=== PATIENT | male | born 2000 | race Caucasian/White ===

== ENCOUNTER 2018-11-03 16:34 | Emergency (ER) | payer SELFPAY ==
[2018-11-03 16:35] VITALS: BP 127/77; PULSE 91; RESP 17; TEMP 36.7; O2SAT 100; BMI 22.1
--- NOTE | 2018-11-03 16:44 | ED.VISSUMM ---
- ER Visit Summary Date of Service: 11/03/18 Chief Complaint: Headache History of Present Illness: The patient is a 18 M who presents with headaches that have been more frequent over the past 4 days. Patient describes the pain is sharp and stabbing. Patient states the pain comes and goes. Patient states the pain is in no specific area of his head. Patient states nothing makes pain better or worse. Patient does admit to some episodes of confusion and forgetfulness. Patient states he has been feeling fatigued as well. Patient also admits to some lightheadedness and dizziness. Patient admits to some nausea but denies any vomiting. Patient states he does have a family history of brain cancer and is concerned about that. Physical Examination: Vital signs are stable. Patient is afebrile. Patient is in no acute distress. Pupils are equal, round, and reactive to light bilaterally. Extraocular muscles are intact. Funduscopic examination is benign bilaterally. Oral mucosa is pink and moist. Neck is supple. Trachea is midline. There is no JVD noted. Heart was regular rate and rhythm. Lungs are clear and equal bilateral. Abdomen is soft. Bowel sounds are normal. There is no tenderness. There is no guarding noted. Skin is warm dry. Cranial nerves II through XII are intact. There are no focal motor or sensory deficits noted. The remaining physical exam is within normal limits. Test Results: CT scan of the brain was obtained and was negative. CBC and comprehensive metabolic profile were within normal limits. Emergency Department Course and Treatment: Patient was given IV fluids, Reglan, and Benadryl. Patient felt better on reevaluation. Patient was instructed to follow-up with his primary care physician and neurologist in 5-7 days. Patient understood and was agreeable with the plan. All questions were answered. Disposition: Discharge home Impression: Headache This note was generated with [employer] dictation software. It may contain incorrect words, spelling, and punctuation that were not noted in review of the chart prior to signing ED Disposition - Plan for ED Patient: Disposition: Home or Assisted Living Chief Complaint: Weakness Diagnosis: Headache Instructions: ED Cephalgia Unspecified Referrals: Care Physician,No Primary [Primary Care Provider] -
--- NOTE | 2018-11-03 16:50 | ED.DCSUM_ITS ---
- ER Visit Summary Date of Service: 11/03/18 Chief Complaint: Headache History of Present Illness: The patient is a 18 M who presents with headaches that have been more frequent over the past 4 days. Patient describes the pain is sharp and stabbing. Patient states the pain comes and goes. Patient states the pain is in no specific area of his head. Patient states nothing makes pain better or worse. Patient does admit to some episodes of confusion and forgetfulness. Patient states he has been feeling fatigued as well. Patient also admits to some lightheadedness and dizziness. Patient admits to some nausea but denies any vomiting. Patient states he does have a family history of brain cancer and is concerned about that. Physical Examination: Vital signs are stable. Patient is afebrile. Patient is in no acute distress. Pupils are equal, round, and reactive to light b ilaterally. Extraocular muscles are intact. Funduscopic examination is benign bilaterally. Oral mucosa is pink and moist. Neck is supple. Trachea is midline. There is no JVD noted. Heart was regular rate and rhythm. Lungs are clear and equal bilateral. Abdomen is soft. Bowel sounds are normal. There is no tenderness. There is no guarding noted. Skin is warm dry. Cranial nerves II through XII are intact. There are no focal motor or sensory deficits noted. The remaining physical exam is within normal limits. Test Results: CT scan of the brain was obtained and was negative. CBC and comprehensive metabolic profile were within normal limits. Emergency Department Course and Treatment: Patient was given IV fluids, Reglan, and Benadryl. Patient felt better on reevaluation. Patient was instructed to follow-up with his primary care physician and neurologist in 5-7 days. Patient understood and was agreeable with the plan. All questions were answered. Disposition: Discharge home Impression: Headache This note was generated with [employer] dictation software. It may contain incorrect words, spelling, and punctuation that were not noted in review of the chart prior to signing ED Disposition - Plan for ED Patient: Disposition: Home or Assisted Living Chief Complaint: Weakness Diagnosis: Headache Instructions: ED Cephalgia Unspecified Referrals: Care Physician,No Primary [Primary Care Provider] -
--- NOTE | 2018-11-03 16:50 | CT_ITS ---
STUDY: CT BRAIN WITHOUT CONTRAST REASON FOR EXAM: Male, 18 years old. Headaches, weakness RADIATION DOSAGE (If Supplied By Facility): CTDIvol = ( 44.99 ) mGy, DLP = ( 779.24 ) mGycm TECHNIQUE: Transaxial CT imaging of the brain was performed without administration of intravenous contrast material. Individualized dose optimization techniques were used for this CT. COMPARISON: None. FINDINGS: Normal soft tissue structures. Normal calvarium. Normal size ventricles and extra-axial spaces for the patient's age. Normal white matter tracts of the cerebral hemispheres. Normal basal ganglia and thalami. Normal brainstem. Normal cerebellum. There is no intracranial hemorrhage. There are no findings of an acute ischemic infarction. Normal visualized paranasal sinuses. CT/Brain/Head without Contrast IMPRESSION: Normal unenhanced CT scan of the brain. Electronically Signed: Agustin García MD at 17:35 EST , Service support ,
[2018-11-03] MEDS: Metoclopramide 10 MG/2 ML Vial IV (17:06)
[2018-11-03] MEDS: DiphenhydrAMINE 50 MG/ML Syringe 25 MG IV (17:07)
[2018-11-03] MEDS: 0.9% Normal Saline 1,000 ML 1000 ML IV (17:07)
[2018-11-03 17:15] LABS: Absolute Lymphocyte Count 1.26 X10^3/ul (0.83-4.51); Absolute Neutrophil Count 3.2 X10^3/uL (2.0-7.7); Basophil# 0.01 X10^3/uL; Basophil% 0.2 % (0-1); Eosinophil# 0.09 X10^3/uL; Eosinophils% 1.8 % (0-5); Hematocrit 44.9 % (40-54); Hemoglobin 15.1 g/dl (13.0-16.5); Lymphocyte # 1.26 X10^3/ul (4.0); Lymphocyte % 25.5 % (19-41); Mean Corp Hgb Conc 33.6 g/gl (32-36); Mean Corpuscular Hgb 29.2 pg (27.0-32.0); Mean Corpuscular Volume 86.7 fL (80-94); Monocyte# 0.39 X10^3/uL; Monocyte% 7.9 % (0-10); Neutrophil % 64.6 % (47-70); Platelet Count 191 K/mm3 (150-450); RBC Distribution Width SD 37.7 fl (35.1-43.9); Red Blood Count 5.18 M/mm3 (4.6-6.2)
[2018-11-03 17:23] LABS: POSITIVE COUNT NO; POSITIVE DIFFERENTIAL NO; POSITIVE MORPHOLOGY NO
[2018-11-03 17:27] LABS: ALB/GLOB Ratio 1.4 RATIO (0.9-2.4); AST(SGOT) 14 U/L (15-37); Alanine Aminotransfer ALT/SGPT 33 U/L (16-61); Albumin, Serum 4.4 g/dL (3.2-5.0); Alkaline Phosphatase 87 U/L (45-117); Anion Gap 9 (5-15); BUN 11 mg/dL (7-18); BUN/Creat Ratio 11.5 RATIO (10-20); Calcium,Total 9.2 mg/dL (8.5-10.1); Chloride 103 mmol/L (98-107); Creatinine, Serum 0.96 mg/dL (0.70-1.30); EST Glomerular Filtration Rate 107 mL/min (>60); Est Glom Filt Rate - Afr Amer 129 mL/min (>60); Estimated Creatinine Clearance 111.11 ml/min; Globulin 3.1 g/dL (2.2-4.2); Glucose 124 mg/dL (74-106); Potassium 3.7 mmol/L (3.5-5.1); Protein, Total 7.5 g/dL (6.4-8.2); Sodium Level 141 mmol/L (136-145)
[2018-11-03 18:54] VITALS: BP 130/72; PULSE 80; RESP 18; O2SAT 98
== END 2018-11-03 18:55 | disposition home or self-care (01) ==
PROVIDERS: Emergency Provider Emergency Medicine
DX: R51 Headache (principal); R53.1 Weakness; M54.2 Cervicalgia; R11.0 Nausea; H53.8 Other visual disturbances; J34.89 Other specified disorders of nose and nasal sinuses; F95.2 Tourette's disorder; Z80.8 Family history of malignant neoplasm of other organs or systems
CPT/HCPCS: 70450; 80053; 85025; 96361; 96374; 96375; 99283; J7030; A4216

== ENCOUNTER 2020-02-03 22:10 | Emergency (ER) | payer MEDICAID, SELFPAY ==
[2020-02-03 22:11] VITALS: BP 143/98; PULSE 92; RESP 16; TEMP 36.6; O2SAT 98; BMI 18.2
--- NOTE | 2020-02-03 22:45 | ED.VISSUMM ---
- ER Visit Summary Date of Service: 02/03/20 Chief Complaint: Dental pain History of Present Illness: The patient is a 19 M with no primary care physician. Reports he goes to the [facility] for his dentistry. States that he has pain in the right mandible that began 2 days ago. Is gradually gotten worse. Is a throbbing, aching pain is 10-10 severity. Is worsened by talking and eating. He is taken ibuprofen without relief. Does report he is got swelling to his jaw. He denies any constitutional symptoms. No fever, chills, nausea, or vomiting. Physical Examination: Vitals: Stable. Afebrile. Mouth: No trismus. No edema of the floor of the mouth. Pain with percussion of right mandibular second and third molars. The third molar is impacted. There is no focal abscess. He does have mild soft tissue swelling to the right mandibular region. General: A&O x 3. NAD. Cardiovascular exam: Regular rate and rhythm, no murmur, rub or gallop. Respiratory exam: Clear to auscultation bilaterally. No wheezes or stridor. Abdominal exam: Soft, nontender, nondistended, normal bowel sounds. No peritoneal signs. Extremity: No clubbing, cyanosis, or edema. Emergency Department Course and Treatment: I discussed with the patient that this may be from his impacted wisdom tooth. However, I cannot rule out infection. He was given Tylenol and penicillin here. Treatment Plan: Patient be discharged with penicillin, naproxen, and 10 [place]. Instructed to follow-up with the [facility] as soon as possible. Return to the emergency department for any worsening symptoms. Disposition: To home in improved and stable condition. Impression: 1. Dental pain. This note was generated with [employer] dictation software. It may contain incorrect words, spelling, and punctuation that were not noted in review of the chart prior to signing ED Disposition - Plan for ED Patient: Disposition: Home or Assisted Living Instructions: ED Tooth Pain Prescriptions: Naproxen [Naprosyn] 500 mg PO BID #14 tab Prescription Printed Hydrocodone Bitart/Apap 5-325 [[place] 5MG-325MG] 1 tab PO Q4H PRN PRN 2 Days #10 tab PRN Reason: Pain Prescription Printed Penicillin V Potassium 500 mg PO 4X/DAY #40 tab Prescription Printed Omeprazole [Prilosec] 20 mg PO DAILY #30 cap Prescription Printed Referrals: Stacey Villaseñor [NON-STAFF] - As soon as possible
[2020-02-03] MEDS: Acetaminophen 500 MG Tablet 1000 MG PO (22:49)
[2020-02-03] MEDS: Penicillin Vk 250 MG Tablet 500 MG PO (22:49)
== END 2020-02-03 23:16 | disposition home or self-care (01) ==
PROVIDERS: Emergency Provider Emergency Medicine
DX: K08.89 Other specified disorders of teeth and supporting structures (principal)
CPT/HCPCS: 99285

== ENCOUNTER 2020-03-19 15:29 | Emergency (ER) | payer MEDICAID, SELFPAY ==
[2020-03-19 15:29] VITALS: BP 132/92; PULSE 85; RESP 16; TEMP 36.6; O2SAT 97; BMI 21.4
--- NOTE | 2020-03-19 15:42 | ED.DCSUM_ITS ---
History of Present Illness Chief Complaint: Burn Detail of Chief Complaint: Left index finger Informant: Patient Onset: Today Current Severity: Moderate Maximum Severity: Moderate Narrative: Patient presents with burn to the left index finger after picking a higuera up off the stove. Area is blistered but is not open at this time. Past Medical History - Allergies and Home Meds Allergies/Adverse Reactions: Allergies No Known Allergies Allergy (Verified 03/19/20 15:30) Primary Care Physician: Shane Victoira MD [STAFF PHYSICIAN] - As Needed Prior records reviewed: Yes Smoking Status: Never smoker Review of Systems General: Denies: Chills, Fever Eyes: Denies: Visual changes - bilaterally ENT: Denies: Bilateral ear pain Cardiovascular: Denies: Chest pain Respiratory: Denies: Dyspnea, Cough Gastrointestinal: Denies: Abdominal pain, Nausea, Vomiting, Diarrhea Skin: Reports: Wounds Hematologic: Denies: Easy bruising, Easy bleeding Allergy: Denies: Uticaria Physical Exam Vital Signs/Narrative: Vital Signs Temp Pulse Resp BP Pulse Ox 03/19/20 15:29 97.8 F 85 16 132/92 H 97 Inital Vital Signs reviewed: Yes General: Well nourished, Well developed ENT: Moist mucous membranes Neck: Supple Cardiovascular: Regular rate, Regular rhythm Respiratory: No distress, CTA bilaterally Abdomen: Soft, Nontender Extremities: - - 1 x 4 cm second-degree burn to the left index finger. Full range of motion is noted. Wound is not circumferential. Skin: - - Second-degree burn as above Neurological: Alert, Oriented x3 Psychological: Normal affect Diagnostic/Tx/Re-eval - Medical Decision Making Wound is cleansed. Silvadene cream and dressing will be applied. He will change dressing daily. He will begin a prescription for [place] to help with pain at home. He is given work restrictions for the next week with limited use of left hand. ED Disposition - Plan for ED Patient: Disposition: Home or Assisted Living Diagnosis: Second degree burn of left hand Instructions: ED First- and Second-[facility] Prescriptions: Hydrocodone Bitart/Apap 5-325 [[place] 5MG-325MG] 1 tablet PO Q6H PRN PRN 3 Days #10 tablet PRN Reason: Pain Transmission Status: Sent to [facility] #30 Referrals: Shane Victoria MD [STAFF PHYSICIAN] - As Needed
[2020-03-19] MEDS: Silver Sulfadiazine 1% Crm 50 gm Bottle 1 APPLIC TOPICAL (16:09)
[2020-03-19 16:11] VITALS: BP 122/74; PULSE 71; RESP 17; O2SAT 99
== END 2020-03-19 16:11 | disposition home or self-care (01) ==
PROVIDERS: Emergency Provider Emergency Medicine
DX: T23.202A Burn of second degree of left hand, unspecified site, initial encounter (principal); T23.022A Burn of unspecified degree of single left finger (nail) except thumb, initial encounter; X08.8XXA Exposure to other specified smoke, fire and flames, initial encounter; Y93.9 Activity, unspecified; Y92.89 Other specified places as the place of occurrence of the external cause; Y99.9 Unspecified external cause status
CPT/HCPCS: 99282

== ENCOUNTER 2020-05-13 17:28 | Emergency (ER) | payer MEDICAID, SELFPAY ==
[2020-05-13 17:29] VITALS: BP 136/86; PULSE 87; RESP 16; TEMP 36.9; O2SAT 99; BMI 19.3
--- NOTE | 2020-05-13 18:09 | ED.VIS.CHEST ---
History of Present Illness Chief Complaint: Chest Pain Informant: Patient Onset: - - multiple years, worse in past 3 days, almost constant Timing: Intermittent Quality: Sharp Location: - - bilat, seems to jump around Current Severity: Gone Maximum Severity: Moderate Worsened By: Nothing. Not Worsened By: Movement of Arm, Breathing, Coughing Relieved By: Nothing - in particular, other than puffs from 's albuterol MDI once Associated Symptoms: Negative for: Nausea, Vomiting, Diaphoresis, Dyspnea, Cough, Fever, Lightheadedness, Palpitations Narrative: Patient states he has been having this intermittent sharp chest discomfort for years but it is worse in the last 3 days. It is the same however. He has no PCP. He states he has Tourette's syndrome and so saw neurology, he was seen in the ER for abdominal pain multiple times he states, and as a result was referred to GI, they put him on some prescriptions 6 or 7 months ago that he admits he stopped taking a long time ago, he started taking them this morning but he has no idea what they are, because he has had increase in upper abdominal pain lately in addition to this chest discomfort, in addition to his anxiety being out of control in the last several days. He denies any wheezing or shortness of breath. No leg pain or swelling. No recent long travel or hospitalization. He does not use any IV drugs. No systemic symptoms, lightheadedness, palpitations. - Past Medical History (1) Anxiety Status: Chronic (2) Tourette syndrome Status: Chronic Past Medical History - Allergies and Home Meds Allergies/Adverse Reactions: Allergies No Known Allergies Allergy (Verified 05/13/20 17:29) Primary Care Physician: Care Physician,No Primary [Primary Care Provider] - Lives: Spouse/ Significant Other Smoking Status: Never smoker Review of Systems General: Denies: Chills, Fever, Sweats Eyes: Denies: Visual changes - bilaterally, Diplopia ENT: Denies: Rhinorrhea, Sore throat Cardiovascular: Reports: Chest pain. Denies: Palpitations Respiratory: Denies: Dyspnea, Cough, Dyspnea on exertion Gastrointestinal: Reports: Abdominal pain - Not currently present. Denies: Nausea, Vomiting, Diarrhea, Melena, Hematochezia Genitourinary: Denies: Dysuria, Hematuria, Frequency Musculoskeletal: Denies: Neck pain, Back pain, Swelling, Extremity Pain Skin: Denies: Rash, Wounds Neurological: Denies: Headache, Weakness, Numbness Physical Exam Vital Signs/Narrative: Vital Signs Temp Pulse Resp BP Pulse Ox 05/13/20 17:29 98.4 F 87 16 136/86 H 99 Inital Vital Signs reviewed: Yes General: Well nourished, Well developed, No Acute Distress - Conversive in full sentences, no distress Head: Normocephalic, Atraumatic Eyes: Perrl, EOMI ENT: Moist mucous membranes, No rhinorrhea Neck: Supple, Nontender Cardiovascular: Regular rate, Regular rhythm, No murmurs Respiratory: No distress, CTA bilaterally, Chest nontender Abdomen: Soft, Nontender, Nondistended, Normal bowel sounds Back: Nontender, Normal Inspection Extremities: Nontender, No edema. Negative for: Calf Tenderness Skin: Normal color, No rash, No Trauma Neurological: Alert, Oriented x3, Cranial nerves II-XII grossly intact, Normal Strength, Normal Sensation, Normal Gait Psychological: Normal affect, Normal Mood Diagnostic/Tx/Re-eval - Rhythm Strip Rhythm Strip: Sinus Rhythm Rate: 85 Ectopy: None - EKG Initial EKG Interpretation: Sinus Rhythm, No Acute Injury Pattern - Normal EKG. Normal axis. - Medical Decision Making At this time patient has no chest or abdominal discomfort. His vital signs are normal, his PERC score is 0, he had work-up for the same symptoms when he was here in 2017 that was normal including EKG, troponin, d-dimer. I do not think he needs any of that repeated emergently. I discussed with him what the emergency department is for, and that I can confirm that he does not have an emergent medical condition at this time based on my evaluation. He understands and is in agreement with that, and I offered him a prescription for omeprazole as well as a dose here, and a PCP to follow-up with. He was pleasant and agreeable to all of this. My suspicion is that this is GI in etiology, and probably related to his undetermined abdominal discomfort. His abdomen is very benign today, and he is discharged stable condition. ED Disposition - Plan for ED Patient: Disposition: Home or Assisted Living Diagnosis: Atypical chest pain Instructions: ED Chest Pain NonCardiac Prescriptions: Omeprazole 1 cap PO DAILY 30 Days #30 capsule. Transmission Status: Pending to [facility] #30 Referrals: Rupal Zepeda MD [STAFF PHYSICIAN] - (call for appt)
[2020-05-13 18:18] VITALS: BP 128/87; PULSE 86; RESP 16; O2SAT 96
--- NOTE | 2020-05-13 18:18 | EKG12_ITS ---
Test Reason : CP Blood Pressure : / mmHG Vent. Rate : 085 BPM Atrial Rate : 085 BPM P-R Int : 130 ms QRS Dur : 096 ms QT Int : 396 ms P-R-T Axes : 035 060 056 degrees QTc Int : 471 ms Normal sinus rhythm Normal ECG Confirmed by NICOLA BISHOP, JEREMY ([id number]), features editor JOIE ÁLVAREZ ([id number]) on 05/16/2020 1:06:40 PM Referred By: Confirmed By:JEREMY PETERSEN MD
[2020-05-13] MEDS: Pantoprazole Sodium 40 MG Tablet PO (18:20)
[2020-05-13] MEDS: Dicyclomine 10 MG Capsule 20 MG PO (18:20)
[2020-05-13 18:23] VITALS: BP 128/87; PULSE 86; RESP 16; O2SAT 96
== END 2020-05-13 18:25 | disposition home or self-care (01) ==
LOC: ED 18:19
PROVIDERS: Emergency Provider Emergency Medicine
DX: R07.89 Other chest pain (principal); F41.9 Anxiety disorder, unspecified; F95.2 Tourette's disorder
CPT/HCPCS: 93005; 99283; A4216

== ENCOUNTER 2020-11-03 13:03 | Emergency (ER) | payer MEDICAID, SELFPAY ==
[2020-11-03 13:03] VITALS: BP 143/86; PULSE 97; RESP 18; TEMP 36.6; O2SAT 96; BMI 25.0
--- NOTE | 2020-11-03 13:25 | EKG12_ITS ---
Test Reason : CP Blood Pressure : / mmHG Vent. Rate : 088 BPM Atrial Rate : 088 BPM P-R Int : 132 ms QRS Dur : 092 ms QT Int : 376 ms P-R-T Axes : 037 053 055 degrees QTc Int : 454 ms Normal sinus rhythm Normal ECG Confirmed by NICOLA BISHOP, JEREMY ([id number]), editor newspaper JOIE ÁLVAREZ ([id number]) on 11/09/2020 6:15:43 AM Referred By: SABIHA Confirmed By:JEREMY PETERSEN MD
--- NOTE | 2020-11-03 13:26 | ED.DCSUM_ITS ---
History of Present Illness Chief Complaint: Chest Pain Informant: Patient Onset: Today Context: Sudden Onset Current Severity: Moderate Maximum Severity: Moderate Narrative: Patient present secondary to chest pain and shortness of breath. He states he was sitting and playing a game when he developed sudden onset left lateral chest wall pain as he stood up. He states he can only take a very shallow breath without pain. He states he has had similar pain in the past but usually it would only last a few seconds. This has been ongoing for the last half hour. - Past Medical History (1) Anxiety Status: Chronic (2) Tourette syndrome Status: Chronic Past Medical History - Allergies and Home Meds Allergies/Adverse Reactions: Allergies No Known Allergies Allergy (Verified 11/03/20 13:06) Primary Care Physician: Care Physician,No Primary [NON-STAFF] - Prior records reviewed: Yes Lives: Spouse/ Significant Other Smoking Status: Never smoker Review of Systems General: Denies: Chills, Fever Eyes: Denies: Visual changes - bilaterally ENT: Denies: Bilateral ear pain Cardiovascular: Reports: Chest pain Respiratory: Reports: Dyspnea. Denies: Cough Gastrointestinal: Denies: Abdominal pain, Nausea, Vomiting, Diarrhea Genitourinary: Denies: Dysuria Musculoskeletal: Denies: Extremity Pain Skin: Denies: Rash Neurological: Denies: Headache Hematologic: Denies: Easy bruising, Easy bleeding Allergy: Denies: Uticaria Physical Exam Vital Signs/Narrative: Vital Signs Temp Pulse Resp BP Pulse Ox 11/03/20 13:03 97.9 F 97 18 143/86 H 96 Inital Vital Signs reviewed: Yes General: Well nourished, Well developed Head: Normocephalic ENT: Moist mucous membranes Neck: Supple Cardiovascular: Regular rate, Regular rhythm Respiratory: No distress, CTA bilaterally, Chest tenderness - Left lateral chest wall tenderness. No crepitus. Abdomen: Soft, Nontender Extremities: Nontender Skin: Normal color Neurological: Alert, Oriented x3, Normal Strength, Normal Sensation Psychological: Normal affect Diagnostic/Tx/Re-eval Chest X-Ray - ED: 2 View, Read by ED Physician, Normal, Heart, Lungs, Mediastinum Impressions Chest X-Ray 11/03/20 14:15 IMPRESSION: Normal x-ray examination of the chest. Electronically Signed: Jacinto Arevalo, at 15:02 EST , Service support , 11/03/20 14:15 Chest PA and Lateral [RAD] Stat Laboratory Results 11/03/20 11/03/20 11/03/20 13:30 13:30 13:30 WBC 6.2 RBC 5.58 Hgb 16.3 Hct 48.7 MCV 87.3 MCH 29.2 MCHC 33.5 RDW Std Deviation 36.5 RDW Coeff of Divine 11.3 L Plt Count 184 MPV 10.0 Immature Gran % (Auto) 0.200 Neut % (Auto) 67.9 Lymph % (Auto) 22.0 [place] % (Auto) 6.0 Eos % (Auto) 3.6 Baso % (Auto) 0.3 Absolute Neuts (auto) 4.2 Absolute Lymphs (auto) 1.36 Nucleated RBC % 0 D-Dimer Quant (PE/DVT) <= 0.27 Sodium 138 Potassium 3.8 Chloride 106 Carbon Dioxide 28.0 Anion Gap 4 L BUN 16 Creatinine 0.99 Estim Creat Clear Calc 105.62 Est GFR (MDRD) Af Amer 121 Est GFR (MDRD) Non-Af 100 BUN/Creatinine Ratio 16.1 Glucose 114 H Calcium 9.5 Troponin I < 0.015 - EKG Initial EKG Interpretation: Sinus Rhythm - Sinus at 88 with no acute ischemia. - Medical Decision Making Patient observed on surveillance system monitor throughout ED stay. No arrhythmias noted. Patient was given Toradol and Solu-Medrol. Two-view chest x-ray per my interpretation reveals no acute findings. Blood work including D-dimer and troponin are negative. On repeat evaluation patient is resting comfortably with only minimal pain. Patient will be given anti-inflammatories for home. He is given return instructions. ED Disposition - Plan for ED Patient: Disposition: Home or Assisted Living Diagnosis: Chest wall pain Instructions: ED Chest Wall Pain, Costochondritis Prescriptions: Naproxen [Naprosyn] 500 mg PO BID PRN PRN #20 tab PRN Reason: Pain Score 4-10 Transmission Status: Pending to [facility] #30 Referrals: Mark Moreno DO [STAFF PHYSICIAN] - 1-2 Weeks
[2020-11-03 13:30] VITALS: BP 143/86; PULSE 85; PULSE 97; RESP 18; TEMP 36.6; O2SAT 96
[2020-11-03 13:42] LABS: Absolute Lymphocyte Count 1.36 X10^3/uL (0.83-4.51); Absolute Neutrophil Count 4.2 X10^3/uL (2.0-7.7); Basophil# 0.02 X10^3/uL; Basophil% 0.3 % (0-1); Eosinophil# 0.22 X10^3/uL; Eosinophils% 3.6 % (0-5); Hematocrit 48.7 % (40-54); Hemoglobin 16.3 g/dL (13.0-16.5); Lymphocyte # 1.36 X10^3/ul (4.0); Mean Corp Hgb Conc 33.5 g/dL (32-36); Mean Corpuscular Hgb 29.2 pg (27.0-32.0); Mean Corpuscular Volume 87.3 fL (80-94); Monocyte# 0.37 X10^3/uL; NRBC Flagged by Analyzer 0 % (0-5); Neutrophil # 4.21 X10^3/uL (2.7-7.7); Neutrophil % 67.9 % (47-70); Platelet Count 184 K/mm3 (150-450); RBC Distribution Width CV 11.3 % (11.6-14.6); RBC Distribution Width SD 36.5 fl (35.1-43.9); Red Blood Count 5.58 M/mm3 (4.6-6.2); White Blood Count 6.2 K/mm3 (4.4-11.0)
[2020-11-03 13:55] LABS: D-Dimer Quantitative (DVT/PE) <= 0.27 FEU/ug/m (0.27-0.49)
[2020-11-03 13:57] LABS: Anion Gap 4 (5-15); BUN 16 mg/dL (7-18); BUN/Creat Ratio 16.1 RATIO (10-20); Calcium,Total 9.5 mg/dL (8.5-10.1); Chloride 106 mmol/L (98-107); Creatinine, Serum 0.99 mg/dL (0.70-1.30); EST Glomerular Filtration Rate 100 mL/min (>60); Est Glom Filt Rate - Afr Amer 121 mL/min (>60); Estimated Creatinine Clearance 105.62 ml/min; Glucose 114 mg/dL (74-106); Potassium 3.8 mmol/L (3.5-5.1); Sodium Level 138 mmol/L (136-145)
[2020-11-03] MEDS: Ketorolac 30 MG/ML Syringe IV (14:11)
[2020-11-03] MEDS: MethylPREDNISolone 125 MG/2 ML Vial 80 MG IV (14:11)
--- NOTE | 2020-11-03 14:15 | RAD_ITS ---
STUDY: X-RAY CHEST REASON FOR EXAM: Male, 20 years old. CHEST PAIN TECHNIQUE: PA and lateral views of the chest. COMPARISON: Comparison is made with prior study dated 08/07/2017. FINDINGS: The lungs are clear and expanded. There is no demonstrated pleural abnormality. Normal size heart. Normal mediastinum and nacho. Normal visualized pulmonary arteries. Normal visualized aortic arch and descending thoracic aorta. Normal visualized thoracic spine. Normal visualized ribs, clavicles, and shoulders. There is no demonstrated abnormality of the visualized soft tissue structures of the upper abdomen. RAD/Chest PA and Lateral IMPRESSION: Normal x-ray examination of the chest. Electronically Signed: Jacinto Arevalo, at 15:02 EST , Service support ,
[2020-11-03 16:05] VITALS: BP 138/79; PULSE 87; RESP 16; O2SAT 99
== END 2020-11-03 16:10 | disposition home or self-care (01) ==
PROVIDERS: Emergency Provider Emergency Medicine; PCP Internal Medicine
DX: R07.89 Other chest pain (principal)
CPT/HCPCS: 71046; 80048; 84484; 85025; 85379; 93005; 96374; 96375; 99284; A4216

== ENCOUNTER 2022-01-23 00:27 | Emergency (ER) | payer MEDICAID, SELFPAY ==
[2022-01-23 00:29] VITALS: BP 118/93; PULSE 82; RESP 14; TEMP 36.6; O2SAT 100; BMI 24.5
[2022-01-23 00:32] VITALS: O2SAT 98
--- NOTE | 2022-01-23 01:05 | RAD_ITS ---
INDICATION: cough EXAMINATION/TECHNIQUE: X-RAY - XR Chest 2 Views COMPARISON: 11/03/2020 FINDINGS: LINES/DEVICES: None. LUNGS: No consolidation, edema or effusion. No pneumothorax. MEDIASTINUM AND CARDIOVASCULAR STRUCTURES: Cardiac silhouette not enlarged. Central airways and mediastinal contour are unremarkable. BONES AND SOFT TISSUES: Unremarkable. RAD/Chest PA and Lateral IMPRESSION: No radiographic evidence of acute cardiopulmonary disease. Electronically Signed: Travis Leggett MD at 1:55 EDT ,
[2022-01-23] MEDS: Ipratropium/Albuterol Sulfate 3 ML AMPUL.NEB INHALATION (01:12)
[2022-01-23 01:14] VITALS: PULSE 77; RESP 16
[2022-01-23] MEDS: dexAMETHasone 10 MG/ML Vial PO.IVFORM (01:48)
--- NOTE | 2022-01-23 02:06 | EDS_ITS ---
HPI History of Present Illness Chief Complaint: Cough Narrative Narrative: Patient is a 21-year-old male who states that a few months ago he had Covid and Covid pneumonia. He states that over the past few days he has noticed congestion drainage and cough. He states that he now feels similar to the time he had pneumonia. He denies any history of smoking or vaping denies any need for supplemental oxygen. Patient also denies any known sick exposures and does not have concern for Covid at this time. However as he is concerned he has developed pneumonia once again he presents for evaluation [facility] Medical History (Updated 01/23/22 @ 02:[address] Willard Coon, DO) COVID Home Medications azelastine 2 spray INTRANASAL BID #30 ml 01/23/22 [Rx Last Taken Unknown] benzonatate 200 mg PO TID PRN #30 cap 01/23/22 [Rx Last Taken Unknown] prednisone 40 mg PO DAILY 7 Days #14 tab 01/23/22 [Rx Last Taken Unknown] Allergy/AdvReac Type Severity Reaction Status Date / Time No Known Allergies Allergy Verified 01/23/22 00:29 Social History Smoking Status: Never smoker [facility] ED Constitutional Constitutional ED: Denies chills or fever(s) ENT ENT ED: Reports rhinorrhea and sore throat Cardiovascular Cardiovascular: Denies chest pain Respiratory/Chest Respiratory/Chest: Reports cough and dyspnea Gastrointestinal Gastrointestinal: Denies abdominal pain, diarrhea, nausea or vomiting Genitourinary Genitourinary ED: Denies dysuria Musculoskeletal Musculoskeletal: Denies myalgias Integumentary Denies rash Neurologic Neurologic: Denies headache(s) Hematologic/Lymphatic Hematologic/Lymphatic: Denies easy bleeding or easy bruising EXAM Physical Exam Const Vital Signs: 01/23/22 00:29 01/23/22 00:32 01/23/22 01:14 Temperature 97.9 F Temperature Source Temporal Pulse Rate 82 77 Respiratory Rate 14 16 Respiratory Effort Non-Labored Blood Pressure 118/93 H Blood Pressure Mean 101 Pulse Ox 100 Oxygen Delivery Method Room Air Room Air Positive well nourished and well developed General Appearance ED: well developed HEENT Reports moist mucous membranes HEENT Narrative: Nasal mucosa is hyperemic and boggy with enlarged inferior nasal turbinates. There is cobblestoning the posterior pharynx consistent with sinus drainage but no airway edema or compromise Eyes PERRL and EOMs intact bilaterally Neck supple and no JVD Neck Narrative: Positive anterior cervical lymphadenopathy without crepitance Chest Wall palpation of chest normal Resp normal respiratory effort and clear to auscultation bilaterally Cardio regular rate and regular rhythm Extremity normal to inspection Extremity Narrative: No asymmetric edema no pitting edema negative Homans' sign bilaterally Neuro oriented x3 and CN's II-XII intact bilaterally Sensorium / Orientation: alert Motor Exam: strength 5/5 throughout Psych mental status grossly normal Skin no rashes or lesions noted MDM MDM MDM Narrative Medical decision making narrative: Patient presented to the ER afebrile in no acute respiratory distress and satting in the high 90s on room air. His constellation of symptoms are viral nature but with his history of pneumonia concern for this once again an x-ray was obtained. X-ray revealed no acute findings. On reevaluation patient remains resting comfortably with no acute respiratory distress. Therefore patient be placed on symptomatic medications and is otherwise safe for discharge Radiography Diagnostic Testing: Clinical Impression(s) from Imaging Studies Chest X-Ray 01/23/22 01:05 IMPRESSION: No radiographic evidence of acute cardiopulmonary disease. Electronically Signed: Travis Leggett MD at 1:55 EDT , Chest x-ray as interpreted by the emergency medicine physician reveals no acute infiltrate pneumothorax or pleural effusion Discharge Plan Triage Chief Complaint: Cough ED Provider: Willard Coon Dx/Rx/DC Orders Clinical Impression: Acute upper respiratory infection Instructions: ED URI, Viral, No Abx (Adult) Prescriptions: New prednisone 20 mg tablet 40 mg PO DAILY 7 Days Qty: 14 RF: 0 azelastine 137 mcg (0.1 %) aerosol,spray 2 spray intranasal BID Qty: 30 RF: 0 benzonatate 200 mg capsule 200 mg PO TID PRN (Reason: cough) Qty: 30 RF: 0 Primary Care Provider: Aaron Sarabia Referrals: Aaron Sarabia MD [Primary Care Provider] - Disposition Disposition: Home, Self Care Discharge Date/Time: 01/23/22 02:12
== END 2022-01-23 02:12 | disposition home or self-care (01) ==
PROVIDERS: Emergency Provider Emergency Medicine; PCP Internal Medicine; Visit Provider Emergency Medicine
DX: J06.9 Acute upper respiratory infection, unspecified (principal); Z86.16 Personal history of COVID-19
CPT/HCPCS: 71046; 94640; 99283

== ENCOUNTER 2022-02-02 12:14 | Emergency (ER) | payer MEDICAID, SELFPAY ==
[2022-02-02 12:15] VITALS: BP 114/76; PULSE 89; RESP 16; TEMP 36.2; O2SAT 98; BMI 25.8
--- NOTE | 2022-02-02 12:40 | EDS_ITS ---
HPI History of Present Illness Chief Complaint: Back Informant: patient Onset/Context/Timing Onset: Today Context: Sudden Onset Timing: Intermittent Quality: Sharp Location: Thoracic and Lumbar Worsened by: improves with - (Deep breathing) Relieved by: Nothing Associated Symptoms Associated Symptoms: Negative for Numbness, Tingling, Radiation to Right Leg, Radiation to Left Leg, Fever, Abdominal Pain, Dysuria, Unable to Ambulate, Un able to Transfer, Urinary Retention, Urinary Incontinence, Constipation and Fecal Incontinence Narrative Narrative: Patient presents with back pain that began today while he was at work. Patient states pain began rather suddenly. Patient describes pain as sharp and stabbing. Patient states the pain is over the lower thoracic and upper lumbar area. Patient states the pain is worse with deep breathing. Patient states that pain comes and goes. Patient denies any trauma or injury. Patient states he also has a history of prior back pain and GERD. Patient states he gets intermittent numbness and tingling with his back pain in the past. Currently, patient denies any paresthesias or weakness. Patient denies any abdominal pain currently. Patient denies any shortness of breath currently. [facility] Medical History (Updated 02/02/22 @ 16:[address] Shane Carias DO) COVID Hx of gastroesophageal reflux (GERD) Home Medications azelastine 2 spray INTRANASAL BID #30 ml 01/23/22 [Rx Last Taken Unknown] benzonatate 200 mg PO TID PRN #30 cap 01/23/22 [Rx Last Taken Unknown] prednisone 40 mg PO DAILY 7 Days #14 tab 01/23/22 [Rx Last Taken Unknown] Allergy/AdvReac Type Severity Reaction Status Date / Time No Known Allergies Allergy Verified 02/02/22 12:15 Surgical History Hx of tonsillectomy Social History Smoking Status: Never smoker ROS ROS ED Constitutional Constitutional ED: Denies chills or fever(s) Eyes Eyes: Denies blurry vision or change in vision ENT ENT ED: Denies rhinorrhea or sore throat Cardiovascular Cardiovascular: Reports chest pain; Denies palpitations Respiratory/Chest Respiratory/Chest: Denies cough or dyspnea Gastrointestinal Gastrointestinal: Denies nausea or vomiting Genitourinary Genitourinary ED: Denies dysuria or hematuria Musculoskeletal Musculoskeletal: Reports back pain; Denies neck pain Integumentary Denies abscess or rash Neurologic Neurologic: Reports headache(s); Denies weakness Allergic/Immunologic Allergic/Immunologic ED: Denies mouth swelling or urticaria EXAM Physical Exam Const Vital Signs: 02/02/22 12:15 Temperature 97.1 F L Temperature Source Temporal Pulse Rate 89 Respiratory Rate 16 Blood Pressure 114/76 Blood Pressure Mean 88 Pulse Ox 98 Oxygen Delivery Method Room Air Positive well nourished and well developed General Appearance ED: well developed and NAD HEENT Reports moist mucous membranes Neck supple and no JVD Resp normal respiratory effort and clear to auscultation bilaterally Cardio regular rate, regular rhythm and no murmurs GI normal to inspection, nondistended, normoactive bowel sounds, soft to palpation and non-tender Palpation: soft Back/Spine Back/Spine Narrative: There is tenderness over the left lower thoracic and upper lumbar paraspinal muscles. There is no midline tenderness. There is no bony crepitance or step-off. There is good range of motion of the thoracic and lumbar spine. There is also some mild left CVA tenderness. General Back: CVA tenderness left Extremity normal to inspection General Extremety ED: Negative for edema or tenderness General Extremity: Negative for edema Neuro oriented x3, CN's II-XII intact bilaterally and no sensory deficits noted Sensorium / Orientation: alert Motor Exam: strength 5/5 throughout Psych mental status grossly normal Skin no rashes or lesions noted MDM MDM MDM Narrative Medical decision making narrative: Patient was ordered IV fluids and Toradol. Patient declined the Toradol. CBC was within normal limits. Basic metabolic profile was normal. Urinalysis does not show any evidence of urinary tract infection or hematuria. CT scan of the abdomen pelvis was obtained. There is no evidence of obstructive uropathy. There is mesenteric adenitis in the right lower quadrant. Patient was advised of his findings. Patient was instructed to take Tylenol or ibuprofen as needed for pain. Patient was instructed to drink plenty of fluids. Patient was instructed to follow-up with his primary care physician in 5 to 7 days. Patient understood and was agreeable with the plan. All questions were answered. Lab Data Labs: Laboratory Results - last 24 hr 02/02/22 02/02/22 02/02/22 12:50 12:50 12:50 WBC 6.0 RBC 5.18 Hgb 15.4 Hct 45.4 MCV 87.6 MCH 29.7 MCHC 33.9 RDW Std Deviation 38.5 RDW Coeff of Divine 12.0 Plt Count 238 MPV 9.6 Immature Gran % (Auto) 0.800 Neut % (Auto) 63.6 Lymph % (Auto) 26.3 [place] % (Auto) 6.3 Eos % (Auto) 2.5 Baso % (Auto) 0.5 Absolute Neuts (auto) 3.8 Absolute Lymphs (auto) 1.59 Nucleated RBC % 0 Sodium 137 Potassium 4.1 Chloride 102 Carbon Dioxide 30.0 Anion Gap 5 BUN 11 Creatinine 0.90 Estim Creat Clear Calc 119.35 Est GFR (MDRD) Af Amer 134 Est GFR (MDRD) Non-Af 111 BUN/Creatinine Ratio 12.2 Glucose 104 Calcium 9.4 Urine Color Yellow Urine Clarity Clear Urine pH 8.0 Ur Specific [place] 1.015 Urine Protein Negative Urine Glucose (UA) Normal Urine Ketones Negative Urine Occult Blood Negative Urine Nitrite Negative Urine Bilirubin Negative Urine Urobilinogen Normal Ur Leukocyte Esterase Negative Urine RBC 0 SEEN Urine WBC 0 SEEN Ur Squamous Epith Cells 0 SEEN Urine Bacteria 0 SEEN Urine Mucus 0 SEEN Radiography Diagnostic Testing: Clinical Impression(s) from Imaging Studies Abdomen/Pelvis CT 02/02/22 12:44 IMPRESSION: Findings suggestive of mesenteric adenitis in the right lower quadrant. No obstructive uropathy is seen. Electronically Signed: Jacinto Arevalo MD at 13:16 EDT , Discharge Plan Triage Chief Complaint: Back ED Provider: Shane Carias Dx/Rx/DC Orders Clinical Impression: Acute left flank pain, Thoracic myofascial strain Instructions: ED Back Spasm, No Trauma, ED Flank Pain, Uncertain Cause Prescriptions: No Action prednisone 20 mg tablet 40 mg PO DAILY 7 Days Qty: 14 RF: 0 azelastine 137 mcg (0.1 %) aerosol,spray 2 spray intranasal BID Qty: 30 RF: 0 benzonatate 200 mg capsule 200 mg PO TID PRN (Reason: cough) Qty: 30 RF: 0 Primary Care Provider: Aaron Sarabia: Aaron Sarabia MD [Primary Care Provider] - 5-7 Days Disposition Disposition: Home, Self Care
--- NOTE | 2022-02-02 12:44 | CT_ITS ---
STUDY: CT ABDOMEN AND PELVIS WITHOUT CONTRAST REASON FOR EXAM: Male, 21 years old. Left flank pain RADIATION DOSAGE (If Supplied By Facility): CTDIvol = ( 6.13 ) mGy, DLP = ( 324.63 ) mGycm TECHNIQUE: Transaxial images were obtained from the dome of the diaphragm to the symphysis pubis without oral contrast, and without intravenous contrast. Sagittal and coronal images were reconstructed. Individualized dose optimization techniques were used for this CT. COMPARISON: Comparison is made with prior study dated 03/09/2016. FINDINGS: The visualized lung bases are unremarkable. The visualized portions of the heart are within normal limits. Normal liver. Normal gallbladder and extrahepatic biliary system. Normal spleen. Normal pancreas. Normal bilateral adrenal glands. Normal right kidney. Normal left kidney. Normal visualized stomach. Normal small intestine. Normal colon. The appendix is visualized and appears normal. Small lymph nodes are seen in the mesenteric fat in the right lower quadrant suggestive of mesenteric adenitis. Normal abdominal aorta. Normal inferior vena cava. Normal retroperitoneum. Normal urinary bladder. Normal abdominal wall. Normal osseous structures. CT/Abdomen/Pelvis without Cont IMPRESSION: Findings suggestive of mesenteric adenitis in the right lower quadrant. No obstructive uropathy is seen. Electronically Signed: Jacinto Arevalo MD at 13:16 EDT ,
[2022-02-02 13:00] LABS: Bacteria 0 SEEN /hpf (None Seen); Mucous, Urine 0 SEEN /hpf (<or=2+); Red Blood Cells-Urine 0 SEEN /hpf (0-5); Squamous Epithelial Cells - UA 0 SEEN /hpf (0-5); White Blood Cells 0 SEEN /hpf (0-5)
[2022-02-02 13:01] LABS: Color, Urine Yellow (Yellow); Glucose, Dipstick Normal (Normal); Ketone-Dipstick Negative (Negative); Leukocyte Esterase-Dipstick Negative /ul (Negative); Nitrite-Dipstick Negative (Negative); Occult Blood-Urine Negative /ul (Negative); Protein-Dipstick Negative (Negative); Specific Gravity, Urine 1.015 (1.002-1.030); Urine Bilirubin Dipstick Negative (Negative); Urine Clarity Clear (Clear); Urine Urobilinogen Normal (Normal)
[2022-02-02 13:03] LABS: Absolute Lymphocyte Count 1.59 X10^3/uL (0.83-4.51); Absolute Neutrophil Count 3.8 X10^3/uL (2.0-7.7); Basophil# 0.03 X10^3/uL; Basophil% 0.5 % (0-1); Eosinophil# 0.15 X10^3/uL; Eosinophils% 2.5 % (0-5); Hematocrit 45.4 % (40-54); Hemoglobin 15.4 g/dL (13.0-16.5); Lymphocyte # 1.59 X10^3/ul (0.83-4.51); Lymphocyte % 26.3 % (19-41); Mean Corp Hgb Conc 33.9 g/dL (32-36); Mean Corpuscular Hgb 29.7 pg (27.0-32.0); Mean Corpuscular Volume 87.6 fL (80-94); Mean Platelet Vol. 9.6 fl (6.2-12.0); Monocyte# 0.38 X10^3/uL; Monocyte% 6.3 % (0-10); NRBC Flagged by Analyzer 0 % (0-5); Neutrophil # 3.84 X10^3/uL (2.7-7.7); Neutrophil % 63.6 % (47-70); Platelet Count 238 K/mm3 (150-450); RBC Distribution Width SD 38.5 fl (35.1-43.9); Red Blood Count 5.18 M/mm3 (4.6-6.2)
[2022-02-02 13:28] LABS: Anion Gap 5 (5-15); BUN 11 mg/dL (7-18); BUN/Creat Ratio 12.2 RATIO (10-20); Calcium,Total 9.4 mg/dL (8.5-10.1); Chloride 102 mmol/L (98-107); EST Glomerular Filtration Rate 111 mL/min (>60); Est Glom Filt Rate - Afr Amer 134 mL/min (>60); Estimated Creatinine Clearance 119.35 ml/min; Glucose 104 mg/dL (74-106); Potassium 4.1 mmol/L (3.5-5.1); Sodium Level 137 mmol/L (136-145)
[2022-02-02 16:43] VITALS: PULSE 72; RESP 16; O2SAT 98
== END 2022-02-02 16:44 | disposition home or self-care (01) ==
PROVIDERS: Emergency Provider Emergency Medicine; PCP Internal Medicine; Visit Provider Emergency Medicine
DX: S29.019A Strain of muscle and tendon of unspecified wall of thorax, initial encounter (principal); I88.0 Nonspecific mesenteric lymphadenitis; R10.9 Unspecified abdominal pain; K21.9 Gastro-esophageal reflux disease without esophagitis; X58.XXXA Exposure to other specified factors, initial encounter; Y99.0 Civilian activity done for income or pay
CPT/HCPCS: 74176; 80048; 81001; 85025; 96361; 96374; 99283; A4216

== ENCOUNTER 2022-12-23 23:24 | Emergency (ER) | payer MEDICAID, SELFPAY ==
[2022-12-23 23:25] VITALS: BP 153/89; PULSE 82; RESP 16; TEMP 36; O2SAT 99; BMI 25.3
--- NOTE | 2022-12-23 23:51 | ED.VIS.LOWEX ---
HPI History of Present Illness Chief Complaint: Lower Extremity Injury Informant: patient Narrative Narrative: Patient noted a small lump on the outer part of his left leg when he touched it today. He does not know how long its been there. It does not hurt. He has no systemic symptoms. He denies any known trauma. He is concerned because his family has a history of cancer. No history of DVT or PE. PFSH PFS Medical History COVID Hx of gastroesophageal reflux (GERD) Home Medications omeprazole 20 mg capsule,delayed release 20 mg PO DAILY 12/23/22 [History Last Taken Unknown] Allergy/AdvReac Type Severity Reaction Status Date / Time No Known Allergies Allergy Verified 02/02/22 12:15 Surgical History Hx of tonsillectomy Social History Smoking Status: Never smoker ROS ROS ED Constitutional Constitutional ED: Denies chills or fever(s) ENT ENT ED: Denies sore throat Cardiovascular Cardiovascular: Denies palpitations Respiratory/Chest Respiratory/Chest: Denies cough or dyspnea Gastrointestinal Gastrointestinal: Denies nausea or vomiting Musculoskeletal Musculoskeletal: Denies back pain Integumentary Reports other Details: See history of present illness. Neurologic Neurologic: Denies paresthesias or weakness Hematologic/Lymphatic Hematologic/Lymphatic: Denies easy bleeding, easy bruising or lymphadenopathy Allergic/Immunologic Allergic/Immunologic ED: Denies urticaria EXAM Physical Exam Narrative Exam Narrative: Patient awake alert comfortable sitting in bed easily. To walk back from triage. He walks easily without a limp or difficulties. HEENT shows no pallor mucous membranes look moist. Neck shows free range of motion Cardiorespiratory breathing is easy unlabored with no audible wheezing Extremity: About midway down the thigh overlying the iliotibial band is a small area of increased tissue density. This is about 1 cm round. It is not at all red. It can be felt but is not actually raised above the skin. It is not tender. It is very mobile. This feels to be most consistent with either a small sebaceous cyst that is not infected or possibly even a lipoma. Const Vital Signs: 12/23/22 23:25 Temperature 96.8 F L Temperature Source Temporal Pulse Rate 82 Respiratory Rate 16 Blood Pressure 153/89 H Blood Pressure Mean 110 Pulse Ox 99 Oxygen Delivery Method Room Air MDM MDM MDM Narrative Medical decision making narrative: This is a very local area of soft tissue swelling. There is no indication for ultrasound or concern for DVT at this time. There are no deep veins in this area. There is no sign of infection. There is no indication for antibiotics. This is likely sebaceous cyst versus lipoma. Chance of cancer is exceedingly low. If it continues enlarges or starts bothering him I explained that he could have a biopsy or excision done but that is not something we do here. Patient then started talking about his white count. He had his white count checked recently and it was normal so he does not think he has cancer. I explained that white count does not necessarily go up or down with cancer it would depend what type of cancer leukemia he had. At this point he wanted discussion of how you can tell different types of cancer from the white count. At this point I explained that in the emergency department I cannot go into this discussion would be an extensive lengthy discussion and I have a patient in another room who is literally crashing and doing very poorly. I need to get back to care for this other patient. I apologize for cutting this discussion short but due to the safety of other patients that had to be done. He was understanding about this. Discharge Plan Triage Chief Complaint: Lower Extremity Injury ED Provider: Shaquille Hawkins Dx/Rx/DC Orders Clinical Impression: Soft tissue disorder, Lump of right thigh Instructions: ED Lipoma, ED Epidermoid Cyst, No Infection Prescriptions: No Action omeprazole 20 mg capsule,delayed release(DR/EC) 20 mg PO DAILY Label Comments: Take 2 capsules by mouth once daily. Primary Care Provider: Aaron Sarabia Referrals: Aaron Sarabia MD [Primary Care Provider] - Keep Albertina appointment Disposition Disposition: Home, Self Care Discharge Date/Time: 12/24/22 00:12
== END 2022-12-24 00:12 | disposition home or self-care (01) ==
LOC: ED 12-24 00:01
PROVIDERS: Emergency Provider Emergency Medicine; PCP Internal Medicine; Visit Provider Emergency Medicine
DX: M79.89 Other specified soft tissue disorders (principal); R22.41 Localized swelling, mass and lump, right lower limb; K21.9 Gastro-esophageal reflux disease without esophagitis; Z86.16 Personal history of COVID-19
CPT/HCPCS: 99282

== ENCOUNTER 2023-10-22 23:22 | Emergency (ER) | payer MEDICAID, SELFPAY ==
[2023-10-22 23:23] VITALS: BP 149/79; PULSE 103; RESP 15; TEMP 36.2; O2SAT 100; BMI 23.6
--- NOTE | 2023-10-22 23:43 | EX.ED.DYSGE1 ---
HPI History of Present Illness Chief Complaint: Ear Problem Informant: patient Onset/Context/Timing Onset: Days Narrative Narrative: Patient presents secondary to intermittent episodes of his ears turning red. He states over the past couple days he will have intermittent episodes of his ears turning red and feeling hot. He does not have any ear pain. He has no URI symptoms. He states symptoms will last anywhere from 30 minutes to an hour and a half and then resolved. Patient and his significant other are living in a van. He states obviously it is cold frequently. He is in and out of the cold but does have heated blanket as well as a small heater that he uses when working at his desk. He does state this ear redness seems to be when he is warm. He denies any new foods or medications. PFSH PFS Medical History COVID Hx of gastroesophageal reflux (GERD) Home Medications omeprazole 20 mg capsule,delayed release 20 mg PO DAILY 12/23/22 [History Last Taken Unknown] Allergy/AdvReac Type Severity Reaction Status Date / Time No Known Allergies Allergy Verified 10/22/23 23:27 Surgical History Hx of tonsillectomy Social History Smoking Status: Never smoker ROS ROS ED Constitutional Constitutional ED: Denies chills or fever(s) Eyes Eyes: Denies discharge from eye(s) ENT ENT ED: Denies discharge from eye(s), rhinorrhea or sore throat Cardiovascular Cardiovascular: Denies chest pain or palpitations Respiratory/Chest Respiratory/Chest: Denies cough or dyspnea Gastrointestinal Gastrointestinal: Denies abdominal pain, nausea or vomiting Musculoskeletal Musculoskeletal: Denies back pain or extremity pain Integumentary Denies Abrasions or rash Neurologic Neurologic: Denies headache(s) or weakness Psychiatric Psychiatric: Denies anxiety or depression Allergic/Immunologic Allergic/Immunologic ED: Denies lip swelling or urticaria EXAM Physical Exam Const Vital Signs: 10/22/23 23:23 Temperature 97.1 F L Temperature Source Temporal Pulse Rate 103 H Respiratory Rate 15 Blood Pressure 149/79 H Blood Pressure Mean 102 Pulse Ox 100 Oxygen Delivery Method Room Air Positive well nourished and well developed General Appearance ED: well developed HEENT Reports moist mucous membranes HEENT Narrative: TMs are clear bilaterally. Mild erythema to the right ear with no tenderness or edema. Eyes EOMs intact bilaterally Chest Wall inspection of chest normal and palpation of chest normal Resp normal respiratory effort and clear to auscultation bilaterally Cardio regular rate and regular rhythm GI non-tender Palpation: soft Extremity normal to inspection Neuro oriented x3 and no sensory deficits noted Motor Exam: strength 5/5 throughout Psych mental status grossly normal Skin no rashes or lesions noted MDM MDM MDM Narrative Medical decision making narrative: Patient denies any new medications or foods, but I did encourage him to keep a journal of when these episodes occur and when he last ate and what he ate. I do suspect that this may be secondary to temperature regulation. He states this tends to occur when he gets warm under his heated blanket after being in the cold majority of the day. I think this is his bodies way of vasodilation to help regulate temperature. He will continue to monitor his symptoms. Patient states that he had looked on the Internet and there was concern that this could be representation that he has cancer and was concerned so he came in. I advised him at this time I do not see any evidence of any acute illness. I do not know any of presentation of cancer that would present this way. He is comfortable with reassurance. Discharge Plan Triage Chief Complaint: Ear Problem ED Provider: Patys Shaw Dx/Rx/DC Orders Clinical Impression: Otalgia Instructions: ED Pain, Acute, Uncertain Cause Prescriptions: No Action omeprazole 20 mg capsule,delayed release(DR/EC) 20 mg PO DAILY Patient Comments: Take 2 capsules by mouth once daily. Primary Care Provider: Aaron Sarabia Referrals: Aaron Sarabia MD [Primary Care Provider] - As Needed Disposition Disposition: Home, Self Care
--- OUTSIDE RECORDS SUMMARY | 2023-10-22 23:46 | XMS RPT_ITS | CCD ---
Author Name Unknown Address [address] [place] [address] Organization [facility] Care Team Providers Care Enrollment Advisor Name Role Phone Bryant BISHOP, Aaron Blanton Primary Care Provider [phone] Unavailable Primary Care Provider Rafal Hurtado MD, Aaron Blanton Primary Care Provider [phone] AARON HURTADO Referring Unavailable BRYANT, AARON Blanton Referring Unavailable JORGE MAZARIEGOS Attending Unavailable BRYANT, AARON Blanton Primary Care Unavailable BRYANT, AARON Blanton Referring Unavailable EMILIE, JORGE Attending Unavailable BRYANT, AARON Blanton Primary Care Unavailable BRYANT, AARON Blanton Referring Unavailable EMILIE, JORGE Attending Unavailable EMILIE, JORGE Attending Unavailable BRYANT, AARON Blanton Referring Unavailable EMILIE, JORGE Attending Unavailable BRYANT, AARON Blanton Referring Unavailable HURTADO, AARON Blanton Referring Unavailable BRYANT, AARON Blanton Attending Unavailable BRYANT, AARON Blanton Primary Care Unavailable BRYANT, AARON Blanton Primary Care Unavailable BRYANT, AARON Blanton Attending Unavailable BRYANT, AARON Blanton Primary Care Unavailable OLDERKELL Referring Unavailable BRYANT, AARON Blanton Primary Care Unavailable OLDERKELL Attending Unavailable BRYANT, AARON Blanton Primary Care Unavailable Medications Current Medications Medication Drug Class(es) Dates Sig (Normalized) Sig (Original) cyclobenzaprine hydrochloride 10 mg oral tablet (1 source) Muscle Relaxant Start: 05-16-2022 End: 05-30-2022 take 1 tablet by mouth every eight hours as needed for muscle spasms cyclobenzaprine (FLEXERIL) 10 mg tablet Indications: Upper back pain on right side Take 1 tablet by mouth every 8 hours as needed for muscle spasm for up to 14 days. 30 tablet 0 05/16/2022 05/30/2022 Active Completed/Discontinued Medications Medication Drug Class(es) Dates Sig (Normalized) Sig (Original) loratadine 10 mg oral tablet (2 sources) Start: 09-13-2022 End: 02-08-2023 take 1 tablet by mouth once daily loratadine (CLARITIN) 10 mg tablet Take 1 tablet by mouth once daily. 30 tablet 11 09/13/2022 02/08/2023 Discontinued Problems Active Problems Problem Classification Problem Date Documented Da te Episodic/Chronic Abdominal pain (3 sources) Epigastric pain; Translations: [Epigastric pain] Episodic Attention-deficit, conduct, and disruptive behavior disorders (6 sources) Attention deficit hyperactivity disorder; Translations: [Attention-deficit hyperactivity disorder, unspecified type] Onset: 06-05-2016 Chronic Bacterial infection; unspecified site (2 sources) Chlamydial infection; Translations: [Chlamydial infection, unspecified] Episodic Esophageal disorders (9 sources) Gastroesophageal reflux disease; Translations: [Gastro-esophageal reflux disease without esophagitis] Onset: 3 Chronic Genitourinary symptoms and ill-defined conditions (1 source) Dysuria; Translations: [Dysuria] Onset: 3 Episodic Nausea and vomiting (2 sources) Nausea; Translations: [Nausea] Episodic Other gastrointestinal disorders (3 sources) Heartburn; Translations: [Heartburn] Episodic Other gastrointestinal disorders (2 sources) Abdominal bloating; Translations: [Abdominal distension (gaseous)] Episodic Other infections; including parasitic (1 source) History of chlamydial infection; Translations: [Personal history of other infectious and parasitic diseases] 06-05-2023 Episodic Other male genital disorders (1 source) Pain of right testicle; Translations: [Right testicular pain] 06-05-2023 Episodic Other upper respiratory infections (2 sources) Acute upper respiratory infection; Translations: [Acute upper respiratory infection, unspecified] Episodic Spondylosis; intervertebral disc disorders; other back problems (1 source) Backache; Translations: [Dorsalgia, unspecified] Episodic Past or Other Problems Problem Classification Problem Date Documented Date Episodic/Chronic Headache; including migraine (19 sources) Cervicogenic headache; Translations: [Cervicogenic headache] Onset: 09-07-2021 09-07-2021 Episodic Immunizations and screening for infectious disease (4 sources) Patient encounter status; Translations: [Encounter for screening for human immunodeficiency virus [HIV]] Onset: 02-08-2023 Episodic Substance-related disorders (6 sources) Marijuana user; Translations: [Cannabis use, unspecified, uncomplicated] Onset: 10-07-2020 10-07-2020 Episodic Results Test Name Value Interpretation Reference Range Facil ity Vital Signs Date Time Vital Sign Value Performing Clinician Gardenia mena 06-05-2023 15:57-0400 Body weight 66.68 kg Aaron Hurtado MD Work Phone: [facility] 06-05-2023 15:57-0400 Diastolic blood pressure 72 mm[Hg] Aaron Hurtado MD Work Phone: [facility] 06-05-2023 15:57-0400 Heart rate 84 /min Aaron Hurtado MD Work Phone: [facility] 06-05-2023 15:57-0400 Respiratory rate 18 /min Aaron Hurtado MD Work Phone: [facility] 06-05-2023 15:57-0400 Systolic blood pressure 112 mm[Hg] Aaron Hurtado MD Work Phone: [facility] 02-08-2023 10:48-0400 Body weight 68.95 kg Aaron Hurtado MD Work Phone: [facility] 02-08-2023 10:48-0400 Diastolic blood pressure 80 mm[Hg] Aaron Hurtado MD Work Phone: [facility] 02-08-2023 10:48-0400 Heart rate 92 /min Aaron Hurtado MD Work Phone: [facility] 02-08-2023 10:48-0400 Respiratory rate 16 /min Aaron Hurtado MD Work Phone: [facility] 02-08-2023 10:48-0400 Systolic blood pressure 116 mm[Hg] Aaron Hurtado MD Work Phone: [facility] 09-13-2022 10:01-0500 Body temperature 97 [degF] Chanelle Griffin APRN.CNP Work Phone: [facility] 09-13-2022 10:01-0500 Body weight 71.22 kg Chanelle Griffin APRN.RECOVERY COORDINATOR Work Phone: [facility] 09-13-2022 10:01-0500 Diastolic blood pressure 76 mm[Hg] Chanelle Griffin APRN.RECOVERY COORDINATOR Work Phone: [facility] 09-13-2022 10:01-0500 Heart rate 80 /min Chanelle Griffin APRN.RECOVERY COORDINATOR Work Phone: [facility] 09-13-2022 10:01-0500 Respiratory rate 21 /min Chanelle Griffin APRN.RECOVERY COORDINATOR Work Phone: [facility] 09-13-2022 10:01-0500 SaO2% (BldA) [Mass fraction] 99 % Chanelle Griffin APRN.RECOVERY COORDINATOR Work Phone: [facility] 09-13-2022 10:01-0500 Systolic blood pressure 122 mm[Hg] Chanelle Griffin APRN.RECOVERY COORDINATOR Work Phone: [facility] 05-16-2022 10:03-0400 Body temperature 97.2 [degF] Rafael Schmitt MD Work Phone: [facility] 05-16-2022 10:03-0400 Body weight 68.49 kg Rafael Schmitt MD Work Phone: [facility] 05-16-2022 10:03-0400 Diastolic blood pressure 68 mm[Hg] Rafael Schmitt MD Work Phone: [facility] 05-16-2022 10:03-0400 Heart rate 80 /min Rafael Schmitt MD Work Phone: [facility] 05-16-2022 10:03-0400 Respiratory rate 18 /min Rafael Schmitt MD Work Phone: [facility] 05-16-2022 10:03-0400 SaO2% (BldA) [Mass fraction] 98 % Rafael Schmitt MD Work Phone: [facility] 05-16-2022 10:03-0400 Systolic blood pressure 122 mm[Hg] Rafael Schmitt MD Work Phone: [facility] 02-13-2022 13:40-0400 Diastolic blood pressure 72 mm[Hg] Key Alvarado MD Work Phone: [facility] 02-13-2022 13:40-0400 Heart rate 72 /min Key Alvarado MD Work Phone: [facility] 02-13-2022 13:40-0400 Respiratory rate 16 /min Key Alvarado MD Work Phone: [facility] 02-13-2022 13:40-0400 Systolic blood pressure 111 mm[Hg] Key Alvarado MD Work Phone: [facility] 02-13-2022 13:18-0400 Body temperature 97.81 [degF] Key Alvarado MD Work Phone: [facility] 02-13-2022 13:18-0400 SaO2% (BldA) [Mass fraction] 95 % Key Alvarado MD Work Phone: [facility] 02-13-2022 12:44-0400 Body height 170.2 cm Key Alvarado MD Work Phone: [facility] 02-13-2022 12:44-0400 Body weight 72.58 kg Key Alvarado MD Work Phone: [facility] 01-18-2022 10:20-0400 Body temperature 98.01 [degF] Rafael Schmitt MD Work Phone: [facility] 01-18-2022 10:20-0400 Body weight 72.94 kg Rafael Schmitt MD Work Phone: [facility] 01-18-2022 10:20-0400 Diastolic blood pressure 76 mm[Hg] Rafael Schmitt MD Work Phone: [facility] 01-18-2022 10:20-0400 Heart rate 91 /min Rafael Schmitt MD Work Phone: [facility] 01-18-2022 10:20-0400 Respiratory rate 20 /min Rafael Schmitt MD Work Phone: [facility] 01-18-2022 10:20-0400 SaO2% (BldA) [Mass fraction] 97 % Rafael Schmitt MD Work Phone: [facility] 01-18-2022 10:20-0400 Systolic blood pressure 124 mm[Hg] Rafael Schmitt MD Work Phone: [facility] Encounters Encounter Date Encounter Type Care Provider Facility Start: 06-05-2023 End: 06-05-2023 ambulatory AARON HURTADO Facility:[facility] Start: 06-05-2023 End: 06-05-2023 Patient encounter procedure Aaron Hurtado MD Work Phone: [facility] [place] Procedures Date Procedure Procedure Detail Performing Clinician Start: 06-05-2023 Urnls dip stick/tablet rgnt auto w/o microscopy Aaron Hurtado MD Work Phone: Start: 09-13-2022 STREP A MOLECULAR (POC) [facility] Provider Start: 02-13-2022 Esophagogastroduodenoscopy transoral diagnostic Chelsea Euceda CLAMSHELL OPERATOR.RECOVERY COORDINATOR Work Phone: Start: 02-22-2020 Adult depression screening assessment Chelsea Euceda CLAMSHELL OPERATOR.RECOVERY COORDINATOR Work Phone: Plan of Treatment Date Care Activity Detail Author Start: 02-09-2024 COVID-19 VACCINE (#1) COVID-19 VACCI NE (#1) [facility] Immunizations Immunization Date Immunization Notes Care Provider Fa shravan 09-11-2017 influenza, injectabl e, quadrivalent, preservative free Chelsea Euceda CLAMSHELL OPERATOR.RECOVERY COORDINATOR Work Phone: [facility] 08-31-2016 influenza, injectabl e, quadrivalent, contains preservative Chelsea Euceda CLAMSHELL OPERATOR.RECOVERY COORDINATOR Work Phone: [facility] 11-03-2015 influenza, live, intranasal, quadrivalent Chelsea Euceda CLAMSHELL OPERATOR.RECOVERY COORDINATOR Work Phone: [facility] 12-07-2014 meningococcal polysaccharide (groups A, C, Y and W-135) diphtheria toxoid conjugate vaccine (MCV4P) Chelsea Euceda CLAMSHELL OPERATOR.RECOVERY COORDINATOR Work Phone: [facility] 08-31-2014 human papilloma viru s vaccine, quadrivalent Chelsea Euceda CLAMSHELL OPERATOR.RECOVERY COORDINATOR Work Phone: [facility] 08-31-2014 influenza, live, intranasal, quadrivalent Chelsea Euceda CLAMSHELL OPERATOR.RECOVERY COORDINATOR Work Phone: [facility] 05-06-2014 human papilloma viru s vaccine, quadrivalent Chelsea Euceda CLAMSHELL OPERATOR.[facility] Work Phone: [facility] 07-20-2013 human papilloma viru s vaccine, quadrivalent Chelsea Euceda CLAMSHELL OPERATOR.[facility] Work Phone: [facility] 07-20-2013 influenza virus vacc ine, live, attenuated, for intranasal use Chelsea Euceda CLAMSHELL OPERATOR.RECOVERY COORDINATOR Work Phone: [facility] 07-23-2011 influenza virus vacc ine, live, attenuated, for intranasal use Chelsea Euceda CLAMSHELL OPERATOR.[facility] Work Phone: [facility] Work Phone: 07-23-2011 Meningococcal, MCV4, unspecified conjugate formulation(groups A, C, Y and W-135) Chelsea Euceda CLAMSHELL OPERATOR.[facility] Work Phone: [facility] Work Phone: 07-23-2011 tetanus toxoid, redu nam diphtheria toxoid, and acellular pertussis vaccine, adsorbed Chelsea Euceda CLAMSHELL OPERATOR.RECOVERY COORDINATOR Work Phone: [facility] Work Phone: 07-23-2011 varicella virus vaccine Chelsea Euceda CLAMSHELL OPERATOR.RECOVERY COORDINATOR Work Phone: [facility] Work Phone: 09-20-2004 influenza virus vacc ine, unspecified formulation Chelsea Euceda CLAMSHELL OPERATOR.RECOVERY COORDINATOR Work Phone: [facility] Work Phone: 02-02-2004 diphtheria, tetanus toxoids and acellular pertussis vaccine Chelsea Eucead CLAMSHELL OPERATOR.RECOVERY COORDINATOR Work Phone: [facility] Work Phone: 02-02-2004 measles, mumps and rubella virus vaccine Chelsea Euceda CLAMSHELL OPERATOR.RECOVERY COORDINATOR Work Phone: [facility] Work Phone: 02-02-2004 poliovirus vaccine, inactivated Chelsea Euceda CLAMSHELL OPERATOR.RECOVERY COORDINATOR Work Phone: [facility] Work Phone: 05-29-2000 diphtheria, tetanus toxoids and acellular pertussis vaccine Chelsea Euceda CLAMSHELL OPERATOR.[facility] Work Phone: [facility] Work Phone: 05-29-2000 haemophilus influenz ae type b vaccine, HbOC conjugate Chelsea Euceda CLAMSHELL OPERATOR.[facility] Work Phone: [facility] Work Phone: 10-25-1999 measles, mumps and rubella virus vaccine Chelsea Euceda CLAMSHELL OPERATOR.[facility] Work Phone: [facility] Work Phone: 10-25-1999 poliovirus vaccine, inactivated Chelsea Euceda CLAMSHELL OPERATOR.RECOVERY COORDINATOR Work Phone: [facility] Work Phone: 10-25-1999 varicella virus vaccine Chelsea Euceda CLAMSHELL OPERATOR.RECOVERY COORDINATOR Work Phone: [facility] Work Phone: 07-03-1999 diphtheria, tetanus toxoids and acellular pertussis vaccine Chelsea Euceda CLAMSHELL OPERATOR.RECOVERY COORDINATOR Work Phone: [facility] Work Phone: 07-03-1999 haemophilus influenz ae type b vaccine, HbOC conjugate Chelsea Euceda CLAMSHELL OPERATOR.RECOVERY COORDINATOR Work Phone: [facility] Work Phone: 07-03-1999 hepatitis B vaccine, pediatric or pediatric/adolescent dosage Chelsea Euceda CLAMSHELL OPERATOR.RECOVERY COORDINATOR Work Phone: [facility] Work Phone: 05-01-1999 diphtheria, tetanus toxoids and acellular pertussis vaccine Chelsea Euceda CLAMSHELL OPERATOR.RECOVERY COORDINATOR Work Phone: [facility] Work Phone: 05-01-1999 haemophilus influenz ae type b vaccine, HbOC conjugate Chelsea Euceda CLAMSHELL OPERATOR.RECOVERY COORDINATOR Work Phone: [facility] Work Phone: 05-01-1999 poliovirus vaccine, inactivated Chelsea Euceda CLAMSHELL OPERATOR.[facility] Work Phone: [facility] Work Phone: 1998 diphtheria, tetanus toxoids and acellular pertussis vaccine Chelsea Euceda CLAMSHELL OPERATOR.[facility] Work Phone: [facility] Work Phone: 1998 haemophilus influenz ae type b vaccine, HbOC conjugate Chelsea Euceda CLAMSHELL OPERATOR.RECOVERY COORDINATOR Work Phone: [facility] Work Phone: 1998 hepatitis B vaccine, pediatric or pediatric/adolescent dosage Chelsea Euceda CLAMSHELL OPERATOR.[facility] Work Phone: [facility] Work Phone: 1998 poliovirus vaccine, inactivated Chelsea Euceda CLAMSHELL OPERATOR.[facility] Work Phone: [facility] Work Phone: 1998 hepatitis B vaccine, pediatric or pediatric/adolescent dosage Chelsea Euceda CLAMSHELL OPERATOR.RECOVERY COORDINATOR Work Phone: [facility] Work Phone: Payers Date Payer Category Payer Medicaid [id number] 2021 Medicaid [employer] [employer] [place] [employer] [id number] 2021-Present [phone] [address] Medicaid [id number] 2021 Medicaid [id number] 2021 Medicaid [id number] Social History Date Type Detail Facility Start: 09-11-2017 End: 09-13-2022 Tobacco smoking status NHIS Never smoked tobacco [facility] Start: 09-11-2017 End: 09-13-2022 Tobacco use and exposure Smokeless tobacco non-user [facility] Start: 01-17-2022 End: 06-05-2023 Alcohol intake Current non-drinker of alcohol (finding) [facility] Start: 06-20-2020 History SDOH Alcohol Frequency 1 [facility] Start: 06-20-2020 History SDOH Social Connections Phone 2 [facility] Start: 06-20-2020 History SDOH Social Connections Living 8 [facility] Start: 02-22-2020 End: 06-20-2020 History SDOH Physical Activity DPW 4 [facility] Start: 02-22-2020 End: 06-20-2020 History SDOH Physical Activity MPS 3 [facility] Start: 06-20-2020 Education 14 [facility] Start: 1998 Sex Assigned At Not on file C [facility] Start: 01-05-2022 End: 05-16-2022 Exposure to SARS-CoV-2 (event) Not sure [facility] Work Phone: Start: 06-20-2020 End: 02-27-2023 History of Social function [facility] Start: 06-20-2020 End: 02-27-2023 Social connection and isolation panel [facility] Do you belong to any clubs or organizations such as nondenominational groups, unions, fraternal or athletic groups, or school groups? No [facility] Are you now , , , , never or living with a partner? Living with partner [facility] How often to you hav e a drink containing alcohol? Never [facility] How many standard dr inks containing alcohol do you have on a typical day? 1 or 2 [facility] How hard is it for y ou to pay for the very basics like food, housing, medical care, and heating Not very hard [facility] Adult Depression Scr eening Assessment 0 [facility] Work Phone: Do you feel stress - tense, restless, nervous, or anxious, or unable to sleep at night because your mind is troubled all the time - these days [OSQ] To some extent [facility] Work Phone: (I/We) worried wheth er (my/our) food would run out before (I/we) got money to buy more. Never true [facility] Clinical Notes 10-05-2008 to 06-05-2023 Aaron Hurtado MD - 06/05/2023 4:27 PM EDKrysta Mazariegos, PT - 03/21/2023 5:05 PM EDTTelephone Encounter - Aggie Benny Preciado LPN - 03/19/2023 9:04 AM Brii Mazariegos, PT - 02/28/2023 5:04 PM EDT Note Date & Type Note Facility 06-05-2023 Note HNO ID: [id number] Author: Aaron Hurtado MD Service: ? Author Type: Physician Type: Progress Notes Filed: 06/05/2023 4:45 PM Note Text: This note was created using MiniBraketer. Subjective Gaston Blount is a 22 year old male here with spouse. He had right testicular pain, radiating up the right groin to his appendix for more than one week. Symptoms only started to improve today. He had no other symptoms. Pain started after he kicked himself folding his right leg, and also after a 2 mile run with no prior training. He had not needed to take any thing over the counter for pain. He was recently treated for chlamydia. Spouse was treated as well. Review of Systems Constitutional: Negative for chills, diaphoresis and fever. Gastrointestinal: Negative for diarrhea, nausea and vomiting. Genitourinary: Negative for difficulty urinating, dysuria, hematuria and scrotal swelling. ACTIVE PROBLEM LIST Cervicogenic Headache Gastroesophageal Reflux Disease Social History Tobacco Use Smoking status: Never Smokeless tobacco: Never Vaping Use Vaping Use: Never used Substance Use Topics Alcohol use: No Drug use: Not Currently Frequency: 14.0 times per week Types: Marijuana Comment: none since 2021 Objective BP 112/72 (BP Site: Left Arm, BP Position: Sitting, BP Cuff Size: Large Adult) Pulse 84 Resp 18 Wt 66.7 kg (147 lb) BMI 23.02 kg/m? Physical Exam Constitutional: Appearance: Normal appearance. He is not ill-appearing. Abdominal: Palpations: Abdomen is soft. There is no mass. Tenderness: There is no abdominal tenderness. Hernia: No hernia is present. There is no hernia in the left inguinal area or right inguinal area. Genitourinary: Penis: Normal and circumcised. No tenderness or discharge. Testes: Normal. Lymphadenopathy: Lower Body: No right inguinal adenopathy. No left inguinal adenopathy. Neurological: Mental Status: He is alert. Assessment and Plan 1. Testicular pain, right - ICD9: 608.9, ICD10: N50.811 (primary diagnosis) Residual contusion. - UA DIP, URINE (POC)- Normal. 2. Groin pain, right - ICD9: 789.03, ICD10: R10.31 Differential Diagnosis includes Kidney stones/colic - UA DIP, URINE (POC) 3. History of chlamydia infection - ICD9: V12.09, ICD10: Z86.19 STD screening. Follow up urine for 4. Encounter for screening for HIV - ICD9: V73.89, ICD10: Z11.4 - HIV 1 2 COMBO(AG/AB),WITH REFLEX TO DIFFERENTIATION 5. Need for hepatitis C screening test - ICD9: V73.89, ICD10: Z11.59 - HEPATITIS C ANTIBODY IA WITH CONFIRMATION Aaron Hurtado MD [facility] 06-05-2023 History of Presen t illness Narrative This note was created using NoteWriter. Subjective Gaston Blount is a 22 year old male here with spouse. He had right testicular pain, radiating up the right groin to his appendix for more than one week. Symptoms only started to improve today. He had no other symptoms. Pain started after he kicked himself folding his right leg, and also after a 2 mile run with no prior training. He had not needed to take any thing over the counter for pain. He was recently treated for chlamydia. Spouse was treated as well. Review of Systems Constitutional: Negative for chills, diaphoresis and fever. Gastrointestinal: Negative for diarrhea, nausea and vomiting. Genitourinary: Negative for difficulty urinating, dysuria, hematuria and scrotal swelling. ACTIVE PROBLEM LIST Cervicogenic Headache Gastroesophageal Reflux Disease Social History Tobacco Use Smoking status: Never Smokeless tobacco: Never Vaping Use Vaping Use: Never used Substance Use Topics Alcohol use: No Drug use: Not Currently Frequency: 14.0 times per week Types: Marijuana Comment: none since 2021 Objective BP 112/72 (BP Site: Left Arm, BP Position: Sitting, BP Cuff Size: Large Adult) Pulse 84 Resp 18 Wt 66.7 kg (147 lb) BMI 23.02 kg/m Physical Exam Constitutional: Appearance: Normal appearance. He is not ill-appearing. Abdominal: Palpations: Abdomen is soft. There is no mass. Tenderness: There is no abdominal tenderness. Hernia: No hernia is present. There is no hernia in the left inguinal area or right inguinal area. Genitourinary: Penis: Normal and circumcised. No tenderness or discharge. Testes: Normal. Lymphadenopathy: Lower Body: No right inguinal adenopathy. No left inguinal adenopathy. Neurological: Mental Status: He is alert. Assessment and Plan 1. Testicular pain, right - ICD9: 608.9, ICD10: N50.811 (primary diagnosis) Residual contusion. - UA DIP, URINE (POC)- Normal. 2. Groin pain, right - ICD9: 789.03, ICD10: R10.31 Differential Diagnosis includes Kidney stones/colic - UA DIP, URINE (POC) 3. History of chlamydia infection - ICD9: V12.09, ICD10: Z86.19 STD screening. Follow up urine for 4. Encounter for screening for HIV - ICD9: V73.89, ICD10: Z11.4 - HIV 1 2 COMBO(AG/AB),WITH REFLEX TO DIFFERENTIATION 5. Need for hepatitis C screening test - ICD9: V73.89, ICD10: Z11.59 - HEPATITIS C ANTIBODY IA WITH CONFIRMATION Aaron Hurtado MD documented in this encounter [facility] 03-30-2023 Note HNO ID: [id number] Author: Jorge Mazariegos PT Service: ? Author Type: Physical Therapist Type: Progress Notes Filed: 03/29/2023 10:37 PM Note Text: Episode Visit Count: 5 Therapist That Will Accept/Oversee The Plan Of Care: Jorge Mazariegos Start of Care Date: 02/19/23 Onset Date: 02/19/21 Plan of Care Certification Date: 02/19/23 Next Certification Due Date: 04/21/23 [facility]ER[facility] PHYSICAL THERAPY TREATMENT NOTE ASSESSMENT: Gaston Blount tolerated the session with decreased symptoms and expected muscle soreness. He demonstrated difficulty with painful trigger points and tissue tenderness. The patient will continue to benefit from ongoing skilled physical therapy to progress toward set goals. PLAN FOR NEXT VISIT: February needle trigger points SUBJECTIVE: Patient Reason for Visit: Pt has not had a LECHUGA since last being seen, but has had some random sharp pains in the head- both right and left sided Pain: Pain Pain Level: 5 Pain Location: Head - Left, Head - Right Description: Sharp Frequency: Intermittent OBJECTIVE MEASURES WITH LEVEL OF FUNCTION: Bilateral trigger points of upper traps, suboccipitals, and SCM recreate pain and LECHUGA symptoms TREATMENT: Manual Therapy: 1: STM and CFM to B upper traps, suboccipitals, and SCM 2: TrPr to B upper traps, SCM, and suboccipitals Skilled Intervention: Manual skills to improve joint mobility, ROM, and decrease pain. Utilized anatomy knowledge of the therapist, and assessment of patient's response to intervention. Billing Manual TherapyTreatment Minutes: 44 Total Treatment Time Minutes (timed/untimed): 44 Jorge Mazariegos PT [facility] 03-21-2023 Note HNO ID: [id number] Author: Jorge Mazariegos PT Service: ? Author Type: Physical Therapist Type: Progress Notes Filed: 03/21/2023 5:07 PM Note Text: Episode Visit Count: 4 Therapist That Will Accept/Oversee The Plan Of Care: Jorge Mazariegos Start of Care Date: 02/19/23 Onset Date: 02/19/21 Plan of Care Certification Date: 02/19/23 Next Certification Due Date: 04/21/23 REHABILITATION AND SPORTS THERAPY PHYSICAL THERAPY PROGRESS REPORT PLAN OF CARE UPDATE: Assessment: Gaston Blount demonstrates moderate improvement in working. He has progressed toward goals. Patient continues to present with impairments in symptom management and tissue tenderness that interfere with working . Current prognosis is Good due to: current objective clinical presentation, good overall health status, positive past response to therapy, within-session changes, good support system/ coping skills . He will benefit from continued skilled therapy services to meet the updated goals for this plan of care as noted below. Goals updated on 03/20/2023. Goals for Episode of Care: created on 02/19/23 through 04/21/23 Independent in a Home Exercise Program. Met Patient will decrease pain rating by 2 points to meet minimal clinical important difference for numeric pain rating scale. Met Restore pain free cervical ROM to WNL to allow for improved functional Mobility. Met Drive with no aggravation of pain/symptoms. Partially met Maintain proper sitting posture throughout the session to allow for decreased symptoms and LECHUGA. Partially met Planned Interventions, Frequency, and Duration: 1x/week, 2 weeks Total Number of Visits Planned: 2 Patient to be seen for Manual therapy (92089), Therapeutic exercise (48515), Self-longterm management (08157), Patient/Family/Caregiver Education PLAN FOR NEXT VISIT: Continue manual, may show pt's how to perform SUBJECTIVE: Patient Reason for Visit: Pt has been having less frequent LECHUGA and much less pain. Has taken pain meds maybe once since last being seen. No other migraine LECHUGA symptoms either. Functional Limitations: working Pain: Pain Pain Level: 2 Pain Location: Head - Right Description: Dull, Sore Frequency: Intermittent Post Treatment Pain Post Treatment Pain Level: 1 Post Treatment Pain Location: Head - Right Post Treatment Pain Description: Sore PROMIS Scales T-scores: mean of general population = 50. 5 points is clinically meaningfully difference Percentiles provide an indication of how the patient's score ranks in relation to the general population. Higher percentile rankings indicate better function/quality of life. 50th percentile is the average of the general population and indicates half of respondents had a worse score. OBJECTIVE MEASURES WITH LEVEL OF FUNCTION: Cervical Spine ROM Cervical Flexion AROM: Normal Cervical Extension AROM: Normal Cervical Side-Bend Right AROM: Normal Cervical Side-Bend Left AROM: Normal Cervical Rotation Right AROM: Normal Cervical Rotation Left AROM: Normal TREATMENT: Manual Therapy: 1: STM and CFM to R upper trap, semispinals capitus, suboccipitals with push to tolerance 2: TrPr Upper trap, semispinals capitus, suboccipitals Dry Needling: (1) 30 mm needle to L suboccipitals with pistoning, fanning, and periosteal pecking Skilled Intervention: Manual skills to improve joint mobility, ROM, and decrease pain. Utilized anatomy knowledge of the therapist, and assessment of patient's response to intervention. Billing Manual TherapyTreatment Minutes: 40 Total Treatment Time Minutes (timed/untimed): 40 Jorge Mazariegos, PT [facility] 03-21-2023 History of Presen t illness Narrative Episode Visit Count: 4 Therapist That Will Accept/Oversee The Plan Of Care: Jorgealek Mazariegos Start of Care Date: 02/19/23 Onset Date: 02/19/21 Plan of Care Certification Date: 02/19/23 Next Certification Due Date: 04/21/23 REHABILITATION AND SPORTS THERAPY PHYSICAL THERAPY PROGRESS REPORT PLAN OF CARE UPDATE: Assessment: Gaston Blount demonstrates moderate improvement in working. He has progressed toward goals. Patient continues to present with impairments in symptom management and tissue tenderness that interfere with working . Current prognosis is Good due to: current objective clinical presentation, good overall health status, positive past response to therapy, within-session changes, good support system/ coping skills . He will benefit from continued skilled therapy services to meet the updated goals for this plan of care as noted below. Goals updated on 03/20/2023. Goals for Episode of Care: created on 02/19/23 through 04/21/23 Independent in a Home Exercise Program. Met Patient will decrease pain rating by 2 points to meet minimal clinical important difference for numeric pain rating scale. Met Restore pain free cervical ROM to WNL to allow for improved functional Mobility. Met Drive with no aggravation of pain/symptoms. Partially met Maintain proper sitting posture throughout the session to allow for decreased symptoms and LECHUGA. Partially met Planned Interventions, Frequency, and Duration: 1x/week, 2 weeks Total Number of Visits Planned: 2 Patient to be seen for Manual therapy (88393), Therapeutic exercise (63330), Self-longterm management (54774), Patient/Family/Caregiver Education PLAN FOR NEXT VISIT: Continue manual, may show pt's how to perform SUBJECTIVE: Patient Reason for Visit: Pt has been having less frequent LECHUGA and much less pain. Has taken pain meds maybe once since last being seen. No other migraine LECHUGA symptoms either. Functional Limitations: working Pain: Pain Pain Level: 2 Pain Location: Head - Right Description: Dull, Sore Frequency: Intermittent Post Treatment Pain Post Treatment Pain Level: 1 Post Treatment Pain Location: Head - Right Post Treatment Pain Description: Sore PROMIS Scales T-scores: mean of general population = 50. 5 points is clinically meaningfully difference Percentiles provide an indication of how the patient's score ranks in relation to the general population. Higher percentile rankings indicate better function/quality of life. 50th percentile is the average of the general population and indicates half of respondents had a worse score. OBJECTIVE MEASURES WITH LEVEL OF FUNCTION: Cervical Spine ROM Cervical Flexion AROM: Normal Cervical Extension AROM: Normal Cervical Side-Bend Right AROM: Normal Cervical Side-Bend Left AROM: Normal Cervical Rotation Right AROM: Normal Cervical Rotation Left AROM: Normal TREATMENT: Manual Therapy: 1: STM and CFM to R upper trap, semispinals capitus, suboccipitals with push to tolerance 2: TrPr Upper trap, semispinals capitus, suboccipitals Dry Needling: (1) 30 mm needle to L suboccipitals with pistoning, fanning, and periosteal pecking Skilled Intervention: Manual skills to improve joint mobility, ROM, and decrease pain. Utilized anatomy knowledge of the therapist, and assessment of patient's response to intervention. Billing Manual TherapyTreatment Minutes: 40 Total Treatment Time Minutes (timed/untimed): 40 Jorge Mazariegos PT documented in this encounter [facility] 03-19-2023 Miscellaneous Notes Attempted to call Patient, he was not available. Called pharmacy, Patient pickup RX 03/15/2023. Aggie Preciado LPN The medication has been sent [facility] Regards, Lillian Ball MD Patient is requesting a call once medication is called to the pharmacy. Patient calls to review lab results noted in [facility]. Patient tested positive for Chlamydia and requesting treatment as soon as possible. Patient requests prescription be sent to [facility] in [place]. Maria L Bonilla RN documented in this encounter [facility] 03-13-2023 Note HNO ID: [id number] Author: Kell Johnson APRN.RECOVERY COORDINATOR Service: ? Author Type: Nurse Practitioner Type: Progress Notes Filed: 03/13/2023 11:32 AM Note Text: CC: Patient presents with: [facility] follow up HPI Gaston Blount is a 22 year old male who presents today for above. Patient was seen in [facility] on 03/11 for dysuria, urgency, frequency. Urine dip showed trace leuks, he was treated presumptively with Macrobid. He declined STD testing. Urine culture was negative for infection. Today patient reports symptoms have mostly resolved, he is still taking Macrobid and plans on finishing the course. States burning was more superficial, occurring only at the start of stream. Initially there was redness around the meatus which he attributed to frequent masturbation, this has also resolved. No lesions on his penis or drainage. No hematuria, decreased stream, fever, chills, back or flank pain, abdominal pain. REVIEW OF SYSTEMS See HPI PAST MEDICAL HISTORY Diagnosis Date Attention deficit hyperactivity disorder (ADHD) 06/18/2007 Cervicogenic headache 09/07/2021 Gastroesophageal reflux disease 02/11/2023 PMH - PAST MEDICAL HISTORY OF cyst on testicle PMH - PAST MEDICAL HISTORY OF 05/22/2004 normal color vision Rib contusion 08/19/2012 Skin striae 07/22/2015 Tourette's disorder Unspecified asthma(493.90) PAST SURGICAL HISTORY Procedure Laterality Date CIRCUMCISION,CLAMP, 1998 EGD AC 02/13/2022 TONSILLECTOMY AND ADENOIDECTOMY ALLERGIES Patient has no known allergies. MEDICATIONS nitrofurantoin monohydrate and macrocrystal (MACROBID) 100 mg capsule Take 1 capsule by mouth twice daily for 5 days. omeprazole (PRILOSEC) 20 mg capsule Take 1 capsule by mouth once daily. ibuprofen (MOTRIN ORAL) Take by mouth. FAMILY HISTORY Problem Relation Age of Onset Asthma Mother Drug abuse Mother other (adopted) Father Hypertension Maternal Grandmother Diabetes Maternal Grandfather Hypertension Maternal Grandfather other (cva) Maternal Grandfather other (myocardial infarction) Maternal Grandfather Social History Tobacco Use Smoking status: Never Smokeless tobacco: Never Vaping Use Vaping Use: Never used Substance Use Topics Alcohol use: No Drug use: Not Currently Frequency: 14.0 times per week Types: Marijuana Comment: none since 2021 PHYSICAL EXAM BP 124/78 Pulse 80 Resp 18 Wt 69.4 kg (153 lb) BMI 23.96 kg/m? General Appearance: well appearing, in no acute distress, alert Pysch: mood and affect broad and appropriate DATA REVIEWED: most recent urine testing ASSESSMENT/PLAN: 1. Dysuria - ICD9: 788.1, ICD10: R30.0 Urine dip essentially normal, urine culture negative for infection. Symptoms resolving. - continue with Macrobid until completed - if symptoms reoccur recheck urinalysis, he is also agreeable to testing for gonorrhea and chlamydia. If all negative recommend follow-up with urology - URINALYSIS, WITH MICROSCOPIC - GC/CHLAMYDIA AMPLIF, URINE - URINALYSIS, WITH MICROSCOPIC Prescription instructions reviewed with patient as applicable. Potential red flag symptoms discussed with the patient. Reviewed appropriate action plan to take if red flag symptoms occur. Patient agreeable to treatment plan. Kell Johnson APRN.[facility] 03-11-2023 Note HNO ID: [id number] Author: ESPINOZA Khanna Service: ? Author Type: Physician Unloader Operator Type: Progress Notes Filed: 03/11/2023 8:44 AM Note Text: This note was created using [employer]. Subjective Gaston Blount is a 22 year old male. HPI 22-year-old male presents for dysuria, frequency, urgency and concern for UTI. Patient states he started getting burning at the start of his urine stream 2 days ago. He states he has had some frequency as well. States that he normally drinks a lot of water, but recently has not been drinking as much water as normal. He states that he occasionally has some right-sided back pain, but nothing severe. No fevers. No hematuria. No history of kidney stones. No vomiting or abdominal pain. Patient denies any concern for STD. He states he has only been with his 1 partner and she has only been with him, so no concern for STD. He denies ever having urine infection in the past. No other complaints. PAST MEDICAL HISTORY Diagnosis Date Attention deficit hyperactivity disorder (ADHD) 06/18/2007 Cervicogenic headache 09/07/2021 Gastroesophageal reflux disease 02/11/2023 PMH - PAST MEDICAL HISTORY OF cyst on testicle PMH - PAST MEDICAL HISTORY OF 05/22/2004 normal color vision Rib contusion 08/19/2012 Skin striae 07/22/2015 Tourette's disorder Unspecified asthma(493.90) PAST SURGICAL HISTORY Procedure Laterality Date CIRCUMCISION,CLAMP, 1998 EGD AC 02/13/2022 TONSILLECTOMY AND ADENOIDECTOMY ALLERGIES Patient has no known allergies. MEDICATIONS omeprazole (PRILOSEC) 20 mg capsule Take 1 capsule by mouth once daily. ibuprofen (MOTRIN ORAL) Take by mouth. nitrofurantoin monohydrate and macrocrystal (MACROBID) 100 mg capsule Take 1 capsule by mouth twice daily for 5 days. FAMILY HISTORY Problem Relation Age of Onset Asthma Mother Drug abuse Mother other (adopted) Father Hypertension Maternal Grandmother Diabetes Maternal Grandfather Hypertension Maternal Grandfather other (cva) Maternal Grandfather other (myocardial infarction) Maternal Grandfather Social History Tobacco Use Smoking status: Never Smokeless tobacco: Never Vaping Use Vaping Use: Never used Substance Use Topics Alcohol use: No Drug use: Not Currently Frequency: 14.0 times per week Types: Marijuana Comment: none since 2021 Review of Systems Constitutional: Negative for chills and fever. HENT: Negative for congestion and sore throat. Respiratory: Negative for cough and shortness of breath. Gastrointestinal: Negative for diarrhea and vomiting. Genitourinary: Positive for dysuria, frequency and urgency. Negative for penile discharge, scrotal swelling and testicular pain. Objective BP 118/72 Pulse 88 Temp 36.1 ?C (97 ?F) Resp 16 Wt 71.2 kg (157 lb) SpO2 98% BMI 24.59 kg/m? Physical Exam Vitals and nursing note reviewed. Constitutional: General: He is not in acute distress. Appearance: Normal appearance. He is not toxic-appearing. HENT: Nose: Nose normal. Mouth/Throat: Mouth: Mucous membranes are moist. Eyes: Conjunctiva/sclera: Conjunctivae normal. Cardiovascular: Rate and Rhythm: Normal rate and regular rhythm. Pulmonary: Effort: Pulmonary effort is normal. Breath sounds: Normal breath sounds. Abdominal: General: Abdomen is flat. Palpations: Abdomen is soft. Tenderness: There is no abdominal tenderness. There is no right CVA tenderness or left CVA tenderness. Skin: General: Skin is warm and dry. Neurological: Mental Status: He is alert. Assessment and Plan ASSESSMENT/PLAN: 1. Burning with urination - ICD9: 788.1, ICD10: R30.0 - UA positive for cathie esterase - Send urine for culture - Begin treatment with Macrobid 100 mg BID for 5 days - Patient education for prevention given -Patient denies concern for STD and declines STD testing. -Symptoms possibly due to decreased water intake? Recommend resuming hydration and drinking plenty of water. -Follow-up with PCP to ensure resolution of symptoms/leukocytes in urine. -Red flag symptoms and when to go to ER discussed. - UA DIP, URINE (POC) - URINE CULTURE Diagnosis and treatment plan were discussed and questions were answered to the patient's satisfaction. Pt acknowledged understanding of concepts and follow up plan. Specific signs and symptoms that would indicate the need for higher level of care were discussed in detail warranting prompt ER evaluation. ESPINOZA hKanna [facility] 03-06-2023 Note HNO ID: [id number] Author: Jorge Mazariegos PT Service: ? Author Type: Physical Therapist Type: Progress Notes Filed: 03/06/2023 3:06 PM Note Text: Episode Visit Count: 3 Therapist That Will Accept/Oversee The Plan Of Care: Jorge Mazariegos Start of Care Date: 02/19/23 Onset Date: 02/19/21 Plan of Care Certification Date: 02/19/23 Next Certification Due Date: 04/21/23 REHABILITATION AND SPORTS THERAPY PHYSICAL THERAPY TREATMENT NOTE ASSESSMENT: Gaston Blount tolerated the session with decreased symptoms. He demonstrated improvements in LECHUGA intensity over the course of the last week. The patient will continue to benefit from ongoing skilled physical therapy to progress toward set goals. PLAN FOR NEXT VISIT: Continue manual work. If comes, educate her on manual techniques for home SUBJECTIVE: Patient Reason for Visit: Pt doing better this week. He didn't get the full days of relief he did with the needling, but stayed consistent and better all week Pain: Pain Pain Level: 8 Pain Location: Head - Right Description: Shooting, Pressure Frequency: Intermittent Post Treatment Pain Post Treatment Pain Level: 2 Post Treatment Pain Location: Head - Right Post Treatment Pain Description: Aching, Dull OBJECTIVE MEASURES WITH LEVEL OF FUNCTION: LECHUGA reproduced with palpation to R upper trap mid muscle belly and insertion onto occiput TREATMENT: Manual Therapy: 1: STM and CFM to R upper trap, semispinals capitus, suboccipitals with push to tolerance 2: TrPr Upper trap, semispinals capitus, suboccipitals Skilled Intervention: Manual skills to improve joint mobility, ROM, and decrease pain. Utilized anatomy knowledge of the therapist, and assessment of patient's response to intervention. Billing Manual TherapyTreatment Minutes: 44 Total Treatment Time Minutes (timed/untimed): 44 Jorge Mazariegos PT [facility] 02-28-2023 Note HNO ID: [id number] Author: Jorge Mazariegos PT Service: ? Author Type: Physical Therapist Type: Progress Notes Filed: 02/28/2023 5:15 PM Note Text: Episode Visit Count: 2 Therapist That Will Accept/Oversee The Plan Of Care: Jorge Mazariegos Start of Care Date: 02/19/23 Onset Date: 02/19/21 Plan of Care Certification Date: 02/19/23 Next Certification Due Date: 04/21/23 REHABILITATION AND SPORTS THERAPY PHYSICAL THERAPY TREATMENT NOTE ASSESSMENT: Gaston Blount tolerated the session with decreased symptoms. He demonstrated improvements in LECHUGA post session. The patient will continue to benefit from ongoing skilled physical therapy to progress toward set goals. PLAN FOR NEXT VISIT: If patient brings , will show her manual techniques. May needle again SUBJECTIVE: Patient Reason for Visit: Pt had 4 days of no LECHUGA after the needling. He admits it was really intense, but he saw benefits. Would like to trial massage only tonight. Has a very intese LECHUGA right now, pain meds won't even touch it Pain: Pain Pain Level: 10 Pain Location: Head - Right Description: Shooting, Pressure OBJECTIVE MEASURES WITH LEVEL OF FUNCTION: Tenderness to below noted mm TREATMENT: Manual Therapy: 1: STM and CFM to R upper trap, semispinals capitus, suboccipitals, and SCM with push to tolerance 2: TrPr Upper trap, SCM, semispinals capitus, suboccipitals Skilled Intervention: Manual skills to improve joint mobility, ROM, and decrease pain. Utilized anatomy knowledge of the therapist, and assessment of patient's response to intervention. Billing Manual TherapyTreatment Minutes: 54 Total Treatment Time Minutes (timed/untimed): 54 Jorge Mazariegos PT [facility] 02-28-2023 History of Presen t illness Narrative Episode Visit Count: 2 Therapist That Will Accept/Oversee The Plan Of Care: Jorge Mazariegos Start of Care Date: 02/19/23 Onset Date: 02/19/21 Plan of Care Certification Date: 02/19/23 Next Certification Due Date: 04/21/23 REHABILITATION AND SPORTS THERAPY PHYSICAL THERAPY TREATMENT NOTE ASSESSMENT: Gaston Jordyn Blount tolerated the session with decreased symptoms. He demonstrated improvements in LECHUGA post session. The patient will continue to benefit from ongoing skilled physical therapy to progress toward set goals. PLAN FOR NEXT VISIT: If patient brings , will show her manual techniques. May needle again SUBJECTIVE: Patient Reason for Visit: Pt had 4 days of no LECHUGA after the needling. He admits it was really intense, but he saw benefits. Would like to trial massage only tonight. Has a very intese LECHUGA right now, pain meds won't even touch it Pain: Pain Pain Level: 10 Pain Location: Head - Right Description: Shooting, Pressure OBJECTIVE MEASURES WITH LEVEL OF FUNCTION: Tenderness to below noted mm TREATMENT: Manual Therapy: 1: STM and CFM to R upper trap, semispinals capitus, suboccipitals, and SCM with push to tolerance 2: TrPr Upper trap, SCM, semispinals capitus, suboccipitals Skilled Intervention: Manual skills to improve joint mobility, ROM, and decrease pain. Utilized anatomy knowledge of the therapist, and assessment of patient's response to intervention. Billing Manual TherapyTreatment Minutes: 54 Total Treatment Time Minutes (timed/untimed): 54 Jorge Mazariegos PT documented in this encounter [facility] 02-19-2023 Note HNO ID: [id number] Author: Jorge Mazariegos PT Service: ? Author Type: Physical Therapist Type: Progress Notes Filed: 02/19/2023 2:34 PM Note Text: Episode Visit Count: 1 Therapist That Will Accept/Oversee The Plan Of Care: Jorge Mazariegos Start of Care Date: 02/19/23 Onset Date: 02/19/21 Plan of Care Certification Date: 02/19/23 Next Certification Due Date: 04/21/23 Patient Identified by Name and Date of : Yes REHABILITATION AND SPORTS THERAPY PHYSICAL THERAPY EVALUATION PLAN OF CARE: Assessment: Gaston Blount presents with chief complaint of chronic LECHUGA that interferes with working, physical activities, recreational activities, lifting, heavy exertion . He presents with impairments in ADL's, posture, range of motion, strength, symptom management, and tissue tenderness. Patient did not complete the PROMIS? (Patient Reported Outcome Measures Information System). Prognosis for therapy is Fair due to: clinical presentation, chronic nature of impairments, limited compliance with previous therapy, limited tolerance to activity . He will benefit from skilled therapy services to meet the goals established for this plan of care as noted below. Goals for Episode of Care: created on 02/19/23 through 04/21/23 Independent in a Home Exercise Program. Patient will decrease pain rating by 2 points to meet minimal clinical important difference for numeric pain rating scale. Restore pain free cervical ROM to WNL to allow for improved functional mobility. Drive with no aggravation of pain/symptoms. Maintain proper sitting posture throughout the session to allow for decreased symptoms and LECHUGA. Planned Interventions, Frequency, and Duration: Current Frequency: 1x/week Duration: 8 weeks Total Number of Visits Planned: 8 Planned Treatment Interventions: Therapeutic exercise (93124), Manual therapy (76925), Neuromuscular re-education (20145), Therapeutic activities (53613), Self-longterm management (19243), Patient/Family/Caregiver Education, Body Mechanics Training PLAN FOR NEXT VISIT: Assess carry over of needling. May try upper cervical mobs Patient demonstrates good understanding of plan of care and treatment. The above goals and plan of care were discussed and agreed upon by patient/family. SUBJECTIVE: Gaston Blount is a 22 year old male seen today for R sided neck pain and headaches for 2 years now, with worsening onset and symptoms. Pt gets debilitating pain, noise sensativity that causes him to miss work and creates safety issues at work. Looking down for long periods, pressing on sensative spots on his neck, and certain turning motions tend to flare things up. Ibuprofen is the only thing that seems to work and he eats those like candy due to the pain, but knows this isn't a terminal carman solution Functional Limitations: working, physical activities, recreational activities, lifting, heavy exertion Prior Level of Function: Independent without limitations Intake Information: Prescription present Vestibular Dizziness: Yes Description: light headed Rating of current symptoms: 0/10 Frequency: Intermittent Duration: seconds Symptoms worsened by: busy environments, bending, turning head quickly Symptoms improved by: medication Neck Symptoms: Yes Description: aching, burning Rating of current symptoms: 2/10 Location: right neck Hearing Changes: both ears, but worse in right ear Hearing Changes Description: Sensitive Pain: Pain Pain Level: 10 Pain Location: Head - Right Description: Shooting, Pressure, Aching Frequency: Intermittent Post Treatment Pain Post Treatment Pain Level: 3 Post Treatment Pain Location: Head - Right Post Treatment Pain Description: Aching, Dull PROMIS Scales T-scores: mean of general population = 50. 5 points is clinically meaningfully difference Percentiles provide an indication of how the patient's score ranks in relation to the general population. Higher percentile rankings indicate better function/quality of life. 50th percentile is the average of the general population and indicates half of respondents had a worse score. OBJECTIVE MEASURES WITH LEVEL OF FUNCTION: Posture / Alignment Posture: Rounded shoulders, Forward head Spine Observations R Cervical Spine Palpation Tenderness: Upper trapezius, Sternocleidomastoid, Suboccipitals Cervical Spine ROM Cervical ROM : Limitation AROM Cervical Flexion AROM: Increased pain Cervical Extension AROM: Normal Cervical Side-Bend Right AROM: Moderate limitation Cervical Side-Bend Left AROM: Moderate limitation, Increased pain Cervical Rotation Right AROM: Normal Cervical Rotation Left AROM: Normal Education: Education Learning/educational needs: Lifestyle changes, Home exercise program, Plan of Care, Changes in Plan of Care, Posture, Body Mechanics TREATMENT: PT Treatment Interventions: Therapeutic Exercise, Manual Therapy, Self-Jail Managem (more content not included)... [facility] 02-19-2023 Miscellaneous Notes Addended by: JORGE MAZARIEGOS on: 02/19/2023 02:57 PM Modules accepted: Orders documented in this encounter [facility] 02-19-2023 History of Presen t illness Narrative Episode Visit Count: 1 Therapist That Will Accept/Oversee The Plan Of Care: Jorge Mazariegos Start of Care Date: 02/19/23 Onset Date: 02/19/21 Plan of Care Certification Date: 02/19/23 Next Certification Due Date: 04/21/23 Patient Identified by Name and Date of : Yes REHABILITATION AND SPORTS THERAPY PHYSICAL THERAPY EVALUATION PLAN OF CARE: Assessment: Gaston Blount presents with chief complaint of chronic LECHUGA that interferes with working, physical activities, recreational activities, lifting, heavy exertion . He presents with impairments in ADL's, posture, range of motion, strength, symptom management, and tissue tenderness. Patient did not complete the PROMIS (Patient Reported Outcome Measures Information System). Prognosis for therapy is Fair due to: clinical presentation, chronic nature of impairments, limited compliance with previous therapy, limited tolerance to activity . He will benefit from skilled therapy services to meet the goals established for this plan of care as noted below. Goals for Episode of Care: created on 02/19/23 through 04/21/23 Independent in a Home Exercise Program. Patient will decrease pain rating by 2 points to meet minimal clinical important difference for numeric pain rating scale. Restore pain free cervical ROM to WNL to allow for improved functional mobility. Drive with no aggravation of pain/symptoms. Maintain proper sitting posture throughout the session to allow for decreased symptoms and LECHUGA. Planned Interventions, Frequency, and Duration: Current Frequency: 1x/week Duration: 8 weeks Total Number of Visits Planned: 8 Planned Treatment Interventions: Therapeutic exercise (23191), Manual therapy (85906), Neuromuscular re-education (87465), Therapeutic activities (76811), Self-longterm management (03342), Patient/Family/Caregiver Education, Body Mechanics Training PLAN FOR NEXT VISIT: Assess carry over of needling. May try upper cervical mobs Patient demonstrates good understanding of plan of care and treatment. The above goals and plan of care were discussed and agreed upon by patient/family. SUBJECTIVE: Gaston Blount is a 22 year old male seen today for R sided neck pain and headaches for 2 years now, with worsening onset and symptoms. Pt gets debilitating pain, noise sensativity that causes him to miss work and creates safety issues at work. Looking down for long periods, pressing on sensative spots on his neck, and certain turning motions tend to flare things up. Ibuprofen is the only thing that seems to work and he eats those like candy due to the pain, but knows this isn't a prison solution Functional Limitations: working, physical activities, recreational activities, lifting, heavy exertion Prior Level of Function: Independent without limitations Intake Information: Prescription present Vestibular Dizziness: Yes Description: light headed Rating of current symptoms: 0/10 Frequency: Intermittent Duration: seconds Symptoms worsened by: busy environments, bending, turning head quickly Symptoms improved by: medication Neck Symptoms: Yes Description: aching, burning Rating of current symptoms: 2/10 Location: right neck Hearing Changes: both ears, but worse in right ear Hearing Changes Description: Sensitive Pain: Pain Pain Level: 10 Pain Location: Head - Right Description: Shooting, Pressure, Aching Frequency: Intermittent Post Treatment Pain Post Treatment Pain Level: 3 Post Treatment Pain Location: Head - Right Post Treatment Pain Description: Aching, Dull PROMIS Scales T-scores: mean of general population = 50. 5 points is clinically meaningfully difference Percentiles provide an indication of how the patient's score ranks in relation to the general population. Higher percentile rankings indicate better function/quality of life. 50th percentile is the average of the general population and indicates half of respondents had a worse score. OBJECTIVE MEASURES WITH LEVEL OF FUNCTION: Posture / Alignment Posture: Rounded shoulders, Forward head Spine Observations R Cervical Spine Palpation Tenderness: Upper trapezius, Sternocleidomastoid, Suboccipitals Cervical Spine ROM Cervical ROM : Limitation AROM Cervical Flexion AROM: Increased pain Cervical Extension AROM: Normal Cervical Side-Bend Right AROM: Moderate limitation Cervical Side-Bend Left AROM: Moderate limitation, Increased pain Cervical Rotation Right AROM: Normal Cervical Rotation Left AROM: Normal Education: Education Learning/educational needs: Lifestyle changes, Home exercise program, Plan of Care, Changes in Plan of Care, Posture, Body Mechanics TREATMENT: PT Treatment Interventions: Therapeutic Exercise, Manual Therapy, Self-Jail Management Evaluation Therapeutic Exercise: 1: *Upper trap stretch 3x20 sec 2: *SCM stretch 3x20 sec 3: *Repeated cervical retractions 3x10 4: *C2 extension mobs 3x10 5: *C1 rotation mobs 3x10/side 6: *LECHUGA snag with towel 3x10, 5 sec holds 7: *Suboccipital stretch 3x10, 5 sec holds Skilled Intervention: Patient was educated in proper exercise technique and purpose for exercises. Skilled judgment was provided in selection of appropriate interventions. Provided written instruction for home exercise program to facilitate proper performance and compliance. Correct performance of therapeutic exercises was facilitated with verbal, visual, and tactile cuing. Manual Therapy: 1: Upper trap stripping on R 2: STM and TrPr to R upper trap with push to tolerance Dry Needling: (1) 50 mm needle to R upper trap with pistoning and fanning. Pt consent gained. 1 needle in, 1 needle out (pt educated on heat and gentle stretching tonight, normal after effects) Skilled Intervention: Manual skills to improve joint mobility, ROM, and decrease pain. Utilized anatomy knowledge of the therapist, and assessment of patient's response to intervention. Self-Jail Management: 1: Spent significant time discussing cervicogenic LECHUGA origins, including Travell and Mitchell referral patterns, postural considerations, mechanics of how dry needling works to relieve symptoms Skilled Intervention: Skilled judgment in the selection of proper modification for activity of daily living/home management based on clinical presentation, deficits, and needs. Reviewed patient specific diagnosis in relation to activities of daily living/home management. Activity progression based on professional judgement. Billing * Evaluation Low Complexity: 1 Unit Therapeutic Exercise Treatment Minutes: 15 Manual TherapyTreatment Minutes: 30 Self-Care/Home Management Treatment Minutes: 10 Total Treatment Time Minutes (timed/untimed): 75 Jorge Mazariegos PT documented in this encounter [facility] 02-11-2023 Note HNO ID: [id number] Author: RT Heather(R) Service: Radiology Author Type: Technologist Type: Progress Notes Filed: 02/11/2023 10:41 AM Note Text: Radiology Service Progress Note PATIENT NAME: Gaston Blount DATE OF SERVICE: February 11, 2023 TIME: 10:34 AM PATIENT IDENTITY VERIFICATION COMPLETED USING TWO (2) IDENTIFIERS: Name and Date of confirmed by patient verbally. FALL SCREENING: Has the patient had 2 falls in the last year or 1 fall with injury or currently using an Ambulatory Assistive Device (Walker, Cane, Wheelchair, Crutches, etc.)? No PATIENT GENDER DATA: Male PATIENT RELEVANT IMPLANT DATA REVIEWED: Yes RADIOLOGY DEPARTMENT: General X-ray: Exam(s) Completed: Spine X-Ray(s): Cervical AP / LAT / OBL PERIPHERAL IV DATA: Not applicable SIGNED BY: RT Heather(R) February 11, 2023 10:34 AM [facility] 02-11-2023 Note HNO ID: [id number] Author: Aaron Hurtado MD Service: ? Author Type: Physician Type: Progress Notes Filed: 02/11/2023 10:42 AM Note Text: This note was created using [employer]. Subjective Patient presents with: Establish Care: Establish Care Gaston Blount is a 22 year old male. He's had a longstanding history of right sided neck and upper back pain, radiating up and over the right side of the head to the right eye. Pain was a mild to moderate dull ache associated with infrequent dizziness. Symptoms have been symptomatic again the past 2 years and more constant the past 2 months. There were no new injuries and no specific triggers. He had good results in the past with physical therapy and is interested in a fresh referral. He avoided analgesics and medications in general due to GERD. Review of Systems Constitutional: Negative for activity change, appetite change, fatigue and fever. HENT: Negative for congestion and sinus pain. Eyes: Negative for pain and visual disturbance. Respiratory: Negative for cough, chest tightness, shortness of breath and wheezing. Cardiovascular: Negative for chest pain, palpitations and leg swelling. Gastrointestinal: Negative for abdominal pain, nausea and vomiting. Genitourinary: Negative for difficulty urinating. Neurological: Negative for tremors, seizures, facial asymmetry, weakness, light-headedness and numbness. Psychiatric/Behavioral: Negative for dysphoric mood. The patient is not nervous/anxious. PAST MEDICAL HISTORY Diagnosis Date Attention deficit hyperactivity disorder (ADHD) 06/18/2007 Cervicogenic headache 09/07/2021 Gastroesophageal reflux disease 02/11/2023 PMH - PAST MEDICAL HISTORY OF cyst on testicle PMH - PAST MEDICAL HISTORY OF 05/22/2004 normal color vision Rib contusion 08/19/2012 Skin striae 07/22/2015 Tourette's disorder Unspecified asthma(493.90) PAST SURGICAL HISTORY Procedure Laterality Date CIRCUMCISION,CLAMP, 1998 EGD AC 02/13/2022 TONSILLECTOMY AND ADENOIDECTOMY FAMILY HISTORY Problem Relation Age of Onset Asthma Mother Drug abuse Mother other (adopted) Father Hypertension Maternal Grandmother Diabetes Maternal Grandfather Hypertension Maternal Grandfather other (cva) Maternal Grandfather other (myocardial infarction) Maternal Grandfather Immunization History Administered Date(s) Administered Haemophilus influenzae b (HbOC) vaccine, 4-dose series (HIBTITER) 1998 05/01/1999 07/03/1999 05/29/2000 diphtheria tetanus pertussis (DTaP) vaccine, pediatric (INFANRIX) 1998 05/01/1999 07/03/1999 05/29/2000 02/02/2004 hepatitis B (HepB) vaccine, 3-dose series, age 0 yr - 19 yr (ENGERIX B-PEDS, RECOMBIVAX HB-PEDS) 1998 1998 07/03/1999 human papillomavirus (HPV4) vaccine, quadrivalent (GARDASIL) 07/20/2013 05/06/2014 08/31/2014 influenza (IIV4) vaccine, age 6 mo - 64 yr, quadrivalent (AFLURIA, FLULAVAL, FLUZONE) 08/31/2016 influenza (IIV4) vaccine, age 6 mo - 64 yr, quadrivalent, PF (AFLURIA, FLUARIX, FLULAVAL, FLUZONE) 09/11/2017 influenza (LAIV3) vaccine, trivalent, live, intranasal (FLUMIST) 07/23/2011 07/20/2013 influenza (LAIV4) vaccine, quadrivalent, live, intranasal (FLUMIST) 08/31/2014 11/03/2015 influenza vaccine, unspecified formulation 09/20/2004 measles mumps rubella (MMR) vaccine (M-M-R II, PRIORIX) 10/25/1999 02/02/2004 meningococcal (MenACWY-D) vaccine, quadrivalent (MENACTRA) 12/07/2014 meningococcal (MenACYW) vaccine, quadrivalent, unspecified formulation 07/23/2011 poliovirus (IPV) vaccine, inactivated (IPOL) 1998 05/01/1999 10/25/1999 02/02/2004 tetanus diphtheria pertussis (Tdap) vaccine, age 7+ yr (ADACEL, BOOSTRIX) 07/23/2011 varicella (AMADEO) vaccine (VARIVAX) 10/25/1999 07/23/2011 ALLERGIES No Known Allergies Current Outpatient Medications Medication Sig omeprazole (PRILOSEC) 20 mg capsule Take 1 capsule by mouth once daily. ibuprofen (MOTRIN ORAL) Take by mouth. No current facility-administered medications for this visit. Objective BP 116/80 Pulse 92 Resp 16 Wt 68.9 kg (152 lb) BMI 23.81 kg/m? Physical Exam Constitutional: Appearance: Normal appearance. HENT: Head: Normocephalic and atraumatic. Nose: Nose normal. Mouth/Throat: Pharynx: Oropharynx is clear. Eyes: Extraocular Movements: Extraocular movements intact. Conjunctiva/sclera: Conjunctivae normal. Pupils: Pupils are equal, round, and reactive to light. Cardiovascular: Rate and Rhythm: Normal rate and regular rhythm. Heart sounds: No murmur heard. No gallop. Pulmonary: Breath sounds: Normal breath sounds. Abdominal: General: Bowel sounds are normal. Tenderness: There is no abdominal tenderness. Musculoskeletal: General: No tenderness, deformity or signs of injury. Normal range of motion. Cervical back: Normal range of motion and neck supple. Lymphadenopathy: Cervical: (more content not included)... [facility] 02-11-2023 History of Presen t illness Narrative This note was created using [employer]. Subjective Patient presents with: Establish Care: Establish Care Gaston Blount is a 22 year old male. He's had a longstanding history of right sided neck and upper back pain, radiating up and over the right side of the head to the right eye. Pain was a mild to moderate dull ache associated with infrequent dizziness. Symptoms have been symptomatic again the past 2 years and more constant the past 2 months. There were no new injuries and no specific triggers. He had good results in the past with physical therapy and is interested in a fresh referral. He avoided analgesics and medications in general due to GERD. Review of Systems Constitutional: Negative for activity change, appetite change, fatigue and fever. HENT: Negative for congestion and sinus pain. Eyes: Negative for pain and visual disturbance. Respiratory: Negative for cough, chest tightness, shortness of breath and wheezing. Cardiovascular: Negative for chest pain, palpitations and leg swelling. Gastrointestinal: Negative for abdominal pain, nausea and vomiting. Genitourinary: Negative for difficulty urinating. Neurological: Negative for tremors, seizures, facial asymmetry, weakness, light-headedness and numbness. Psychiatric/Behavioral: Negative for dysphoric mood. The patient is not nervous/anxious. PAST MEDICAL HISTORY Diagnosis Date Attention deficit hyperactivity disorder (ADHD) 06/18/2007 Cervicogenic headache 09/07/2021 Gastroesophageal reflux disease 02/11/2023 PMH - PAST MEDICAL HISTORY OF cyst on testicle PMH - PAST MEDICAL HISTORY OF 05/22/2004 normal color vision Rib contusion 08/19/2012 Skin striae 07/22/2015 Tourette's disorder Unspecified asthma(493.90) PAST SURGICAL HISTORY Procedure Laterality Date CIRCUMCISION,CLAMP, 1998 EGD AC 02/13/2022 TONSILLECTOMY & ADENOIDECTOMY <AGE 12 FAMILY HISTORY Problem Relation Age of Onset Asthma Mother Drug abuse Mother other (adopted) Father Hypertension Maternal Grandmother Diabetes Maternal Grandfather Hypertension Maternal Grandfather other (cva) Maternal Grandfather other (myocardial infarction) Maternal Grandfather Immunization History Administered Date(s) Administered Haemophilus influenzae b (HbOC) vaccine, 4-dose series (HIBTITER) 1998 05/01/1999 07/03/1999 05/29/2000 diphtheria tetanus pertussis (DTaP) vaccine, pediatric (INFANRIX) 1998 05/01/1999 07/03/1999 05/29/2000 02/02/2004 hepatitis B (HepB) vaccine, 3-dose series, age 0 yr - 19 yr (ENGERIX B-PEDS, RECOMBIVAX HB-PEDS) 1998 1998 07/03/1999 human papillomavirus (HPV4) vaccine, quadrivalent (GARDASIL) 07/20/2013 05/06/2014 08/31/2014 influenza (IIV4) vaccine, age 6 mo - 64 yr, quadrivalent (AFLURIA, FLULAVAL, FLUZONE) 08/31/2016 influenza (IIV4) vaccine, age 6 mo - 64 yr, quadrivalent, PF (AFLURIA, FLUARIX, FLULAVAL, FLUZONE) 09/11/2017 influenza (LAIV3) vaccine, trivalent, live, intranasal (FLUMIST) 07/23/2011 07/20/2013 influenza (LAIV4) vaccine, quadrivalent, live, intranasal (FLUMIST) 08/31/2014 11/03/2015 influenza vaccine, unspecified formulation 09/20/2004 measles mumps rubella (MMR) vaccine (M-M-R II, PRIORIX) 10/25/1999 02/02/2004 meningococcal (MenACWY-D) vaccine, quadrivalent (MENACTRA) 12/07/2014 meningococcal (MenACYW) vaccine, quadrivalent, unspecified formulation 07/23/2011 poliovirus (IPV) vaccine, inactivated (IPOL) 1998 05/01/1999 10/25/1999 02/02/2004 tetanus diphtheria pertussis (Tdap) vaccine, age 7+ yr (ADACEL, BOOSTRIX) 07/23/2011 varicella (AMADEO) vaccine (VARIVAX) 10/25/1999 07/23/2011 ALLERGIES No Known Allergies Current Outpatient Medications Medication Sig omeprazole (PRILOSEC) 20 mg capsule Take 1 capsule by mouth once daily. ibuprofen (MOTRIN ORAL) Take by mouth. No current facility-administered medications for this visit. Objective BP 116/80 Pulse 92 Resp 16 Wt 68.9 kg (152 lb) BMI 23.81 kg/m Physical Exam Constitutional: Appearance: Normal appearance. HENT: Head: Normocephalic and atraumatic. Nose: Nose normal. Mouth/Throat: Pharynx: Oropharynx is clear. Eyes: Extraocular Movements: Extraocular movements intact. Conjunctiva/sclera: Conjunctivae normal. Pupils: Pupils are equal, round, and reactive to light. Cardiovascular: Rate and Rhythm: Normal rate and regular rhythm. Heart sounds: No murmur heard. No gallop. Pulmonary: Breath sounds: Normal breath sounds. Abdominal: General: Bowel sounds are normal. Tenderness: There is no abdominal tenderness. Musculoskeletal: General: No tenderness, deformity or signs of injury. Normal range of motion. Cervical back: Normal range of motion and neck supple. Lymphadenopathy: Cervical: No cervical adenopathy. Skin: General: Skin is warm and dry. Neurological: General: No focal deficit present. Mental Status: He is alert and oriented to person, place, and time. Cranial Nerves: No cranial nerve deficit. Sensory: No sensory deficit. Motor: No weakness. Coordination: Coordination normal. Gait: Gait normal. Deep Tendon Reflexes: Reflexes normal. Psychiatric: Mood and Affect: Mood normal. Behavior: Behavior normal. Thought Content: Thought content normal. Assessment and Plan 1. Cervicogenic headache - ICD9: 784.0, ICD10: G44.86 (primary diagnosis) - XR CERV OTHER 4V AP/LAT/OBL. Baseline. - CONSULT TO PHYSICAL THERAPY 2. Gastroesophageal reflux disease, unspecified whether esophagitis present - ICD9: 530.81, ICD10: K21.9 Controlled. - OMEPRAZOLE 20 MG CAPSULE,DELAYED RELEASE 3. Encounter for screening for HIV - ICD9: V73.89, ICD10: Z11.4 - HIV 1 2 COMBO(AG/AB),WITH REFLEX TO DIFFERENTIATION - HEP C AB IA W/CONF SCRN Aaron Hurtado MD documented in this encounter [facility] 09-13-2022 Note HNO ID: [id number] Author: Chanelle Griffin APRN.RECOVERY COORDINATOR Service: ? Author Type: Nurse Practitioner Type: Progress Notes Filed: 09/13/2022 10:31 AM Note Text: CC: Patient presents with: Sore Throat: Cough, congestion x 1 day HPI: Gaston Blount is a 21 year old male who presents to the office with complaint of head congestion, cough, nonproductive, and sore throat for the past day. Symptoms are staying the same. Associated symptoms includes sore throat. Denies body aches, fever, nausea, vomiting , and diarrhea. Treatments tried include nothing so far. with no relief of symptoms. Sick contacts: unknown. History of asthma, frequent episodes of bronchitis, chronic bronchitis, bronchiectasis or COPD: No Smoker: No Seasonal/environmental allergies: No The ROS is otherwise negative. The patient's pmh, medications, allergies, and past visits are reviewed. PHYSICAL EXAM: BP 122/76 Pulse 80 Temp 36.1 ?C (97 ?F) Resp 21 Wt 71.2 kg (157 lb) SpO2 99% BMI 24.59 kg/m? General appearance: alert, cooperative, pleasant, in no acute distress Head: Normocephalic Eyes: EOM's intact, conjunctiva pink and moist, no icterus, sclera white, non-injected Ears: Right ear: External ear/canal- Normal, TM - clear with good landmarks. Left ear: External ear/canal- Normal, TM - clear with good landmarks Oropharynx:moderate erythema, without exudates present Heart: Negative. RRR without obvious murmur, gallop, or rubs. No ectopy. Lungs: clear to auscultation, without rales or wheeze, good air exchange PAST MEDICAL HISTORY Diagnosis Date Attention deficit disorder with hyperactivity(314.01) PMH - PAST MEDICAL HISTORY OF cyst on testicle PMH - PAST MEDICAL HISTORY OF 05/22/04 normal color vision Rib contusion 08-19-2012 Skin striae 07/22/2015 Tourette's disorder Unspecified asthma(493.90) PAST SURGICAL HISTORY Procedure Laterality Date CIRCUMCISION,CLAMP, 1998 TONSILLECTOMY AND ADENOIDECTOMY ALLERGIES Patient has no known allergies. MEDICATIONS omeprazole (PRILOSEC) 20 mg capsule Take 2 capsules by mouth once daily. ibuprofen (MOTRIN ORAL) Take by mouth. FAMILY HISTORY Problem Relation Age of Onset Asthma Mother other (adopted) Father Hypertension Maternal Grandmother Diabetes Maternal Grandfather Hypertension Maternal Grandfather other (cva) Maternal Grandfather other (myocardial infarction) Maternal Grandfather Social History Tobacco Use Smoking status: Never Smokeless tobacco: Never Vaping Use Vaping Use: Never used Substance Use Topics Alcohol use: No Drug use: Not Currently Frequency: 14.0 times per week Types: Marijuana Comment: 1-2 times a day ASSESSMENT/PLAN: 1. Sore throat - ICD9: 462, ICD10: J02.9 Strep negative Prednisone daily for 5 days and Claritin daily for 7-14 days. Prescription instructions reviewed with patient as applicable. Potential red flag symptoms discussed with the patient. Reviewed appropriate action plan to take if red flag symptoms occur. Patient agreeable to treatment plan. Chanelle Griffin APRN.[facility] 09-13-2022 Instructions Chanelle Griffin APRN.[facility] - 09/13/2022 10:30 AM EST Images from the original note were not included. Sore Throat (Pharyngitis) What is a sore throat? When your child complains that his throat is sore, it is usually a symptom of an illness, such as a cold. When you look at the throat with a light, it will be bright red. Children too young to talk may have a sore throat if they refuse to eat or begin to cry during feedings. What is the cause? Most sore throats are caused by viruses and are part of a cold. About 10% of sore throats are caused by strep bacteria. Tonsillitis (temporary swelling and redness of the tonsils) usually occurs with any throat infection, viral or bacterial. Swollen tonsils do not have any special meaning. Children who sleep with their mouths open often wake up in the morning with a dry mouth and sore throat. It feels better within an hour of having something to drink. Use a humidifier to help prevent this problem. Children with a postnasal drip from draining sinuses often have a sore throat from the secretions or from clearing their throat often. How long does it last? Sore throats caused by viral illnesses usually last 4 or 5 days. A sore throat caused by Strep will start feeling better soon after being treated with penicillin or other antibiotics. After a child has been taking medicine for strep for 24 hours, strep is no longer contagious. Your child can then return to day care or school if his fever is gone and he's feeling better. Your child must take all of the antibiotic even if he is feeling better. If your child doesn't take all of the medicine, the sore throat could come back. Why do a throat culture? A throat culture or rapid strep test is the only way to know whether a sore throat is caused by strep bacteria or a virus. Without treatment, a strep throat has a small risk for acute rheumatic fever. Rheumatic fever is a complication of strep infections that can lead to permanent damage to the valves of the heart. The throat culture is not urgent, however, since treating a strep infection within 7 days of when it begins can prevent rheumatic fever. A throat culture is not necessary if your child's sore throat is part of a cold AND the main symptom is croup, hoarseness, or a cough, unless the sore throat lasts more than 5 days. Rapid strep tests are helpful only when their results are positive. If they are negative, a throat culture should be done to chart picker the 10% of strep infections that the rapid tests miss. Avoid rapid strep tests performed in shopping malls or at home because they tend to be inaccurate. How can I take care of my child? Throat pain relief Children over age 1 can sip warm chicken broth or apple juice. Children over age 4 can suck on hard candy (butterscotch seems to be a soothing flavor) or lollipops. Children over 8 years old can also gargle with warm salt water (10/24 teaspoon of salt per glass). Diet A sore throat can make some foods hard to swallow. Provide your child with a diet of soft foods for a few days if he prefers it. Cold drinks and milkshakes are especially good. Do not give your child salty or spicy foods or citrus fruits. Fever and pain relief Give your child acetaminophen (Tylenol) or ibuprofen (Advil) for the sore throat or for a fever over 102 F (39 C). Common mistakes in treating sore throat Avoid expensive throat sprays or throat lozenges. Not only are they no more effective than hard candy, but many also contain an ingredient (benzocaine) that may cause an allergic reaction. Do not use leftover antibiotics from siblings or friends. Leftover antibiotics should be thrown out because they deteriorate faster than other drugs. Also, antibiotics help only strep throats. They have no effect on viruses, and they can cause harm. They also make it difficult to find out what is wrong if your child becomes sicker. Don't allow anyone to smoke around children. When should I call my child's healthcare provider? Call IMMEDIATELY if: Your child is drooling or having great difficulty swallowing. Your child is having trouble breathing. Your child is acting very sick. Call during office hours: To make an appointment for a throat culture for any other child who has had a sore throat for more than 48 hours (especially if the child also has a fever without any symptoms of a cold). Published by [employer]. This content is reviewed periodically and is subject to change as new health information becomes available. The information is intended to inform and educate and is not a replacement for medical evaluation, advice, diagnosis or treatment by a healthcare professional. Written by Monica Whittington M.D., author of Your Child's Health, [employer]. Copyright 2007 [employer] and/or one of its subsidiaries. All Rights Reserved. Copyright [employer] 2008 Pediatric Advisor documented in this encounter [facility] 09-13-2022 History of Presen t illness Narrative CC: Patient presents with: Sore Throat: Cough, congestion x 1 day HPI: Gaston Blount is a 21 year old male who presents to the office with complaint of head congestion, cough, nonproductive, and sore throat for the past day. Symptoms are staying the same. Associated symptoms includes sore throat. Denies body aches, fever, nausea, vomiting , and diarrhea. Treatments tried include nothing so far. with no relief of symptoms. Sick contacts: unknown. History of asthma, frequent episodes of bronchitis, chronic bronchitis, bronchiectasis or COPD: No Smoker: No Seasonal/environmental allergies: No The ROS is otherwise negative. The patient's pmh, medications, allergies, and past visits are reviewed. PHYSICAL EXAM: BP 122/76 Pulse 80 Temp 36.1 C (97 F) Resp 21 Wt 71.2 kg (157 lb) SpO2 99% BMI 24.59 kg/m General appearance: alert, cooperative, pleasant, in no acute distress Head: Normocephalic Eyes: EOM's intact, conjunctiva pink and moist, no icterus, sclera white, non-injected Ears: Right ear: External ear/canal- Normal, TM - clear with good landmarks. Left ear: External ear/canal- Normal, TM - clear with good landmarks Oropharynx:moderate erythema, without exudates present Heart: Negative. RRR without obvious murmur, gallop, or rubs. No ectopy. Lungs: clear to auscultation, without rales or wheeze, good air exchange PAST MEDICAL HISTORY Diagnosis Date Attention deficit disorder with hyperactivity(314.01) PMH - PAST MEDICAL HISTORY OF cyst on testicle PMH - PAST MEDICAL HISTORY OF 05/22/04 normal color vision Rib contusion 08-19-2012 Skin striae 07/22/2015 Tourette's disorder Unspecified asthma(493.90) PAST SURGICAL HISTORY Procedure Laterality Date CIRCUMCISION,CLAMP, 1998 TONSILLECTOMY & ADENOIDECTOMY <AGE 10 ALLERGIES Patient has no known allergies. MEDICATIONS omeprazole (PRILOSEC) 20 mg capsule Take 2 capsules by mouth once daily. ibuprofen (MOTRIN ORAL) Take by mouth. FAMILY HISTORY Problem Relation Age of Onset Asthma Mother other (adopted) Father Hypertension Maternal Grandmother Diabetes Maternal Grandfather Hypertension Maternal Grandfather other (cva) Maternal Grandfather other (myocardial infarction) Maternal Grandfather Social History Tobacco Use Smoking status: Never Smokeless tobacco: Never Vaping Use Vaping Use: Never used Substance Use Topics Alcohol use: No Drug use: Not Currently Frequency: 14.0 times per week Types: Marijuana Comment: 1-2 times a day ASSESSMENT/PLAN: 1. Sore throat - ICD9: 462, ICD10: J02.9 Strep negative Prednisone daily for 5 days and Claritin daily for 7-14 days. Prescription instructions reviewed with patient as applicable. Potential red flag symptoms discussed with the patient. Reviewed appropriate action plan to take if red flag symptoms occur. Patient agreeable to treatment plan. Chanelle Griffin APRN.RECOVERY COORDINATOR documented in this encounter [facility] 05-16-2022 History of Presen t illness Narrative Patient presents with: Back Pain: mid-upper back, legs weak and hurts to breath x last night HPI: Back pain: Duration: swung his right arm forward last night playing a virtual reality video game. It felt like his back came out of socket. His legs went weak and he fell. Character: Excruciating, sharp Location: Between the shoulder blades. More on the right side today. Radiation: Wraps around to the sternum with breathing or moving. Also down to the lower back. Aggravating: Standing, moving, and breathing Relieving: holding still Pain relievers: Motrin Associated: Falling when pain is severe, difficult breathing, Pertinent negatives: Denies numbness or weakness, loss of bladder or bowel control. PAST MEDICAL HISTORY Diagnosis Date Attention deficit disorder with hyperactivity(314.01) PMH - PAST MEDICAL HISTORY OF cyst on testicle PMH - PAST MEDICAL HISTORY OF 05/22/04 normal color vision Rib contusion 08-19-2012 Skin striae 07/22/2015 Tourette's disorder Unspecified asthma(493.90) MEDICATIONS: ibuprofen (MOTRIN ORAL) Take by mouth. omeprazole (PRILOSEC) 20 mg capsule Take 2 capsules by mouth once daily. ALLERGIES: ALLERGIES No Known Allergies VITALS: BP 122/68 Pulse 80 Temp 36.2 C (97.2 F) Resp 18 Wt 68.5 kg (151 lb) SpO2 98% BMI 23.65 kg/m PHYSICAL EXAM: GEN: Alert, sitting still, uncomfortable with small movements HEART: regular rate, regular rhythm, no murmurs LUNGS: clear to auscultation, no wheezes or crackles, no increased WOB, pain with deep breaths. NECK: Pain with left rotation, extension, and flexion. No midline or paraspinal tenderness EXT: no clubbing, no cyanosis, no edema. Normal strength in hand operating manager, pincer grasp, and finger abduction. No pain with palpation of the clavicles or shoulders. BACK: Normal curvature of spine. Upper throacic midline tenderness. Right paraspinal, rib, and chondrosternal border tenderness. Straight leg test negative. Deep tendon reflexes 2+/4 at patellas and brachioradialis. Normal upper and lower extremity strength; pain with pushing or pulling with the right arm. Normal gait. ASSESSMENT/PLAN: 1. Upper back pain on right side - ICD9: 724.5, ICD10: M54.9 (primary diagnosis) Mechanical back strain - XR RIBS/CHEST 3V AP RIB/OBLS/CXR RIGHT - negative - IBUPROFEN 600 MG TABLET - CYCLOBENZAPRINE 10 MG TABLET 2. Heartburn - ICD9: 787.1, ICD10: R12 Refill - OMEPRAZOLE 20 MG CAPSULE,DELAYED RELEASE to take with ibuprofen. Rafael Schmitt MD documented in this encounter [facility] 02-13-[address] Alvarado at bedside speaking with patient Pt states readines for discharge. Patient waiting at bedside to speak with the doctor. documented in this encounter [facility] 02-13-2022 History and physical note HISTORY AND PHYSICAL Gaston Blount, 21 year old male here for EGD to evaluate, GERD, Epigastric pain and nausea Current history and physical on file: Yes Is a new History and Physical required for today's visit? No Indication for procedure: Abdominal pain, GERD and Nausea PROCEDURE(S) SCHEDULED FOR: EGD (Esophagogastroduodenoscopy) with or without biopsies, removal of polyps or lesions, dilation ( any means), treatment of bleeding ( any means), Barrx treatment of Bernabe's Esophagus, image tube placement or cryo therapy treatment based on clinical findings. BASELINE BEHAVIOR: Calm BASELINE ORIENTATION: A & O x3 All medications and allergies reviewed: Yes Skin Assessment: Warm dry muscus membranes pink Airway/Respiratory Assessment: Airway: visualization of the uvula- Yes Mouth: opening greater than 2 fingerbreadths- Yes Neck: full range of motion- Yes Breath sounds clear/equal- Yes Cardiac Assessment: Regular rate and rhythm without murmur Abdominal Assessment: Abdomen soft, non-tender, no masses or organomegaly. Sedation Plan: Deep Additional Comments: None Key Alvarado MD documented in this encounter [facility] 01-18-2022 History of Presen t illness Narrative Patient presents with: Headache: Pain rated 3, x2 days location frontal Nasal Congestion: sore throat pain rated 3 HPI: Feeling sick for 3 days. Frontal headache started after laughing too hard. He had other URI symptoms the next day. Positive symptoms: Sore throat, Nasal Congestion, Headache, Rhinorrhea, Fever (102 today), chronic nausea Negative symptoms: Cough, Vomiting, Diarrhea, OTC: Mucinex, Ibuprofen Had COVID 19 illness in July. PAST MEDICAL HISTORY Diagnosis Date Attention deficit disorder with hyperactivity(314.01) PMH - PAST MEDICAL HISTORY OF cyst on testicle PMH - PAST MEDICAL HISTORY OF 05/22/04 normal color vision Rib contusion 08-19-2012 Skin striae 07/22/2015 Tourette's disorder Unspecified asthma(493.90) MEDICATIONS: Current Outpatient Medications Medication Sig ibuprofen (MOTRIN ORAL) Take by mouth. omeprazole (PRILOSEC) 20 mg capsule Take 2 capsules by mouth once daily. No current facility-administered medications for this visit. ALLERGIES: ALLERGIES No Known Allergies VITALS: BP 124/76 Pulse 91 Temp 36.7 C (98 F) Resp 20 Wt 72.9 kg (160 lb 12.8 oz) SpO2 97% PHYSICAL EXAM: GEN: mildly ill appearing HEENT: PERRL, EOMI, conjunctiva clear Ears: canals clear. TMs without erythema, bulge, or effusion Sinuses: non-tender frontal sinus, non-tender maxillary sinuses Throat: moist mucous membranes, mild erythema, no exudate Neck: supple, no thyromegaly, no lymphadenopathy HEART: regular rate and rhythm, no murmurs LUNGS: clear to auscultation, no wheezes or crackles, no increased WOB ASSESSMENT/PLAN: 1. URI, acute - ICD9: 465.9, ICD10: J06.9 (primary diagnosis) - suspect viral URI - Discussed supportive care treatment with rest, cold medicine, and analgesia. He declines COVID/influenza testing. 2. Headache, unspecified headache type - ICD9: 784.0, ICD10: R51.9 He was advised to f/u with his PCP or headache clinic because of GI symptoms and using ibuprofen multiple times per week for headache. He took ibuprofen anyway the last couple days because he needs to be able to work. Stop ibuprofen. He may try - MELOXICAM 15 MG TABLET. He may use acetaminophen as needed for headache or fever. Schedule follow up with primary care to develop and headache treatment plan. Rafael Schmitt MD documented in this encounter [facility] 01-17-2022 Instructions Chelsea Euceda APRN.YOLY - 01/17/2022 1:34 PM EDT Avoid NSAIDs (such as Advil, Ibuprofen, Excedrin, Mobic), tobacco, alcohol, carbonated beverages, caffeine, chocolate, tomato based sauces, spicy/fatty foods, and peppermint Avoid eating large meals. Avoid eating less than 3 hours before bed. Weight loss. Elevate the head of the bed 6 inches, or at least invest in a wedge pillow. Follow up yearly for medication renewal, and as needed. documented in this encounter [facility] 01-17-2022 History of Presen t illness Narrative NEW VIRTUAL VISIT I had a virtual visit with Mr. Blount today for evaluation of GERD. HISTORY: Mr. Blount is a 21 year old male with a pst medical history of asthma, Tourette's, ADD, who presents with GERD symptoms. Patient reports nauseated in the mornings Feeling as if he is going to vomit but does not. Having sharp shooting pains intermittently. He reports feeling of acid burning a hole in my stomach . He reports he has 3 different times of pain burning, sharp pain left or right, burning in his stomach. He has noticed certain foods worsening symptoms like hot chocolate When eating he will feel bloating and abdominal pain. Denies regurgitation of food or dysphagia. PAtient reports lately feeling full fast. He is also reporting thick mucus that he needs to spit out because sometimes he can't even swallow it. Diet: eating fast food, he reports he does not even know what healthy meals are. He works a lot and does not have time to eat healthy. Mostly he eats fast food and eats right before he lays down. Drinks 1 cup of coffee a day. The patient denies change in bowel habits, denies black stool but think he has dark stools at times, rectal bleeding or abdominal pain. Having a bowel movement daily. NSAIDS- taking all the time he reports he suffers from migraines constantly so he takes ibuprofen almost daily. I advised him to discuss this with his PCP or [facility] clinic to help manage his daily [place] PAST MEDICAL HISTORY Diagnosis Date Attention deficit disorder with hyperactivity(314.01) PMH - PAST MEDICAL HISTORY OF cyst on testicle PMH - PAST MEDICAL HISTORY OF 05/22/04 normal color vision Rib contusion 08-19-2012 Skin striae 07/22/2015 Tourette's disorder Unspecified asthma(493.90) PAST SURGICAL HISTORY Procedure Laterality Date CIRCUMCISION,CLAMP, 1998 TONSILLECTOMY & ADENOIDECTOMY <AGE 10 FAMILY HISTORY Problem Relation Age of Onset Asthma Mother other (adopted) Father Hypertension Maternal Grandmother Diabetes Maternal Grandfather Hypertension Maternal Grandfather other (cva) Maternal Grandfather other (myocardial infarction) Maternal Grandfather Social History Tobacco Use Smoking status: Never Smoker Smokeless tobacco: Never Used Vaping Use Vaping Use: Never used Substance Use Topics Alcohol use: No Drug use: Yes Frequency: 14.0 times per week Types: Marijuana Comment: 1-2 times a day Current Outpatient Medications Medication Sig Dispense Refill omeprazole (PRILOSEC) 20 mg capsule Take 2 capsules by mouth once daily. 60 capsule 0 No current facility-administered medications for this visit. ALLERGIES No Known Allergies PHYSICAL FINDINGS OF NOTE: General Normal, healthy, cooperative, in no acute distress Able to interact verbally by video conference Psych ORIENTATION: normal to time place, person and situation Mood/Affect: AFFECT AND MOOD: Normal Head/Neuro Normal size and shape Facial appearance normal Pulmonary respiratory effort normal Abdominal Not performed Skin abnormal lesions not visualized Motor patient seen sitting with Normal appearing strength and coordination IMPRESSION (R12) Heartburn (primary encounter diagnosis) (R14.0) Bloating (R10.13) Epigastric pain (R11.0) Nausea RECOMMENDATION: Assessment/Plan (R12) Heartburn (primary encounter diagnosis) (R14.0) Bloating (R10.13) Epigastric pain (R11.0) Nausea 1. Heartburn - Patient presents today for worsening symptoms of GERD. Patient reports seeing GI in 2019 and was placed on omeprazole 20mg and this helped his symptoms but he has been off the medication for a while. Patient reports he has been having nausea every morning but never vomiting, epigastric pain, excessive gas and bloating and belching. He reports he admits he does not eta right and goes to bed after eating because he works a lot. He also reports still taking ibuprofen almost daily due to migraines. Had a long conversation about GERD lifestyle changes, resume omeprazole 40mg daily on empty stomach and waiting 30 min before eating. Recommended EGD to be done at [facility] and blood work to r/o H pylori - H PYLORI IGG AB; Future - omeprazole (PRILOSEC) 20 mg capsule; Take 2 capsules by mouth once daily. Dispense: 60 capsule; Refill: 0 - EGD DIAGNOSTIC; Future 2. Bloating - H PYLORI IGG AB; Future - omeprazole (PRILOSEC) 20 mg capsule; Take 2 capsules by mouth once daily. Dispense: 60 capsule; Refill: 0 - EGD DIAGNOSTIC; Future 3. Epigastric pain - H PYLORI IGG AB; Future - omeprazole (PRILOSEC) 20 mg capsule; Take 2 capsules by mouth once daily. Dispense: 60 capsule; Refill: 0 - EGD DIAGNOSTIC; Future 4. Nausea - H PYLORI IGG AB; Future - omeprazole (PRILOSEC) 20 mg capsule; Take 2 capsules by mouth once daily. Dispense: 60 capsule; Refill: 0 - EGD DIAGNOSTIC; Future Follow up in office 3 months/PRN. Recommended to please call office/go to ER if fever, chills, chest pain, SOB, diarrhea, nausea, emesis, worsening abdominal pain, dehydration occurs I spent 30 minutes in the visit, with more than 50% of the total [id number] time of the visit in counseling / coordination of care. I have confirmed and edited as necessary, the PFSH and ROS obtained by others. Chelsea Euceda APRN.YOLY January 17, 2022 3:36 PM documented in this encounter [facility] documented as of this encounter (statuses as of 02/11/2023) [facility] History of Past illness Narrative* Problem Noted Date Resolved Date Marijuana use 10/07/2020 02/08/2023 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 Attention deficit hyperactivity disorder (ADHD) 06/18/2007 02/08/2023 Tourette's disorder 06/18/2007 09/11/2017 documented as of this encounter (statuses as of 02/20/2023) [facility] of Past illness Narrative* Problem Noted Date Resolved Date Marijuana use 10/07/2020 02/08/2023 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 Attention deficit hyperactivity disorder (ADHD) 06/18/2007 02/08/2023 Tourette's disorder 06/18/2007 09/11/2017 documented as of this encounter (statuses as of 03/01/2023) [facility] of Past illness Narrative* Problem Noted Date Resolved Date Marijuana use 10/07/2020 02/08/2023 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 Attention deficit hyperactivity disorder (ADHD) 06/18/2007 02/08/2023 Tourette's disorder 06/18/2007 09/11/2017 documented as of this encounter (statuses as of 03/19/2023) [facility] of Past illness Narrative* Problem Noted Date Resolved Date Marijuana use 10/07/2020 02/08/2023 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 Attention deficit hyperactivity disorder (ADHD) 06/18/2007 02/08/2023 Tourette's disorder 06/18/2007 09/11/2017 documented as of this encounter (statuses as of 03/19/2023) [facility] of Past illness Narrative* Problem Noted Date Resolved Date Marijuana use 10/07/2020 02/08/2023 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 Attention deficit hyperactivity disorder (ADHD) 06/18/2007 02/08/2023 Tourette's disorder 06/18/2007 09/11/2017 documented as of this encounter (statuses as of 03/22/2023) [facility] of [facility] Narrative* Problem Noted Date Diagnosed Date Resolved Date Marijuana use 10/07/2020 02/08/2023 Unspecified 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2016 Attention deficit hyperactiv ity disorder (ADHD) 06/18/2007 02/08/2023 Tourette's disorder 06/18/2007 09/11/20 17 documented as of this encounter (statuses as of 06/06/2023) [facility] History of Past illness Narrative* Problem Noted Date Resolved Date 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 Tourette's disorder 06/18/2007 09/11/2017 documented as of this encounter (statuses as of 01/17/2022) [facility] of [facility] illness Narrative* Problem Noted Date Resolved Date 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 Tourette's disorder 06/18/2007 09/11/2017 documented as of this encounter (statuses as of 01/18/2022) [facility] of [facility] Narrative* Problem Noted Date Resolved Date 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 Tourette's disorder 06/18/2007 09/11/2017 documented as of this encounter (statuses as of 01/19/2022) [facility] Narrative* Problem Noted Date Resolved Date 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 Tourette's disorder 06/18/2007 09/11/2017 documented as of this encounter (statuses as of 02/14/2022) [facility] Narrative* Problem Noted Date Resolved Date 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 Tourette's disorder 06/18/2007 09/11/2017 documented as of this encounter (statuses as of 05/16/2022) [facility] Narrative* Problem Noted Date Resolved Date 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 Tourette's disorder 06/18/2007 09/11/2017 documented as of this encounter (statuses as of 09/13/2022) [facility] note* Diagnosis Heartburn- Primary Bloating Flatulence, eructation, and gas pain Epigastric pain Abdominal pain, epigastric Nausea Nausea alone [facility] Diagnosis URI, acute- Primary Acute upper respiratory infections of unspecified site Headache, unspecified headache type [facility]* Diagnosis Heartburn Bloating Flatulence, eructation, and gas pain Epigastric pain Abdominal pain, epigastric Nausea Nausea alone [facility] department note* Diagnosis Upper back pain on right side- Primary Pain in thoracic spine Heartburn [facility]* Diagnosis Sore throat- Primary Acute pharyngitis [facility]* Diagnosis Cervicogenic headache- Primary Headache Gastroesophageal reflux disease, unspecified whether esophagitis present Encounter for screening for HIV documented [facility] this [facility]* Diagnosis Cervicogenic headache- Primary Headache documented in this encounter [facility]* Diagnosis Cervicogenic headache- Primary Headache documented in this encounter [facility]* Diagnosis Chlamydia- Primary Unspecified chlamydial infection, in conditions classified elsewhere and of unspecified site documented [facility] this encounter [facility]* Diagnosis Cervicogenic headache- Primary Headache [facility] Diagnosis Testicular pain, right- Primary Unspecified disorder of male genital organs Groin pain, right History of chlamydia infection Personal history of other infectious and parasitic disease Encounter for screening for HIV Need for hepatitis C screening test Special screening examination for other specified viral diseases Chlamydia Unspecified chlamydial infection, in conditions classified elsewhere and of unspecified site documented in this encounter [facility] for referral (narrative)* Outpatient Procedure (Routine) - Pending Review Specialty Diagnoses / Procedures Referred By Reeceac t Referred To Contact [facility] Diagnoses Heartburn Bloating Epigastric pain Nausea Procedures EGD DIAGNOSTIC ESOPHAGOGASTRODUODENOSC OPY TRANSORAL DIAGNOSTIC Chelsea Euceda APRN.CNP [address] [place] [address] Formerly [facility] [address] [place] [address] Referral ID Status Reason Start Date Expiration Date Visits Requested Visits Authorized [id number] Pending Review Auto-Generat ed Referral 01/17/2022 01/17/2023 1 1 [facility] for referral (narrative)* Outpatient Procedure (Routine) - Closed Specialty Diagnoses / Procedures [facility] To Contact [facility] Diagnoses Heartburn Bloating Epigastric pain Nausea Procedures EGD DIAGNOSTIC ESOPHAGOGASTRODUODENOSC OPY TRANSORAL DIAGNOSTIC Chelsea Euceda APRN.RECOVERY COORDINATOR [address] [place] [address] Formerly [facility] [address] [place] [address] Referral ID Status Reason Start Date Expiration Date V isits Requested Visits Authorized [id number] Closed Auto-Generate d Referral 01/17/2022 01/17/2023 1 1 [facility] for referral (narrative)* Diagnostic Procedure Only (Urgent) - Closed Specialty Diagnoses / Procedures Referred By Contac t Referred To Contact XR IMAGING Diagnoses Upper back pain on right side Procedures XR RIBS/CHEST 3V AP RIB/OBLS/CXR RIGHT RADEX RIBS UNI W/POSTEROANT CH MINIMUM 3 VIEWS Rafael Schmitt MD [address] [place] [address] Xr Imaging Referral ID Status Reason Start Date Expiration Date V isits Requested Visits Authorized [id number] Closed Auto-Generate d Referral 05/16/2022 06/15/2023 1 1 [facility] for visit Narrative* Outpatient Procedure (Routine) - Closed Specialty Diagnoses / Procedures Referred By Contac t Referred To Contact [facility] Diagnoses Heartburn Bloating Epigastric pain Nausea Procedures EGD DIAGNOSTIC ESOPHAGOGASTRODUODENOSC OPY TRANSORAL DIAGNOSTIC Chelsea Euceda, KARLENE.RECOVERY COORDINATOR [address] [place] [address] Formerly [facility] [address] [place] [address] Referral ID Status Reason Start Date Expiration Date V isits Requested Visits Authorized [id number] Closed Auto-Generate d Referral 01/17/2022 01/17/2023 1 1 [facility] Advance Directives No Advanced Directives Records FoundDocuments on File Type Date Recorded 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 Aaron Hurtado MD [address] [place] [address] [facility] [address] [place] [address] Referral ID Status Reason Start Date Expiration Date Visits Requested Visits Authorized [id number] Authorized Auto-Generat ed Referral 11/21/2022 10/20/2023 30 30 Specialty Diagnoses / Procedures Referred By Contac t Referred To Contact XR IMAGING Diagnoses Cervicogenic headache Procedures XR CERV OTHER 4V AP/LAT/OBL RADEX SPINE CERVICAL 4 OR 5 VIEWS Aaron Hurtado MD [address] [place] [address] Xr Imaging Referral ID Status Reason Start Date Expiration Date V isits Requested Visits Authorized [id number] Closed Auto-Generate d Referral 02/08/2023 03/09/2024 1 1 Specialty Diagnoses / Procedures Referred By Contac t Referred To Contact [facility] Diagnoses Cervicogenic headache Procedures PT REHAB FOLLOW UP ORDER THERAPEUTIC EXERCISES RE, EA 15 MIN. Jorge Mazariegos, RUDI [facility] [address] [place] [address] Referral ID Status Reason Start Date Expiration Date Visits Requested Visits Authorized [id number] Pending Review PCP Requested Referral Auto-Generate d Referral 02/19/2023 05/20/2023 1 1 Referral ID Status Reason Start Date Expiration Date Visits Requested Visits Authorized [id number] Pending Review PCP Requested Referral Auto-Generate d Referral 03/20/2023 06/18/2023 1 1 Summary Purpose Family History No Family History Records Found Additional Source Comments Source Comments (unrecognize d section and content) In the event this informatio n is protected by the Federal Confidentiality of Alcohol and Drug Abuse Patient Records regulations: The Federal rules restrict any use of the information to criminally investigate or prosecute any alcohol or drug abuse patient.[facility] the event this information is protected by the Federal Confidentiality of Alcohol and Drug Abuse Patient Records regulations: The Federal rules restrict any use of the information to criminally investigate or prosecute any alcohol or drug abuse patient.[facility] the event this information is protected by the Federal Confidentiality of Alcohol and Drug Abuse Patient Records regulations: The Federal rules restrict any use of the information to criminally investigate or prosecute any alcohol or drug abuse patient.[facility] the event this information is protected by the Federal Confidentiality of Alcohol and Drug Abuse Patient Records regulations: The Federal rules restrict any use of the information to criminally investigate or prosecute any alcohol or drug abuse patient.[facility] the event this information is protected by the Federal Confidentiality of Alcohol and Drug Abuse Patient Records regulations: The Federal rules restrict any use of the information to criminally investigate or prosecute any alcohol or drug abuse patient.[facility] the event this information is protected by the Federal Confidentiality of Alcohol and Drug Abuse Patient Records regulations: The Federal rules restrict any use of the information to criminally investigate or prosecute any alcohol or drug abuse patient.[facility] the event this information is protected by the Federal Confidentiality of Alcohol and Drug Abuse Patient Records regulations: The Federal rules restrict any use of the information to criminally investigate or prosecute any alcohol or drug abuse patient.[facility] the event this information is protected by the Federal Confidentiality of Alcohol and Drug Abuse Patient Records regulations: The Federal rules restrict any use of the information to criminally investigate or prosecute any alcohol or drug abuse patient.[facility] the event this information is protected by the Federal Confidentiality of Alcohol and Drug Abuse Patient Records regulations: The Federal rules restrict any use of the information to criminally investigate or prosecute any alcohol or drug abuse patient.[facility] the event this information is protected by the Federal Confidentiality of Alcohol and Drug Abuse Patient Records regulations: The Federal rules restrict any use of the information to criminally investigate or prosecute any alcohol or drug abuse patient.[facility] the event this information is protected by the Federal Confidentiality of Alcohol and Drug Abuse Patient Records regulations: The Federal rules restrict any use of the information to criminally investigate or prosecute any alcohol or drug abuse patient.[facility] the event this information is protected by the Federal Confidentiality of Alcohol and Drug Abuse Patient Records regulations: The Federal rules restrict any use of the information to criminally investigate or prosecute any alcohol or drug abuse patient.[facility] the event this information is protected by the Federal Confidentiality of Alcohol and Drug Abuse Patient Records regulations: The Federal rules restrict any use of the information to criminally investigate or prosecute any alcohol or drug abuse patient.[facility] Reason for Visit (unrecogniz ed section and content) Specialty Diagnoses / Procedures Referred By Sandie guy Referred To Contact [facility] Diagnoses Cervicogenic headache Procedures CONSULT TO PHYSICAL THERAPY PHYSICAL THERAPY EVALUATION HIGH COMPLEX 45 MINS THERAPEUTIC EXERCISES RE, EA 15 MIN. Aaron Hurtado MD [address] [place] [address] [facility] [address] [place] [address] Referral ID Status Reason Start Date Expiration Date Visits Requested Visits Authorized [id number] Authorized Auto-Generat ed Referral 11/21/2022 10/20/2023 30 30 Reason Comments GERD Abdominal Pain Reason Comments Headache Pain rated 3, x2 day s location frontal Nasal Congestion sore throat pain rat ed 3 Reason Comments Back Pain mid-upper back, legs weak and hurts to breath x last night Reason Comments Sore Throat Cough, congestion x 1 day Reason Comments Establish Care Establish Care Reason Comments PT Eval Reason Comments Physical Therapy Specialty Diagnoses / Procedures Referred By Contac t Referred To Contact [facility] Diagnoses Cervicogenic headache Procedures CONSULT TO PHYSICAL THERAPY PHYSICAL THERAPY EVALUATION HIGH COMPLEX 45 MINS THERAPEUTIC EXERCISES RE, EA 15 MIN. Aaron Hurtado MD [address] [place] [id number] [facility] [address] [address] Reason Comments Results Reason Comments Pain Care Teams (unrecognized sec tion and content) Enrollment Advisor Relationship Specialty Start Date End Date Aaron Hurtado MD [address] [place] [address] PCP - General Internal Medicine 12/07/20 Enrollment Advisor Relationship Specialty Start Date End Date Aaron Hurtado MD [address] [place], [place] [id number] PCP - General Internal Medicine 12/07/20 Enrollment Advisor Relationship Specialty Start Date End Date Aaron Hurtado MD [address] [place] [address] PCP - General Internal Medicine 12/07/20 Enrollment Advisor Relationship Specialty Start Date End Date Aaron Hurtado MD [facility] [place] [address] PCP - General Internal Medicine 12/07/20 Enrollment Advisor Relationship Specialty Start Date End Date Aaron Hurtado MD [address] [place], [place] [id number] PCP - General Internal Medicine 03/11/23 Enrollment Advisor Relationship Specialty Start Date End Date Aaron Hurtado MD [address] [place], [place] [id number] PCP - General Internal Medicine 03/11/23 Enrollment Advisor Relationship Specialty Start Date End Date Aaron Hurtado MD [address] [place], [place] [id number] PCP - General Internal Medicine 03/11/23 Enrollment Advisor Relationship Specialty Start Date End Date Aaron Hurtado MD [address] [place] [address] PCP - General Internal Medicine 03/11/23 (unrecognized sect ion and content) No Status Records Found INFORMATION SOURCE (unrecogn ized section and content) FOR RECORDS PERTAINING TO PATIENTS WHO ARE OR HAVE BEEN ENROLLED IN A CHEMICAL DEPENDENCY/SUBSTANCEABUSE PROGRAM, SOME INFORMATION MAY BE OMITTED. This clinical summary was aggregated from multiple sources. Caution should be exercised in using it in the provision of clinical care. This summary normalizes information from multiple sources, and as a consequence, information in this document may materially change the coding, format and clinical context of patient data. In addition, data may be omitted in some cases. CLINICAL DECISIONS SHOULD BE BASED ON THE PRIMARY CLINICAL RECORDS. [employer] provides no warranty or guarantee of the accuracy or completeness of information in this document.
== END 2023-10-22 23:52 | disposition home or self-care (01) ==
PROVIDERS: Emergency Provider Emergency Medicine; PCP Internal Medicine; Visit Provider Emergency Medicine
DX: H92.09 Otalgia, unspecified ear (principal); K21.9 Gastro-esophageal reflux disease without esophagitis; Z79.899 Other long term (current) drug therapy
CPT/HCPCS: 99282

== ENCOUNTER 2024-01-17 04:36 | Emergency (ER) | payer MEDICAID, SELFPAY ==
[2024-01-17 04:37] VITALS: BP 141/95; PULSE 86; RESP 16; TEMP 35.7; O2SAT 100; BMI 23.3
--- NOTE | 2024-01-17 06:08 | EX.ED.DYSGE1 ---
HPI History of Present Illness Chief Complaint: Dental Informant: patient Narrative Narrative: Patient presents secondary to continued swelling from his dental extraction site. He had his wisdom teeth pulled 1130 yesterday morning. He states has been bleeding since and cannot get it to stop. He is not on any kind of anticoagulation. PFSH PFS Medical History COVID Hx of gastroesophageal reflux (GERD) Home Medications omeprazole 20 mg capsule,delayed release 20 mg PO DAILY 12/23/22 [History Last Taken Unknown] Allergy/AdvReac Type Severity Reaction Status Date / Time No Known Allergies Allergy Verified 10/22/23 23:27 Surgical History Hx of tonsillectomy Social History Smoking Status: Never smoker ROS ROS ED Constitutional Constitutional ED: Denies chills or fever(s) Eyes Eyes: Denies change in vision ENT ENT ED: Denies sore throat Cardiovascular Cardiovascular: Denies chest pain Respiratory/Chest Respiratory/Chest: Denies cough or dyspnea Gastrointestinal Gastrointestinal: Denies abdominal pain Musculoskeletal Musculoskeletal: Denies back pain or neck pain Integumentary Denies abscess Psychiatric Psychiatric: Denies anxiety or depression Allergic/Immunologic Allergic/Immunologic ED: Denies mouth swelling or tongue swelling EXAM Physical Exam Const Vital Signs: 01/17/24 04:37 Temperature 96.3 F L Temperature Source Temporal Pulse Rate 86 Respiratory Rate 16 Blood Pressure 141/95 H Blood Pressure Mean 110 Pulse Ox 100 Oxygen Delivery Method Room Air Positive well nourished and well developed General Appearance ED: well developed HEENT Reports moist mucous membranes HEENT Narrative: Mild bleeding noted from the dental extraction sites on the mandibular surface of both the right and left third molar. Upper molar sites appear to be clotted well. Posterior pharynx exam is normal. Eyes EOMs intact bilaterally Chest Wall inspection of chest normal and palpation of chest normal Resp normal respiratory effort and clear to auscultation bilaterally Cardio regular rate and regular rhythm GI non-tender Palpation: soft Extremity normal to inspection Neuro oriented x3 and no sensory deficits noted Motor Exam: strength 5/5 throughout Psych mental status grossly normal MDM MDM MDM Narrative Medical decision making narrative: Patient is initially given folded gauze pads and told to bite down on legs for 20 minutes. This was removed and thrombin soaked 2 x 2 gauze pads were placed to the area. These were held for another 20 minutes. On repeat examination the bleeding seems to have stopped at this point. Patient was advised that if he starts to bleed again he needs to bite down on a gauze pad for at least 20 minutes without removing it. If he continues to have bleeding today he is to follow-up with his dentist before the weekend. Return instructions provided. Discharge Plan Triage Chief Complaint: Dental ED Provider: Patsy Shaw Dx/Rx/DC Orders Clinical Impression: Post-op bleeding Instructions: ED Post Op Wound Check, Bleeding Prescriptions: No Action omeprazole 20 mg capsule,delayed release(DR/EC) 20 mg PO DAILY Patient Comments: Take 2 capsules by mouth once daily. Primary Care Provider: Aaron Sarabia Referrals: Aaron Sarabia MD [Primary Care Provider] - Activity Restrictions/Additional Instructions: Follow-up with your dentist later today if bleeding continues. Bite on gauze for 15 to 20 minutes to help control bleeding. Disposition Disposition: Home, Self Care
[2024-01-17] MEDS: Thrombin 5,000 IU Kit (PSA) 5,000 IU Vial 5000 IU TOPICAL (06:21)
[2024-01-17 06:26] VITALS: BP 136/70; PULSE 82; RESP 18; TEMP 36.7; O2SAT 96
== END 2024-01-17 06:27 | disposition home or self-care (01) ==
PROVIDERS: Emergency Provider Emergency Medicine; PCP Internal Medicine; Visit Provider Emergency Medicine
DX: Z98.818 Other dental procedure status (principal); K21.9 Gastro-esophageal reflux disease without esophagitis; Z79.899 Other long term (current) drug therapy
CPT/HCPCS: 99282

== ENCOUNTER 2024-02-29 01:25 | Emergency (ER) | payer MEDICAID, SELFPAY ==
[2024-02-29 01:26] VITALS: BP 145/93; PULSE 92; RESP 16; TEMP 36.1; O2SAT 100; BMI 25.0
--- NOTE | 2024-02-29 01:44 | EX.ED.DYSGE1 ---
HPI History of Present Illness Chief Complaint: Sore Throat Informant: patient Onset/Context/Timing Onset: Days (3 days) Narrative Narrative: Patient presents secondary to right-sided neck pain that occurs only when he extends his neck or looks to the left. He felt a small lump in the area and was concerned. He denies recent URI symptoms. If he looks straight ahead he has no pain with swallowing or eating. Patient does admit to a lot of health anxiety. PFSH PFSH Medical History COVID Hx of gastroesophageal reflux (GERD) Home Medications naproxen 500 mg tablet (Naprosyn) 500 mg PO BID PRN pain #20 tabs 02/29/24 [Rx Last Taken Unknown] Allergy/AdvReac Type Severity Reaction Status Date / Time No Known Allergies Allergy Verified 02/29/24 01:26 Surgical History Hx of tonsillectomy Social History Smoking Status: Never smoker ROS ROS ED Constitutional Constitutional ED: Denies chills or fever(s) Eyes Eyes: Denies change in vision or discharge from eye(s) ENT ENT ED: Reports sore throat; Denies discharge from eye(s) or rhinorrhea Cardiovascular Cardiovascular: Denies chest pain or palpitations Respiratory/Chest Respiratory/Chest: Denies cough or dyspnea Gastrointestinal Gastrointestinal: Denies abdominal pain, nausea or vomiting Genitourinary Genitourinary ED: Denies dysuria Musculoskeletal Musculoskeletal: Denies back pain or extremity pain Integumentary Denies Abrasions or rash Neurologic Neurologic: Denies headache(s) or weakness Psychiatric Psychiatric: Reports anxiety Allergic/Immunologic Allergic/Immunologic ED: Denies lip swelling or urticaria EXAM Physical Exam Const Vital Signs: 02/29/24 01:26 Temperature 97 F L Temperature Source Oral Pulse Rate 92 Respiratory Rate 16 Blood Pressure 145/93 H Blood Pressure Mean 110 Pulse Ox 100 Positive well nourished and well developed General Appearance ED: well developed HEENT Reports moist mucous membranes Eyes EOMs intact bilaterally Neck Neck Narrative: Mild tenderness along the right sternocleidomastoid muscle. Small palpable lymph node appreciated. No overlying erythema or edema. Chest Wall inspection of chest normal and palpation of chest normal Resp normal respiratory effort and clear to auscultation bilaterally Cardio regular rate and regular rhythm GI non-tender Palpation: soft Extremity normal to inspection Neuro oriented x3 and no sensory deficits noted Motor Exam: strength 5/5 throughout Psych Mood & Affect: anxious Skin no rashes or lesions noted MDM MDM MDM Narrative Medical decision making narrative: Patient has evidence of enlarged lymph node in the right cervical chain. I see no evidence of infection. Patient be treated with anti-inflammatories. We did discuss his health anxiety. He is interested in getting help and I will refer him to the behavioral health program. Return instructions provided. Discharge Plan Triage Chief Complaint: Sore Throat ED Provider: Patsy Shaw Dx/Rx/DC Orders Clinical Impression: Lymphadenopathy Instructions: Lymphadenopathy Prescriptions: New naproxen [Naprosyn] 500 mg tablet 500 mg PO BID PRN (Reason: pain) Qty: 20 0RF Primary Care Provider: Aaron Sarabia Referrals: Aaron Sarabia MD [Primary Care Provider] - 1-2 Weeks Behavioral,Health [facility] [Group of Physicians] - As soon as possible Disposition Disposition: Home, Self Care
[2024-02-29] MEDS: Naproxen 500 MG Tablet PO (01:54)
== END 2024-02-29 01:58 | disposition home or self-care (01) ==
LOC: ED 01:56
PROVIDERS: Emergency Provider Emergency Medicine; PCP Internal Medicine; Visit Provider Emergency Medicine
DX: R59.9 Enlarged lymph nodes, unspecified (principal)
CPT/HCPCS: 99282

== ENCOUNTER 2024-03-12 11:21 | Emergency (ER) | payer MEDICAID, SELFPAY ==
[2024-03-12 11:22] VITALS: BP 138/93; PULSE 98; RESP 16; TEMP 36.1; O2SAT 99; BMI 24.8
--- NOTE | 2024-03-12 11:48 | EDS_ITS ---
HPI History of Present Illness Chief Complaint: Foreign Body Informant: patient Narrative Narrative: Presents here today no other 2 weeks of persistent throat pain. He was seen here 12 days ago had enlarged lymph node. He stated he was given naproxen and discharged. He follow-up with his PCP strep test negative. He has been given dexamethasone. It helped briefly however symptoms returned. Tonsillectomy when he was a child. Able to eat, states has discomfort with swallowing. There was no food impaction. He states he choked 3 days ago with some food however no issues with breathing. Denies fevers. Symptoms do help with cough drops. [facility] Medical History Hx of gastroesophageal reflux (GERD) COVID Home Medications ?Medication ?Instructions ?Recorded ?Last Taken ?Type naproxen 500 mg tablet (Naprosyn) 500 mg PO BID PRN pain #20 tabs 02/29/24 Unknown Rx Allergy/AdvReac Type Severity Reaction Status Date / Time No Known Allergies Allergy Verified 03/12/24 11:22 Surgical History Hx of tonsillectomy Social History Smoking Status: Never smoker ROS ROS ED Constitutional Constitutional ED: Denies chills, fever(s) or sweats Eyes Eyes: Denies change in vision ENT ENT ED: Reports sore throat; Denies dysphagia Cardiovascular Cardiovascular: Denies chest pain, leg edema, palpitations or racing heartbeat Respiratory/Chest Respiratory/Chest: Denies cough, dyspnea or dyspnea on exertion Gastrointestinal Gastrointestinal: Denies abdominal pain, diarrhea, nausea or vomiting Genitourinary Genitourinary ED: Denies dysuria, hematuria or urinary frequency Musculoskeletal Musculoskeletal: Denies back pain, extremity pain or neck pain Integumentary Denies rash or wounds Neurologic Neurologic: Denies headache(s), paresthesias or weakness EXAM Physical Exam Const Vital Signs: 03/12/24 11:22 03/12/24 11:31 Temperature 97 F L Temperature Source Temporal Pulse Rate 98 Respiratory Rate 16 Respiratory Effort Normal Non-Labored Respiratory Pattern Normal Blood Pressure 138/93 H Blood Pressure Mean 108 Pulse Ox 99 Oxygen Delivery Method Room Air Positive well nourished and well developed General Appearance ED: well developed and NAD HEENT Reports TM's clear and moist mucous membranes HEENT Narrative: Minimal erythema posterior pharynx. Tonsils absent. No trismus. normocephalic and atraumatic Tympanic Membrane ED: Yes TM's clear Eyes EOMs intact bilaterally and conjunctivae normal General Eye ED: Yes normal appearance of both eyes Neck no lymphadenopathy and supple General: Negative for tenderness Chest Wall Chest: Negative for tenderness Resp normal respiratory effort and normal air movement Effort and Inspection: symmetric chest movement; Negative for respiratory distress Cardio regular rate, regular rhythm and no murmurs Peripheral Pulses: pulses 2+ throughout GI normal to inspection, nondistended, normoactive bowel sounds and non-tender Palpation: Negative for guarding or rebound tenderness present Back/Spine no CVA tenderness and no thoracic nor lumbar tenderness Extremity normal to inspection General Extremety ED: Negative for edema or tenderness General Extremity: Negative for edema Neuro oriented x3 and no sensory deficits noted Sensorium / Orientation: awake and alert Skin no rashes or lesions noted and no wounds MDM MDM MDM Narrative Medical decision making narrative: Interventions / MDM: Differential diagnosis: Pharyngitis Diagnosis considered but do not suspect: No history concerning for food impaction. No clinical retropharyngeal abscess. My EKG interpretation: N/A Imaging independently reviewed and interpreted by myself: N/A External documents reviewed: N/A Test considered but not ordered:N/A ED course: Patient nontoxic this minimally erythematous posterior pharynx. Tonsils are absent. Is nontoxic. He reported from history strep from his PCP negative. Do not feel repeat is necessary at this time. He had concerns of 2 weeks of symptoms, I offered discussed if he is concerned for advanced imaging however the likelihood will be normal. Discussed radiation risk with him. He understands and would like to withhold at this time. Discussed viral syndrome that could persist. He had's some improvement with reported dexamethasone. He has symptom improvement with cough drops at home. I discussed continuing this. Offered GI cocktail however he states he did not like the taste and declines. He will be referred to ENT for outpatient evaluation. He understands and agrees with the plan. All questions were answered. Re-evaluation: stable Disposition discussed with patient/family/significant other: Patient and significant other Case discussed with consulting clinician: N/A This note was generated with Dragon dictation software. It may contain incorrect words, spelling, and punctuation that were not noted in checking the note before signing. Discharge Plan Triage Chief Complaint: Foreign Body ED Provider: Isai Yepez Dx/Rx/DC Orders Clinical Impression: Pharyngitis, Odynophagia Instructions: ED Pharyngitis, Viral Prescriptions: No Action naproxen [Naprosyn] 500 mg tablet 500 mg PO BID PRN (Reason: pain) Qty: 20 0RF Primary Care Provider: Aaron Sarabia Referrals: Yannick Rich MD [Med Staff - Courtesy Staff] - 5-7 Days Aaron Sarabia MD [Primary Care Provider] - Activity Restrictions/Additional Instructions: Continue your cough drops. Drink plenty of fluids. May use honey and warm drinks I can help with your symptoms. Follow-up with ENT for outpatient evaluation. Print Language: Bengali Disposition Disposition: Home, Self Care
[2024-03-12 11:52] VITALS: BP 138/90; PULSE 90; RESP 18; TEMP 36.6; O2SAT 99
== END 2024-03-12 11:58 | disposition home or self-care (01) ==
LOC: ED 11:56
PROVIDERS: Emergency Provider Emergency Medicine; PCP Internal Medicine; Visit Provider Emergency Medicine
DX: R13.10 Dysphagia, unspecified (principal); J02.9 Acute pharyngitis, unspecified
CPT/HCPCS: 99282

== ENCOUNTER 2025-10-03 02:13 | Emergency (ER) | payer MEDICAID, SELFPAY ==
[2025-10-03 02:13] VITALS: BP 167/103; PULSE 97; RESP 14; TEMP 36.6; O2SAT 98; BMI 28.4
--- NOTE | 2025-10-03 02:35 | EX.ED.DYSGE1 ---
HPI History of Present Illness Chief Complaint: Other, Pain/Inj Informant: patient and spouse/S.O. Narrative Narrative: Patient is a 24-year-old male who reports a past medical history of right sided sternocleidomastoid dysfunction. He states he is going to physical therapy because of it. He reports over the last week he has had pain and spasm in the left neck and the SCM region. He reports he went to an urgent care and they placed him on Robaxin. He states despite taking this he has had persistent pain and spasm. He denies any recent trauma or excessive activity. He denies any fevers or chills or overlying soft tissue skin changes. He states that despite taking the medication given to him by urgent care his symptoms are not improving and because of this he presents for evaluation [facility] Medical History Hx of gastroesophageal reflux (GERD) COVID Home Medications ?Medication ?Instructions ?Recorded ?Last Taken ?Type naproxen 500 mg tablet (Naprosyn) 500 mg PO BID PRN pain #20 tabs 02/29/24 Unknown Rx diazepam 5 mg tablet (Valium) 5 mg PO TID PRN muscle spasm 5 10/03/25 Unknown Rx days #15 tabs oxycodone-acetaminophen 5 mg-325 1 tab PO Q6H PRN pain 3 days #12 10/03/25 Unknown Rx mg tablet (Percocet) tabs Allergy/AdvReac Type Severity Reaction Status Date / Time No Known Allergies Allergy Verified 10/03/25 02:14 Surgical History Hx of tonsillectomy Social History Smoking Status: Never smoker ROS ROS ED Constitutional Constitutional ED: Denies chills or fever(s) Eyes Eyes: Denies blurry vision or change in vision ENT ENT ED: Denies sore throat Cardiovascular Cardiovascular: Denies chest pain Respiratory/Chest Respiratory/Chest: Denies cough or dyspnea Gastrointestinal Gastrointestinal: Denies abdominal pain, diarrhea, nausea or vomiting Musculoskeletal Musculoskeletal: Reports neck pain Integumentary Denies Abrasions or rash Neurologic Neurologic: Denies headache(s), paresthesias or weakness Allergic/Immunologic Allergic/Immunologic ED: Denies mouth swelling or tongue swelling EXAM Physical Exam Const Vital Signs: 10/03/25 02:13 10/03/25 02:16 10/03/25 02:48 Temperature 98 F 98 F Temperature Source Oral Pulse Rate 97 77 Respiratory Rate 14 16 Respiratory Effort Normal Non-Labored Respiratory Pattern Normal Blood Pressure 167/103 H 160/100 H Blood Pressure Mean 124 120 Pulse Ox 98 100 Oxygen Delivery Method Room Air Positive well nourished and well developed General Appearance ED: well developed; Negative for pallor HEENT Reports moist mucous membranes HEENT Narrative: Normocephalic atraumatic No tongue or lip swelling no oral lesions no airway edema or compromise No findings to suggest infection in the posterior pharynx Eyes PERRL and EOMs intact bilaterally Neck Neck Narrative: No bony deformity or step-off of the cervical spine No midline tenderness to palpation There is tenderness to palpation and spasm in the left SCM muscle belly region. His symptoms worsen with sidebending and rotation. No overlying soft tissue changes to suggest infection No lymphadenopathy or sialoadenitis changes noted No crepitance palpated Resp normal respiratory effort and clear to auscultation bilaterally Cardio regular rate and regular rhythm Extremity normal to inspection Neuro oriented x3, CN's II-XII intact bilaterally and no sensory deficits noted Sensorium / Orientation: alert Motor Exam: strength 5/5 throughout Psych mental status grossly normal Skin no rashes or lesions noted and no wounds General Skin Exam: Negative for jaundice or pallor MDM MDM MDM Narrative Medical decision making narrative: Patient arrived to ER hypertensive but states is because he is in pain and has not been sleeping. He reported pain and spasms of the left neck that is worse with position change. He denied any trauma. There is no midline tenderness on exam to suggest cervical compression fracture or spondylolisthesis. By physical exam there is no overlying soft tissue skin changes to suggest cellulitis or abscess and there are no findings to suggest lymphadenopathy or sialoadenitis. I do feel that his symptoms are muscular in nature with spasm of the SCM muscle belly. As he has not had any improvement with the Robaxin I will transition him to Valium for off-label muscle spasm control. A short course of Percocet was provided for improved pain relief. The patient did state he has not been stretching or heating the neck muscles which he was advised he needs to do in order to achieve remission of his symptoms. I do feel that hypertension is related to his pain and lack of sleep and not due to any type of cervical/carotid dissection and therefore I feel no need for imaging or laboratory studies. The patient will be given medication and is otherwise safe for discharge History & Record Review Discussion w/independent historian: Patient and Significant other Discharge Plan Triage Chief Complaint: Other, Pain/Inj ED Provider: Willard Coon Dx/Rx/DC Orders Clinical Impression: Cervical paraspinal muscle spasm, GERD (gastroesophageal reflux disease) Instructions: ED Neck Spasm, No Trauma Prescriptions: New oxycodone-acetaminophen [Percocet] 5-325 mg tablet 1 tab PO Q6H PRN (Reason: pain) 3 Days Qty: 12 0RF diazepam [Valium] 5 mg tablet 5 mg PO TID PRN (Reason: muscle spasm) 5 Days Qty: 15 0RF No Action naproxen [Naprosyn] 500 mg tablet 500 mg PO BID PRN (Reason: pain) Qty: 20 0RF Stand Alone Forms: ED Work / School Excuse Primary Care Provider: Aaron Sarabia Referrals: Aaron Sarabia MD [Primary Care Provider, Internal Medicine] Activity Restrictions/Additional Instructions: Please continue to stretch and heat the neck to reduce pain and spasm. Stop the Robaxin and begin taking Valium for improved muscle spasm/relaxation. If you stretch and heat your neck 3-4 times a day and take the medication as directed symptoms should start to improve in the next 48 to 72 hours. Print Language: Thai Disposition Disposition: Home, Self Care Discharge Date/Time: 10/03/25 02:49
[2025-10-03 02:48] VITALS: BP 160/100; PULSE 77; RESP 16; TEMP 36.6; O2SAT 100
--- OUTSIDE RECORDS SUMMARY | 2025-10-03 02:50 | XMS RPT_ITS | CCD ---
Author Organization [facility] Care Team Providers Care Java Performance Engineer Name Role Phone Cornell BISHOP, Aaron Blanton Primary Care Provider [phone] Unavailable Primary Care Provider Aaron Michel MD Primary Care Provider [phone] Aaron Sarabia MD Primary Care Provider [phone] Aaron Sarabia Primary Care Unavailable Patsy Shaw Attending Unavailable Patsy Shaw Attending Unavailable Cornell, Aaron Primary Care Unavailable Patsy Shaw Attending Unavailable Cornell, Aaron Primary Care Unavailable Isai Yepez Attending Unavailable Sarabia, Aaron Primary Care Unavailable Unavailable Primary Care Provider Unavailpatrick Sarabia MD, Aaron Blanton Primary Care Provider [phone] SELF Referring Unavailable CORNELL, BYRON Primary Care Unavailable MARIJA MEREDITH Attending Unavailable SARABIA, BYRON Primary Care Unavailable HEMANT PICKENS Attending Unavailable SARABIA, BYRON Primary Care Unavailable RAFAEL ÁLVAREZ Attending Unavailable SARABIA, BYRON Primary Care Unavailable DANIELLE BLUE Attending Unavailab lashaun Whaley APRN.HOB MACHINE OPERATOR, Kell M Unavailable [phone] CARINA GALVEZ Attending Unavailable CORNELL, BYRON Primary Care Unavailable RAFAEL DALE Attending Unavailable SARABIA, BYRON Primary Care Unavailable FLORENCE GONG Referring Unavailable SARABIA, BYRON Primary Care Unavailable FLORENCE GONG Attending Unavailable SARABIA, BYRON Primary Care Unavailable YOGI MAZARIEGOS Attending Unavailable CORNELL, BYRON Referring Unavailable SARABIA, BYRON Primary Care Unavailable YOGI MAZARIEGOS Attending Unavailable AARON SARABIA Referring Unavailable AARON SARABIA Primary Care Unavailable YOGI MAZARIEGOS Attending Unavailable AARON SARABIA Referring Unavailable AARON SARABIA Primary Care Unavailable AARON SARABIA Primary Care Unavailable AARON SARABIA Referring Unavailable MUKUND BAUMAN Attending Unavailable AARON SARABIA Primary Care Unavailable AARON SARABIA Attending Unavailable Medications Current Medications Medication Drug Class(es) Dates Sig (Normalized) Sig (Original) amoxicillin 875 mg oral tablet (1 source) Penicillin-class Antibacterial Start: 11-18-2023 End: 11-28-2023 take 1 tablet by mouth twice daily amoxicillin (AMOXIL) 875 mg tablet Indications: Dental infection Take 1 tablet by mouth two times a day for 10 days. 20 tablet 0 11/18/2023 11/28/2023 Active Comment on above: Take 1 tablet by shira two times a day for 10 days. azelastine hydrochloride 0.137 mg/actuat metered dose nasal spray (2 sources) Histamine-1 Receptor Antagonist Start: 01-23-2022 take 1 spray(s) nasal route twice daily Azelastine Active 2 SPRAY INTRANASAL TWICE A DAY January 23, 2022 2:06am administer into each nostril benzonatate 200 mg oral capsule (2 sources) Non-narcotic Antitussive Start: 01-23-2022 take 200 mg by mouth three times daily Benzonatate Active 200 MG PO THREE TIMES A DAY January 23, 2022 2:07am cyclobenzaprine hydrochloride 10 mg oral tablet (3 sources) Muscle Relaxant Start: 05-20-2025 End: 06-03-2025 take 1 tablet by mouth every eight hours as needed for muscle spasms cyclobenzaprine (FLEXERIL) 10 mg tablet Indications: Cervicogenic headache Take 1 tablet by mouth every 8 hours as needed for muscle spasm for up to 14 days. 30 tablet 05/20/2025 06/03/2025 Active Start: 05-16-2022 End: 05-30-2022 take 1 tablet by mouth every eight hours as needed for muscle spasms cyclobenzaprine (FLEXERIL) 10 mg tablet Indications: Upper back pain on right side Take 1 tablet by mouth every 8 hours as needed for muscle spasm for up to 14 days. 30 tablet 0 05/16/2022 05/30/2022 Active Comment on above: Take 1 tablet by shira th every 8 hours as needed for muscle spasm for up to 14 days. doxycycline hyclate 100 mg oral tablet (3 sources) Tetracycline-class Drug Start: 3 End: 3 take 1 tablet by mouth twice daily doxycycline (VIBRA-TABS) 100 mg tablet Take 1 tablet by mouth twice daily for 10 days. 20 tablet 0 03/16/2023 03/26/2023 Active Comment on above: Take 1 tablet by shira th twice daily for 10 days. ibuprofen 600 mg oral tablet (20 sources) Nonsteroidal Anti-inflammatory Drug Start: 2 End: 2 take 1 tablet by mouth every six hours as needed for pain ibuprofen (MOTRIN) 600 mg tablet Indications: Upper back pain on right side Take 1 tablet by mouth every 6 hours as needed for pain for up to 14 days. 45 tablet 0 05/16/2022 05/30/2022 Active End: 07-02-2024 ibuprofen (MOTRIN ORAL) Take by mouth. 07/02/2024 Discontinued ibuprofen (MOTRI N ORAL) Take by mouth. 0 Active Comment on above: Take by mouth. Take 1 tablet by shira th every 6 hours as needed for pain for up to 14 days. loratadine 10 mg oral tablet (3 sources) Start: 08-03-2024 End: 08-17-2024 take 1 tablet by mouth once daily loratadine (CLARITIN) 10 mg tablet Indications: Vertigo Take 1 tablet by mouth once daily for 14 days. 14 tablet 08/03/2024 08/17/2024 Active Start: 09-13-2022 End: 02-08-2023 take 1 tablet by mouth once daily loratadine (CLARITIN) 10 mg tablet Take 1 tablet by mouth once daily. 30 tablet 11 09/13/2022 02/08/2023 Discontinued Comment on above: Take 1 tablet by shira th once daily. meclizine hydrochloride 25 mg oral tablet (2 sources) Antiemetic Start: 5 End: 5 take 1 tablet by mouth three times daily meclizine (ANTIVERT) 25 mg tab Indications: Vertigo Take 1 tablet by mouth three times a day for 14 days. 42 tablet 03/03/2025 03/17/2025 Active Start: 08-03-2024 End: 08-17-2024 take 1 tablet by mouth three times daily meclizine (ANTIVERT) 25 mg tab Indications: Vertigo Take 1 tablet by mouth three times a day for 14 days. 42 tablet 08/03/2024 08/17/2024 Active meloxicam 15 mg oral tablet (2 sources) Nonsteroidal Anti-inflammatory Drug Start: 01-18-2022 End: 02-01-2022 take 1 tablet by mouth once daily at mealtime meloxicam (MOBIC) 15 mg tablet Indications: Headache, unspecified headache type Take 1 tablet by mouth once daily for 14 days. With food. 14 tablet 0 01/18/2022 02/01/2022 Active Comment on above: Take 1 tablet by shira th once daily for 14 days. With food. methylPREDNISolone (2 sources) Corticosteroid Start: 04-07-2025 End: 04-13-2025 methylPREDNISolone (MEDROL, ANGELI,) 4 mg Dose-Pack Take as instructed per package. 21 tablet 04/07/2025 04/13/2025 Active naproxen 500 mg oral tablet (1 source) Nonsteroidal Anti-inflammatory Drug Start: 02-29-2024 take 1 tablet by mouth twice daily Naproxen (Naprosyn) 500 mg tablet Active 500 MG PO TWICE A DAY February 29, 2024 12:00am omeprazole 20 mg delayed release oral capsule (20 sources) Proton Pump Inhibitor Start: 09-20-2024 End: 01-06-2025 take 1 capsule by mouth once daily omeprazole (PRILOSEC) 20 mg capsule Indications: Gastroesophageal reflux disease, unspecified whether esophagitis present Take 1 capsule by mouth once daily. 30 capsule 2 01/06/2025 Active Start: 12-23-2022 End: 07-02-2024 take 1 capsule by mouth once daily omeprazole (PRILOSEC) 20 mg capsule Indications: Gastroesophageal reflux disease, unspecified whether esophagitis present Take 1 capsule by mouth once daily. 30 capsule 5 02/08/2023 07/02/2024 Discontinued Start: 01-17-2022 End: 02-08-2023 take 2 capsules by mouth once daily omeprazole (PRILOSEC) 20 mg capsule Indications: Heartburn , Bloating , Epigastric pain , Nausea Take 2 capsules by mouth once daily. 60 capsule 01/17/2022 05/16/2022 Discontinued Start: 05-13-2020 End: 06-12-2020 take 1 capsule by mouth once daily Omeprazole Discontinued 1 CAP PO DAILY May 13, 2020 12:00am June 12, 2020 12:02am Comment on above: Take 2 capsules by m [facility] once daily. Take 1 capsule by mo [facility] once daily. ondansetron 4 mg disintegrating oral tablet (1 source) Serotonin-3 Receptor Antagonist Start: 08-03-20 End: 08-10-20 take 1 tablet by mouth every eight hours as needed for nausea ondansetron orally disintegrating (ZOFRAN ODT) 4 mg disintegrating tablet Indications: Vertigo Take 1 tablet by mouth every 8 hours as needed for nausea/vomiting for up to 7 days. 21 tablet 08/03/2024 08/10/2024 Active predniSONE 20 mg oral tablet (3 sources) Start: 09-13-20 End: 09-18-20 take 2 tablets by mouth once daily predniSONE (DELTASONE) 20 mg tablet Take 2 tablets by mouth once daily for 5 days. 10 tablet 0 09/13/2022 09/18/2022 Active Start: 01-23-2022 take 40 mg by mouth once daily Prednisone Active 40 MG PO DAILY 14 January 23, 2022 2:06am Comment on above: Take 2 tablets by [facility] once daily for 5 days. Completed/Discontinued Medications Medication Drug Class(es) Dates Sig (Normalized) Sig (Original) acetaminophen 325 mg / HYDROcodone bitartrate 5 mg oral tablet (12 sources) Opioid Agonist Start: 03-19-2020 End: 03-22-2020 take 1 tablet by mouth every six hours as needed Hydrocodone-Acetami nophen Discontinued 1 TABLET PO EVERY 6 HOURS NEEDED 07 23March 19, 2020 March 22, 2020 12:02am Start: 02-03-2020 End: 02-05-2020 take 1 tablet by mouth every four hours as needed Hydrocodone-Acetaminophen Discontinued 1 TABLET PO EVERY 4 HOURS NEEDED 10 February 03, 2020 February 05, 2020 12:02am 24 hr buPROPion hydrochloride 150 mg extended release oral tablet (1 source) Aminoketone Start: 10-07-2020 End: 09-01-2021 take 1 tablet by mouth once daily buPROPion XL (WELLBUTRIN XL) 150 mg 24 hr tablet Take 1 tablet by mouth once daily. 30 tablet 1 10/07/2020 09/01/2021 Discontinued lidocaine hydrochloride 20 mg/ml mucous membrane topical solution (2 sources) Antiarrhythmic, Amide Local Anesthetic Start: 09-20-2024 End: 01-06-2025 LIDOCAINE VISCOUS 2 % solution Indications: Pharyngitis, unspecified etiology Take 15 mL by mouth four times a day as needed for pain (sore throat). Swish, gargle and spit out. 100 mL 1 09/20/2024 01/06/2025 Discontinued nitrofurantoin, macrocrystals 25 mg / nitrofurantoin, monohydrate 75 mg oral capsule (1 source) Nitrofuran Antibacterial Start: 03-11-2023 End: 03-16-2023 take 1 capsule by mouth twice daily nitrofurantoin monohydrate and macrocrystal (MACROBID) 100 mg capsule Take 1 capsule by mouth twice daily for 5 days. 10 capsule 0 03/11/2023 03/16/2023 Comment on above: Take 1 capsule by [facility] twice daily for 5 days. Problems Active Problems Problem Classification Problem Date Documented Da te Episodic/Chronic Abdominal pain (8 sources) Epigastric pain; Translations: [Epigastric pain] Episodic Anxiety disorders (6 sources) Anxiety; Translations: [Anxiety disorder, unspecified] 05-13-2020 Chronic Bacterial infection; unspecified site (2 sources) Chlamydial infection; Translations: [Chlamydial infection, unspecified] Episodic Lima (6 sources) Partial thickness burn of hand; Translations: [Burn of second degree of left hand, unspecified site, initial encounter] 03-20-2020 Episodic Complications of surgical procedures or medical care (2 sources) Postoperative hemorrhage; Translations: [Postoperative hemorrhage] 01-17-2024 Episodic Conditions associated with dizziness or vertigo (7 sources) Vertigo; Translations: [Dizziness and giddiness] Onset: 4 08-03-2024 Episodic Disorders of teeth and jaw (1 source) Other dental procedure status; Translations: [Other dental procedure status] Onset: 4 Episodic Esophageal disorders (20 sources) Gastroesophageal reflux disease; Translations: [Gastro-esophageal reflux disease without esophagitis] Onset: Chronic Genitourinary symptoms and ill-defined conditions (1 source) Increased frequency of urination; Translations: [Frequency of micturition] 03-06-2024 Episodic Immunizations and screening for infectious disease (6 sources) Patient encounter status; Translations: [Encounter for screening for human immunodeficiency virus [HIV]] Episodic Lymphadenitis (2 sources) Lymphadenopathy; Translations: [Generalized enlarged lymph nodes] Onset: 4 02-29-2024 Episodic Nausea and vomiting (4 sources) Nausea; Translations: [Nausea] Onset: Episodic Nonspecific chest pain (12 sources) Chest wall pain; Translations: [Other chest pain] 11-04-2020 Episodic Other and unspecified benign neoplasm (1 source) Lipoma of right upper limb; Translations: [Benign lipomatous neoplasm of skin and subcutaneous tissue of right arm] 07-02-2024 Episodic Other and unspecified benign neoplasm (1 source) Benign lipomatous neoplasm of skin and subcutaneous tissue of right arm; Translations: [Lipoma of right upper extremity] Onset: Episodic Other connective tissue disease (4 sources) Disorder of soft tissue; Translations: [Soft tissue disorder, unspecified] 12-24-2022 Episodic Other connective tissue disease (1 source) Skeletal muscle tender; Translations: [Myalgia, unspecified site] 07-09-2024 Episodic Other ear and sense organ disorders (3 sources) Pain of ear structure; Translations: [Otalgia, unspecified ear] 10-22-2023 Episodic Other ear and sense organ disorders (1 source) Otalgia, unspecified ear; Translations: [Otalgia, unspecified ear] Onset: Episodic Other gastrointestinal disorders (3 sources) Heartburn; Translations: [Heartburn] Episodic Other gastrointestinal disorders (2 sources) Abdominal bloating; Translations: [Abdominal distension (gaseous)] Episodic Other infections; including parasitic (1 source) History of chlamydial infection; Translations: [Personal history of other infectious and parasitic diseases] 06-05-2023 Episodic Other lower respiratory disease (2 sources) Cough; Translations: [Cough] 08-09-2021 Episodic Other male genital disorders (1 source) Pain of right testicle; Translations: [Right testicular pain] 06-05-2023 Episodic Other nervous system disorders (1 source) Paresthesia; Translations: [Paresthesia of skin] 04-07-2025 Episodic Other non-traumatic joint disorders (2 sources) Pain in right shoulder; Translations: [Pain in joint, shoulder region] Onset: 4 07-02-2024 Episodic Other skin disorders (4 sources) Lump on thigh; Translations: [Localized swelling, mass and lump, right lower limb] 12-24-2022 Episodic Other skin disorders (2 sources) Eruption; Translations: [Rash and other nonspecific skin eruption] 02-06-2024 Episodic Other upper respiratory disease (1 source) Congestion of nasal sinus; Translations: [Nasal congestion] 06-23-2025 Episodic Other upper respiratory disease (1 source) Nasal congestion; Translations: [Sinus congestion] Onset: 5 Episodic Other upper respiratory infections (11 sources) Acute upper respiratory infection; Translations: [Acute upper respiratory infection, unspecified] Onset: 4 Episodic Residual codes; unclassified (1 source) Flushing; Translations: [Flushing] 03-20-2024 Episodic Spondylosis; intervertebral disc disorders; other back problems (2 sources) Backache; Translations: [Dorsalgia, unspecified] Episodic Sprains and strains (5 sources) Strain of muscle at thorax level; Translations: [Strain of muscle and tendon of unspecified wall of thorax, initial encounter] 02-10-2022 Episodic Viral infection (1 source) Disease caused by 2019-nCoV; Translations: [COVID-19] 08-09-2021 Episodic Past or Other Problems Problem Classification Problem Date Documented Date Episodic/Chronic Attention-deficit, conduct, and disruptive behavior disorders (20 sources) Attention deficit hyperactivity disorder; Translations: [Attention-deficit hyperactivity disorder, unspecified type] Onset: 06-18-2007 Resolved: 02-08-2023 06-05-2016 Chronic Disorders usually diagnosed in infancy, childhood, or adolescence (20 sources) Henry de la Tourette's syndrome; Translations: [Tourette's disorder] Onset: 06-18-2007 Resolved: 09-11-2017 05-13-2020 Chronic Headache; including migraine (20 sources) Cervicogenic headache; Translations: [Cervicogenic headache] Onset: 09-07-2021 09-07-2021 Episodic Other inflammatory condition of skin (2 sources) Pruritus, unspecified; Translations: [Unspecified pruritic disorder] Onset: 04-07-2025 04-07-2025 Episodic Schizophrenia and other psychotic disorders (20 sources) Psychotic disorder; Translations: [Unspecified psychosis not due to a substance or known physiological condition] Onset: 10-05-2008 Resolved: 09-11-2017 09-11-2017 Chronic Substance-related disorders (20 sources) Marijuana user; Translations: [Cannabis use, unspecified, uncomplicated] Onset: 10-07-2020 Resolved: 02-08-2023 10-07-2020 Episodic Results Test Name Value Interpretation Reference Range Facility [facility] 07-26-2025 CNTHERAPY OT/PT/Speech Visit (PTWS) -------- DAWN MCCARTY ([id number]) 2000 M Date Time Provider Department 07/26/25 2:45 PM YOGI MAZARIEGOS PTWS Date Time Provider Department [place] 07/26/2025 2:45 PM [id number], SEAN PTWS Michelle Paris Reason for Visit: PT Progress Note [1596] Primary Visit Diagnosis:Cervicogenic headache [G44.86] Allergies As of Date: 07/26/2025 (No Known Allergies) Date Reviewed: 06/23/2025 Reviewed by: Danielle Tom MA - Fully Assessed Prescriptions as of 07/26/2025 - omeprazole (PRILOSEC) 20 mg capsule Take 1 capsule by mouth once daily. [facility]PT[facility]Speech Visit (PTWS) -------- DAWN MCCARTY ([id number]) 2000 M Date Time Provider Department 07/12/25 2:45 PM YOGI MAZARIEGOS Date Time Provider Department [place] 07/12/2025 2:45 PM [id number] MAZARIEGOS Reason for Visit: PT Progress Note [7556] Primary Visit Diagnosis:Cervicogenic headache [G44.86] Allergies As of Date: 07/12/2025 (No Known Allergies) Date Reviewed: 06/23/2025 Reviewed by: Danielle Tom MA - Fully Assessed Prescriptions as of 07/13/2025 - omeprazole (PRILOSEC) 20 mg capsule Take 1 capsule by mouth once daily. Normal [facility]OVon 06-23-2025 CNOV Office Visit (WONATHAN) -------- DAWN MCCARTY ([id number]) 2000 M Date Time Provider Department 06/23/25 2:15 PM CARINA GALVEZ During your visit today, we recorded the following information about you: Temperature Pulse Respiration Blood pressure 97.6 degrees 94/minute 16/minute 118/72 Weight 78.8 kg Carina Galvez APRN.HOB MACHINE OPERATOR 06/23/2025 2:52 PM Signed [facility] Jimenezler is a 24 year old male. Patient presents with: Pain, Sinus: congestion x 6 days HPI The patient is a 24-year-old male presenting with right-sided facial pain, headaches, and ear discomfort. Right-Sided Facial Pain and Ear Discomfort: - Onset of right-sided facial pain and ear discomfort 6 days ago, following a month of persistent headaches. - Describes facial pain as sensitivity around my eye and head sensitivity. - Right-sided throat pain and ear discomfort noted; symptoms are improving. - Hot showers provide temporary relief; symptoms return within 2 minutes of exiting the shower. - Denies taking Claritin or Zyrtec; no known allergy testing performed. - Symptoms worsen when sitting or lying down; improve when standing. Headaches: - Persistent headaches for a month, beginning after prolonged randy sessions. - Describes headaches as forehead pressure and eye pressure, different from previous headaches localized to the congregation and eye. - Headaches resolved before onset of current facial pain and ear discomfort. - Hot showers provide temporary relief; ibuprofen alleviates 90% of symptoms. - Initially took 1000 mg of ibuprofen daily; now reduced to 1 tablet per day. - Recent eye exam showed no abnormalities. - Denies associated symptoms such as brain tumor symptoms. Review of Systems Head: (+) headaches, (+) scalp tenderness Eyes: (+) eye pressure, (+) right periorbital tenderness, (+) eye pain Ears/Nose/Mouth/Throat: (+) right ear pain, (+) ear drainage, (+) nasal pressure, (+) right sore throat, (+) epistaxis Objective BP 118/72 Pulse 94 Temp 36.4 ?C (97.6 ?F) Resp 16 Wt 78.8 kg (173 lb 11.6 oz) SpO2 99% BMI 27.21 kg/m? Physical Exam General: No acute distress. CV: Heart sounds normal. Resp: Lungs clear to auscultation bilaterally. HEENT: Fluid behind right tympanic membrane; left tympanic membrane without fluid; posterior pharynx with cobblestoning; tenderness to palpation of right periorbital region. Neck: No lymphadenopathy. { 1. Sinus congestion (R09.81) - Exam findings consistent with allergic rhinitis and sinus congestion: fluid behind right tympanic membrane, cobblestoning of posterior pharynx, and facial pressure. - Advised trial of OTC antihistamines (Claritin or Zyrtec) for 2 weeks to assess symptom relief; may switch to alternative after 2 weeks if no improvement. - Discussed use of steroid nasal spray as adjunct for inflammation and drainage, but deferred due to patient's history of epistaxis. - Educated on allergy management, environmental triggers, and importance of consistent medication use. and Recording using [employer] software for draft documentation of the visit was discussed with the patient/authorized customer field representative; all questions welcomed and answered. Patient/authorized customer field representative agreed to proceed History and Record Review External record(s) reviewed: no prior records. Disposition The patient was discharged. Procedures Allergies As of Date: 06/23/2025 (No Known Allergies) Date Reviewed: 06/23/2025 Reviewed by: Danielle Tom MA - Fully Assessed Reason for Visit: Pain, Sinus [857] Cmt: congestion x 6 days Primary Visit Diagnosis:Sinus congestion [R09.81] Prescriptions as of 06/23/2025 - omeprazole (PRILOSEC) 20 mg capsule Take 1 capsule by mouth once daily. Problem List As Of Date 06/23/2025 Noted Resolved Attention deficit hyperactivity disorder (ADHD)*06/18/2007 02/08/2023 Tourette's disorder [F95.2] 06/18/2007 09/11/2017 Unspecified psychosis [F29] 10/05/2008 09/11/2017 Marijuana use [F12.90] 10/07/2020 02/08/2023 Cervicogenic headache [G44.86] 09/07/2021 Gastroesophageal reflux disease [K21.9] 02/11/2023 Encounter Status:Closed by CARINA GALVEZ on 06/23/25 Normal [facility] [id number] 06-01-2025 [id number] HNO ID: [id number] Author: YOGI MAZARIEGOS PT Service: ? Author Type: Physical Therapist Type: [id number] Filed: 06/01/2025 10:33 Note Text: [facility] Physical Therapy Plan of Care Certification Patient Name: Dawn Mccarty : 2000 [facility] #: [id number] Date: 05/31/2025 To: Aaron Sarabia MD From Therapist: Yogi Mazariegos PT RE: Patient Certification/ Recertification Your review, approval and electronic signature are required in order to comply with Payor: [facility] MEDICAID / Plan: [facility] MEDICAID [facility] / Product Type: Medicaid / regulations. The identified Physical Therapy PLAN OF CARE for the patient is as follows: G44.86 Cervicogenic headache (primary encounter diagnosis) PLAN OF CARE: Assessment: Dawn Mccarty presents with chief complaint of chronic LECHUGA's that interferes with sitting, working . The patient presents with impairments in ADL's, overall function, range of motion, symptom management, and tissue tenderness. Patient did not complete the PROMIS? (Patient Reported Outcome Measures Information System). Prognosis for therapy is Good due to: current objective clinical presentation, good overall health status, acuteness of condition, positive past response to therapy, within-session changes, good support system/ coping skills . The patient will benefit from skilled therapy services to meet the goals established for this plan of care as noted below. Goals for Episode of Care: established 05/31/25 Independent in a Home Exercise Program. Patient will decrease pain rating by 2 points to meet minimal clinical important difference for numeric pain rating scale. Restore pain free cervical ROM to WNL to allow for decreased pain and LECHUGA frequency. Sleep throughout the night without pain/symptoms. Sit 8 hours without pain/symptoms to allow for improved tolerance for work tasks and decreased pain Time Frame for Goals and Treatment : 07/31/25 Planned Interventions, Frequency, and Duration: Current Frequency: 1x/week Duration: 8 weeks Total Number of Visits Planned: 8 Planned Treatment Interventions: Therapeutic exercise (99049), Neuromuscular re-education (83359), Manual therapy (38424), Therapeutic activities (52150), Self-fpc management ([id number]), Patient/Family/Caregiver Education, Body Mechanics Training PLAN FOR NEXT VISIT: Assess carry over of needling, progress exercises as tolerated, needling/manual per symptom response Patient demonstrates good understanding of plan of care and treatment. The above goals and plan of care were discussed and agreed upon by patient/family. For further details regarding this patient refer to the Physical Therapy electronically documented visit dated 05/31/2025. Provider Attestation I have reviewed the treatment plan for Dawn Mccarty, [facility]# [id number] for the period of 05/31/25 -- 07/31/25, established on 05/31/2025. Signature certifies the need for therapy services. Normal [facility] CNTHERAPYon 05-31-2025 CNTHERAPY OT/PT/Speech Visit (PTWS) -------- DAWN MCCARTY ([id number]) 2000 M Date Time Provider Department 05/31/25 2:00 PM YOGI MAZARIEGOS PTSCOUT Date Time Provider Department Center 05/31/2025 2:00 PM [id number], SEAN PTSCOUT [place] Reason for Visit: PT Eval [747] Primary Visit Diagnosis:Cervicogenic headache [G44.86] Allergies As of Date: 05/31/2025 (No Known Allergies) Date Reviewed: 05/20/2025 Reviewed by: Virginia Crenshaw MA - Fully Assessed Prescriptions as of 06/01/2025 - cyclobenzaprine (FLEXERIL) 10 mg tablet Take 1 tablet by mouth every 8 hours as needed for muscle spasm for up to 14 days. - omeprazole (PRILOSEC) 20 mg capsule Take 1 capsule by mouth once daily. [employer]enet Architect: Addendum Therapy (PT/OT/Speech/Resp) ID: [id number] 05/31/2025 2:54 PM Author: YOGI MAZARIEGOS Signed by YOGI MAZARIEGOS PT on 05/31/2025 at 2:54 PM * * * This document replaces document [id number] * * * Document text: Program_ID:[id number] Access Code: [email or web address] URL: [email or web address] Date: 05-31-2025 Prepared By: Florence Apple Program Notes Exercises - CC TMJ Masseter Massage - 1 x daily - 7 x weekly - 3 sets - reps - Seated Chin Tuck with Neck Elongation - 1 x daily - 7 x weekly - 3 sets - 10 reps - Seated Assisted Cervical Rotation with Towel - 1 x daily - 7 x weekly - 3 sets - 10 reps Normal [facility] THERAPY NTon 05-31-2025 THERAPY NT HNO ID: [id number] Author: YOGI MAZARIEGOS PT Service: ? Author Type: Physical Therapist Type: Therapy (PT/OT/Speech/Resp) Filed: 05/31/2025 14:54 Note Text: Program_ID:[id number] Access Code: [email or web address] URL: [email or web address] Date: 05-31-2025 Prepared By: Florence Apple Program Notes Exercises - CC TMJ Masseter Massage - 1 x daily - 7 x weekly - 3 sets - reps - Seated Chin Tuck with Neck Elongation - 1 x daily - 7 x weekly - 3 sets - 10 reps - Seated Assisted Cervical Rotation with Towel - 1 x daily - 7 x weekly - 3 sets - 10 reps Normal [facility] CNOVon 05-20-2025 CNOV Office Visit (WOUCA) -------- DAWN MCCARTY ([id number]) 2000 M Date Time Provider Department 05/20/25 1:30 PM RAFAEL DALE During your visit today, we recorded the following information about you: Temperature Pulse Respiration Blood pressure 97.7 degrees 88/minute 18/minute 143/96 Weight 79.6 kg Rafael Dale MD 05/20/2025 2:21 PM Signed [facility] Subjective Dawn Mccarty is a 24 year old male. Patient presents with: Headache: Started as frontal LECHUGA for 5 days, now only R side LECHUGA with jaw and sinus pain x4 days Head pain: Duration: Initial frontal headache started 9 days ago after extended videogame playing on vacation and improved with muscle relaxer. Right head jaw neck pain has been present the last 5 days. Location: Right temporomandibular joint, congregation, and jaw. Character: Aching. Similar to prior issues. Radiation: Into the ear and trapezius. Aggravating: Chewing. 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 Objective BP 143/96 Pulse 88 Temp 36.5 ?C (97.7 ?F) Resp 18 Wt 79.6 kg (175 lb 7.8 oz) SpO2 100% BMI 27.49 kg/m? Physical Exam Constitutional: General: He is not in acute distress. Appearance: He is not ill-appearing. HENT: Right Ear: Tympanic membrane and ear canal normal. Tenderness (Right TMJ tenderness with palpation) present. Left Ear: Tympanic membrane and ear canal normal. Nose: No congestion. Eyes: Extraocular Movements: Extraocular movements intact. Conjunctiva/sclera: Conjunctivae normal. Pupils: Pupils are equal, round, and reactive to light. Cardiovascular: Rate and Rhythm: Normal rate and regular rhythm. Heart sounds: No murmur heard. Pulmonary: Effort: No respiratory distress. Breath sounds: No wheezing, rhonchi or rales. Musculoskeletal: Cervical back: Neck supple. No tenderness. Lymphadenopathy: Cervical: No cervical adenopathy. Neurological: General: No focal deficit present. Mental Status: He is alert and oriented to person, place, and time. Cranial Nerves: No cranial nerve deficit. Motor: No weakness. Coordination: Coordination normal. Gait: Gait normal. Deep Tendon Reflexes: Reflexes normal. Psychiatric: Mood and Affect: Mood normal. {ASSESSMENT/PLAN: 1. Cervicogenic headache - ICD9: 784.0, ICD10: G44.86 Exacerbation of chronic recurrent issue. Continue ibuprofen Refill - CYCLOBENZAPRINE 10 MG TABLET Schedule - CONSULT TO PHYSICAL THERAPY Rafael Dale MD Differential Diagnoses - Cervicogenic headache is more likely for the following reason(s): suggested by HANDP - TMJ arthralgia Procedures Allergies As of Date: 05/20/2025 (No Known Allergies) Date Reviewed: 05/20/2025 Reviewed by: Virginia Crenshaw MA - Fully Assessed Reason for Visit: Headache [52] Cmt: Started as frontal LECHUGA for 5 days, now only R side LECHUGA with jaw and sinus pain x4 days Primary Visit Diagnosis:Cervicogenic headache [G44.86] Order(s):cyclobenzaprine (FLEXERIL) 10 mg tabletTake 1 tablet by mouth every 8 hours as needed for muscle spasm for up to 14 days.Disp: 30 tabletRfl: 0 CONSULT TO PHYSICAL THERAPY [9032] Order #: [id number]: 1 FUTURE Prescriptions as of 05/20/2025 - cyclobenzaprine (FLEXERIL) 10 mg tablet Take 1 tablet by mouth every 8 hours as needed for muscle spasm for up to 14 days. - omeprazole (PRILOSEC) 20 mg capsule Take 1 capsule by mouth once daily. Problem List As Of Date 05/20/2025 Noted Resolved Attention deficit hyperactivity disorder (ADHD)*06/18/2007 02/08/2023 Tourette's disorder [F95.2] 06/18/2007 09/11/2017 Unspecified psychosis [F29] 10/05/2008 09/11/2017 Marijuana use [F12.90] 10/07/2020 02/08/2023 Cervicogenic headache [G44.86] 09/07/2021 Gastroesophageal reflux disease [K21.9] 02/11/2023 Prescriptions ordered this encounter Disp Refills Start End CYCLOBENZAPRINE 10 MG TABLET 30 t* 0 05/20/2025 06/03/2025 Route: PO Sig: Take 1 tablet by mouth every 8 hours as needed for muscle spasm for up to 14 days. Medications Discontinued During This Encounter Prescriptions - cyclobenzaprine (FLEXERIL) 10 mg tablet (Discontinued) Take 1 tablet by mouth every 8 hours as needed for muscle spasm for up to 14 days. Level of Service: OFFICE/OUTPATIENT ESTABLISHED MOD MDM 30 MIN [89852] Encounter Status:Closed by RAFAEL DALE on 05/20/25 [facility] Differential pane l (Bld)on 04-07-2025 Basophils (Bld) [#/Vol] 0.03 10*3/uL NINF [facility] Basophils/100 WBC (Bld) 0.5 % [facility] Differential cell count method Nom (Bld) Auto [facility] Eosinophils (Bld) [#/Vol] 0.16 10*3/uL [facility] Eosinophils/100 WBC (Bld) 2.9 % [facility] Erythrocyte distribution width (RBC) [Ratio] 11.9 % 11.5 - 15.0 % [facility] Hematocrit (Bld) [Volume fraction] 48.1 % 39.0 - 51.0 % [facility] Hemoglobin (Bld) [Mass/Vol] 16.5 g/dL 13.0 - 17.0 g/dL [facility] Immature granulocytes (Bld) [#/Vol] [facility] Immature granulocytes/100 WBC (Bld) 0.4 % [facility] Lymphocytes (Bld) [#/Vol] 1.69 10*3/uL [facility] Lymphocytes/100 WBC (Bld) 30.1 % [facility] MCH (RBC) [Entitic mass] 29.5 pg 26.0 - 34.0 pg [facility] MCHC (RBC) [Mass/Vol] 34.3 g/dL 30.5 - 36.0 g/dL [facility] MCV (RBC) [Entitic vol] 86 fL 80.0 - 100.0 fL [facility] Monocytes (Bld) [#/Vol] 0.33 10*3/uL [facility] Monocytes/100 WBC (Bld) 5.9 % [facility] Neutrophils (Bld) [#/Vol] 3.38 10*3/uL [facility] Neutrophils/100 WBC (Bld) 60.2 % [facility] Nucleated RBC (Bld) [#/Vol] [facility] Nucleated RBC/100 WBC (Bld) [Ratio] 0 % /100 WBC [facility] Platelet mean volume (Bld) [Entitic vol] 10.4 fL 9.0 - 12.7 fL [facility] Platelets (Bld) [#/Vol] 223 10*3/uL [facility] RBC (Bld) [#/Vol] 5.59 10*6/uL 4.20 - 6.0 0 m/uL [facility] WBC (Bld) [#/Vol] 5.61 10*3/uL [facility] Basophils (Bld) [#/Vol] 0.03 10*3/uL Normal <0.11 [facility] Comment on above: Order Comment: Speci men Type: BLOOD SPECIMENOrdering Facility: [facility] Address: [address] [place] [address] Performed By: #### 5 7021-8 ####[facility] LABCLIA [id number] [place] [address] [place] Basophils/100 WBC (Bld) 0.5 % Normal [facility] Comment on above: Order Comment: Speci men Type: BLOOD SPECIMENOrdering Facility: [facility] Address: [address] [place] [address] Performed By: #### 5 7021-8 ####[facility] LABCLIA [id number] [place] [address] [place] Differential cell count method Nom (Bld) Auto Normal [facility] Comment on above: Order Comment: Speci men Type: BLOOD SPECIMENOrdering Facility: [facility] Address: [address] [place] [address] Performed By: #### 5 7021-8 ####[facility] LABCLIA [id number] [place] [address] [place] Eosinophils (Bld) [#/Vol] 0.16 10*3/uL Normal <0.46 [facility] Comment on above: Order Comment: Speci men Type: BLOOD SPECIMENOrdering Facility: [facility] Address: [address] [place] [address] Performed By: #### 5 7021-8 ####[facility] LABCLIA [id number] [place] [address] [place] Eosinophils/100 WBC (Bld) 2.9 % Normal [facility] Comment on above: Order Comment: Speci men Type: BLOOD SPECIMENOrdering Facility: [facility] Address: [address] [place] [address] Performed By: #### 5 7021-8 ####[facility] LABCLIA [id number] [place] Erythrocyte distribution width (RBC) [Ratio] 11.9 % Normal 11.5-15.0 [facility] Comment on above: Order Comment: Speci men Type: BLOOD SPECIMENOrdering Facility: [facility] Address: [address] [place] [address] Performed By: #### 5 7021-8 ####[facility] LABIA [id number] [place] [address] [place] Hematocrit (Bld) [Volume fraction] 48.1 % Normal 39.0-51.0 [facility] Comment on above: Order Comment: Speci men Type: BLOOD SPECIMENOrdering Facility: [facility] Address: [address] [place] [address] Performed By: #### 5 7021-8 ####[facility] LABCLIA [id number] [place] [address] [place] Hemoglobin (Bld) [Mass/Vol] 16.5 g/dL Normal 13.0-17.0 [facility] Comment on above: Order Comment: Speci men Type: BLOOD SPECIMENOrdering Facility: [facility] Address: [address] [place] [address] Performed By: #### 5 7021-8 ####[facility] LABIA [id number] [place] [address] [place] Immature granulocytes (Bld) [#/Vol] 10*3/uL Normal <0.10 [facility] Comment on above: Order Comment: Speci men Type: BLOOD SPECIMENOrdering Facility: [facility] Address: [address] [place] [address] Performed By: #### 5 7021-8 ####[facility] LABCLIA [id number] [place] [address] [place] Immature granulocytes/100 WBC (Bld) 0.4 % Normal [facility] Comment on above: Order Comment: Speci men Type: BLOOD SPECIMENOrdering Facility: [facility] Address: [address] [place] [address] Performed By: #### 5 7021-8 ####[facility] LABCLIA [id number] [place] [address] [place] Lymphocytes (Bld) [#/Vol] 1.69 10*3/uL Normal 1.00-4.00 [facility] Comment on above: Order Comment: Speci men Type: BLOOD SPECIMENOrdering Facility: [facility] Address: [address] [place] [address] Performed By: #### 5 7021-8 ####[facility] LABCLIA [id number] [place] [address] [place] Lymphocytes/100 WBC (Bld) 30.1 % Normal [facility] Comment on above: Order Comment: Speci men Type: BLOOD SPECIMENOrdering Facility: [facility] Address: [address] [place] [address] Performed By: #### 5 7021-8 ####[facility] LABCLIA [id number] [place] [address] [place] MCH (RBC) [Entitic mass] 29.5 pg Normal 26.0-34.0 [facility] Comment on above: Order Comment: Speci men Type: BLOOD SPECIMENOrdering Facility: [facility] Address: [address] [place] [address] Performed By: #### 5 7021-8 ####[facility] LABCLIA [id number] [place] [address] [place] MCHC (RBC) [Mass/Vol] 34.3 g/dL Normal 30.5-36.0 [facility] Comment on above: Order Comment: Speci men Type: BLOOD SPECIMENOrdering Facility: [facility] Address: [address] [place] [address] Performed By: #### 5 7021-8 ####[facility] LABCLIA [id number] [place] [address] [place] MCV (RBC) [Entitic vol] 86.0 fL Normal 80.0-100.0 [facility] Comment on above: Order Comment: Speci men Type: BLOOD SPECIMENOrdering Facility: [facility] Address: [address] [place] [address] Performed By: #### 5 7021-8 ####[facility] LABIA [id number] [place] [address] [place] Monocytes (Bld) [#/Vol] 0.33 10*3/uL Normal <0.87 [facility] Comment on above: Order Comment: Speci men Type: BLOOD SPECIMENOrdering Facility: [facility] Address: [address] [place] [address] Performed By: #### 5 7021-8 ####[facility] LABIA [id number] [place] [address] [place] Monocytes/100 WBC (Bld) 5.9 % Normal [facility] Comment on above: Order Comment: Speci men Type: BLOOD SPECIMENOrdering Facility: [facility] Address: [address] [place] [address] Performed By: #### 5 7021-8 ####[facility] LABIA [id number] [place] [address] [place] Neutrophils (Bld) [#/Vol] 3.38 10*3/uL Normal 1.45-7.50 [facility] Comment on above: Order Comment: Speci men Type: BLOOD SPECIMENOrdering Facility: [facility] Address: [address] [place] [address] Performed By: #### 5 7021-8 ####[facility] LABCLIA [id number] [place] [address] [place] Neutrophils/100 WBC (Bld) 60.2 % Normal [facility] Comment on above: Order Comment: Speci men Type: BLOOD SPECIMENOrdering Facility: [facility] Address: [address] [place] [address] Performed By: #### 5 7021-8 ####[facility] LABIA [id number] [address] [address] [place] Nucleated RBC (Bld) [#/Vol] 10*3/uL Normal <0.01 [facility] Comment on above: Order Comment: Speci men Type: BLOOD SPECIMENOrdering Facility: [facility] Address: [address] [place] [address] Performed By: #### 5 7021-8 ####[facility] LABIA [id number] [place] [address] [place] Nucleated RBC/100 WBC (Bld) [Ratio] 0.0 /100 WBC Normal [facility] Comment on above: Order Comment: Speci men Type: BLOOD SPECIMENOrdering Facility: [facility] Address: [address] [place] [address] Performed By: #### 5 7021-8 ####[facility] LABIA [id number] [place] [address] [place] Platelet mean volume (Bld) [Entitic vol] 10.4 fL Normal 9.0-12.7 [facility] Comment on above: Order Comment: Speci men Type: BLOOD SPECIMENOrdering Facility: [facility] Address: [address] [place] [address] Performed By: #### 5 7021-8 ####[facility] LABIA [id number] [place] [id number] [place] Platelets (Bld) [#/Vol] 223 10*3/uL Normal 150-400 [facility] Comment on above: Order Comment: Speci men Type: BLOOD SPECIMENOrdering Facility: [facility] Address: [address] [place] [address] Performed By: #### 5 7021-8 ####[facility] LABIA [id number] [place] [address] [place] RBC (Bld) [#/Vol] 5.59 10*6/uL Normal 4.20-6.00 [facility] Comment on above: Order Comment: Speci men Type: BLOOD SPECIMENOrdering Facility: [facility] Address: [address] [place] [address] Performed By: #### 5 7021-8 ####[facility] LABIA [id number] [place] [id number] [place] WBC (Bld) [#/Vol] 5.61 10*3/uL Normal 3.70-11.00 [facility] Comment on above: Order Comment: Speci men Type: BLOOD SPECIMENOrdering Facility: [facility] Address: [address] [place] [address] Performed By: #### 5 7021-8 ####[facility] LABIA [id number] [place] [address] [place] CNOVon 04-07-2025 CNOV Office Visit (UCTR ) -------- DAWN MCCARTY ([id number]) 2000 M Date Time Provider Department 04/07/25 4:30 PM FLORENCE GONG [facility] During your visit today, we recorded the following information about you: Temperature Pulse Respiration Blood pressure 98.5 degrees 92/minute 19/minute 122/90 Weight 77.5 kg Florence Gong APRN.CNP 04/07/2025 5:11 PM Signed [facility] Subjective Dawn Mccarty is a 24 year old male. Patient presents with: Derm Problem: Feels like pin pricks all over body x 8 days HPI Paresthesias: - Onset 8 days ago. - Described as intermittent prick sensations, similar to mild itching, occurring in various locations including the tip of the finger and back of the ear. - No associated pain; symptoms are described as annoying. - Symptoms are not constant and can be forgotten during distraction (e.g., playing video games). - No specific pattern; can occur multiple times in an hour or be absent for extended periods. - Possible correlation with use of [employer] Warm Vanilla Sugar moisturizing body wash 10 days ago. - Aggravated by heat and sweating; noted increase in symptoms when sweating on arms. - Denies associated fatigue, rashes, fever, chills, or weight loss. - Recent weight gain, which was intentional. - No history of asthma or diabetes. - Full blood panel and multiple scans performed 8 months ago due to health anxiety. Health Anxiety: - History of severe health anxiety, previously leading to frequent medical visits. - Has not sought medical attention for health anxiety-related concerns in a significant period. - Expresses anxiety about potential serious underlying conditions, including cancer. - Consulted ChatGPT about symptoms, which suggested benign causes. - Expresses anxiety about undergoing blood work due to fear of abnormal results. PAST MEDICAL HISTORY Diagnosis Date Attention deficit hyperactivity disorder (ADHD) 06/18/2007 Cervicogenic headache 09/07/2021 Chlamydia infection 03/15/2023 Gastroesophageal reflux disease 02/11/2023 PMH - PAST MEDICAL HISTORY OF cyst on testicle PMH - PAST MEDICAL HISTORY OF 05/22/2004 normal color vision Rib contusion 08/19/2012 Skin striae 07/22/2015 Tourette's disorder Unspecified asthma(493.90) PAST SURGICAL HISTORY Procedure Laterality Date CIRCUMCISION,CLAMP,YUE STEWART 2000 EGD AC OLYMPUS 02/13/2022 TONSILLECTOMY AND ADENOIDECTOMY ALLERGIES Patient has no known allergies. MEDICATIONS omeprazole (PRILOSEC) 20 mg capsule Take 1 capsule by mouth once daily. methylPREDNISolone (MEDROL, ANGELI,) 4 mg Dose-Pack Take as instructed per package. FAMILY HISTORY Problem Relation Age of Onset Asthma Mother Drug abuse Mother other (adopted) Father Hypertension Maternal Grandmother Diabetes Maternal Grandfather Hypertension Maternal Grandfather other (cva) Maternal Grandfather other (myocardial infarction) Maternal Grandfather Social History Tobacco Use Smoking status: Never Passive exposure: Never Smokeless tobacco: Never Vaping Use Vaping status: Never Used Substance Use Topics Alcohol use: Not Currently Drug use: Not Currently Frequency: 14.0 times per week Types: Marijuana Comment: none since 2021 Review of Systems Constitutional: (+) weight gain, (-) fatigue, (-) fever, (-) chills, (-) weight loss, (-) malaise Skin: (+) pruritus, (-) rash Neurological: (+) paresthesias Musculoskeletal: (-) pain Psychiatric: (+) anxiety Objective BP 122/90 Pulse 92 Temp 36.9 ?C (98.5 ?F) Resp 19 Wt 77.5 kg (170 lb 13.7 oz) SpO2 98% BMI 26.76 kg/m? Physical Exam Vitals and nursing note reviewed. Constitutional: General: He is not in acute distress. Appearance: Normal appearance. He is not ill-appearing, toxic-appearing or diaphoretic. HENT: Head: Normocephalic and atraumatic. Right Ear: External ear normal. Left Ear: External ear normal. Nose: Nose normal. No congestion or rhinorrhea. Mouth/Throat: Mouth: Mucous membranes are moist. Pharynx: Oropharynx is clear. No oropharyngeal exudate or posterior oropharyngeal erythema. Eyes: General: Right eye: No discharge. Left eye: No discharge. Extraocular Movements: Extraocular movements intact. Conjunctiva/sclera: Conjunctivae normal. Pupils: Pupils are equal, round, and reactive to light. Cardiovascular: Rate and Rhythm: Normal rate and regular rhythm. Pulses: Normal pulses. Heart sounds: Normal heart sounds. No murmur heard. No friction rub. No gallop. Pulmonary: Effort: Pulmonary effort is normal. No respiratory distress. Breath sounds: Normal breath sounds. No stridor. No wheezing, rhonchi or rales. Chest: Chest wall: No tenderness. Abdominal: General: Abdomen is flat. There is no distension. Palpations: Abdomen is soft. There is no mass. Tenderness (more content not included)... Normal [facility] metabolic 2000 panelon 04-07-2025 Albumin [Mass/Vol] 5 g/dL High 3.9 - 4.9 g/dL [facility] ALP [Catalytic activity/Vol] 98 U/L 38 - 113 U/L [facility] ALT [Catalytic activity/Vol] 29 U/L 10 - 54 U/L [facility] Anion gap [Moles/Vol] 11 mmol/L 8 - 15 mmol/L [facility] AST [Catalytic activity/Vol] 18 U/L 14 - 40 U/L [facility] Bilirubin [Mass/Vol] 0.4 mg/dL 0.2 - 1 .3 mg/dL [facility] Calcium [Mass/Vol] 10.1 mg/dL 8.5 - 10. 2 mg/dL [facility] Chloride [Moles/Vol] 103 mmol/L 98 - 10 7 mmol/L [facility] CO2 [Moles/Vol] 25 mmol/L 22 - 30 mmol/L [facility] Creatinine [Mass/Vol] 0.87 mg/dL 0.73 - 1.22 mg/dL [facility] GFR/1.73 sq M.predicted among non-blacks MDRD (S/P/Bld) [Vol rate/Area] 122 mL/min/{1.73_m2} - PINF [facility] Comment on above: Estimated Glomerular Filtration Rate (eGFR) is calculated using the 2020 CKD-EPI creatinine equation. This equation utilizes serum creatinine, sex, and age as parameters. The creatinine assay has traceable calibration to isotope dilution-mass spectrometry. Refer to KDIGO guidelines for clinical interpretation. In patients with unstable renal function, e.g. those with acute kidney injury, the eGFR may not accurately reflect actual GFR. Glucose [Mass/Vol] 94 mg/dL 74 - 99 mg/dL [facility] Comment on above: The [place] [employer] (ADA) provides guidance for cutoff values for fasting glucose and random glucose. The ADA defines fasting as no caloric intake for at least 8 hours. Fasting plasma glucose results between 100 to 125 mg/dL indicate increased risk for diabetes (prediabetes). Fasting plasma glucose results greater than or equal to 126 mg/dL meet the criteria for diagnosis of diabetes. In the absence of unequivocal hyperglycemia, results should be confirmed by repeat testing. In a patient with classic symptoms of hyperglycemia or hyperglycemic crisis, random plasma glucose results greater than or equal to 200 mg/dL meet the criteria for diagnosis of diabetes. Reference: Standards of Medical Care in Diabetes 2016, [place] [employer]. Diabetes Care. 2016.39(Suppl 1). Interpretation and review of laboratory results Abnormal [facility] Potassium [Moles/Vol] 4.8 mmol/L 3.7 - 5.1 mmol/L [facility] Protein [Mass/Vol] 7.5 g/dL 6.3 - 8.0 g/dL [facility] Sodium [Moles/Vol] 139 mmol/L 136 - 144 mmol/L [facility] Urea nitrogen [Mass/Vol] 14 mg/dL 9 - 24 mg/dL [facility] Albumin [Mass/Vol] 5.0 g/dL High 3.9-4.9 [facility] Comment on above: Order Comment: Speci men Type: BLOOD SPECIMENOrdering Facility: [facility] Address: [address] [place] [address] Performed By: #### 2 4323-8 ####[facility] LABCLIA [id number] [place] [address] [place] ALP [Catalytic activity/Vol] 98 U/L Normal 38-113 [facility] Comment on above: Order Comment: Speci men Type: BLOOD SPECIMENOrdering Facility: [facility] Address: [address] [place] [address] Performed By: #### 2 4323-8 ####[facility] LABCLIA [id number] [place] [address] [place] ALT [Catalytic activity/Vol] 29 U/L Normal 10-54 [facility] Comment on above: Order Comment: Speci men Type: BLOOD SPECIMENOrdering Facility: [facility] Address: [address] [place] [address] Performed By: #### 2 4323-8 ####[facility] LABCLIA [id number] [place] [id number] [place] Anion gap [Moles/Vol] 11 mmol/L Normal 8-15 [facility] Comment on above: Order Comment: Speci men Type: BLOOD SPECIMENOrdering Facility: [facility] Address: [address] [place] [address] Performed By: #### 2 4323-8 ####[facility] LABCLIA [id number] [place] [id number] [place] AST [Catalytic activity/Vol] 18 U/L Normal 14-40 [facility] Comment on above: Order Comment: Speci men Type: BLOOD SPECIMENOrdering Facility: [facility] Address: [address] [place] [address] Performed By: #### 2 4323-8 ####[facility] LABCLIA [id number] [place] [address] [place] Bilirubin [Mass/Vol] 0.4 mg/dL Normal 0.2-1.3 [facility] Comment on above: Order Comment: Speci men Type: BLOOD SPECIMENOrdering Facility: [facility] Address: [address] [place] [address] Performed By: #### 2 4323-8 ####[facility] LABCLIA [id number] [place] [address] [place] Calcium [Mass/Vol] 10.1 mg/dL Normal 8.5-10.2 [facility] Comment on above: Order Comment: Speci men Type: BLOOD SPECIMENOrdering Facility: [facility] Address: [address] [place] [address] Performed By: #### 2 4323-8 ####[facility] LABCLIA [id number] [place] [address] [place] Chloride [Moles/Vol] 103 mmol/L Normal 98-107 [facility] Comment on above: Order Comment: Speci men Type: BLOOD SPECIMENOrdering Facility: [facility] Address: [address] [place] [address] Performed By: #### 2 4323-8 ####[facility] LABCLIA [id number] [place] [id number] [place] CO2 [Moles/Vol] 25 mmol/L Normal 22-30 [facility] Comment on above: Order Comment: Speci men Type: BLOOD SPECIMENOrdering Facility: [facility] Address: [address] [place] [address] Performed By: #### 2 4323-8 ####[facility] [id number] [place] [id number] [place] [facility] Creatinine [Mass/Vol] 0.87 mg/dL Normal 0.73-1.22 [facility] Comment on above: Order Comment: Speci men Type: BLOOD SPECIMENOrdering Facility: [facility] Address: [address] [place] [address] Performed By: #### 2 4323-8 ####[facility] LABIA [id number] [place] [address] [place] Creatinine and Glomerular filtration rate.predicted panel (S/P/Bld) 122 mL/min/1.73m??? Normal >=60 [facility] Comment on above: Order Comment: Speci men Type: BLOOD SPECIMENOrdering Facility: [facility] Address: [address] [place] [address] Result Comment: Makenna mated Glomerular Filtration Rate (eGFR) is calculated using the 2020 CKD-EPI creatinine equation. This equation utilizes serum creatinine, sex, and age as parameters. The creatinine assay has traceable calibration to isotope dilution-mass spectrometry. Refer to KDIGO guidelines for clinical interpretation. In patients with unstable renal function, e.g. those with acute kidney injury, the eGFR may not accurately reflect actual GFR. Performed By: #### 2 4323-8 ####[facility] LABIA [id number] [place] [id number] [place] Glucose [Mass/Vol] 94 mg/dL Normal 74-99 [facility] Comment on above: Order Comment: Speci men Type: BLOOD SPECIMENOrdering Facility: [facility] Address: [address] [place] [address] Result Comment: The [place] Diabetes Association (ADA) provides guidance for cutoff values for fasting glucose and random glucose. The ADA defines fasting as no caloric intake for at least 8 hours. Fasting plasma glucose results between 100 to 125 mg/dL indicate increased risk for diabetes (prediabetes). Fasting plasma glucose results greater than or equal to 126 mg/dL meet the criteria for diagnosis of diabetes. In the absence of unequivocal hyperglycemia, results should be confirmed by repeat testing. In a patient with classic symptoms of hyperglycemia or hyperglycemic crisis, random plasma glucose results greater than or equal to 200 mg/dL meet the criteria for diagnosis of diabetes. Reference: Standards of Medical Care in Diabetes 2016, [place] [employer]. Diabetes Care. 2016.39(Suppl 1). Performed By: #### 2 4323-8 ####[facility] LABCLIA [id number] [place] [id number] [place] Potassium [Moles/Vol] 4.8 mmol/L Normal 3.7-5.1 [facility] Comment on above: Order Comment: Timi hardin Type: BLOOD SPECIMENOrdering Facility: [facility] Address: [address] [place] [address] Performed By: #### 2 4323-8 ####[facility] LABIA [id number] [place] [id number] [place] Protein [Mass/Vol] 7.5 g/dL Normal 6.3-8.0 [facility] Comment on above: Order Comment: Rosarioi wilfred Type: BLOOD SPECIMENOrdering Facility: [facility] Address: [address] [place] [address] Performed By: #### 2 4323-8 ####[facility] LABCLIA [id number] [facility] [place] [id number] [place] Sodium [Moles/Vol] 139 mmol/L Normal 136-144 [facility] Comment on above: Order Comment: Rosarioi men Type: BLOOD SPECIMENOrdering Facility: [facility] Address: [address] [place] [address] Performed By: #### 2 4323-8 ####[facility] LABCLIA [id number] [facility] [place] [id number] [place] Urea nitrogen [Mass/Vol] 14 mg/dL Normal 9-24 [facility] Comment on above: Order Comment: Speci men Type: BLOOD SPECIMENOrdering Facility: [facility] Address: [address] [place] [address] Performed By: #### 2 4323-8 ####[facility] LABCLIA [id number] OF [facility] TSH SerPl-aCncon 04-07-2025 TSH Qn 1.880 m[IU]/L Normal 0.270-4.200 [facility] Comment on above: Order Comment: Speci men Type: BLOOD SPECIMENOrdering Facility: [facility] Address: [address] [place] [address] Performed By: #### 3 016-3 ####[facility] LABCLIA [id number] [address] [id number] 01-28-2025 [id number] HNO ID: [id number] Author: MUKUND BAUMAN PT Service: ? Author Type: Physical Therapist Type: [id number] Filed: 01/28/2025 16:35 Note Text: [facility] Physical Therapy Plan of Care Certification Patient Name: Dawn Mccarty : 2000 CC #: [id number] Date: 01/28/2025 To: Aaron Sarabia MD From Therapist: Mukund Bauman PT RE: Patient Certification/ Recertification Your review, approval and electronic signature are required in order to comply with Payor: [facility] MEDICAID / Plan: [place] BCBS MEDICAID OF [place] / Product Type: Medicaid / regulations. The identified Physical Therapy PLAN OF CARE for the patient is as follows: G44.86 Cervicogenic headache PLAN OF CARE: Assessment: Dawn Mccarty presents with chief complaint of neck pain and headaches that interferes with driving (playing video games, exercising) . The patient presents with impairments in independence in exercise, overall function, posture, strength, symptom management, and tissue tenderness. PROMIS? (Patient-Reported Outcomes Measurement Information System) scores were reviewed and identified as a rehabilitation concern. Prognosis for therapy is Fair due to: clinical presentation, chronic nature of impairments, poor past response to therapy intervention. The patient will benefit from skilled therapy services to meet the goals established for this plan of care as noted below. Goals for Episode of Care: established 01/28/25 Patient reported outcome of self-efficacy will increase T-score by a minimum 5 points. Independent in a Home Exercise Program. Patient will decrease pain rating by 2 points to meet minimal clinical important difference for numeric pain rating scale. Drive with no aggravation of pain/symptoms. Maintain proper sitting posture throughout the session to allow for improved postural habits. Patient will increase strength of postural muscles to WFL to allow for improve ability to maintain proper posture, improve mechanics, and decrease pain. Patient will be able to tolerate driving, playing video games, working and exercising without increased symptoms. Patient Goals: manage current symptoms Time Frame for Goals and Treatment : 03/11/25 Planned Interventions, Frequency, and Duration: Current Frequency: 1x/week Duration: 6 weeks Total Number of Visits Planned: 6 Planned Treatment Interventions: Therapeutic exercise (75386), Neuromuscular re-education (34265), Manual therapy (64976), Therapeutic activities (34631), Self-fpc management (17731), Patient/Family/Caregiver Education, Body Mechanics Training PLAN FOR NEXT VISIT: Review, correct and progress HEP to tolerance. Continue with postural correction, body mechanics instruction and work station ergonomics instruction. Continue with postural stretching and strengthening, progressing to tolerance. Attempt B UT and B levator scapulae stretching. Patient demonstrates good understanding of plan of care and treatment. The above goals and plan of care were discussed and agreed upon by patient/family. For further details regarding this patient refer to the Physical Therapy electronically documented visit dated 01/28/2025. Provider Attestation I have reviewed the treatment plan for Dawn Mccarty, [facility]# [id number] for the period of 01/28/25 -- 03/11/25, established on 01/28/2025. Signature certifies the need for therapy services. Normal [facility] CNTHERAPYon 01-28-2025 CNTHERAPY OT/PT/Speech Visit (PTWS) -------- DAWN MCCARTY ([id number]) 2000 M Date Time Provider Department 01/28/25 3:00 PM MUKUND BAUMAN PTWS Date Time Provider Department Center 01/28/2025 3:00 PM [id number], BRENT PTWS Michelle Paris Reason for Visit: PT Eval [747] Physical Therapy [503] Visit Diagnosis:Cervicogenic headache [G44.86] Allergies As of Date: 01/28/2025 (No Known Allergies) Date Reviewed: 01/06/2025 Reviewed by: Aggie Preciado LPN - Fully Assessed Prescriptions as of 01/28/2025 - omeprazole (PRILOSEC) 20 mg capsule Take 1 capsule by mouth once daily. Filenet Architect: Addendum Therapy (PT/OT/Speech/Resp) ID: [id number] 01/28/2025 3:43 PM Author: MUKUND BAUMAN Signed by MUKUND BAUMAN PT on 01/28/2025 at 3:43 PM * * * This document replaces document [id number] * * * Document text: Program_ID:[id number] Access Code: [email or web address] URL: [email or web address] Date: 01-28-2025 Prepared By: Florence Apple Program Notes Exercises - Seated Cervical Retraction - 2-3 x daily - 7 x weekly - 2 sets - 10 reps - Seated Scapular Retraction - 2-3 x daily - 7 x weekly - 2 sets - 10 reps Patient Education - cc Posture Training Slouch Overcorrect - cc Posture Computer Work Station - Male Normal [facility] THERAPY NTon 01-28-2025 THERAPY NT HNO ID: [id number] Author: MUKUND BAUMAN PT Service: ? Author Type: Physical Therapist Type: Therapy (PT/OT/Speech/Resp) Filed: 01/28/2025 15:43 Note Text: Program_ID:[id number] Access Code: [email or web address] URL: [email or web address] Date: 01-28-2025 Prepared By: Florence Apple Program Notes Exercises - Seated Cervical Retraction - 2-3 x daily - 7 x weekly - 2 sets - 10 reps - Seated Scapular Retraction - 2-3 x daily - 7 x weekly - 2 sets - 10 reps Patient Education - cc Posture Training Slouch Overcorrect - cc Posture Computer Work Station - Male Normal [facility] CNOVon 01-06-2025 CNOV Office Visit (INTMWS ) -------- DAWN MCCARTY ([id number]) 2000 M Date Time Provider Department 01/06/25 11:40 AM AARON SARABIA INTMWS During your visit today, we recorded the following information about you: Temperature Pulse Respiration Blood pressure 97.4 degrees 80/minute 18/minute 122/78 Weight 77 kg Aaron Sarabia MD 01/06/2025 1:45 PM Signed This note was created using frenting. Subjective Dawn Mccarty is a 24 year old male. He noted paroxysmal left neck pains that felt like jolts, lasting a few minutes, radiating up to the head or down the spine 4 to 5 months ago. He related this to his sleeping position where he ended up with his head turned and neck bent to the left. Pain has no specific triggers, lasts minutes, and can occur few times a week to 15 times a day. No other symptoms were noted. He started modifying his sleep position several days ago as he felt he was pinching a nerve. Review of Systems Constitutional: Negative for diaphoresis, fatigue, fever and unexpected weight change. HENT: Negative for congestion, sore throat and trouble swallowing. Eyes: Negative for visual disturbance. Respiratory: Negative for cough and shortness of breath. Cardiovascular: Negative for chest pain, palpitations and leg swelling. Gastrointestinal: Negative for nausea and vomiting. Genitourinary: Negative for difficulty urinating. Neurological: Negative for dizziness, syncope, facial asymmetry, speech difficulty, weakness, light-headedness and numbness. ACTIVE PROBLEM LIST Cervicogenic Headache Gastroesophageal Reflux Disease Social History Tobacco Use Smoking status: Never Passive exposure: Never Smokeless tobacco: Never Vaping Use Vaping status: Never Used Substance Use Topics Alcohol use: Not Currently Drug use: Not Currently Frequency: 14.0 times per week Types: Marijuana Comment: none since 2021 Current Outpatient Medications Medication Sig omeprazole (PRILOSEC) 20 mg capsule Take 1 capsule by mouth once daily. LIDOCAINE VISCOUS 2 % solution Take 15 mL by mouth four times a day as needed for pain (sore throat). Swish, gargle and spit out. (Patient not taking: Reported on 01/06/2025) No current facility-administered medications for this visit. Objective BP 122/78 (BP Position: Sitting, BP Cuff Size: Large Adult) Pulse 80 Temp 36.3 ?C (97.4 ?F) (Temporal) Resp 18 Wt 77 kg (169 lb 12.1 oz) BMI 26.59 kg/m? Physical Exam Constitutional: Appearance: He is not ill-appearing. HENT: Head: Atraumatic. Eyes: Extraocular Movements: Extraocular movements intact. Conjunctiva/sclera: Conjunctivae normal. Abdominal: Palpations: Abdomen is soft. Tenderness: There is no abdominal tenderness. Musculoskeletal: Cervical back: Neck supple. No tenderness. Lymphadenopathy: Cervical: No cervical adenopathy. Neurological: General: No focal deficit present. Mental Status: He is alert. Sensory: No sensory deficit. Motor: No weakness. Gait: Gait normal. Psychiatric: Mood and Affect: Mood normal. Assessment and Plan 1. Cervicogenic headache - ICD9: 784.0, ICD10: G44.86 (primary diagnosis) Shared medical decision making was done. We discussed PT versus pain management. - CONSULT TO PHYSICAL THERAPY 2. Gastroesophageal reflux disease, unspecified whether esophagitis present - ICD9: 530.81, ICD10: K21.9 Refilled for PRN use. - OMEPRAZOLE 20 MG CAPSULE,DELAYED RELEASE 3. Screening for depression - ICD9: V79.0, ICD10: Z13.31 - DEPRESSION SCREENING 4. Encounter for screening examination for other mental health and behavioral disorders - ICD9: V79.8, ICD10: Z13.39 - ANXIETY SCREENING Aaron Sarabia MD Allergies As of Date: 01/06/2025 (No Known Allergies) Date Reviewed: 01/06/2025 Reviewed by: Aggie Preciado LPN - Fully Assessed Reason for Visit: Neck Pain [135] Primary Visit Diagnosis:Cervicogenic headache [G44.86] Other Visit Diagnoses:Gastroesophage al reflux disease, unspecified whether esophagitis present [K21.9] Screening for depression [Z13.31] Encounter for screening examination for other mental health and behavioral disorders [Z13.39] Order(s):omeprazole (PRILOSEC) 20 mg capsuleTake 1 capsule by mouth once daily.Disp: 30 capsuleRfl: 2 CONSULT TO PHYSICAL THERAPY [9032] Order #: [id number]: 1 FUTURE DEPRESSION SCREENING [] Order #: [id number]: 1 ANXIETY SCREENING [0369930] Order #: [id number]: 1 Prescriptions as of 01/06/2025 - omeprazole (PRILOSEC) 20 mg capsule Take 1 capsule by mouth once daily. Problem List As Of Date 01/06/2025 Noted Resolved Attention deficit hyperactivity disorder (ADHD)*06/18/2007 02/08/2023 Tourette's disorder [F95.2] 06/18/2007 09/11/2017 Unspecified psychosis [F29] 10/05/2008 09/11/2017 Marijuana use [F12.90] 10/07/2020 02/08/2023 Cervicogenic headach (more content not included)... Normal [facility] CNOVon 09-20-2024 CNOV Office Visit (UCMMAS ) -------- DAWN MCCARTY ([id number]) 2000 M Date Time Provider Department 09/20/24 3:25 PM [facility] During your visit today, we recorded the following information about you: Temperature Pulse Respiration Blood pressure 97.6 degrees 87/minute 18/minute 128/87 Danielle Blue, REFRACTORY PRODUCTS SUPERVISOR.HOB MACHINE OPERATOR 09/20/2024 4:15 PM Signed HPI: Dawn Mccarty is a 23 year old male who presents with Sore Throat (X 10 days). Patient comes in accompanied by significant other for sore throat times a week and 1/2 to 10 days. Patient reports he had a bout of reflux that came up into his throat and his throat has been irritated intermittently ever since. PAST MEDICAL HISTORY Diagnosis Date Attention deficit hyperactivity disorder (ADHD) 06/18/2007 Cervicogenic headache 09/07/2021 Chlamydia infection 03/15/2023 Gastroesophageal reflux disease 02/11/2023 PMH - PAST MEDICAL HISTORY OF cyst on testicle PMH - PAST MEDICAL HISTORY OF 05/22/2004 normal color vision Rib contusion 08/19/2012 Skin striae 07/22/2015 Tourette's disorder Unspecified asthma(493.90) ACTIVE PROBLEM LIST Cervicogenic Headache Gastroesophageal Reflux Disease Current Outpatient Medications Medication Sig Dispense Refill omeprazole (PRILOSEC) 20 mg capsule Take 1 capsule by mouth once daily. 30 capsule 0 LIDOCAINE VISCOUS 2 % solution Take 15 mL by mouth four times a day as needed for pain (sore throat). Swish, gargle and spit out. 100 mL 1 No current facility-administered medications for this visit. Social History Tobacco Use Smoking status: Never Passive exposure: Never Smokeless tobacco: Never Vaping Use Vaping status: Never Used Substance Use Topics Alcohol use: Not Currently Drug use: Not Currently Frequency: 14.0 times per week Types: Marijuana Comment: none since 2021 Alcohol Use: Not Currently Tobacco Use: Never FAMILY HISTORY Problem Relation Age of Onset Asthma Mother Drug abuse Mother other (adopted) Father Hypertension Maternal Grandmother Diabetes Maternal Grandfather Hypertension Maternal Grandfather other (cva) Maternal Grandfather other (myocardial infarction) Maternal Grandfather Review of Systems Constitutional: Negative for chills and fever. HENT: Positive for sore throat. Negative for congestion, ear pain and sinus pain. Respiratory: Negative for cough, shortness of breath and wheezing. Cardiovascular: Negative for chest pain. BP 128/87 Pulse 87 Temp 97.6 Resp 18 SpO2 99% Physical Exam Constitutional: General: He is not in acute distress. Appearance: Normal appearance. He is normal weight. He is not ill-appearing. HENT: Head: Normocephalic. Mouth/Throat: Mouth: Mucous membranes are moist. Pharynx: Uvula midline. Posterior oropharyngeal erythema present. Comments: Slight ulceration/irritation noted to back of patient's throat along with erythema Eyes: Extraocular Movements: Extraocular movements intact. Conjunctiva/sclera: Conjunctivae normal. Cardiovascular: Rate and Rhythm: Normal rate. Pulmonary: Effort: Pulmonary effort is normal. Skin: General: Skin is warm and dry. Neurological: General: No focal deficit present. Mental Status: He is alert and oriented to person, place, and time. Psychiatric: Mood and Affect: Mood normal. Behavior: Behavior normal. Thought Content: Thought content normal. Clinical Impression ICD-10-CM 1. Pharyngitis, unspecified etiology J02.9 LIDOCAINE VISCOUS 2 % solution 2. Gastroesophageal reflux disease, unspecified whether esophagitis present K21.9 omeprazole (PRILOSEC) 20 mg capsule Pharyngitis, unspecified etiology (primary encounter diagnosis) Gastroesophageal reflux disease, unspecified whether esophagitis present PLAN: Plan of care for this patient is to treat for pharyngitis. Symptoms likely viral at this time. Patient is also experiencing increased reflux symptoms. Omeprazole will be called in for symptom management at this time. Lidocaine viscous will be prescribed patient for symptom management at this time. Patient advised to utilize nasal saline/rinses, humidified air, warm salt water gargles, throat lozenges, sprays, increased fluids and rest as well as Tylenol/ibuprofen for pain and discomfort/symptom management. If symptoms do not improve or if they persist after a total of 7 days or symptoms worsen within the next several days or new symptoms develop, see PCP for further evaluation. Danielle Blue APRN.HOB MACHINE OPERATOR This note was generated with voice recognition software and may contain errors, including spelling, grammar, syntax and misrecognition of what was dictated, that are not fully corrected. Danielle Blue, KARLENE.HOB MACHINE OPERATOR 09/20/2024 4:13 PM Signed Sore Throat (Pharyngitis) What is a sore throat? When your child complains that his throat is sore, (more content not included)... Normal [facility] CBC W Auto Differential pane l (Bld)on 08-03-2024 Basophils (Bld) [#/Vol] 10*3/uL Normal <0.11 [facility] Comment on above: Order Comment: Speci men Type: BLOOD SPECIMEN [facility]ing Facility: [facility] Address: [address] [place] [address] Performed By: #### 5 7021-8 #### [facility] CLIA [id number] [address] [place] [address] [place] Basophils/100 WBC (Bld) 0.3 % Normal [facility] Comment on above: Order Comment: Speci men Type: BLOOD SPECIMEN Ordering Facility: [facility] Address: [address] [place] [address] Performed By: #### 5 7021-8 #### [facility] CLIA [id number] [address] [place] [address] [place] Differential cell count method Nom (Bld) Auto Normal [facility] Comment on above: Order Comment: Speci men Type: BLOOD SPECIMEN Ordering Facility: [facility] Address: [address] [place] [address] Performed By: #### 5 7021-8 #### [facility] CLIA [id number] [address] [place] [address] [place] Eosinophils (Bld) [#/Vol] 0.10 10*3/uL Normal <0.46 [facility] Comment on above: Order Comment: Speci men Type: BLOOD SPECIMEN Ordering Facility: [facility] Address: [address] [place] [address] Performed By: #### 5 7021-8 #### [facility] CLIA [id number] [address] [place] [address] [place] Eosinophils/100 WBC (Bld) 1.3 % Normal [facility] Comment on above: Order Comment: Speci men Type: BLOOD SPECIMEN Ordering Facility: [facility] Address: [address] [place] [address] Performed By: #### 5 7021-8 #### [facility] CLIA [id number] [address] [place] [address] [place] Erythrocyte distribution width (RBC) [Ratio] 11.9 % Normal 11.5-15.0 [facility] Comment on above: Order Comment: Speci men Type: BLOOD SPECIMEN Ordering Facility: [facility] Address: [address] [place] [address] Performed By: #### 5 7021-8 #### [facility] CLIA [id number] [address] [place] [address] [place] Hematocrit (Bld) [Volume fraction] 49.1 % Normal 39.0-51.0 [facility] Comment on above: Order Comment: Speci men Type: BLOOD SPECIMEN Ordering Facility: [facility] Address: [address] [place] [address] Performed By: #### 5 7021-8 #### [facility] CLIA [id number] [address] [place] [address] [place] Hemoglobin (Bld) [Mass/Vol] 16.8 g/dL Normal 13.0-17.0 [facility] Comment on above: Order Comment: Speci men Type: BLOOD SPECIMEN Ordering Facility: [facility] Address: [address] [place] [address] Performed By: #### 5 7021-8 #### [facility] CLIA [id number] [address] [place] [address] [place] Immature granulocytes (Bld) [#/Vol] 10*3/uL Normal <0.10 [facility] Comment on above: Order Comment: Speci men Type: BLOOD SPECIMEN Ordering Facility: [facility] Address: [address] [place] [address] Performed By: #### 5 7021-8 #### [facility] CLIA [id number] [address] [place] [address] [place] Immature granulocytes/100 WBC (Bld) 0.1 % Normal [facility] Comment on above: Order Comment: Speci men Type: BLOOD SPECIMEN Ordering Facility: [facility] Address: [address] [place] [address] Performed By: #### 5 7021-8 #### [facility] CLIA [id number] [address] [place] [address] [place] Lymphocytes (Bld) [#/Vol] 1.27 10*3/uL Normal 1.00-4.00 [facility] Comment on above: Order Comment: Speci men Type: BLOOD SPECIMEN Ordering Facility: [facility] Address: [address] [place] [address] Performed By: #### 5 7021-8 #### [facility] CLIA [id number] [address] [place] [address] [place] Lymphocytes/100 WBC (Bld) 16.6 % Normal [facility] Comment on above: Order Comment: Speci men Type: BLOOD SPECIMEN Ordering Facility: [facility] Address: [address] [place] [address] Performed By: #### 5 7021-8 #### [facility] CLIA [id number] [address] [place] [address] [place] MCH (RBC) [Entitic mass] 29.8 pg Normal 26.0-34.0 [facility] Comment on above: Order Comment: Speci men Type: BLOOD SPECIMEN Ordering Facility: [facility] Address: [address] [place] [address] Performed By: #### 5 7021-8 #### [facility] CLIA [id number] [address] [place] [address] [place] MCHC (RBC) [Mass/Vol] 34.2 g/dL Normal 30.5-36.0 [facility] Comment on above: Order Comment: Speci men Type: BLOOD SPECIMEN Ordering Facility: [facility] Address: [address] [place] [address] Performed By: #### 5 7021-8 #### [facility] CLIA [id number] [address] [place] [address] [place] MCV (RBC) [Entitic vol] 87.2 fL Normal 80.0-100.0 [facility] Comment on above: Order Comment: Speci men Type: BLOOD SPECIMEN Ordering Facility: [facility] Address: [address] [place] [address] Performed By: #### 5 7021-8 #### [facility] CLIA [id number] [address] [place] [address] [place] Monocytes (Bld) [#/Vol] 0.35 10*3/uL Normal <0.87 [facility] Comment on above: Order Comment: Speci men Type: BLOOD SPECIMEN Ordering Facility: [facility] Address: [address] [place] [address] Performed By: #### 5 7021-8 #### [facility] CLIA [id number] [address] [place] [address] [place] Monocytes/100 WBC (Bld) 4.6 % Normal [facility] Comment on above: Order Comment: Speci men Type: BLOOD SPECIMEN Ordering Facility: [facility] Address: [address] [place] [address] Performed By: #### 5 7021-8 #### [facility] CLIA [id number] [address] [place] [address] [place] Neutrophils (Bld) [#/Vol] 5.92 10*3/uL Normal 1.45-7.50 [facility] Comment on above: Order Comment: Speci men Type: BLOOD SPECIMEN Ordering Facility: [facility] Address: [address] [place] [address] Performed By: #### 5 7021-8 #### [facility] CLIA [id number] [address] [place], [place] [address] [place] Neutrophils/100 WBC (Bld) 77.1 % Normal [facility] Comment on above: Order Comment: Speci men Type: BLOOD SPECIMEN Ordering Facility: [facility] Address: [address] [place] [address] Performed By: #### 5 7021-8 #### [facility] CLIA [id number] [address] [place] [address] [place] Nucleated RBC (Bld) [#/Vol] 10*3/uL Normal <0.01 [facility] Comment on above: Order Comment: Speci men Type: BLOOD SPECIMEN Ordering Facility: [facility] Address: [address] [place] [address] Performed By: #### 5 7021-8 #### [facility] CLIA [id number] [address] [place] [address] [place] Nucleated RBC/100 WBC (Bld) [Ratio] 0.0 /100 WBC Normal [facility] Comment on above: Order Comment: Speci men Type: BLOOD SPECIMEN Ordering Facility: [facility] Address: [address] [place] [address] Performed By: #### 5 7021-8 #### [facility] CLIA [id number] [address] [place] [address] [place] Platelet mean volume (Bld) [Entitic vol] 9.7 fL Normal 9.0-12.7 [facility] Comment on above: Order Comment: Speci men Type: BLOOD SPECIMEN Ordering Facility: [facility] Address: [address] [place] [address] Performed By: #### 5 7021-8 #### [facility] CLIA [id number] [address] [place] [address] [place] Platelets (Bld) [#/Vol] 220 10*3/uL Normal 150-400 [facility] Comment on above: Order Comment: Speci men Type: BLOOD SPECIMEN Ordering Facility: [facility] Address: [address] [place] [address] Performed By: #### 5 7021-8 #### [facility] CLIA [id number] [address] [place] [address] OF [facility] RBC (Bld) [#/Vol] 5.63 10*6/uL Normal 4.20-6.00 [facility] Comment on above: Order Comment: Speci men Type: BLOOD SPECIMEN Ordering Facility: [facility] Address: [address] [place] [address] Performed By: #### 5 7021-8 #### [facility] CLIA [id number] [address] [place] [address] WBC (Bld) [#/Vol] 7.67 10*3/uL Normal 3.70-11.00 [facility] Comment on above: Order Comment: Speci men Type: BLOOD SPECIMEN Ordering Facility: [facility] Address: [address] [place] [address] Performed By: #### 5 7021-8 #### [facility] CLIA [id number] [address] [place] [address] CNOVon 08-03-2024 CNOV Office Visit ([facility] ) -------- DAWN MCCARTY ([id number]) 2000 M Date Time Provider Department 08/03/24 1:30 PM HEMANT PICKENS [facility] During your visit today, we recorded the following information about you: Temperature Pulse Respiration Blood pressure 97.6 degrees 84/minute 18/minute 132/92 Hemant Pickens 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 Go directly to Emergency Department with high fevers, chest pain, difficulty breathing or not able to tolerate fluids. Benign Paroxysmal Positional Vertigo (BPPV) What is BPPV? Benign Paroxysmal Positional Vertigo (BPPV) is an inner ear disorder in which changes to the position of the head, such as tipping the head backward, lead to sudden vertigo -- a feeling that the room is spinning. Vertigo can vary in intensity from mild to severe and usually lasts only a few minutes. It may be accompanied by other symptoms, including dizziness lightheadedness a sense of imbalance nausea vomiting Anatomy of the right inner ear. Particle repositioning therapy moves the otoconia out of the semicircular canals and into the utricle where they dissolve naturally. BPPV is not a sign of a serious problem, and it usually disappears on its own within 6 weeks of the first episode. However, the symptoms of BPPV can be very frightening and may be dangerous, especially in older individuals. The unsteadiness associated with BPPV can lead to falls. About half of all people over age 65 experience an episode of BPPV, and falls are a leading cause of fractures in this age-range. What causes BPPV? BPPV develops when calcium carbonate crystals, which are known as otoconia, shift into and become trapped within the semicircular canals (one of the vestibular organs of the inner ear that controls balance). The otoconia make up a normal part of the structure of the utricle, a vestibular organ next to the semicircular canals. (see illustration to the right.) In the utricle, the otoconia may be loosened as a result of injury, infection, or age, and they land in a sac -- the utricle -- where they are naturally dissolved. However, otoconia in the semicircular canals will not dissolve. As a person?s head position changes, the otoconia begin to roll around and push on the tiny hairs that line the semicircular canals. Those hairs act as sensors to give the brain information about balance. Vertigo develops when the hairs are stimulated by the rolling otoconia. What head positions trigger BPPV? Movements that can trigger an episode of BPPV include rolling over or sitting up in bed, bending the head forward to look down, or tipping the head backward. In most people, only a single ear is affected by BPPV, although both ears may be involved on occasion. How is BPPV diagnosed and treated? With advances in medical technology, BPPV can easily be diagnosed and treated. The diagnosis can usually be made in the office based on medical history and a physical exam. Treatment also involves a short, simple in-office procedure known as the particle repositioning maneuver. (See addendum below.) How can I identify the affected side? Steps to determine affected side: Sit on bed so that if you lie down, your head hangs slightly over the end of the bed. Turn head to the right and lie back quickly. Wait 1 minute. If you feel dizzy, then the right ear is your affected ear. If no dizziness occurs, sit up. Wait 1 minute. Turn head to the left and lie back quickly. Wait 1 minute. If you feel dizzy, then the left ear is your affected ear. How successful is the treatment? A single particle repositioning procedure is effective in treating about 80% to 90% of cases of BPPV. Additional exercise or repositioning maneuvers may be needed if symptoms persist. Can BPPV recur? If so, what can I do? A new episode of BPPV can develop after successful treatment -- on average there is a 15 percent rate of recurrence each year. However, it may be possible to treat recurrent BPPV at home by performing a series of movements at the time an episode occurs. Patients will receive information on ways to handle recurrences on their own or they can work with a physical therapist to develop a plan. In general, if you wake up with positional vertigo, slowly move into the jegp-vqh-duyz position and wait for a minute. Next, slowly move into a face-down position and slide to the foot of the bed. Keep your head down until you reach the end of the bed and are kneeling or standing on the floor. Slowly bring your head backward into an upright position. Hold on to the bed at all times. Another method is to sit toward the foot of the bed, leaving enough room to lay back with your head resting comfortably at the end of the bed, slightly extended. Be careful not to overextend (more content not included)... Normal [facility] CT BRAIN WO IVCONon 08-03-[address] BRAIN WO IVCON * * *Final Report* * * DATE OF EXAM: Aug 03 2024 9:18PM [facility] 0504 - CT BRAIN WO IVCON / PROCEDURE REASON: Dizziness, non-specific * * * * Physician Interpretation * * * * EXAMINATION: CT BRAIN WO IVCON CLINICAL HISTORY: Dizziness TECHNIQUE: Serial axial images without IV contrast were obtained from the vertex to the foramen magnum. MQ: CTBWO_3 CT Radiation dose: Integrated Dose-Length Product (DLP) for this visit = 715.81 mGy*cm CT Dose Reduction Employed: Iterative recon COMPARISON: None. RESULT: Post-operative change: None. Acute change: No evidence of an acute infarct or other acute parenchymal process. Hemorrhage: No evidence of acute intracranial hemorrhage. ECASS hemorrhagic transformation score: Not Applicable Mass Lesion / Mass Effect: There is no evidence of an intracranial mass or extraaxial fluid collection. No significant mass effect. Chronic change: None apparent. Parenchyma: There is no significant volume loss. The brain parenchyma is otherwise within normal limits for age. Ventricles: The ventricles are within normal limits of size and configuration for age. Paranasal sinuses and skull base: Mucosal thickening of frothy secretions anterior left ethmoid air cells. Minimal scattered left maxillary sinus mucosal thickening. The skull base and imaged soft tissues are unremarkable. Localizer images: No additional findings. IMPRESSION: No acute intracranial abnormality. Television Writer: [facility] Transcribe Date/Time: Aug 03 2024 9:35P Dictated by : JHONY THOMAS MD This examination was interpreted and the report reviewed and electronically signed by: JHONY THOMAS MD on Aug 03 2024 9:39PM EST [id number] Normal [facility] Comprehensive metabolic 2000 panelon 08-03-2024 Albumin [Mass/Vol] 5.0 g/dL Normal 3.2-5.0 [facility] Comment on above: Order Comment: Timi hardin Type: BLOOD SPECIMEN Ordering Facility: [facility] Address: [address] [place] [address] Performed By: #### 2 4323-8, HSTROP #### [facility] CLIA [id number] [address] [place] [address] [place] ALP [Catalytic activity/Vol] 105 U/L Normal 45-117 [facility] Comment on above: Order Comment: Timi hardin Type: BLOOD SPECIMEN Ordering Facility: [facility] Address: [address] [place] [address] Performed By: #### 2 4323-8, HSTROP #### [facility] CLIA [id number] [address] [place] [address] [place] ALT [Catalytic activity/Vol] 26 U/L Normal 13-61 [facility] Comment on above: Order Comment: Speci men Type: BLOOD SPECIMEN Ordering Facility: [facility] Address: [address] [place] [address] Result Comment: Resu lts may be falsely depressed after the administration of Sulfasalazine and/or Sulfapyridine. Performed By: #### 2 4323-8, HSTROP #### [facility] CLIA [id number] [address] [place] [address] [place] Anion gap [Moles/Vol] 6 mmol/L Normal 5-16 [facility] Comment on above: Order Comment: Speci men Type: BLOOD SPECIMEN Ordering Facility: [facility] Address: [address] [place] [address] Performed By: #### 2 4323-8, HSTROP #### [facility] CLIA [id number] [address] [place] [address] [place] AST [Catalytic activity/Vol] 21 U/L Normal 8-34 [facility] Comment on above: Order Comment: Speci men Type: BLOOD SPECIMEN Ordering Facility: [facility] Address: [address] [place] [address] Result Comment: Resu lts may be falsely depressed after the administration of Sulfasalazine and/or Sulfapyridine. Performed By: #### 2 4323-8, HSTROP #### [facility] CLIA [id number] [address] [place] [address] [place] Bilirubin [Mass/Vol] 0.6 mg/dL Normal 0.2-1.0 [facility] Comment on above: Order Comment: Speci men Type: BLOOD SPECIMEN Ordering Facility: [facility] Address: [address] [place] [address] Performed By: #### 2 4323-8, HSTROP #### [facility] CLIA [id number] [address] [place] [address] [place] Calcium [Mass/Vol] 10.4 mg/dL Normal 8.5-10.5 [facility] Comment on above: Order Comment: Speci men Type: BLOOD SPECIMEN Ordering Facility: [facility] Address: [address] [place] [address] Performed By: #### 2 4323-8, HSTROP #### [facility] CLIA [id number] [address] [place] [address] [place] Chloride [Moles/Vol] 105 mmol/L Normal 98-107 [facility] Comment on above: Order Comment: Speci men Type: BLOOD SPECIMEN Ordering Facility: [facility] Address: [address] [place] [address] Performed By: #### 2 4323-8, HSTROP #### [facility] CLIA [id number] [address] [place] [address] [place] CO2 [Moles/Vol] 28 mmol/L Normal 21-32 [facility] Comment on above: Order Comment: Speci men Type: BLOOD SPECIMEN Ordering Facility: [facility] Address: [address] [place] [address] Performed By: #### 2 4323-8, HSTROP #### [facility] CLIA [id number] [address] [place] [address] [place] Creatinine [Mass/Vol] 0.76 mg/dL Normal 0.50-1.40 [facility] Comment on above: Order Comment: Speci men Type: BLOOD SPECIMEN Ordering Facility: [facility] Address: [address] [place] [address] Result Comment: Lolis ents receiving either N-Acetylcysteine (NAC) or Metamizole prior to venipuncture, may have falsely depressed results. Performed By: #### 2 4323-8, HSTROP #### [facility] CLIA [id number] [address] [place] [address] [place] Creatinine and Glomerular filtration rate.predicted panel (S/P/Bld) 128 mL/min/1.73m??? Normal >=60 [facility] Comment on above: Order Comment: Timi hardin Type: BLOOD SPECIMEN Ordering Facility: [facility] Address: [address] [place] [address] Result Comment: Makenna mated Glomerular Filtration Rate (eGFR) is calculated using the 2020 CKD-EPI creatinine equation. This equation utilizes serum creatinine, sex, and age as parameters. The creatinine assay has traceable calibration to isotope dilution-mass spectrometry. Refer to KDIGO guidelines for clinical interpretation. In patients with unstable renal function, e.g. those with acute kidney injury, the eGFR may not accurately reflect actual GFR. Performed By: #### 2 4323-8, HSTROP #### [facility] CLIA [id number] [address] [place] [address] [place] Glucose [Mass/Vol] 88 mg/dL Normal 70-100 [facility] Comment on above: Order Comment: Timi hardin Type: BLOOD SPECIMEN Ordering Facility: [facility] Address: [address] [place] [address] Result Comment: The [place] [employer] (ADA) provides guidance for cutoff values for fasting glucose and random glucose. The ADA defines fasting as no caloric intake for at least 8 hours. Fasting plasma glucose results between 100 to 125 mg/dL indicate increased risk for diabetes (prediabetes). Fasting plasma glucose results greater than or equal to 126 mg/dL meet the criteria for diagnosis of diabetes. In the absence of unequivocal hyperglycemia, results should be confirmed by repeat testing. In a patient with classic symptoms of hyperglycemia or hyperglycemic crisis, random plasma glucose results greater than or equal to 200 mg/dL meet the criteria for diagnosis of diabetes. Reference: Standards of Medical Care in Diabetes 2016, [place] [employer]. Diabetes Care. 2016.39(Suppl 1). Results may be falsely elevated after the administration of Sulfapyridine. Results may be falsely depressed after the administration of Sulfasalazine. Performed By: #### 2 4323-8, HSTROP #### [facility] CLIA [id number] [address] [place], [place] [id number] [place] Potassium [Moles/Vol] 4.0 mmol/L Normal 3.5-5.1 [facility] Comment on above: Order Comment: Speci men Type: BLOOD SPECIMEN Ordering Facility: [facility] Address: [address] [place] [id number] Performed By: #### 2 4323-8, HSTROP #### [facility] CLIA [id number] [address] [place], [place] [address] [place] Protein [Mass/Vol] 8.1 g/dL Normal 6.0-8.5 [facility] Comment on above: Order Comment: Speci men Type: BLOOD SPECIMEN Ordering Facility: [facility] Address: [address] [place] [address] Performed By: #### 2 4323-8, HSTROP #### [facility] CLIA [id number] [address] [place] [address] [place] Sodium [Moles/Vol] 139 mmol/L Normal 136-145 [facility] Comment on above: Order Comment: Speci men Type: BLOOD SPECIMEN Ordering Facility: [facility] Address: [address] [place] [address] Performed By: #### 2 4323-8, HSTROP #### [facility] CLIA [id number] [address] [place] [address] [place] Urea nitrogen [Mass/Vol] 11 mg/dL Normal 7-26 [facility] Comment on above: Order Comment: Speci men Type: BLOOD SPECIMEN Ordering Facility: [facility] Address: [address] [place] [id number] Performed By: #### 2 4323-8, HSTROP #### [facility] CLIA [id number] [address] [place] [address] [place] ECG COMPLETEon 08-03-2024 ECG COMPLETE Ventricular Rate : 8 9 BPM Atrial Rate : 89 BPM P-R Interval : 124 ms QRS Duration : 96 ms Q-T Interval : 376 ms QTC Calculation(Bazett) : 457 ms Calculated P Frederick : 37 degrees Calculated R Frederick : 69 degrees Calculated T Frederick : 47 degrees Normal sinus rhythm Normal ECG No previous ECGs available Confirmed by ROSE MARY ARENAS MD ([id number]) on 08/03/2024 9:19:36 PM NAME : DAWN MCCARTY PID : [id number] : 2000 Gender : Male Race : ORD : [id number] Procedure Date : Aug 03 2024 17:16:12 Edit Date : Aug 03 2024 21:19:42 Diagnosis: Normal sinus rhythm Normal ECG No previous ECGs available Confirmed by ROSE MARY ARENAS MD ([id number]) on 08/03/2024 9:19:36 PM Test Reason : STAT Location : 0 : ED EDFTC Overread By : ROSE MARY ARENAS MD Edited By : ROSE MARY ARENAS MD Referred By : , Acquired by : [id number], [facility] ED PROV NOTEon 08-03-2024 ED PROV NOTE HNO ID: [id number] Author: RAFAEL ÁLVAREZ MD Service: Emergency Medicine Author Type: Physician Type: ED Provider Notes Filed: 08/03/2024 23:27 Note Text: ED Provider Note Patient Name: Dawn Mccarty : 2000 SERVICE DATE: 08/03/24 History Patient presents with: Dizziness: Pt complains of new dizziness starting about 5 days ago after 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 States he feels pressure behind/ around both eyes. States he has high health anxiety and was not comfortable with waiting for a CT scan from his PCP Dawn Mccarty is a 23 year old male who presents with a chief complaint of dizziness. The patient presents through ED triage. The patient was seen and evaluated initially by the provider in triage. The PIT intake note was assessed significant for intermittent dizziness for several days. The patient's past medical history is significant for Tourette's syndrome, ADHD, Cerva genic headache, and GERD. The patient's past surgical history is significant for tonsillectomy and adenoidectomy. The patient's medications reviewed from the triage medication list include loratadine, meclizine, and ondansetron. The patient's social history is significant for no tobacco or alcohol use. The patient does report marijuana use. The patient states that he has felt dizzy for the last 5 days. He describes this as feeling disoriented or woozy. He states that this feels similar to when he smokes marijuana. He states that his symptoms started while he was [place]. He reports that the symptoms have been more severe today. He denies any falls or injuries. He does report a chronic headache which is unchanged. He denies fevers or chills. He denies chest pain or palpitations. He denies shortness of breath or cough. He denies abdominal pain, nausea, vomiting. He was seen and evaluated earlier today at an urgent care. He states that he was advised to seek evaluation here to have a CAT scan to make sure that he does not have a tumor. History provided by: Patient and medical records corporate accountant used: No PAST MEDICAL HISTORY Diagnosis Date Attention deficit hyperactivity disorder (ADHD) 06/18/2007 Cervicogenic headache 09/07/2021 Chlamydia infection 03/15/2023 Gastroesophageal reflux disease 02/11/2023 PMH - PAST MEDICAL HISTORY OF cyst on testicle PM - PAST MEDICAL HISTORY OF 05/22/2004 normal color vision Rib contusion 08/19/2012 Skin striae 07/22/2015 Tourette's disorder Unspecified asthma(493.90) PAST SURGICAL HISTORY Procedure Laterality Date CIRCUMCISION,CLAMP,YUE STEWART 2000 EGD AC OLYMPUS 02/13/2022 TONSILLECTOMY AND ADENOIDECTOMY FAMILY HISTORY Problem Relation Age of Onset Asthma Mother Drug abuse Mother other (adopted) Father Hypertension Maternal Grandmother Diabetes Maternal Grandfather Hypertension Maternal Grandfather other (cva) Maternal Grandfather other (myocardial infarction) Maternal Grandfather Social History Tobacco Use Smoking status: Never Passive exposure: Never Smokeless tobacco: Never Vaping Use Vaping status: Never Used Substance and Sexual Activity Alcohol use: Not Currently Drug use: Not Currently Frequency: 14.0 times per week Types: Marijuana Comment: none since 2021 Sexual activity: Yes Partners: Female ALLERGIES No Known Allergies Review of Systems Review of Systems: Review of systems as per History of Present Illness. Physical Exam Vitals [08/03/24 1606] BP Pulse Temp Temp src Resp SpO2 Weight Height 138/97 85 36.8 ?C (98.3 ?F) Oral 18 100 % 66.7 kg (147 lb) 1.702 m (5' 7) Physical Exam Physical Exam: Vital signs and nursing notes have been reviewed. General: The patient is well-developed, well-nourished, and in no acute distress. Head: The patient is normocephalic and atraumatic. Neck: The neck is supple with no JVD. Eyes: Ocular examination reveals the pupils to be equal, round, and reactive to light. Extraocular muscles are noted to be intact. Sclera are anicteric. There is no nystagmus. Oropharynx: Examination of the oropharynx reveals mucous membranes to be moist with no erythema, exudates, or lesions. The uvula is midline. The airway is patent. Cardiovascular: Cardiovascular examination reveals a normal S1 and S2 with a regular rate and rhythm. There are no murmurs, gallops, or rubs. Pulmonary: Pulmonary examination reveals the breath sounds to be clear to auscultation bilaterally. There are no wheezes, rales, or rhonchi. Chest: Examination of the chest wall reveals no chest wall tenderness to palpation, no crepitus, or subcutaneous emphysema. Abdominal: Abdominal examination reveals the abdomen to be soft with positive bowel sounds. There is no guarding, rigidity, or rebound tenderness. This is a benign abdominal examination. Musculoskeletal: There is no cyanosis, clubbing, or edema of the extremities. There ar (more content not included)... Normal [facility] ED Triage Noteon 08-03-2024 ED Triage Note HNO ID: [id number] Author: DAVID GÓMEZ PA-C Service: ? Author Type: Physician Cost Accounting Manager Type: ED Triage Notes Filed: 08/03/2024 17:04 Note Text: ED TRIAGE PROVIDER NOTE Patient Name: Dawn Mccarty Service Date: 08/03/24 BRIEF HPI: This is a 23 year old male who presents to the ED with: dizziness. Patient states a few days ago he was driving through [place], started to get dizzy. This has been intermittent since. Feels as if his head is spinning. States it is a pressure behind both eyes. Denies double vision. Denies numbness tingling or weakness to extremities. States that he has chronic intermittent chest pains. No changes in this. Patient states he does have health anxiety BRIEF EXAM: NAD Awake and Alert Tenderness midline cervical spine Non labored breathing Positive seatbelt sign. Breath sounds present and equal bilaterally. No neurologic deficits INITIAL WORKUP AND DECISION MAKING: Orders Placed This Encounter CT BRAIN WO IVCON XR CHEST 2V FRONTAL/LAT CBC + AUTO DIFF SINGLE HIGH SENSITIVITY TROPONIN I COMPREHENSIVE METABOLIC PANEL (BMP+LFT) DISCONTD: iv contrast (radiology procedure) DISCONTD: iv contrast (radiology procedure) ECG COMPLETE SIGNATURE: David Gómez PA-C Normal [facility] HIGH SENSITIVITY TROPONIN Io n 08-03-2024 Tropinin I.cardiac panel High sensitivity method <2.5 Normal 0.0-54.0 [facility] Comment on above: Order Comment: Speci men Type: BLOOD SPECIMEN Ordering Facility: [facility] Address: [address] [place] [address] Performed By: #### 2 [id number], HSTROP #### [facility] CLIA [id number] [place] [address] [place] XR CHEST 2V FRONTAL/LATon XR CHEST 2V FRONTAL/LAT * * *Final Report* * * DATE OF EXAM: Aug 03 2024 5:19PM RHX [id number] - XR CHEST 2V FRONTAL/LAT / PROCEDURE REASON: Chest Pain * * * * Physician Interpretation * * * * EXAM: XR CHEST 2V FRONTAL/LAT CLINICAL HISTORY: Chest Pain Chest Pain COMPARISON: 05/16/2022 RESULT: Lines, tubes, and devices: None. Lungs and pleura: Bilateral lung villarreal are clear. No pneumothorax or suggestion for obvious/significant pleural effusions. Cardiomediastinal silhouette: Normal cardiomediastinal silhouette. IMPRESSION: No acute cardiopulmonary process. Television Writer: CEE Transcribe Date/Time: Aug 03 2024 5:47P Dictated by : BENTLEY CORTÉS MD This examination was interpreted and the report reviewed and electronically signed by: BENTLEY CORTÉS MD on Aug 03 2024 5:47PM EST [id number] [facility] CNOVon 07-02-2024 CNOV Office Visit ([facility] ) -------- DAWN MCCARTY ([id number]) 2000 M Date Time Provider Department 07/02/24 11:35 AM MARIJA MEREDITH During your visit today, we recorded the following information about you: Temperature Pulse Respiration Blood pressure 97.8 degrees 82/minute 18/minute 131/87 Weight 70.3 kg Marija Meredith DO 07/02/2024 12:58 PM Signed Dawn Mccarty is a 23 year old male who presents with Derm Problem (Lump on right shoulder and redness - no injury /Noticed today ) Agree with nursing intake note. Pt reports noticing the lump this morning. Non-tender. He thinks pain is radiating from the lump into his shoulder muscles. No fevers/chills. The history is provided by the patient and the spouse. PAST MEDICAL HISTORY 06/18/2007: Attention deficit hyperactivity disorder (ADHD) 09/07/2021: Cervicogenic headache 03/15/2023: Chlamydia infection 02/11/2023: Gastroesophageal reflux disease No date: [facility] - PAST MEDICAL HISTORY OF Comment: cyst on testicle 05/22/2004: [facility] - PAST MEDICAL HISTORY OF Comment: normal color vision 08/19/2012: Rib contusion 07/22/2015: Skin striae No date: Tourette's disorder No date: Unspecified asthma(493.90) ACTIVE PROBLEM LIST Cervicogenic Headache Gastroesophageal Reflux Disease No current outpatient medications on file. No current facility-administered medications for this visit. Social History Tobacco Use Smoking status: Never Passive exposure: Never Smokeless tobacco: Never Vaping Use Vaping status: Never Used Substance Use Topics Alcohol use: Not Currently Drug use: Not Currently Frequency: 14.0 times per week Types: Marijuana Comment: none since 2021 Alcohol Use: Not Currently Tobacco Use: Never FAMILY HISTORY Problem Relation Age of Onset Asthma Mother Drug abuse Mother other (adopted) Father Hypertension Maternal Grandmother Diabetes Maternal Grandfather Hypertension Maternal Grandfather other (cva) Maternal Grandfather other (myocardial infarction) Maternal Grandfather Review of Systems Constitutional: Negative for chills and fever. Skin: Negative for itching and rash. Neurological: Negative for dizziness and headaches. BP 131/87 Pulse 82 Temp 97.8 Resp 18 Wt 155 lb (70.3kg) SpO2 98% Physical Exam Vitals and nursing note reviewed. Constitutional: General: He is not in acute distress. Appearance: Normal appearance. He is not ill-appearing, toxic-appearing or diaphoretic. HENT: Head: Normocephalic and atraumatic. Eyes: Extraocular Movements: Extraocular movements intact. Skin: General: Skin is warm and dry. Capillary Refill: Capillary refill takes less than 2 seconds. Comments: 2cm, mobile, non-tender lump located on R top of shoulder. Neurological: General: No focal deficit present. Mental Status: He is alert and oriented to person, place, and time. Cranial Nerves: No cranial nerve deficit. Psychiatric: Mood and Affect: Mood normal. Behavior: Behavior normal. ASSESSMENT/PLAN: 1. Lipoma of right upper extremity - ICD9: 214.8, ICD10: D17.21 (primary diagnosis) Recommended pt f/u with PCP to discuss removal either in PCP clinic or referral to dermatology. Pt agrees with POC. 2. Acute pain of right shoulder - ICD9: 719.41, ICD10: M25.511 Marija Meredith Referring Provider: SELF [200] Allergies As of Date: 07/02/2024 (No Known Allergies) Date Reviewed: 07/02/2024 Reviewed by: Marija Meredith, - Fully Assessed Reason for Visit: Derm Problem [33] Cmt: Lump on right shoulder and redness - no injury Noticed today Primary Visit Diagnosis:Lipoma of right upper extremity [D17.21] Other Visit Diagnosis:Acute pain of right shoulder [M25.511] Problem List As Of Date 07/02/2024 Noted Resolved Attention deficit hyperactivity disorder (ADHD)*06/18/2007 02/08/2023 Tourette's disorder [F95.2] 06/18/2007 09/11/2017 Unspecified psychosis [F29] 10/05/2008 09/11/2017 Marijuana use [F12.90] 10/07/2020 02/08/2023 Cervicogenic headache [G44.86] 09/07/2021 Gastroesophageal reflux disease [K21.9] 02/11/2023 Medications Discontinued During This Encounter Prescriptions - ibuprofen (MOTRIN ORAL) (Discontinued) Take by mouth. - omeprazole (PRILOSEC) 20 mg capsule (Discontinued) Take 20 mg by mouth as needed. Level of Service: OFFICE/OUTPATIENT ESTABLISHED LOW [facility] 20 MIN [[id number]] Encounter Status:Closed by MARIJA MEREDITH on 07/02/24 [facility] Emergency Department Summary on 03-12-2024 Emergency Department Summary [facility] Medical Records Department [address] [place] [address] Emergency Department Summary 03/12/24 MR#: [id number] Acct: [id number] Name: DAWN MCCARTY Rep #: [id number] : 2000 23 From: Isai Hodge PCP: Dr. Aaron Sarabia MD Status:PRE ER Location: ED HPI History of Present Illness Chief Complaint: Foreign Body Informant: patient Narrative Narrative: Presents here today no other 2 weeks of persistent throat pain. He was seen here 12 days ago had enlarged lymph node. He stated he was given naproxen and discharged. He follow-up with his PCP strep test negative. He has been given dexamethasone. It helped briefly however symptoms returned. Tonsillectomy when he was a child. Able to eat, states has discomfort with swallowing. There was no food impaction. He states he choked 3 days ago with some food however no issues with breathing. Denies fevers. Symptoms do help with cough drops. [facility] Medical History Hx of gastroesophageal reflux (GERD) COVID Home Medications ???Medication ???Instructions ???Recorded ???Last Taken ???Type naproxen 500 mg tablet (Naprosyn) 500 mg PO BID PRN pain #20 tabs 02/29/24 Unknown Rx Allergy/AdvReac Type Severity Reaction Status Date / Time No Known Allergies Allergy Verified 03/12/24 11:22 Surgical History Hx of tonsillectomy Social History Smoking Status: Never smoker ROS ROS ED Constitutional Constitutional ED: Denies chills, fever(s) or sweats Eyes Eyes: Denies change in vision ENT ENT ED: Reports sore throat; Denies dysphagia Cardiovascular Cardiovascular: Denies chest pain, leg edema, palpitations or racing heartbeat Respiratory/Chest Respiratory/Chest: Denies cough, dyspnea or dyspnea on exertion Gastrointestinal Gastrointestinal: Denies abdominal pain, diarrhea, nausea or vomiting Genitourinary Genitourinary ED: Denies dysuria, hematuria or urinary frequency Musculoskeletal Musculoskeletal: Denies back pain, extremity pain or neck pain Integumentary Denies rash or wounds Neurologic Neurologic: Denies headache(s), paresthesias or weakness EXAM Physical Exam Const Vital Signs: 03/12/24 11:22 03/12/24 11:31 Temperature 97 F L Temperature Source Temporal Pulse Rate 98 Respiratory Rate 16 Respiratory Effort Normal Non-Labored Respiratory Pattern Normal Blood Pressure 138/93 H Blood Pressure Mean 108 Pulse Ox 99 Oxygen Delivery Method Room Air Positive well nourished and well developed General Appearance ED: well developed and NAD HEENT Reports TM's clear and moist mucous membranes HEENT Narrative: Minimal erythema posterior pharynx. Tonsils absent. No trismus. normocephalic and atraumatic Tympanic Membrane ED: Yes TM's clear Eyes EOMs intact bilaterally and conjunctivae normal General Eye ED: Yes normal appearance of both eyes Neck no lymphadenopathy and supple General: Negative for tenderness Chest Wall Chest: Negative for tenderness Resp normal respiratory effort and normal air movement Effort and Inspection: symmetric chest movement; Negative for respiratory distress Cardio regular rate, regular rhythm and no murmurs Peripheral Pulses: pulses 2+ throughout GI normal to inspection, nondistended, normoactive bowel sounds and non-tender Palpation: Negative for guarding or rebound tenderness present Back/Spine no CVA tenderness and no thoracic nor lumbar tenderness Extremity normal to inspection General Extremety ED: Negative for edema or tenderness General Extremity: Negative for edema Neuro oriented x3 and no sensory deficits noted Sensorium / Orientation: awake and alert Skin no rashes or lesions noted and no wounds MDM MDM MDM Narrative Medical decision making narrative: Interventions / MDM: Differential diagnosis: Pharyngitis Diagnosis considered but do not suspect: No history concerning for food impaction. No clinical retropharyngeal abscess. My EKG interpretation: N/A Imaging independently reviewed and interpreted by myself: N/A External documents reviewed: N/A Test considered but not ordered:N/A ED course: Patient nontoxic this minimally erythematous posterior pharynx. Tonsils are absent. Is nontoxic. He reported from history strep from his PCP negative. Do not feel repeat is necessary at this time. He had concerns of 2 weeks of symptoms, I offered discussed if he is concerned for advanced imaging however the likelihood will be normal. Discussed radiation risk with him. He understands and would like to withhold at this time. Discussed viral syndrome that could persist. He had's some improvement with reporte (more content not included)... Normal [facility] STREP A MOLECULAR (POC)on Procedural Control Valid [facility] Strep A (POCT) Negative Negative [facility] UA DIP, URINE (POC)on 2023 BILIRUBIN UA (POCT) Negative Negative [facility] CLARITY UA (POCT) Clear [facility] COLOR UA (POCT) Yellow [facility] GLUCOSE UA (POCT) Negative Negative mg/dL [facility] Hemoglobin Ql (U) Negative Negative [facility] KETONE UA (POCT) Negative Negative mg/dL [facility] LEUKOCYTES UA (POCT) Negative Negative [facility] (PO[facility]) Negative Negative [facility] PH UA (POCT) 7.0 4.5 - 8.0 [facility] Protein Ql (U) Negative Negative mg/dL [facility] SPECIFIC GRAVITY UA (POCT) 1.020 1.005 - 1.030 [facility] UROBILINOGEN UA (POCT) 0.2 Normal E.U./dL [facility] Location:[address], [place], [place], [id number] [place] [address] POINT OF CARE [facility] Emergency Department Summary on 02-29-2024 Emergency Department Summary [facility] Medical Records Department [address] [place] [address] Emergency Department Summary 02/29/24 MR#: [id number] Acct: [id number] Name: DAWN MCCARTY Rep #: [id number] : 2000 23 From: Patsy Shaw MD PCP: Dr. Aaron Sarabia MD Status:DEP ER Location: ED HPI History of Present Illness Chief Complaint: Sore Throat Informant: patient Onset/Context/Timing Onset: Days (3 days) Narrative Narrative: Patient presents secondary to right-sided neck pain that occurs only when he extends his neck or looks to the left. He felt a small lump in the area and was concerned. He denies recent URI symptoms. If he looks straight ahead he has no pain with swallowing or eating. Patient does admit to a lot of health anxiety. [facility] Medical History COVID Hx of gastroesophageal reflux (GERD) Home Medications naproxen 500 mg tablet (Naprosyn) 500 mg PO BID PRN pain #20 tabs 02/29/24 [Rx Last Taken Unknown] Allergy/AdvReac Type Severity Reaction Status Date / Time No Known Allergies Allergy Verified 02/29/24 01:26 Surgical History Hx of tonsillectomy Social History Smoking Status: Never smoker ROS ROS ED Constitutional Constitutional ED: Denies chills or fever(s) Eyes Eyes: Denies change in vision or discharge from eye(s) ENT ENT ED: Reports sore throat; Denies discharge from eye(s) or rhinorrhea Cardiovascular Cardiovascular: Denies chest pain or palpitations Respiratory/Chest Respiratory/Chest: Denies cough or dyspnea Gastrointestinal Gastrointestinal: Denies abdominal pain, nausea or vomiting Genitourinary Genitourinary ED: Denies dysuria Musculoskeletal Musculoskeletal: Denies back pain or extremity pain Integumentary Denies Abrasions or rash Neurologic Neurologic: Denies headache(s) or weakness Psychiatric Psychiatric: Reports anxiety Allergic/Immunologic Allergic/Immunologic ED: Denies lip swelling or urticaria EXAM Physical Exam Const Vital Signs: 02/29/24 01:26 Temperature 97 F L Temperature Source Oral Pulse Rate 92 Respiratory Rate 16 Blood Pressure 145/93 H Blood Pressure Mean 110 Pulse Ox 100 Positive well nourished and well developed General Appearance ED: well developed HEENT Reports moist mucous membranes Eyes EOMs intact bilaterally Neck Neck Narrative: Mild tenderness along the right sternocleidomastoid muscle. Small palpable lymph node appreciated. No overlying erythema or edema. Chest Wall inspection of chest normal and palpation of chest normal Resp normal respiratory effort and clear to auscultation bilaterally Cardio regular rate and regular rhythm GI non-tender Palpation: soft Extremity normal to inspection Neuro oriented x3 and no sensory deficits noted Motor Exam: strength 5/5 throughout Psych Mood Affect: anxious Skin no rashes or lesions noted MDM MDM MDM Narrative Medical decision making narrative: Patient has evidence of enlarged lymph node in the right cervical chain. I see no evidence of infection. Patient be treated with anti-inflammatories. We did discuss his health anxiety. He is interested in getting help and I will refer him to the behavioral health program. Return instructions provided. Discharge Plan Triage Chief Complaint: Sore Throat ED Provider: Patsy Shaw Dx/Rx/DC Orders Clinical Impression: Lymphadenopathy Instructions: Lymphadenopathy Prescriptions: New naproxen [Naprosyn] 500 mg tablet 500 mg PO BID PRN (Reason: pain) Qty: 20 0RF Primary Care Provider: Aaron Sarabia Referrals: Aaron Sarabia MD [Primary Care Provider] - 1-2 Weeks [facility] [Group of Physicians] - As soon as possible Disposition Disposition: Home, Self Care What to do if you have Problems For any increased pain, shortness of breath, bleeding, nausea or vomiting, chest pain, or any unexpected problems, contact your Primary Care Provider. Call [facility] ([phone]) or report to the closest Emergency Room. Call 911 if necessary. 02/29/24 0402 Cosigner Signature (if applicable): CC: Dr. Aaron Sarabia MD Signed Normal [facility] Emergency Department Summary on 01-17-2024 Emergency Department Summary [facility] Medical Records Department [address] [place] [address] Emergency Department Summary 01/17/24 MR#: [id number] Acct: [id number] Name: DAWN MCCARTY Rep #: [id number] : 2000 23 From: Patsy Shaw MD PCP: Dr. Aaron Sarabia MD Status:DEP ER Location: ED HPI History of Present Illness Chief Complaint: Dental Informant: patient Narrative Narrative: Patient presents secondary to continued swelling from his dental extraction site. He had his wisdom teeth pulled 1130 yesterday morning. He states has been bleeding since and cannot get it to stop. He is not on any kind of anticoagulation. [facility] Medical History COVID Hx of gastroesophageal reflux (GERD) Home Medications omeprazole 20 mg capsule,delayed release 20 mg PO DAILY 12/23/22 [History Last Taken Unknown] Allergy/AdvReac Type Severity Reaction Status Date / Time No Known Allergies Allergy Verified 10/22/23 23:27 Surgical History Hx of tonsillectomy Social History Smoking Status: Never smoker ROS ROS ED Constitutional Constitutional ED: Denies chills or fever(s) Eyes Eyes: Denies change in vision ENT ENT ED: Denies sore throat Cardiovascular Cardiovascular: Denies chest pain Respiratory/Chest Respiratory/Chest: Denies cough or dyspnea Gastrointestinal Gastrointestinal: Denies abdominal pain Musculoskeletal Musculoskeletal: Denies back pain or neck pain Integumentary Denies abscess Psychiatric Psychiatric: Denies anxiety or depression Allergic/Immunologic Allergic/Immunologic ED: Denies mouth swelling or tongue swelling EXAM Physical Exam Const Vital Signs: 01/17/24 04:37 Temperature 96.3 F L Temperature Source Temporal Pulse Rate 86 Respiratory Rate 16 Blood Pressure 141/95 H Blood Pressure Mean 110 Pulse Ox 100 Oxygen Delivery Method Room Air Positive well nourished and well developed General Appearance ED: well developed HEENT Reports moist mucous membranes HEENT Narrative: Mild bleeding noted from the dental extraction sites on the mandibular surface of both the right and left third molar. Upper molar sites appear to be clotted well. Posterior pharynx exam is normal. Eyes EOMs intact bilaterally Chest Wall inspection of chest normal and palpation of chest normal Resp normal respiratory effort and clear to auscultation bilaterally Cardio regular rate and regular rhythm GI non-tender Palpation: soft Extremity normal to inspection Neuro oriented x3 and no sensory deficits noted Motor Exam: strength 5/5 throughout Psych mental status grossly normal MDM MDM MDM Narrative Medical decision making narrative: Patient is initially given folded gauze pads and told to bite down on legs for 20 minutes. This was removed and thrombin soaked 2 x 2 gauze pads were placed to the area. These were held for another 20 minutes. On repeat examination the bleeding seems to have stopped at this point. Patient was advised that if he starts to bleed again he needs to bite down on a gauze pad for at least 20 minutes without removing it. If he continues to have bleeding today he is to follow-up with his dentist before the weekend. Return instructions provided. Discharge Plan Triage Chief Complaint: Dental ED Provider: Patsy Shaw Dx/Rx/DC Orders Clinical Impression: Post-op bleeding Instructions: ED Post Op Wound Check, Bleeding Prescriptions: No Action omeprazole 20 mg capsule,delayed release(DR/EC) 20 mg PO DAILY Patient Comments: Take 2 capsules by mouth once daily. Primary Care Provider: Aaron Sarabia Referrals: Aaron Sarabia MD [Primary Care Provider] - Activity Restrictions/Additional Instructions: Follow-up with your dentist later today if bleeding continues. Bite on gauze for 15 to 20 minutes to help control bleeding. Disposition Disposition: Home, Self Care What to do if you have Problems For any increased pain, shortness of breath, bleeding, nausea or vomiting, chest pain, or any unexpected problems, contact your Primary Care Provider. Call [facility] ([phone]) or report to the closest Emergency Room. Call 911 if necessary. 01/17/24 0723 Cosigner Signature (if applicable): CC: Dr. Aaron Sarabia MD Signed Normal [facility] Emergency Department Summary on 10-23-2023 Emergency Department Summary [facility] Medical Records Department [address] [place] [id number] Emergency Department Summary 10/22/23 MR#: [id number] Acct: [id number] Name: DAWN MCCARTY Rep #: [id number] : 2000 22 From: Patsy Shaw MD PCP: Dr. Aaron Sarabia MD Status:DEP ER Location: ED HPI History of Present Illness Chief Complaint: Ear Problem Informant: patient Onset/Context/Timing Onset: Days Narrative Narrative: Patient presents secondary to intermittent episodes of his ears turning red. He states over the past couple days he will have intermittent episodes of his ears turning red and feeling hot. He does not have any ear pain. He has no URI symptoms. He states symptoms will last anywhere from 30 minutes to an hour and a half and then resolved. Patient and his significant other are living in a van. He states obviously it is cold frequently. He is in and out of the cold but does have heated blanket as well as a small heater that he uses when working at his desk. He does state this ear redness seems to be when he is warm. He denies any new foods or medications. [facility] Medical History COVID Hx of gastroesophageal reflux (GERD) Home Medications omeprazole 20 mg capsule,delayed release 20 mg PO DAILY 12/23/22 [History Last Taken Unknown] Allergy/AdvReac Type Severity Reaction Status Date / Time No Known Allergies Allergy Verified 10/22/23 23:27 Surgical History Hx of tonsillectomy Social History Smoking Status: Never smoker ROS ROS ED Constitutional Constitutional ED: Denies chills or fever(s) Eyes Eyes: Denies discharge from eye(s) ENT ENT ED: Denies discharge from eye(s), rhinorrhea or sore throat Cardiovascular Cardiovascular: Denies chest pain or palpitations Respiratory/Chest Respiratory/Chest: Denies cough or dyspnea Gastrointestinal Gastrointestinal: Denies abdominal pain, nausea or vomiting Musculoskeletal Musculoskeletal: Denies back pain or extremity pain Integumentary Denies Abrasions or rash Neurologic Neurologic: Denies headache(s) or weakness Psychiatric Psychiatric: Denies anxiety or depression Allergic/Immunologic Allergic/Immunologic ED: Denies lip swelling or urticaria EXAM Physical Exam Const Vital Signs: 10/22/23 23:23 Temperature 97.1 F L Temperature Source Temporal Pulse Rate 103 H Respiratory Rate 15 Blood Pressure 149/79 H Blood Pressure Mean 102 Pulse Ox 100 Oxygen Delivery Method Room Air Positive well nourished and well developed General Appearance ED: well developed HEENT Reports moist mucous membranes HEENT Narrative: TMs are clear bilaterally. Mild erythema to the right ear with no tenderness or edema. Eyes EOMs intact bilaterally Chest Wall inspection of chest normal and palpation of chest normal Resp normal respiratory effort and clear to auscultation bilaterally Cardio regular rate and regular rhythm GI non-tender Palpation: soft Extremity normal to inspection Neuro oriented x3 and no sensory deficits noted Motor Exam: strength 5/5 throughout Psych mental status grossly normal Skin no rashes or lesions noted MDM MDM MDM Narrative Medical decision making narrative: Patient denies any new medications or foods, but I did encourage him to keep a journal of when these episodes occur and when he last ate and what he ate. I do suspect that this may be secondary to temperature regulation. He states this tends to occur when he gets warm under his heated blanket after being in the cold majority of the day. I think this is his bodies way of vasodilation to help regulate temperature. He will continue to monitor his symptoms. Patient states that he had looked on the Internet and there was concern that this could be representation that he has cancer and was concerned so he came in. I advised him at this time I do not see any evidence of any acute illness. I do not know any of presentation of cancer that would present this way. He is comfortable with reassurance. Discharge Plan Triage Chief Complaint: Ear Problem ED Provider: Patsy Shaw Dx/Rx/DC Orders Clinical Impression: Otalgia Instructions: ED Pain, Acute, Uncertain Cause Prescriptions: No Action omeprazole 20 mg capsule,delayed release(DR/EC) 20 mg PO DAILY Patient Comments: Take 2 capsules by mouth once daily. Primary Care Provider: Aaron Sarabia Referrals: Aaron Sarabia MD [Primary Care Provider] - As Needed Disposition Disposition: Home, Self Care What to do if you have Problems For any increased pain, shortness of breath, bleeding, nausea (more content not included)... Normal [facility] UA DIP, URINE (POC)on 2022 BILIRUBIN UA (POCT) Negative Negative [facility] CLARITY UA (POCT) Clear [facility] COLOR UA (POCT) Yellow [facility] GLUCOSE UA (POCT) Negative Negative mg/dL [facility] Hemoglobin Ql (U) Negative Negative [facility] KETONE UA (POCT) Negative Negative mg/dL [facility] LEUKOCYTES UA (POCT) Negative Negative [facility] NITRITE UA (POCT) Negative Negative [facility] PH UA (POCT) 5.5 4.5 - 8.0 [facility] Protein Ql (U) Negative Negative mg/dL [facility] SPECIFIC GRAVITY UA (POCT) 1.025 1.005 - 1.030 [facility] UROBILINOGEN UA (POCT) 1.0 E.U./dL Normal E.U./dL [facility] XR CERV OTHER 4V AP/LAT/OBLo n 02-11-2023 [facility] XR Cervical spine AP and Lat eral and obliqueon 02-11-2023 IMPRESSION: Negative cervical spine X-ray. Television Writer: CEE Transcribe Date/Time: Feb 11 2023 5:09P Dictated by : LOREN HERNANDEZ MD This examination was interpreted and the report reviewed and electronically signed by: LOREN HERNANDEZ MD on Feb 11 2023 5:09PM [facility] DIVISION OF RADIOLOGY * * *Final Report* * * DATE OF EXAM: Feb 11 2023 10:41AM WOX 5311 - XR CERVICAL 4V AP/LAT/OBL / PROCEDURE REASON: Cervicogenic headache * * * * Physician Interpretation * * * * EXAM TITLE: XR CERVICAL 4V AP/LAT/OBL EXAM DATE/TIME: 02/11/2023 10:41 AM COMPARISON: None. CLINICAL INDICATION/HISTORY: Headache. TECHNIQUE: AP, lateral and oblique views of the cervical spine are presented. FINDINGS: No fractures or subluxations are noted. The disc spaces are well preserved. There is no significant osteophyte formation. The neural foramina are patent. The prevertebral soft tissues are normal. DIVISION OF RADIOLOGY Provider, [facility] - 02/11/2023 * * *Final Report* * * DATE OF EXAM: Feb 11 2023 10:41AM WOX 5311 - XR CERVICAL 4V AP/LAT/OBL / PROCEDURE REASON: Cervicogenic headache * * * * Physician Interpretation * * * * EXAM TITLE: XR CERVICAL 4V AP/LAT/OBL EXAM DATE/TIME: 02/11/2023 10:41 AM COMPARISON: None. CLINICAL INDICATION/HISTORY: Headache. TECHNIQUE: AP, lateral and oblique views of the cervical spine are presented. FINDINGS: No fractures or subluxations are noted. The disc spaces are well preserved. There is no significant osteophyte formation. The neural foramina are patent. The prevertebral soft tissues are normal. IMPRESSION IMPRESSION: Negative cervical spine X-ray. Television Writer: CEE Transcribe Date/Time: Feb 11 2023 5:09P Dictated by : LOREN HERNANDEZ MD This examination was interpreted and the report reviewed and electronically signed by: LOREN HERNANDEZ MD on Apr 24 2023 5:09PM [facility] Radiology Study observation (narrative) [facility] XR Cervical spine AP and Lat eral and obliqueOrdered By: Ccf Provider on 02-11-2023 [facility] STREP A MOLECULAR (POC)on Procedural Control Valid [facility] Strep A (POCT) Negative Negative [facility] XR RIBS/CHEST 3V AP RIB/OBLS /CXR RIGHTon 05-16-2022 [facility] XR Ribs - right Views and Ch est PAon 05-16-2022 IMPRESSION: No evide nce of acute right rib fracture. Television Writer: PSCB Transcribe Date/Time: May 16 2022 10:45A Dictated by : LOREN HERNANDEZ MD This examination was interpreted and the report reviewed and electronically signed by: LOREN HERNANDEZ MD on May 16 2022 10:47AM EST [facility]NOT[facility]DIVISION OF RADIOLOGY * * *Final Report* * * DATE OF EXAM: May 16 2022 10:38AM WOX [id number] - XR RIB/CHST 3V AP RIB/OBL/CHST R / PROCEDURE REASON: Upper back pain on right side * * * * Physician Interpretation * * * * XR RIB/CHST 3V AP RIB/OBL/CHST R EXAM DATE/TIME: 05/16/2022 10:38 AM COMPARISON: None. CLINICAL INDICATION/HISTORY: Right lower rib pain. TECHNIQUE: AP views centered high and low and oblique view of right ribs are presented for interpretation. PA view of the chest is also present. FINDINGS: There is no evidence of acute right rib fracture. There is no pneumothorax or pleural effusion. The underlying visualized lungs appear normal. [email or web address]DIVISION OF RADIOLOGY Provider, Ammon dietrich [place] - 05/16/2022 * * *Final Report* * * DATE OF EXAM: May 16 2022 10:38AM WOX 5244 - XR RIB/CHST 3V AP RIB/OBL/CHST R / PROCEDURE REASON: Upper back pain on right side * * * * Physician Interpretation * * * * XR RIB/CHST 3V AP RIB/OBL/CHST R EXAM DATE/TIME: 05/16/2022 10:38 AM COMPARISON: None. CLINICAL INDICATION/HISTORY: Right lower rib pain. TECHNIQUE: AP views centered high and low and oblique view of right ribs are presented for interpretation. PA view of the chest is also present. FINDINGS: There is no evidence of acute right rib fracture. There is no pneumothorax or pleural effusion. The underlying visualized lungs appear normal. IMPRESSION IMPRESSION: No evidence of acute right rib fracture. Television Writer: PSCB Transcribe Date/Time: May 16 2022 10:45A Dictated by : LOREN HERNANDEZ MD This examination was interpreted and the report reviewed and electronically signed by: LOREN HERNANDEZ MD on May 16 2022 10:47AM EST [facility] Radiology Study observation (narrative) [facility] XR Ribs - right Views and Ch est PAOrdered By: Ccf Provider on 05-16-2022 [facility] EGD DIAGNOSTICon 02-13-2022 [facility] Absolute lymphocyte counton 02-02-2022 Lymphocytes Auto (Unsp spec) [#/Vol] 1.59 10*3/uL 0.83-4.51 [facility] Work Phone: Basophil percentageon 2021 Basophil percentage 0 SEEN /hpf [facility] Work Phone: Basophils/100 WBC (Bld) 0.5 % 0-1 [facility] Work Phone: Chloride [Moles/Vol] 102 mmol/L 98-107 [facility] Work Phone: [phone] Eosinophils/100 WBC (Bld) 2.5 % 0-5 [facility] Work Phone: Glucose [Mass/Vol] 104 mg/dL 74-106 [facility] Work Phone: Comment on above: Fasting Glucose resu lt from 100 to 125 mg/dL suggests IMPAIRED HOMEOSTASIS per A.D.A. criteria. Neutrophils (Bld) [#/Vol] 3.8 10*3/uL 2.0-7.7 [facility] Work Phone: Neutrophils/100 WBC (Bld) 63.6 % 47-70 [facility] Work Phone: Potassium [Moles/Vol] 4.1 mmol/L 3.5-5.1 [facility] Work Phone: Sodium [Moles/Vol] 137 mmol/L 136-145 [facility] Work Phone: WBC (Bld) [#/Vol] 6.0 10*3/uL 4.4-11.0 [facility] Work Phone: Bilirubin Test strip Ql (U)o n 02-02-2022 Bilirubin Ql (U) Negative Negative [facility] Work Phone: Blood erythrocytes count (nu mber/volume)on 02-02-2022 RBC (Bld) [#/Vol] 5.18 10*6/uL 4.6-6.2 [facility] Work Phone: Blood hemoglobin measurement (mass/volume)on 02-02-2022 Hemoglobin (Bld) [Mass/Vol] 15.4 g/dL 13.0-16.5 [facility] Work Phone: Blood lymphocytes/100 leukoc yteson 02-02-2022 Lymphocytes/100 WBC (Bld) 26.3 % 19-41 [facility] Work Phone: Blood monocytes/100 leukocyt eson 02-02-2022 Monocytes/100 WBC (Bld) 6.3 % 0-10 [facility] Work Phone: Blood platelet mean volumeon 02-02-2022 Platelet mean volume (Bld) [Entitic vol] 9.6 fL 6.2-12.0 [facility] Work Phone: Determination of erythrocyte mean corpuscular volume (MCV)on 02-02-2022 MCV (RBC) [Entitic vol] 87.6 fL 80-94 [facility] Work Phone: Hematocrit Auto (Bld) [Volum e fraction]on 02-02-2022 Hematocrit (Bld) [Volume fraction] 45.4 % 40-54 [facility] Work Phone: Ketones Test strip Ql (U)on 02-02-2022 Ketones Ql (U) Negative Negative [facility] Work Phone: Laboratory - Chemistry and C hemistry - challengeon 02-02-2022 CO2 [Moles/Vol] 30.0 mmol/L 21.0-32.0 [facility] Work Phone: Urea nitrogen/Creatinine [Mass ratio] 12.2 mg/mg 10-20 [facility] Work Phone: Laboratory - Hematology and Cell countson 02-02-2022 Erythrocyte distribution width (RBC) [Entitic vol] 38.5 fL 35.1-43.9 [facility] Work Phone: Erythrocyte distribution width (RBC) [Ratio] 12.0 % 11.6-14.6 [facility] Work Phone: Immature granulocytes/100 WBC (Bld) 0.800 % 0.0-0.9 [facility] Work Phone: Comment on above: IG% - Immature Granu locytes (promyelocytes, myelocytes and metamyelocytes) > 1% indicates that a LEFT SHIFT is Present. MCH (RBC) [Entitic mass] 29.7 pg 27.0-32.0 [facility] Work Phone: Nucleated RBC/100 WBC (Bld) [Ratio] 0 % 0-5 [facility] Work Phone: MCHC Auto (RBC) [Mass/Vol]on 02-02-2022 MCHC (RBC) [Mass/Vol] 33.9 g/dL 32-36 [facility] Work Phone: Mucus LM Ql (Urine sed)on Mucus Ql (Urine sed) 0 SEEN /hpf [facility] Work Phone: Nitrite Test strip Ql (U)on 02-02-2022 Nitrite Ql (U) Negative Negative [facility] Work Phone: No Panel Informationon 04-15 -2022 Estimated Creatinine Clearance Calc 119.35 ml/min [facility] Work Phone: Estimated GFR (MDRD) Amer 134 mL/min >60 [facility] Work Phone: Comment on above: GFR Calc Estimated GFR (MDRD) Non-Af Amer 111 mL/min >60 [facility] Work Phone: Comment on above: Non- GFR Calc Platelets bldon 02-02-2022 Platelets (Bld) [#/Vol] 238 10*3/uL 150-450 [facility] Work Phone: Protein Test strip Ql (U)on 02-02-2022 Protein Ql (U) Negative Negative [facility] Work Phone: Serum or plasma calcium ariel urement (mass/volume)on 02-02-2022 Calcium [Mass/Vol] 9.4 mg/dL 8.5-10.1 [facility] Work Phone: Serum or plasma creatinine m easurement (mass/volume)on 02-02-2022 Creatinine [Mass/Vol] 0.90 mg/dL 0.70-1.30 [facility] Work Phone: Comment on above: The validity of the calculated GFR & GFRAA in patients over 70 years has not been determined. Clinical correlation is essential. Serum or plasma urea nitroge n measurement (mass/volume)on 02-02-2022 Urea nitrogen [Mass/Vol] 11 mg/dL 7-18 [facility] Work Phone: Squamous epithelial cells de tection in urine sediment by light microscopyon 02-02-2022 Epithelial cells.squamous LM Ql (Urine sed) 0 SEEN /hpf [facility] Work Phone: Thin prep Papanicolaou smear with manual screeningon 02-02-2022 Thin prep Papanicolaou smear with manual screening 03-04 [facility] Work Phone: Urine blood detectionon 01-19 RBC Ql (U) Negative Negative [facility] Work Phone: RBC Ql (U) 0 SEEN /hpf [facility] Work Phone: Urine clarityon 02-02-2022 Clarity (U) Clear Clear [facility] Work Phone: Urine color determinationon 02-02-2022 Color (U) Yellow Yellow [facility] Work Phone: Urine glucose detectionon Glucose Ql (U) Normal mg/dl Normal [facility] Work Phone: Urine leukocyte esterase det ection by dipstickon 02-02-2022 Leukocyte esterase Test strip Ql (U) Negative Negative [facility] Work Phone: Urine pHon 02-02-2022 pH (U) 8.0 [pH] [facility] Work Phone: Urine sediment bacteria coun t by microscopy (number/high power field)on 02-02-2022 Bacteria LM.HPF (Urine sed) [#/Area] 0 /[HPF] None Seen [facility] Work Phone: Urine specific gravity measu rementon 02-02-2022 Specific gravity (U) [Rel density] 1.015 [facility] Work Phone: Urobilinogen Auto test strip Ql (U)on 02-02-2022 Urobilinogen Ql (U) Normal mg/dl Normal [facility] Work Phone: XR Chest PA and Lateralon IMPRESSION: Interval resolution/near total resolution of patchy opacities in the right lower lobe. Television Writer: PSCB Transcribe Date/Time: Sep 07 2021 2:30P Dictated by : LOREN HERNANDEZ MD This examination was interpreted and the report reviewed and electronically signed by: LOREN HERNANDEZ MD on Sep 07 2021 2:32PM [facility] DIVISION OF RADIOLOGY * * *Final Report* * * DATE OF EXAM: Sep 07 2021 2:25PM WOX 5291 - XR CHEST 2V FRONTAL/LAT / PROCEDURE REASON: Cough * * * * Physician Interpretation * * * * EXAMINATION: CHEST RADIOGRAPH (2 VIEW FRONTAL & LATERAL) CLINICAL HISTORY: Cough MQ: XC2_6 EXAM DATE/TIME: 09/07/2021 2:25 PM COMPARISON: Chest x-ray on 08/09/2021 RESULT: Lines, tubes, and devices: None. Lungs and pleura: Interval resolution/near total resolution of patchy opacities in the right lower lobe. No new consolidations seen. No masses. No pleural effusions or pneumothorax. Cardiomediastinal silhouette: Stable cardiomediastinal silhouette. Bones and soft tissues: Unremarkable. DIVISION OF RADIOLOGY Provider, [facility] - 09/07/2021 * * *Final Report* * * DATE OF EXAM: Sep 07 2021 2:25PM WOX 5291 - XR CHEST 2V FRONTAL/LAT / PROCEDURE REASON: Cough * * * * Physician Interpretation * * * * EXAMINATION: CHEST RADIOGRAPH (2 VIEW FRONTAL & LATERAL) CLINICAL HISTORY: Cough MQ: XC2_6 EXAM DATE/TIME: 09/07/2021 2:25 PM COMPARISON: Chest x-ray on 08/09/2021 RESULT: Lines, tubes, and devices: None. Lungs and pleura: Interval resolution/near total resolution of patchy opacities in the right lower lobe. No new consolidations seen. No masses. No pleural effusions or pneumothorax. Cardiomediastinal silhouette: Stable cardiomediastinal silhouette. Bones and soft tissues: Unremarkable. IMPRESSION IMPRESSION: Interval resolution/near total resolution of patchy opacities in the right lower lobe. Television Writer: CEE Transcribe Date/Time: Sep 07 2021 2:30P Dictated by : LOREN HERNANDEZ MD This examination was interpreted and the report reviewed and electronically signed by: LOREN HERNANDEZ MD on Sep 07 2021 2:32PM EST [facility] Radiology Study observation (narrative) [facility] XR Chest PA and LateralOrder ed By: Cc Provider on 09-07-2021 [facility] XR Chest PA and Lateralon IMPRESSION: Right lower lobe and to a lesser extent middle lobe pneumonia. Television Writer: CEE Transcribe Date/Time: Aug 09 2021 9:30A Dictated by : ADELINA SUN MD This examination was interpreted and the report reviewed and electronically signed by: ADELINA SUN MD on Aug 09 2021 9:32AM [facility] DIVISION OF RADIOLOGY * * *Final Report* * * DATE OF EXAM: Aug 09 2021 9:29AM WOX 5291 - XR CHEST 2V FRONTAL/LAT / PROCEDURE REASON: multiple diagnoses * * * * Physician Interpretation * * * * EXAMINATION: CHEST RADIOGRAPH (2 VIEW FRONTAL & LATERAL) CLINICAL HISTORY: COVID-19 Cough MQ: XC2_6 EXAM DATE/TIME: 08/09/2021 9:29 AM COMPARISON: Chest radiograph(s) dated dated November 29, 2012 RESULT: Lines, tubes, and devices: None. Lungs and pleura: Patchy airspace consolidation in the medial right lower lobe. Mild opacity in the right middle lobe also present. No discernible pleural effusion or pneumothorax. Cardiomediastinal silhouette: Normal cardiomediastinal silhouette. Bones and soft tissues: Unremarkable. DIVISION OF RADIOLOGY Provider, [facility] - 08/09/2021 * * *Final Report* * * DATE OF EXAM: Aug 09 2021 9:29AM WOX 5291 - XR CHEST 2V FRONTAL/LAT / PROCEDURE REASON: multiple diagnoses * * * * Physician Interpretation * * * * EXAMINATION: CHEST RADIOGRAPH (2 VIEW FRONTAL & LATERAL) CLINICAL HISTORY: COVID-19 Cough MQ: XC2_6 EXAM DATE/TIME: 08/09/2021 9:29 AM COMPARISON: Chest radiograph(s) dated dated November 29, 2012 RESULT: Lines, tubes, and devices: None. Lungs and pleura: Patchy airspace consolidation in the medial right lower lobe. Mild opacity in the right middle lobe also present. No discernible pleural effusion or pneumothorax. Cardiomediastinal silhouette: Normal cardiomediastinal silhouette. Bones and soft tissues: Unremarkable. IMPRESSION IMPRESSION: Right lower lobe and to a lesser extent middle lobe pneumonia. Television Writer: PSCB Transcribe Date/Time: Aug 09 2021 9:30A Dictated by : ADELINA SUN MD This examination was interpreted and the report reviewed and electronically signed by: ADELINA SUN MD on Aug 09 2021 9:32AM [facility] Radiology Study observation (narrative) [facility] XR Chest PA and LateralOrder ed By: Ccf Provider on 08-09-2021 [facility] Vital Signs Date Time Vital Sign Value Performing Clinician Facility 06-23-2025 14:16-0400 Body mass index (BMI) [Ratio] 27.21 kg/m2 Carina Galvez APRN.HOB MACHINE OPERATOR Work Phone: [facility] 06-23-2025 14:16-0400 Body temperature 97.59 [degF] Carina Galvez APRN.HOB MACHINE OPERATOR Work Phone: [facility] 06-23-2025 14:16-0400 Body weight 78.8 kg Carina Galvez APRN.HOB MACHINE OPERATOR Work Phone: [facility] 06-23-2025 14:16-0400 Diastolic blood pressure 72 mm[Hg] Carina Galvez APRN.HOB MACHINE OPERATOR Work Phone: [facility] 06-23-2025 14:16-0400 Heart rate 94 /min Carina Galvez APRN.HOB MACHINE OPERATOR Work Phone: [facility] 06-23-2025 14:16-0400 Respiratory rate 16 /min Carina Galvez APRN.HOB MACHINE OPERATOR Work Phone: [facility] 06-23-2025 14:16-0400 SaO2% (BldA) [Mass fraction] 99 % Carina Galvez APRN.HOB MACHINE OPERATOR Work Phone: [facility] 06-23-2025 14:16-0400 Systolic blood pressure 118 mm[Hg] Carina Galvez APRN.HOB MACHINE OPERATOR Work Phone: [facility] 05-20-2025 13:28-0400 Body mass index (BMI) [Ratio] 27.49 kg/m2 Rafael Dale MD Work Phone: [facility] 05-20-2025 13:28-0400 Body temperature 97.7 [degF] Rafael Dale MD Work Phone: [facility] 05-20-2025 13:28-0400 Body weight 79.6 kg Rafael Dale MD Work Phone: [facility] 05-20-2025 13:28-0400 Diastolic blood pressure 96 mm[Hg] Rafael Dale MD Work Phone: [facility] 05-20-2025 13:28-0400 Heart rate 88 /min Rafael Dale MD Work Phone: [facility] 05-20-2025 13:28-0400 Respiratory rate 18 /min Rafael Dale MD Work Phone: [facility] 05-20-2025 13:28-0400 SaO2% (BldA) [Mass fraction] 100 % Rafael Dale MD Work Phone: [facility] 05-20-2025 13:28-0400 Systolic blood pressure 143 mm[Hg] Rafael Dale MD Work Phone: [facility] 04-07-2025 16:38-0400 Body mass index (BMI) [Ratio] 26.76 kg/m2 Florence Gong REF[employer]ODUCTS SUPERVISOR.HOB MACHINE OPERATOR Work Phone: [facility] 04-07-2025 16:38-0400 Body temperature 98.49 [degF] Florence Gong REF[employer]ODUCTS SUPERVISOR.HOB MACHINE OPERATOR Work Phone: [facility] 04-07-2025 16:38-0400 Body weight 77.5 kg Florence Gong REF[employer]ODUCTS SUPERVISOR.HOB MACHINE OPERATOR Work Phone: [facility] 04-07-2025 16:38-0400 Diastolic blood pressure 90 mm[Hg] Florence Gong REF[employer]ODUCTS SUPERVISOR.HOB MACHINE OPERATOR Work Phone: [facility] 04-07-2025 16:38-0400 Heart rate 92 /min Florence Gong REF[employer]ODUCTS SUPERVISOR.HOB MACHINE OPERATOR Work Phone: [facility] 04-07-2025 16:38-0400 Respiratory rate 19 /min Florence Gong REF[employer]ODUCTS SUPERVISOR.HOB MACHINE OPERATOR Work Phone: [facility] 04-07-2025 16:38-0400 SaO2% (BldA) [Mass fraction] 98 % Florence Gong REF[employer]ODU[employer] SUPERVISOR.HOB MACHINE OPERATOR Work Phone: [facility] 04-07-2025 16:38-0400 Systolic blood pressure 122 mm[Hg] Florence Gong REF[employer]ODUCTS SUPERVISOR.HOB MACHINE OPERATOR Work Phone: [facility] 01-28-2025 15:00-0400 Diastolic blood pressure 85 mm[Hg] Mukund Golias PT Work Phone: [facility] 01-28-2025 15:00-0400 Heart rate 73 /min Mukund Golias PT Work Phone: [facility] 01-28-2025 15:00-0400 Systolic blood pressure 137 mm[Hg] Mukund Golias PT Work Phone: [facility] 01-06-2025 11:52-0400 Body mass index (BMI) [Ratio] 26.59 kg/m2 Aaron Sarabia MD Work Phone: [facility] 01-06-2025 11:52-0400 Body temperature 97.39 [degF] Aaron Sarabia MD Work Phone: [facility] 01-06-2025 11:52-0400 Body weight 77 kg Aaron Sarabia MD Work Phone: [facility] 01-06-2025 11:52-0400 Diastolic blood pressure 78 mm[Hg] Aaron Sarabia MD Work Phone: [facility] 01-06-2025 11:52-0400 Heart rate 80 /min Aaron Sarabia MD Work Phone: [facility] 01-06-2025 11:52-0400 Respiratory rate 18 /min Aaron Sarabia MD Work Phone: [facility] 01-06-2025 11:52-0400 Systolic blood pressure 122 mm[Hg] Aaron Sarabia MD Work Phone: [facility] 09-20-2024 15:31-0500 Body temperature 97.59 [degF] Danielle Blue REF[employer]ODUCTS SUPERVISOR.HOB MACHINE OPERATOR Work Phone: [facility] 09-20-2024 15:31-0500 Diastolic blood pressure 87 mm[Hg] Danielle Blue RE[employer]ODU[employer] SUPERVISOR.HOB MACHINE OPERATOR Work Phone: [facility] 09-20-2024 15:31-0500 Heart rate 87 /min Danielle Blue REF[employer]ODUCTS SUPERVISOR.HOB MACHINE OPERATOR Work Phone: [facility] 09-20-2024 15:31-0500 Respiratory rate 18 /min Danielle Blue RE[employer]ODU[employer] SUPERVISOR.HOB MACHINE OPERATOR Work Phone: [facility] 09-20-2024 15:31-0500 SaO2% (BldA) [Mass fraction] 99 % Danielle Blue [employer] SUPERVISOR.HOB MACHINE OPERATOR Work Phone: [facility] 09-20-2024 15:31-0500 Systolic blood pressure 128 mm[Hg] Danielle Blue REF[employer]ODUCTS SUPERVISOR.HOB MACHINE OPERATOR Work Phone: [facility] 08-03-2024 13:48-0400 Body temperature 97.59 [degF] Hemant Shevchuk REF[employer]ODUCTS SUPERVISOR.HOB MACHINE OPERATOR Work Phone: [facility] 08-03-2024 13:48-0400 Diastolic blood pressure 92 mm[Hg] Hemant Shevchuk REF[employer]ODUCTS SUPERVISOR.HOB MACHINE OPERATOR Work Phone: [facility] 08-03-2024 13:48-0400 Heart rate 84 /min Hemant Shevchuk REF[employer]ODUCTS SUPERVISOR.HOB MACHINE OPERATOR Work Phone: [facility] 08-03-2024 13:48-0400 Respiratory rate 18 /min Hemant Shevchuk RE[employer]ODUCTS SUPERVISOR.HOB MACHINE OPERATOR Work Phone: [facility] 08-03-2024 13:48-0400 SaO2% (BldA) [Mass fraction] 98 % Hemant Shevchuk REF[employer]ODUCTS SUPERVISOR.HOB MACHINE OPERATOR Work Phone: [facility] 08-03-2024 13:48-0400 Systolic blood pressure 132 mm[Hg] Hemant Shevchuk REF[employer]ODUCTS SUPERVISOR.HOB MACHINE OPERATOR Work Phone: [facility] 07-09-2024 14:56-0400 Body mass index (BMI) [Ratio] 25.48 kg/m2 Alec Moomaw [employer]ODUCTS SUPERVISOR.HOB MACHINE OPERATOR Work Phone: [facility] 07-09-2024 14:56-0400 Body temperature 98.2 [degF] Alec Moomaw REF[employer]ODUCTS SUPERVISOR.HOB MACHINE OPERATOR Work Phone: [facility] 07-09-2024 14:56-0400 Body weight 73.8 kg Alec Moomaw REF[employer]ODUCTS SUPERVISOR.HOB MACHINE OPERATOR Work Phone: [facility] 07-09-2024 14:56-0400 Diastolic blood pressure 90 mm[Hg] Alec Moomaw REF[employer]ODUCTS SUPERVISOR.HOB MACHINE OPERATOR Work Phone: [facility] 07-09-2024 14:56-0400 Heart rate 78 /min Alec Moomaw REF[employer]ODUCTS SUPERVISOR.HOB MACHINE OPERATOR Work Phone: [facility] 07-09-2024 14:56-0400 Respiratory rate 16 /min Alec Moomaw REF[employer]ODUCTS SUPERVISOR.HOB MACHINE OPERATOR Work Phone: [facility] 07-09-2024 14:56-0400 SaO2% (BldA) [Mass fraction] 97 % Alec Moomaw RE[employer]ODUCTS SUPERVISOR.HOB MACHINE OPERATOR Work Phone: [facility] 07-09-2024 14:56-0400 Systolic blood pressure 132 mm[Hg] Alec Moomaw REF[employer]ODU[employer] SUPERVISOR.HOB MACHINE OPERATOR Work Phone: [facility] 07-02-2024 11:55-0400 Body mass index (BMI) [Ratio] 24.28 kg/m2 Marija Denisa DO Work Phone: [facility] 07-02-2024 11:55-0400 Body temperature 97.81 [degF] Marija Denisa DO Work Phone: [facility] 07-02-2024 11:55-0400 Body weight 70.31 kg Marija Denisa DO Work Phone: [facility] 07-02-2024 11:55-0400 Diastolic blood pressure 87 mm[Hg] Marija Denisa DO Work Phone: [facility] 07-02-2024 11:55-0400 Heart rate 82 /min Marija Denisa DO Work Phone: [facility] 07-02-2024 11:55-0400 Respiratory rate 18 /min Marija Denisa DO Work Phone: [facility] 07-02-2024 11:55-0400 SaO2% (BldA) [Mass fraction] 98 % Marija Denisa DO Work Phone: [facility] 07-02-2024 11:55-0400 Systolic blood pressure 131 mm[Hg] Marija Denisa DO Work Phone: [facility] 03-06-2024 18:57-0400 Body mass index (BMI) [Ratio] 24.03 kg/m2 Carina Galvez APRN.HOB MACHINE OPERATOR Work Phone: [facility] 03-06-2024 18:57-0400 Body temperature 98.1 [degF] Carina Galvez APRN.HOB MACHINE OPERATOR Work Phone: [facility] 03-06-2024 18:57-0400 Body weight 69.6 kg Carina Galvez APRN.HOB MACHINE OPERATOR Work Phone: [facility] 03-06-2024 18:57-0400 Diastolic blood pressure 80 mm[Hg] Carina Galvez APRN.HOB MACHINE OPERATOR Work Phone: [facility] 03-06-2024 18:57-0400 Heart rate 90 /min Carina Galvez APRN.HOB MACHINE OPERATOR Work Phone: [facility] 03-06-2024 18:57-0400 Respiratory rate 16 /min Carina Galvez APRN.HOB MACHINE OPERATOR Work Phone: [facility] 03-06-2024 18:57-0400 SaO2% (BldA) [Mass fraction] 97 % Carina Galvez APRN.HOB MACHINE OPERATOR Work Phone: [facility] 03-06-2024 18:57-0400 Systolic blood pressure 160 mm[Hg] Carina Galvez APRN.HOB MACHINE OPERATOR Work Phone: [facility] 02-29-2024 01:26-0400 Body height 170.18 cm [facility] 02-29-2024 01:26-0400 Body mass index (BMI) [Ratio] 25 kg/m2 [facility] 02-29-2024 01:26-0400 Body temperature 97 [degF] [facility] 02-29-2024 01:26-0400 Body weight 72.57 kg [facility] 02-29-2024 01:26-0400 Diastolic blood pressure 93 mm[Hg] [facility] 02-29-2024 01:26-0400 Heart rate 92 /min [facility] 02-29-2024 01:26-0400 Respiratory rate 16 /min [facility] 02-29-2024 01:26-0400 SaO2% (BldA) [Mass fraction] 100 % [facility] 02-29-2024 01:26-0400 Systolic blood pressure 145 mm[Hg] [facility] 02-12-2024 18:58-0400 Body mass index (BMI) [Ratio] 23.27 kg/m2 Carina Galvez APRN.HOB MACHINE OPERATOR Work Phone: [facility] 02-12-2024 18:58-0400 Body temperature 97.11 [degF] Carina Galvez APRN.HOB MACHINE OPERATOR Work Phone: [facility] 02-12-2024 18:58-0400 Body weight 67.4 kg Carina Galvez APRN.HOB MACHINE OPERATOR Work Phone: [facility] 02-12-2024 18:58-0400 Diastolic blood pressure 85 mm[Hg] Carina Galvez APRN.HOB MACHINE OPERATOR Work Phone: [facility] 02-12-2024 18:58-0400 Heart rate 87 /min Carina Galvez APRN.HOB MACHINE OPERATOR Work Phone: [facility] 02-12-2024 18:58-0400 Respiratory rate 18 /min Carina Galvez APRN.HOB MACHINE OPERATOR Work Phone: [facility] 02-12-2024 18:58-0400 SaO2% (BldA) [Mass fraction] 97 % Carina Galvez APRN.HOB MACHINE OPERATOR Work Phone: [facility] 02-12-2024 18:58-0400 Systolic blood pressure 157 mm[Hg] Carina Galvez APRN.HOB MACHINE OPERATOR Work Phone: [facility] 02-06-2024 16:30-0400 Body temperature 98.2 [degF] Carina Galvez APRN.HOB MACHINE OPERATOR Work Phone: [facility] 02-06-2024 16:30-0400 Body weight 67.9 kg Carina Galvez APRN.HOB MACHINE OPERATOR Work Phone: [facility] 02-06-2024 16:30-0400 Diastolic blood pressure 72 mm[Hg] Carina Galvez APRN.HOB MACHINE OPERATOR Work Phone: [facility] 02-06-2024 16:30-0400 Heart rate 86 /min Carina Galvez APRN.HOB MACHINE OPERATOR Work Phone: [facility] 02-06-2024 16:30-0400 Respiratory rate 16 /min Carina Galvez APRN.HOB MACHINE OPERATOR Work Phone: [facility] 02-06-2024 16:30-0400 SaO2% (BldA) [Mass fraction] 99 % Carina Galvez APRN.HOB MACHINE OPERATOR Work Phone: [facility] 02-06-2024 16:30-0400 Systolic blood pressure 116 mm[Hg] Carina Galvez APRN.HOB MACHINE OPERATOR Work Phone: [facility] 01-17-2024 06:26-0400 Body temperature 98 [degF] [facility] 01-17-2024 06:26-0400 Diastolic blood pressure 70 mm[Hg] [facility] 01-17-2024 06:26-0400 Heart rate 82 /min [facility] 01-17-2024 06:26-0400 Respiratory rate 18 /min [facility] 01-17-2024 06:26-0400 SaO2% (BldA) [Mass fraction] 96 % [facility] 01-17-2024 06:26-0400 Systolic blood pressure 136 mm[Hg] [facility] 01-17-2024 04:37-0400 Body height 170.18 cm [facility] 01-17-2024 04:37-0400 Body mass index (BMI) [Ratio] 23.3 kg/m2 [facility] 01-17-2024 04:37-0400 Body weight 67.8 kg [facility] 10-22-2023 23:23-0500 Body height 170.18 cm [facility] 10-22-2023 23:23-0500 Body mass index (BMI) [Ratio] 23.6 kg/m2 [facility] 10-22-2023 23:23-0500 Body temperature 97.1 [degF] [facility] 10-22-2023 23:23-0500 Body weight 68.49 kg [facility] 10-22-2023 23:23-0500 Diastolic blood pressure 79 mm[Hg] [facility] 10-22-2023 23:23-0500 Heart rate 103 /min [facility] 10-22-2023 23:23-0500 Respiratory rate 15 /min [facility] 10-22-2023 23:23-0500 SaO2% (BldA) [Mass fraction] 100 % [facility] 10-22-2023 23:23-0500 Systolic blood pressure 149 mm[Hg] [facility] 06-05-2023 15:57-0400 Body weight 66.68 kg Aaron Sarabia MD Work Phone: [facility] 06-05-2023 15:57-0400 Diastolic blood pressure 72 mm[Hg] Aaron Sarabia MD Work Phone: [facility] 06-05-2023 15:57-0400 Heart rate 84 /min Aaron Sarabia MD Work Phone: [facility] 06-05-2023 15:57-0400 Respiratory rate 18 /min Aaron Sarabia MD Work Phone: [facility] 06-05-2023 15:57-0400 Systolic blood pressure 112 mm[Hg] Aaron Sarabia MD Work Phone: [facility] 02-08-2023 10:48-0400 Body weight 68.95 kg Aaron Sarabia MD Work Phone: [facility] 02-08-2023 10:48-0400 Diastolic blood pressure 80 mm[Hg] Aaron Sarabia MD Work Phone: [facility] 02-08-2023 10:48-0400 Heart rate 92 /min Aaron Sarabia MD Work Phone: [facility] 02-08-2023 10:48-0400 Respiratory rate 16 /min Aaron Sarabia MD Work Phone: [facility] 02-08-2023 10:48-0400 Systolic blood pressure 116 mm[Hg] Aaron Sarabia MD Work Phone: [facility] 12-23-2022 23:25-0500 Body height 170.18 cm [facility] 12-23-2022 23:25-0500 Body mass index (BMI) [Ratio] 25.3 kg/m2 [facility] 12-23-2022 23:25-0500 Body temperature 96.8 [degF] [facility] 12-23-2022 23:25-0500 Body weight 73.4 kg [facility] 12-23-2022 23:25-0500 Diastolic blood pressure 89 mm[Hg] [facility] 12-23-2022 23:25-0500 Heart rate 82 /min [facility] 12-23-2022 23:25-0500 Respiratory rate 16 /min [facility] 12-23-2022 23:25-0500 SaO2% (BldA) [Mass fraction] 99 % [facility] 12-23-2022 23:25-0500 Systolic blood pressure 153 mm[Hg] [facility] 09-13-2022 10:01-0500 Body temperature 97 [degF] Carina Galvez APRN.HOB MACHINE OPERATOR Work Phone: [facility] 09-13-2022 10:01-0500 Body weight 71.22 kg Carina Galvez APRN.HOB MACHINE OPERATOR Work Phone: [facility] 09-13-2022 10:01-0500 Diastolic blood pressure 76 mm[Hg] Carina Galvez APRN.HOB MACHINE OPERATOR Work Phone: [facility] 09-13-2022 10:01-0500 Heart rate 80 /min Carina Galvez APRN.HOB MACHINE OPERATOR Work Phone: [facility] 09-13-2022 10:01-0500 Respiratory rate 21 /min Carina Galvez APRN.HOB MACHINE OPERATOR Work Phone: [facility] 09-13-2022 10:01-0500 SaO2% (BldA) [Mass fraction] 99 % Carina Galvez APRN.HOB MACHINE OPERATOR Work Phone: [facility] 09-13-2022 10:01-0500 Systolic blood pressure 122 mm[Hg] Carina Galvez APRN.HOB MACHINE OPERATOR Work Phone: [facility] 05-16-2022 10:03-0400 Body temperature 97.2 [degF] Rafael Dale MD Work Phone: [facility] 05-16-2022 10:03-0400 Body weight 68.49 kg Rafael Dale MD Work Phone: [facility] 05-16-2022 10:03-0400 Diastolic blood pressure 68 mm[Hg] Rafael Dale MD Work Phone: [facility] 05-16-2022 10:03-0400 Heart rate 80 /min Rafael Dale MD Work Phone: [facility] 05-16-2022 10:03-0400 Respiratory rate 18 /min Rafael Dale MD Work Phone: [facility] 05-16-2022 10:03-0400 SaO2% (BldA) [Mass fraction] 98 % Rafael Dale MD Work Phone: [facility] 05-16-2022 10:03-0400 Systolic blood pressure 122 mm[Hg] Rafael Dale MD Work Phone: [facility] 02-13-2022 13:40-0400 Diastolic blood pressure 72 mm[Hg] Key Alvarado MD Work Phone: [facility] 02-13-2022 13:40-0400 Heart rate 72 /min Key Alvarado MD Work Phone: [facility] 02-13-2022 13:40-0400 Respiratory rate 16 /min Key Alvarado MD Work Phone: [facility] 02-13-2022 13:40-0400 Systolic blood pressure 111 mm[Hg] Key Alvarado MD Work Phone: [facility] 02-13-2022 13:18-0400 Body temperature 97.81 [degF] Key Alvarado MD Work Phone: [facility] 02-13-2022 13:18-0400 SaO2% (BldA) [Mass fraction] 95 % Key Alvarado MD Work Phone: [facility] 02-13-2022 12:44-0400 Body height 170.2 cm Key Alvarado MD Work Phone: [facility] 02-13-2022 12:44-0400 Body weight 72.58 kg Key Alvarado MD Work Phone: [facility] 02-02-2022 16:43-0400 Heart rate 72 /min [facility] Work Phone: 02-02-2022 16:43-0400 Respiratory rate 16 /min [facility] Work Phone: 02-02-2022 16:43-0400 SaO2% (BldA) [Mass fraction] 98 % [facility] Work Phone: 02-02-2022 12:15-0400 Body height 170.18 cm [facility] Work Phone: 02-02-2022 12:15-0400 Body mass index (BMI) [Ratio] 25.8 kg/m2 [facility] Work Phone: 02-02-2022 12:15-0400 Body temperature 97.1 [degF] [facility] Work Phone: 02-02-2022 12:15-0400 Body weight 74.84 kg [facility] Work Phone: 02-02-2022 12:15-0400 Diastolic blood pressure 76 mm[Hg] [facility] Work Phone: 02-02-2022 12:15-0400 Systolic blood pressure 114 mm[Hg] [facility] Work Phone: 01-23-2022 01:14-0400 Heart rate 77 /min [facility] Work Phone: 01-23-2022 01:14-0400 Respiratory rate 16 /min [facility] Work Phone: 01-23-2022 00:29-0400 Body height 170.18 cm [facility] Work Phone: 01-23-2022 00:29-0400 Body mass index (BMI) [Ratio] 24.5 kg/m2 [facility] Work Phone: 01-23-2022 00:29-0400 Body temperature 97.9 [degF] [facility] Work Phone: 01-23-2022 00:29-0400 Body weight 70.9 kg [facility] Work Phone: 01-23-2022 00:29-0400 Diastolic blood pressure 93 mm[Hg] [facility] Work Phone: 01-23-2022 00:29-0400 SaO2% (BldA) [Mass fraction] 100 % [facility] Work Phone: 01-23-2022 00:29-0400 Systolic blood pressure 118 mm[Hg] [facility] Work Phone: 01-18-2022 10:20-0400 Body temperature 98.01 [degF] Rafael Dale MD Work Phone: [facility] 01-18-2022 10:20-0400 Body weight 72.94 kg Rafael Dale MD Work Phone: [facility] 01-18-2022 10:20-0400 Diastolic blood pressure 76 mm[Hg] Rafael Dale MD Work Phone: [facility] 01-18-2022 10:20-0400 Heart rate 91 /min Rafael Dale MD Work Phone: [facility] 01-18-2022 10:20-0400 Respiratory rate 20 /min Rafael Dale MD Work Phone: [facility] 01-18-2022 10:20-0400 SaO2% (BldA) [Mass fraction] 97 % Rafael Dale MD Work Phone: [facility] 01-18-2022 10:20-0400 Systolic blood pressure 124 mm[Hg] Rafael Dale MD Work Phone: [facility] Encounters Encounter Date Encounter Type Care Provider Facility Start: 07-26-2025 End: 07-26-2025 ambulatory [facility] Facility:[facility] Start: 07-12-2025 End: 07-12-2025 ambulatory [facility] Facility:[facility] Start: 06-23-2025 End: 06-23-2025 Patient encounter procedure Carina Galvez APRN.HOB MACHINE OPERATOR Work Phone: [facility] Comment on above: Sinus congestion (Pr imary Dx) Start: 06-23-2025 End: 06-24-2025 ambulatory CARINA GALVEZ Facility:[facility] Start: 05-31-2025 End: 05-31-2025 ambulatory Yogi Mazariegos PT [facility] Comment on above: Cervicogenic headach e (Primary Dx) Start: 05-20-2025 End: 05-20-2025 Office outpatient visit 25 minutes Rafael Dale MD Work Phone: [facility] Comment on above: Cervicogenic headach e (Primary Dx) Start: 05-20-2025 End: 05-20-2025 ambulatory RAFAEL Alessandro BEDALE Facility:[facility] Start: 04-08-2025 End: 04-08-2025 Follow-up encounter Myla Rojas APRN.HOB MACHINE OPERATOR Work Phone: [facility] Start: 04-07-2025 End: 04-07-2025 ambulatory FLORENCE GONG Facility:[facility] Start: 04-07-2025 End: 04-07-2025 Patient encounter procedure Florence Gong RE[employer]ODU[employer] SUPERVISOR.HOB MACHINE OPERATOR Work Phone: [facility] Comment on above: Pruritus (Primary Dx ); Paresthesia of skin Start: 03-03-2025 End: 03-03-2025 Refill Aaron Sarabia MD Work Phone: [facility] Comment on above: Refill Request Start: 02-09-2025 End: 02-09-2025 Refill Aaron Sarabia MD Work Phone: [facility] Comment on above: Refill Request Start: 01-28-2025 End: 01-28-2025 ambulatory Mukund Bauman PT Work Phone: [facility] Physical [facility] Comment on above: Cervicogenic headach e Start: 01-06-2025 End: 01-06-2025 ambulatory AARON SARABIA Facility:[facility] Start: 01-06-2025 End: 01-06-2025 Patient encounter procedure Aaron Sarabia MD Work Phone: [facility] [place] Comment on above: Cervicogenic headach e (Primary Dx); Gastroesophageal reflux disease, unspecified whether esophagitis present; Screening for depression; Encounter for screening examination for other mental health and behavioral disorders Start: 09-20-2024 End: 09-20-2024 Office outpatient visit 15 minutes Danielle Blue APRN.HOB MACHINE OPERATOR Work Phone: [facility] Comment on above: Pharyngitis, unspeci fied etiology (Primary Dx); Gastroesophageal reflux disease, unspecified whether esophagitis present Start: 09-20-2024 End: 09-20-2024 ambulatory BYRONHarvinder SARABIA Facility:[id number] Start: 08-03-2024 End: 08-03-2024 Emergency department patient visit AARON Blanton SARABIA Facility:[id number] Start: 08-03-2024 End: 08-03-2024 Patient encounter procedure Hemant Pickens REF[employer]ODU[employer] SUPERVISOR.HOB MACHINE OPERATOR Work Phone: [facility] Comment on above: Vertigo (Primary Dx) ; Dizziness; Lightheadedness; Nausea Start: 08-03-2024 End: 08-03-2024 ambulatory AARON SARABIA Facility:[id number] Start: 07-09-2024 End: 07-09-2024 Patient encounter procedure Alec Otero REF[employer]ODU[employer] SUPERVISOR.HOB MACHINE OPERATOR Work Phone: [facility] Comment on above: Muscle tenderness (P rimary Dx) Start: 07-02-2024 End: 07-02-2024 ambulatory SELF Facility:[id number] Start: 07-02-2024 End: 07-02-2024 Office outpatient visit 15 minutes Marija Meredith DO Work Phone: [facility] Comment on above: Lipoma of right uppe r extremity (Primary Dx); Acute pain of right shoulder Start: 04-14-2024 Telephone encounter Aaron saab MD Work Phone: [facility] [place] Comment on above: Patient Question; Or ders Start: 03-20-2024 ambulatory Pushpa Salinas RN [employer] Comment on above: Information Start: 03-20-2024 Telephone encounter Aaron saab MD Work Phone: [facility] [place] Comment on above: Lab Orders Start: 03-12-2024 End: 03-12-2024 Emergency department patient visit Isai Yepez Facility:[facility] Start: 03-10-2024 End: 03-10-2024 ambulatory Yogi Mazariegos PT [facility] Comment on above: Cervicogenic headach e (Primary Dx) Start: 03-08-2024 Telephone encounter Florence amanda [employer]ODU[employer] SUPERVISOR.HOB MACHINE OPERATOR Work Phone: [facility] Comment on above: Results Start: 03-07-2024 Telephone encounter Carina Galvez APRN.HOB MACHINE OPERATOR Work Phone: [facility] Comment on above: Results Start: 03-06-2024 End: 03-06-2024 Patient encounter procedure Carina Galvez APRN.HOB MACHINE OPERATOR Work Phone: [facility] Comment on above: Urinary frequency (P rimary Dx); Sore throat Start: 02-29-2024 End: 02-29-2024 Emergency department patient visit [facility] Facility:[facility] Start: 02-29-2024 End: 02-29-2024 Emergency department patient visit [facility] Work Phone: Start: 02-24-2024 End: 02-24-2024 ambulatory Yogi Mazariegos PT [facility] Comment on above: Cervicogenic headach e (Primary Dx) Start: 02-12-2024 End: 02-12-2024 Patient encounter procedure Carina Galvez KARLENE.HOB MACHINE OPERATOR Work Phone: [facility] Comment on above: Rash (Primary Dx) Start: 02-11-2024 End: 02-11-2024 ambulatory Yogi Mazariegos PT [facility] Comment on above: Cervicogenic headach e (Primary Dx) Start: 02-06-2024 End: 02-06-2024 Patient encounter procedure Carina Galvez APRN.HOB MACHINE OPERATOR Work Phone: [facility] Comment on above: Rash (Primary Dx) Start: 01-17-2024 End: 01-17-2024 Emergency department patient visit [facility] Facility:[facility] Start: 01-17-2024 End: 01-17-2024 Emergency department patient visit [facility] Work Phone: Start: 01-07-2024 End: 01-07-2024 ambulatory Yogi Mazariegos PT [facility] Comment on above: Cervicogenic headach e (Primary Dx) Start: 12-30-2023 End: 12-30-2023 ambulatory Yogi Mazariegos PT [facility] Comment on above: Cervicogenic headach e (Primary Dx) Start: 12-19-2023 End: 12-20-2023 ambulatory Yogi Mazariegos PT [facility] Comment on above: Cervicogenic headach e (Primary Dx) Start: 12-03-2023 End: 12-03-2023 ambulatory Yogi Yair PT [facility] Comment on above: Cervicogenic headach e (Primary Dx) Start: 11-21-2023 End: 11-21-2023 ambulatory Yogi Yair PT [facility] Comment on above: Cervicogenic headach e (Primary Dx) Start: 10-23-2023 End: 10-23-2023 Emergency department patient visit Aaron Sarabia Facility:[facility] Start: 10-22-2023 End: 10-22-2023 Emergency department patient visit [facility] Work Phone: Start: 06-05-2023 End: 06-05-2023 Patient encounter procedure Aaron Sarabia MD Work Phone: [facility] [place] Comment on above: Testicular pain, rig ht (Primary Dx); Groin pain, right; History of chlamydia infection; Encounter for screening for HIV; Need for hepatitis C screening test; Chlamydia Start: 03-20-2023 End: 03-20-2023 ambulatory Yogi Mazariegos PT [facility] Comment on above: Cervicogenic headach e (Primary Dx) Start: 03-19-2023 ambulatory Kell Older REFRACTORY PRODUCTS SUPERVISOR .HOB MACHINE OPERATOR Work Phone: [facility] [place] Comment on above: urine test results Start: 03-19-2023 E-mail encounter fro m caregiver Kell Older REFRACTORY PRODUCTS SUPERVISOR.HOB MACHINE OPERATOR Work Phone: [facility] [place] Start: 03-16-2023 Telephone encounter Aaron saab MD Work Phone: [facility] [place] Comment on above: Results Start: 02-27-2023 End: 02-27-2023 ambulatory Yogi Mazariegos PT [facility] Comment on above: Cervicogenic headach e (Primary Dx) Start: 02-19-2023 End: 02-19-2023 ambulatory Yogi Mazariegos PT [facility] Comment on above: Cervicogenic headach e (Primary Dx) Start: 02-11-2023 End: 02-11-2023 Subsequent hospital visit by physician [facility] Work Phone: Radiology Comment on above: Cervicogenic headach e [G44.86] Start: 02-08-2023 End: 02-08-2023 Patient encounter procedure Aaron Sarabia MD Work Phone: [facility] [place] Comment on above: Cervicogenic headach e (Primary Dx); Gastroesophageal reflux disease, unspecified whether esophagitis present; Encounter for screening for HIV Start: 12-23-2022 End: 12-24-2022 [facility] Start: 09-13-2022 End: 09-13-2022 Patient encounter procedure Carina Galvez APRN.HOB MACHINE OPERATOR Work Phone: [facility] Comment on above: Sore throat (Primary Dx) Start: 05-16-2022 End: 05-16-2022 Subsequent hospital visit by physician [facility] Work Phone: Radiology Comment on above: Upper back pain on r ight side [M54.9] Start: 05-16-2022 End: 05-16-2022 Patient encounter procedure Rafael Dale MD Work Phone: [facility] Comment on above: Upper back pain on r ight side (Primary Dx); Heartburn Start: 02-13-2022 End: 02-13-2022 Subsequent hospital visit by physician eKy Alvarado MD Work Phone: Ambulatory Surgery Comment on above: Heartburn [R12] Start: 02-02-2022 End: 02-02-2022 Emergency department patient visit [facility] Start: 01-23-2022 End: 01-23-2022 [facility] Start: 01-18-2022 ambulatory Chelsea VasquezHOB MACHINE OPERATOR Work Phone: Gastroenterology Comment on above: Eating Start: 01-18-2022 End: 01-18-2022 Patient encounter procedure Rafael Dale MD Work Phone: [facility] Comment on above: URI, acute (Primary Dx); Headache, unspecified headache type Start: 01-17-2022 End: 01-17-2022 ambulatory Chelsea Euceda APRN.HOB MACHINE OPERATOR Work Phone: Gastroenterology Comment on above: Heartburn (Primary D x); Bloating; Epigastric pain; Nausea Start: 01-17-2022 End: 01-17-2022 Telemedicine consultation with patient Chelsea Euceda APRN.HOB MACHINE OPERATOR Work Phone: [facility] Start: 09-07-2021 End: 09-07-2021 Subsequent hospital visit by physician [facility] Work Phone: Radiology Comment on above: Cough [R05.9] Start: 08-09-2021 End: 08-09-2021 Subsequent hospital visit by physician [facility] Work Phone: Radiology Comment on above: COVID-19 [U07.1] Procedures Date Procedure Procedure Detail Performing Clinician Start: 01-06-2025 Adult depression screening assessment Aaron Sarabia MD Work Phone: Start: 03-06-2024 STREP A MOLECULAR (POC) Carina Galvez APRN.[facility] Work Phone: Start: 03-06-2024 Urnls dip stick/tablet rgnt auto w/o microscopy Carina Galvez APRN.HOB MACHINE OPERATOR Work Phone: Start: 06-05-2023 Urnls dip stick/tablet rgnt auto w/o microscopy Aaron Sarabia MD Work Phone: Start: 02-11-2023 Radex spine cervical 4 or 5 views Aaron Sarabia MD Work Phone: Start: 09-13-2022 STREP A MOLECULAR (POC) [facility] Provider Start: 05-16-2022 Radex ribs uni w/posteroant ch minimum 3 views Rafael Dale MD Work Phone: Start: 02-13-2022 Esophagogastroduodenoscopy transoral diagnostic Chelsea Euceda REFRACTORY PRODUCTS SUPERVISOR.HOB MACHINE OPERATOR Work Phone: Start: 02-02-2022 CT of abdomen and pelvis without contrast Start: 01-23-2022 Plain chest X-ray Start: 09-07-2021 Radiologic exam chest 2 views Aaron saab MD Work Phone: Start: 08-09-2021 Radiologic exam chest 2 views Florence amanda REFRACTORY PRODUCTS SUPERVISOR.HOB MACHINE OPERATOR Work Phone: Start: 02-22-2020 Adult depression screening assessment Chelsea Euceda REFRACTORY PRODUCTS SUPERVISOR.HOB MACHINE OPERATOR Work Phone: Plan of Treatment Date Care Activity Detail Author Start: 01-06-2026 Anxiety Screening Anxiety Screening [facility] Start: 01-06-2026 Covid-19 Vaccine () Covid-19 Vaccine () [facility] Comment on above: Postponed from 06/21 (Declined at this time) Start: 01-06-2026 Depression Screening Depression Scre ening [facility] Start: 07-26-2025 End: 07-26-2025 ambulatory 07/26/2025 2:45 PM EDT OT/PT/Speech Visit [facility] [address] [place] [address] Yogi Mazariegos, PT G44.86 (ICD-10-CM) - Cervicogenic headache [facility] Comment on above: G44.86 (ICD-10-CM) - Cervicogenic headache Start: 07-19-2025 End: 07-19-2025 ambulatory 07/19/2025 2:45 PM EDT OT/PT/Speech Visit [facility] [address] [place] [address] Yogi Mazariegos, PT G44.86 (ICD-10-CM) - Cervicogenic headache [facility] Comment on above: G44.86 (ICD-10-CM) - Cervicogenic headache Start: 07-12-2025 End: 07-12-2025 ambulatory [facility] Comment on above: G44.86 (ICD-10-CM) - Cervicogenic headache G44.86 (ICD-10-CM) - Cervicogenic headache patient would like to be contacted if anything opens up sooner than 07/12 but still wants this appt Start: 06-21-2025 Influenza vaccination C [facility] Start: 06-14-2025 End: 06-14-2025 ambulatory 06/14/2025 9:45 AM EDT OT/PT/Speech Visit [facility] [address] [place] [address] Yogi Mazariegos PT G44.86 (ICD-10-CM) - Cervicogenic headache [facility] Comment on above: G44.86 (ICD-10-CM) - Cervicogenic headache Start: 06-07-2025 End: 06-07-2025 ambulatory 06/07/2025 11:30 AM EDT OT/PT/Speech Visit [facility] [address] [place] [address] Yogi Mazariegos PT Cervicogenic headache [G44.86] [facility] Comment on above: Cervicogenic headach e [G44.86] Start: 04-19-2025 Influenza vaccination Influenza Vacc ine (#1) [facility] Comment on above: Postponed from 06/21 (Declined at this time) Start: 04-07-2025 End: 07-07-2025 Thyrotropin [Units/volume] in Serum or Plasma [facility] Work Phone: Comment on above: Expected: 04/07/2025 , Expires: 07/07/2025 Start: 02-26-2025 End: 02-26-2025 ambulatory 02/26/2025 3:00 PM EDT OT/PT/Speech Visit [facility] [address] [place], [place] [id number] Mukund Bauman, PT [address] [place] [address] Cervicogenic headache [G44.86] [facility] Comment on above: Cervicogenic headach e [G44.86] Start: 02-22-2025 End: 02-22-2025 ambulatory 02/22/2025 3:00 PM EDT OT/PT/Speech Visit [facility] [address] [place] [address] Golias, Mukund, PT [address] [place] [address] Cervicogenic headache [G44.86] [facility] Comment on above: Cervicogenic headach e [G44.86] Start: 02-12-2025 End: 02-12-2025 ambulatory 02/12/2025 3:00 PM EDT OT/PT/Speech Visit [facility] [address] [place] [address] Golias, Mukund, PT [address] [place] [address] Cervicogenic headache [G44.86] [facility] Comment on above: Cervicogenic headach e [G44.86] Start: 02-05-2025 End: 02-05-2025 ambulatory 02/05/2025 3:00 PM EDT OT/PT/Speech Visit [facility] [address] [place] [address] Golias, Mukund, PT [address] [place] [address] Cervicogenic headache [G44.86] [facility] Comment on above: Cervicogenic headach e [G44.86] Start: 01-19-2025 End: 01-19-2025 ambulatory 01/19/2025 1:15 PM EDT OT/PT/Speech Visit [facility] [address] [place] [address] Golias, Mukund, PT [address] [place] [address] Cervicogenic headache [G44.86] [facility] Comment on above: Cervicogenic headach e [G44.86] Start: 07-08-2024 End: 07-08-2024 Patient encounter procedure 07/08/2024 2:45 PM EDT Office Visit General Surgery [address] [place] [address] Elidia Ramos MD [address] [place] [address] follow up from [facility] on 07/02 lipoma right shoulder General Surgery Comment on above: follow up from expre [facility] on 07/02 lipoma right shoulder Start: 06-21-2024 Covid-19 Vaccine ( season) Covid-19 Vaccine ( season) [facility] Start: 06-21-2024 Covid-19 Vaccine ( season) Covid-19 Vaccine ( season) [facility] Start: 06-21-2024 Influenza vaccination [facility] Start: 04-19-2024 Influenza vaccination Influenza Vacc ine (#1) [facility] Comment on above: Postponed from 06/21 (Declined at this time) Start: 04-14-2024 End: 07-14-2024 Fasting glucose [Mass/volume] in Serum or Plasma GLUCOSE, FASTING Lab Routine Screening for diabetes mellitus Expected: 04/14/2024, Expires: 07/14/2024 [facility] Work Phone: Comment on above: Expected: 04/14/2024 , Expires: 07/14/2024 Start: 03-20-2024 End: 06-19-2024 CBC panel - Blood by Automated count [facility] Work Phone: Comment on above: Expected: 03/20/2024 , Expires: 06/19/2024 Start: 03-13-2024 End: 03-13-2024 ambulatory 03/13/2024 11:40 AM EDT [facility] [place] [address] [facility] [place] [address] Aaron Sarabia MD [address] [place] [address] My throat still hurts [facility] [place] Comment on above: My throat still hurt s Start: 03-10-2024 End: 03-10-2024 ambulatory 03/10/2024 6:00 PM EDT OT/PT/Speech Visit [facility] [address] [place] [address] Yogi Mazariegos, PT G44.86 - Cervicogenic headache [facility] Comment on above: G44.86 - Cervicogeni c headache Start: 03-06-2024 End: 06-05-2024 TRICHOMONAS VAGINALIS NAAT TRICHOMONAS VAGINALIS NAAT Lab Routine Urinary frequency Expected: 03/06/2024, Expires: 06/05/2024 [facility] Comment on above: Expected: 03/06/2024 , Expires: 06/05/2024 Start: 02-29-2024 [facility] Start: 02-24-2024 End: 02-24-2024 ambulatory 02/24/2024 4:15 PM EDT OT/PT/Speech Visit [facility] [address] [place] [address] Yogi Mazariegos, PT G44.86 (ICD-10-CM) - Cervicogenic headache [facility] Comment on above: G44.86 (ICD-10-CM) - Cervicogenic headache Start: 02-20-2024 End: 02-20-2024 Patient encounter procedure 02/20/2024 4:00 PM EDT Office Visit Internal Medicine [place] [address] [facility] [place] [address] Aaron Sarabia MD [address] [place] [address] rash [facility] [place] Comment on above: rash Start: 02-09-2024 COVID-19 VACCINE (#1) COVID-19 VACCI NE (#1) [facility] Comment on above: Postponed from 04/23 (Declined at this time) Start: 02-09-2024 MENINGOCOCCAL B: Consider based on risk (1 of 2 - Patient Seeks Protection) MENINGOCOCCAL B: Consider based on risk (1 of 2 - Patient Seeks Protection) [facility] Comment on above: Postponed from 10/24 (Declined at this time) Start: 02-09-2024 MENINGOCOCCAL B: Consider based on risk (1 of 2 - Risk Bexsero 2-dose series) MENINGOCOCCAL B: Consider based on risk (1 of 2 - Risk Bexsero 2-dose series) [facility] Comment on above: Postponed from 10/24 (Declined at this time) Start: 02-09-2024 Urine microalbumin profile [facility] Comment on above: Postponed from 07/23 (Declined at this time) Start: 01-17-2024 [facility] Start: 10-22-2023 [facility] Start: 10-21-2023 Behavioral Health Screening Behavioral Health Screening [facility] Start: 10-21-2023 Depression Assessment Depression Ass essment [facility] Start: 06-21-2023 Covid-19 Vaccine ( season) Covid-19 Vaccine ( season) [facility] Start: 06-21-2023 Influenza vaccination C [facility] Start: 06-19-2023 End: 08-19-2023 Chlamydia trachomatis+Neisseria gonorrhoeae DNA [Presence] in Urine by CLARISSA with probe detection GC/CHLAMYDIA AMPLIF, URINE Microbiology Routine Chlamydia Expected: 06/19/2023 (Approximate), Expires: 08/19/2023 [facility] Work Phone: Comment on above: Expected: 06/19/2023 (Approximate), Expires: 08/19/2023 Start: 06-05-2023 End: 08-05-2023 Hepatitis C virus Ab [Presence] in Serum HEPATITIS C ANTIBODY IA WITH CONFIRMATION Lab Routine Need for hepatitis C screening test Expected: 06/05/2023, Expires: 08/05/2023 [facility] Work Phone: Comment on above: Expected: 06/05/2023 , Expires: 08/05/2023 Start: 06-05-2023 End: 08-05-2023 HIV 1+2 Ab [Presence] in Serum or Plasma by Immunoassay HIV 1 2 COMBO(AG/AB),WITH REFLEX TO DIFFERENTIATION Lab Routine Encounter for screening for HIV Expected: 06/05/2023, Expires: 08/05/2023 [facility] Work Phone: Comment on above: Expected: 06/05/2023 , Expires: 08/05/2023 Start: 02-08-2023 End: 04-10-2023 Hepatitis C virus Ab [Presence] in Serum HEP C AB IA W/CONF SCRN Lab Routine Encounter for screening for HIV Expected: 02/08/2023, Expires: 04/10/2023 [facility] Work Phone: Comment on above: Expected: 02/08/2023 , Expires: 04/10/2023 Start: 02-08-2023 End: 04-10-2023 HIV 1+2 Ab [Presence] in Serum or Plasma by Immunoassay HIV 1 2 COMBO(AG/AB),WITH REFLEX TO DIFFERENTIATION Lab Routine Encounter for screening for HIV Expected: 02/08/2023, Expires: 04/10/2023 [facility] Work Phone: Comment on above: Expected: 02/08/2023 , Expires: 04/10/2023 Start: 06-21-2022 Influenza vaccination [facility] Start: 01-24-2022 End: 03-26-2022 Helicobacter pylori IgG Ab [Presence] in Serum or Plasma by Immunoassay H PYLORI IGG AB Lab Routine Heartburn Bloating Epigastric pain Nausea Expected: 01/24/2022, Expires: 03/26/2022 [facility] Work Phone: Comment on above: Expected: 01/24/2022 , Expires: 03/26/2022 Start: 10-21-2021 DEPRESSION ASSESSMENT DEPRESSION ASS ESSMENT [facility] Start: 07-23-2021 Urine microalbumin profile [facility] Start: 06-21-2021 Influenza vaccination INFLUENZA (#1) [facility] Start: 02-21-2021 Adult depression screening assessment DEPRESSION SCREENING [facility] Start: 2016 Anxiety Screening Anxiety Screening [facility] Start: 2016 Depression Screening Depression Scre ening [facility] Start: 2016 HEPATITIS C SCREENING HEPATITIS C [facility] Start: 2016 Hepatitis C screening Hepatitis C [facility] Start: 2016 HIV SCREENING HIV SCREENING [facility] Start: 2016 HIV screening HIV Screening [facility] Start: 2012 PEDS TO ADULT TRANSITION ANNUAL ASSESSMENT PEDS TO ADULT TRANSITION ANNUAL ASSESSMENT [facility] Start: 2010 PEDS TO ADULT TRANSITION INITIAL DISCUSSION PEDS TO ADULT TRANSITION INITIAL DISCUSSION [facility] Start: 2008 MENINGOCOCCAL B: Consider based on risk (1 of 2 - Risk Bexsero 2-dose series) MENINGOCOCCAL B: Consider based on risk (1 of 2 - Risk Bexsero 2-dose series) [facility] Start: 2003 COVID-19 VACCINE (1) COVID-19 VACCIN E (1) [facility] Start: 04-23-1999 COVID-19 VACCINE (#1) COVID-19 VACCI NE (#1) [facility] Bacteria identified in Urine by Culture URINE CULTURE Microbiology Routine Urinary frequency Ordered: 03/06/2024 [facility] Comment on above: Ordered: 03/06/2024 Chlamydia trachomatis+Neisseria gonorrhoeae DNA [Presence] in Unspecified specimen by CLARISSA with probe detection GONORRHEA/CHLAMYDIA NAAT Lab Routine Urinary frequency Ordered: 03/06/2024 [facility] Comment on above: Ordered: 03/06/2024 Chlamydia trachomatis+Neisseria gonorrhoeae DNA [Presence] in Urine by CLARISSA with probe detection GC/CHLAMYDIA AMPLIF, URINE Microbiology Routine Chlamydia 06/05/2023 4:44 PM EDT [facility] Work Phone: End: 01-17-2023 EGD DIAGNOSTIC EGD DIAGNOSTIC Endoscopy Routine Heartburn Bloating Epigastric pain Nausea 1 Occurrences starting 01/17/2022 until 01/17/2023 [facility] Work Phone: Comment on above: 1 Occurrences starti ng 01/17/2022 until 01/17/2023 Patient Education [facility] Work Phone: Patient referral [facility] Work Phone: PT PLAN OF CARE CERTIFICATION PT PLAN OF CARE CERTIFICATION Procedures Routine Cervicogenic headache Ordered: 02/19/2023 [facility] Comment on above: Ordered: 02/19/2023 SURGICAL PATHOLOGY [facility] Work Phone: Comment on above: Release Upon Orderin g for 1 Occurrences starting 02/13/2022, 1 completed UA DIP, URINE (POC) UA DIP, URIN E (POC) Lab Routine Urinary frequency Ordered: 03/06/2024 [facility] Work Phone: Comment on above: Ordered[facility] 03/06/2024 [facility] Immunizations Immunization Date Immunization Notes Care Provider Kaylin jhaveri 09-11-2017 influenza, injectabl e, quadrivalent, preservative free Chelsea Euceda REFRACTORY PRODUCTS SUPERVISOR.HOB MACHINE OPERATOR Work Phone: [facility] 09-11-2017 influenza virus vacc ine, unspecified formulation Yogi Mazariegos PT [facility] 08-31-2016 influenza, injectabl e, quadrivalent, contains preservative Chelsea Euceda REFRACTORY PRODUCTS SUPERVISOR.HOB MACHINE OPERATOR Work Phone: [facility] 11-03-2015 influenza, live, intranasal, quadrivalent Chelsea Euceda REFRACTORY PRODUCTS SUPERVISOR.HOB MACHINE OPERATOR Work Phone: [facility] 12-07-2014 meningococcal polysaccharide (groups A, C, Y and W-135) diphtheria toxoid conjugate vaccine (MCV4P) Chelsea Euceda REFRACTORY PRODUCTS SUPERVISOR.HOB MACHINE OPERATOR Work Phone: [facility] 08-31-2014 human papilloma viru s vaccine, quadrivalent Chelsea Euceda REFRACTORY PRODUCTS SUPERVISOR.HOB MACHINE OPERATOR Work Phone: [facility] 08-31-2014 influenza, live, intranasal, quadrivalent Chelsea Euceda REFRACTORY PRODUCTS SUPERVISOR.HOB MACHINE OPERATOR Work Phone: [facility] 05-06-2014 human papilloma viru s vaccine, quadrivalent Chelsea Euceda REFRACTORY PRODUCTS SUPERVISOR.HOB MACHINE OPERATOR Work Phone: [facility] 07-20-2013 human papilloma viru s vaccine, quadrivalent Chelsea Euceda REFRACTORY PRODUCTS SUPERVISOR.[facility] Work Phone: [facility] 07-20-2013 influenza virus vacc ine, live, attenuated, for intranasal use Chelsea Euceda REFRACTORY PRODUCTS SUPERVISOR.HOB MACHINE OPERATOR Work Phone: [facility] 07-23-2011 influenza virus vacc ine, live, attenuated, for intranasal use Chelsea Euceda REFRACTORY PRODUCTS SUPERVISOR.[facility] Work Phone: [facility] Work Phone: 07-23-2011 Meningococcal, MCV4, unspecified conjugate formulation(groups A, C, Y and W-135) Chelsea Euceda APRN.[facility] Work Phone: [facility] Work Phone: 07-23-2011 tetanus toxoid, redu nam diphtheria toxoid, and acellular pertussis vaccine, adsorbed Chelsea Euceda REFRACTORY PRODUCTS SUPERVISOR.[facility] Work Phone: [facility] Work Phone: 07-23-2011 varicella virus vaccine Chelsea Euceda REFRACTORY PRODUCTS SUPERVISOR.[facility] Work Phone: [facility] Work Phone: 09-20-2004 influenza virus vacc ine, unspecified formulation Chelsea Euceda REFRACTORY PRODUCTS SUPERVISOR.[facility] Work Phone: [facility] Work Phone: 02-02-2004 diphtheria, tetanus toxoids and acellular pertussis vaccine Chelsea Euceda REFRACTORY PRODUCTS SUPERVISOR.HOB MACHINE OPERATOR Work Phone: [facility] Work Phone: 02-02-2004 measles, mumps and rubella virus vaccine Chelsea Euceda REFRACTORY PRODUCTS SUPERVISOR.[facility] Work Phone: [facility] Work Phone: 02-02-2004 poliovirus vaccine, inactivated Chelsea Euceda REFRACTORY PRODUCTS SUPERVISOR.HOB MACHINE OPERATOR Work Phone: [facility] Work Phone: 05-29-2000 diphtheria, tetanus toxoids and acellular pertussis vaccine Chelsea Euceda REFRACTORY PRODUCTS SUPERVISOR.HOB MACHINE OPERATOR Work Phone: [facility] Work Phone: 05-29-2000 haemophilus influenz ae type b vaccine, HbOC conjugate Chelsea Euceda REFRACTORY PRODUCTS SUPERVISOR.HOB MACHINE OPERATOR Work Phone: [facility] Work Phone: 10-25-1999 measles, mumps and rubella virus vaccine Chelsea Euceda REFRACTORY PRODUCTS SUPERVISOR.HOB MACHINE OPERATOR Work Phone: [facility] Work Phone: 10-25-1999 poliovirus vaccine, inactivated Chelsea Euceda REFRACTORY PRODUCTS SUPERVISOR.[facility] Work Phone: [facility] Work Phone: 10-25-1999 varicella virus vaccine Chelsea Euceda REFRACTORY PRODUCTS SUPERVISOR.[facility] Work Phone: [facility] Work Phone: 07-03-1999 diphtheria, tetanus toxoids and acellular pertussis vaccine Chelsea Euceda REFRACTORY PRODUCTS SUPERVISOR.HOB MACHINE OPERATOR Work Phone: [facility] Work Phone: 07-03-1999 haemophilus influenz ae type b vaccine, HbOC conjugate Chelsea Euceda REFRACTORY PRODUCTS SUPERVISOR.[facility] Work Phone: [facility] Work Phone: 07-03-1999 hepatitis B vaccine, pediatric or pediatric/adolescent dosage Chelsea Euceda REFRACTORY PRODUCTS SUPERVISOR.[facility] Work Phone: [facility] Work Phone: 05-01-1999 diphtheria, tetanus toxoids and acellular pertussis vaccine Chelsea Euceda REFRACTORY PRODUCTS SUPERVISOR.HOB MACHINE OPERATOR Work Phone: [facility] Work Phone: 05-01-1999 haemophilus influenz ae type b vaccine, HbOC conjugate Chelsea Euceda RE[employer]ORY [employer]ODUCTS SUPERVISOR.HOB MACHINE OPERATOR Work Phone: [facility] Work Phone: 05-01-1999 poliovirus vaccine, inactivated Chelsea Euceda REF[employer]ODUCTS SUPERVISOR.HOB MACHINE OPERATOR Work Phone: [facility] Work Phone: 1998 diphtheria, tetanus toxoids and acellular pertussis vaccine Chelsea Euceda REF[employer]ODUCTS SUPERVISOR.HOB MACHINE OPERATOR Work Phone: [facility] Work Phone: 1998 haemophilus influenz ae type b vaccine, HbOC conjugate Chelsea Ok REFRA[employer]ORY PRODUCTS SUPERVISOR.HOB MACHINE OPERATOR Work Phone: [facility] Work Phone: 1998 hepatitis B vaccine, pediatric or pediatric/adolescent dosage Chelsea Euceda RE[employer]ODUCTS SUPERVISOR.HOB MACHINE OPERATOR Work Phone: [facility] Work Phone: 1998 poliovirus vaccine, inactivated Chelsea Euceda REFRA[employer]ORY PRODUCTS SUPERVISOR.HOB MACHINE OPERATOR Work Phone: [facility] Work Phone: 1998 hepatitis B vaccine, pediatric or pediatric/adolescent dosage Chelsea Euceda REF[employer]ODUCTS SUPERVISOR.HOB MACHINE OPERATOR Work Phone: [facility] Work Phone: Payers Date Payer Category Payer Self-pay [id number] 2022 Medicaid [id number] 2021 Medicaid [place] [employer] [place] [employer] [id number] 2021-[facility] [phone] [place] [id number] Medicaid [id number] 2021 Medicaid [id number] 2014 Unknown [id number] Unknown [id number] Unknown [id number] Unknown [id number] Unknown [id number] Unknown [id number] Social History Date Type Detail Facility Start: 09-11-2017 End: 07-02-2024 Tobacco smoking status NHIS Never smoked tobacco [facility] Start: 09-11-2017 End: 07-02-2024 Tobacco use and exposure Smokeless tobacco non-user [facility] Start: 09-01-2021 End: 01-17-2022 Alcohol intake Current non-drinker of alcohol (finding) [facility] Start: 06-20-2020 History SDOH Alcohol Frequency 1 [facility] Start: 06-20-2020 History SDOH Social Connections Phone 2 [facility] Start: 06-20-2020 History SDOH Social Connections Living 8 [facility] Start: 02-22-2020 End: 06-20-2020 History SDOH Physical Activity DPW 4 [facility] Start: 02-22-2020 End: 06-20-2020 History SDOH Physical Activity MPS 3 [facility] Start: 06-20-2020 Education 14 [facility] Start: 2000 Sex Assigned At Not on file [facility] Start: 07-10-2021 End: 05-16-2022 Exposure to SARS-CoV-2 (event) Not sure [facility] Work Phone: Start: 01-23-2022 End: 02-29-2024 Tobacco smoking status NHIS Unknown if ever smoked [facility] Start: 11-03-2020 Spouse/ Signif icant Other [facility] Start: 11-03-2020 - [facility] Start: 1998 Sex Assigned At Male [facility] Start: 06-20-2020 End: 02-27-2023 History of Social function [facility] Start: 06-20-2020 End: 02-27-2023 Social connection and isolation panel [facility] Do you belong to any clubs or organizations such as mosque groups, unions, fraternal or athletic groups, or school groups? No [facility] Are you now , , , , never or living with a partner? Living with partner [facility] How often to you hav e a drink containing alcohol? Never [facility] How many standard drinks containing alcohol do you have on a typical day? 1 or 2 [facility] How hard is it for y ou to pay for the very basics like food, housing, medical care, and heating Not very hard [facility] Start: 09-21-2012 Adult Depression Screening Assessment 0 [facility] Work Phone: Do you feel stress - tense, restless, nervous, or anxious, or unable to sleep at night because your mind is troubled all the time - these days [OSQ] To some extent [facility] Work Phone: (I/We) worried sangeeta er (my/our) food would run out before (I/we) got money to buy more. Never true [facility] Start: 07-02-2024 End: 05-20-2025 Alcoholic beverage intake Ex-drinker (finding) [facility] NEGATED: Highlighted rowStart: NINF History of tobacco use Passive smoker [facility] Functional Status Date Assessment Result Facility 02-18-2015 Are you deaf, or do you have serious difficulty hearing No 02/18/2015 11:24 AM May Hdz Cma No [facility] 02-18-2015 Are you blind, or do you have serious difficulty seeing, even when wearing glasses No 02/18/2015 11:24 AM May Hdz Cma No [facility] 02-18-2015 Do you have serious difficulty walking or climbing stairs No 02/18/2015 11:24 AM May Hdz Cma No [facility] 02-18-2015 Do you have difficul ty dressing or bathing No 02/18/2015 11:24 AM May Hdz Cma No [facility] 02-18-2015 Because of a physica l, mental, or emotional condition, do you have difficulty doing errands alone such as visiting a physician's office or shopping No 02/18/2015 11:24 AM EDT Trev Zee Amanda' Alix No [facility] Mental Status Date Assessment Result Facility 02-18-2015 Because of a physica l, mental, or emotional condition, do you have serious difficulty concentrating, remembering, or making decisions No 02/18/2015 11:24 AM EDT Trev Zee Amanda' Alix No [facility] Clinical Notes 10-05-2008 to 07-26-2025 Carina Galvez APRN.HOB MACHINE OPERATOR - 06/23/2025 2:52 PM Yogi Hendrix PT - 06/01/2025 10:29 AM Yogi Hendrix PT - 05/31/2025 2:54 PM Rafael Boyer MD - 05/20/2025 1:48 PM EDT Note Date & Type Note Facility 07-26-2025 Note HNO ID: [id number] Author: YOGI MAZARIEGOS PT Service: ? Author Type: Physical Therapist Type: Progress Notes Filed: 07/26/2025 16:01 Note Text: Episode Visit Count: 3 Therapist That Will Accept/Oversee The Plan Of Care: Yogi Mazariegos Start of Care Date: 05/31/25 Onset Date: 10/21/24 Plan of Care Certification Date: 05/31/25 Next Certification Due Date: 07/31/25 REHABILITATION AND SPORTS THERAPY PHYSICAL THERAPY PROGRESS REPORT PLAN OF CARE UPDATE: Assessment: Dawn Mccarty demonstrates moderate improvement in LECHUGA's. The patient has progressed toward goals. Patient continues to present with impairments in ADL's, overall function, range of motion, symptom management, and tissue tenderness that interfere with . Current prognosis is Good due to: current objective clinical presentation, good overall health status, acuteness of condition, positive past response to therapy, within-session changes, good support system/ coping skills . The patient will benefit from continued skilled therapy services to meet the updated goals for this plan of care as noted below. Goals updated on 07/26/2025. Goals for Episode of Care: established 05/31/25 Independent in a Home Exercise Program. Met Patient will decrease pain rating by 2 points to meet minimal clinical important difference for numeric pain rating scale. Partially met Restore pain free cervical ROM to WNL to allow for decreased pain and LECHUGA frequency. Improved Sleep throughout the night without pain/symptoms. Partially met Sit 8 hours without pain/symptoms to allow for improved tolerance for work tasks and decreased pain. Partially met Planned Interventions, Frequency, and Duration: 1x every other week, 4 weeks Total Number of Visits Planned: 2 Patient to be seen for Therapeutic exercise (50869), Neuromuscular re-education (03476), Manual therapy (71571), Therapeutic activities (76871), Self-fpc management (61548), Patient/Family/Caregiver Education, Body Mechanics Training PLAN FOR NEXT VISIT: Manual as needed, progress upper cervical stretches to tolerance. May need DNF/DNE strengthening SUBJECTIVE: Patient notes that his LECHUGA's are better and less frequent, and that he feels his lower neck is much better. But, his upper cervical into the back of the head still very tight and causing LECHUGA's. Patient has made great postural adjustments with his work station bringing monitor to eye level and a supportive, ergonomic chair. Pain: Pain Pain Level: 5 Pain Location: Head - Right Description: Pressure, Sore Frequency: Intermittent PROMIS Scales 01/28/2025 11/05/2023 Higher is Better Phys Func - T Score 47 (within normal limits) Phys Func - Percentile 38 Self-Eff Symptom - T Score 35 (Low) Self-Eff Symptom - Percentile 7 Proxy-reported 01/28/2025 Lower is Better Pain Interference - T Score 65 (moderate) Pain Interference - Percentile 7 Proxy-reported T-Score and Percentile Interpretation T-scores: mean of general population = 50. 5 points is clinically meaningfully difference Percentiles provide an indication of how the patient's score ranks in relation to the general population. Higher percentile rankings indicate better function/quality of life. 50th percentile is the average of the general population and indicates half of respondents had a worse score. OBJECTIVE MEASURES WITH LEVEL OF FUNCTION: Spine Observations R Cervical Spine Palpation Tenderness: Suboccipitals Cervical Spine ROM Cervical Flexion AROM: Normal Cervical Extension AROM: Normal Cervical Side-Bend Right AROM: Normal Cervical Side-Bend Left AROM: Moderate limitation Cervical Rotation Right AROM: Normal Cervical Rotation Left AROM: Minimal limitation Spine Joint Mobility Joint Mobility - C1: Hypomobile (Moderate limitations in B upper cervical rotation) UE and Cervical Strength R UE Strength: 4+/5 periscapular L UE Strength: 4+/5 periscapular TREATMENT: Therapeutic Exercise: 1: *C2 SNAG 3x10 2: *C2 AROM extension 3x10 3: *C1 rotation mobs 3x10/side 4: *Suboccipital stretch 3x10, 5 sec holds 5: Objective measures obtained Skilled Intervention: Patient was educated in proper exercise technique and purpose for exercises. Skilled judgment was used in selection of appropriate interventions. Provided written instruction for home exercise program to facilitate proper performance and compliance. Correct performance of therapeutic exercises was facilitated with verbal, visual, and tactile cuing. Manual Therapy: 1: STM and CFM to B suboccipitals with push to tolerance 2: C1 AP mobs grade 2-3 x20 Skilled Intervention: Manual skills to improve joint mobility, ROM, and decrease pain. Utilized anatomy knowledge of the clinician, and assessment of patient's response to intervention. Billing Therapeutic Exercise Treatment Minutes: 28 Manual TherapyTreatment Minutes: 15 Skilled Treatment Time Minutes (timed a (more content not included)... [facility] 07-13-2025 Note HNO ID: [id number] Author: YOGI MAZARIEGOS PT Service: ? Author Type: Physical Therapist Type: Progress Notes Filed: 07/13/2025 15:21 Note Text: Episode Visit Count: 2 Therapist That Will Accept/Oversee The Plan Of Care: Yogi Mazariegos Start of Care Date: 05/31/25 Onset Date: 10/21/24 Plan of Care Certification Date: 05/31/25 Next Certification Due Date: 07/31/25 REHABILITATION AND SPORTS THERAPY PHYSICAL THERAPY PROGRESS REPORT PLAN OF CARE UPDATE: Assessment: Dawn Mccarty demonstrates moderate improvement in LECHUGA symptoms and frequency. The patient has progressed toward goals. Patient continues to present with impairments in ADL's, range of motion, symptom management, and tissue tenderness that interfere with . Current prognosis is Good due to: current objective clinical presentation, good overall health status, acuteness of condition, positive past response to therapy, within-session changes, good support system/ coping skills . The patient will benefit from continued skilled therapy services to meet the updated goals for this plan of care as noted below. Goals updated on 07/13/2025. Goals for Episode of Care: established 05/31/25 Independent in a Home Exercise Program. Met Patient will decrease pain rating by 2 points to meet minimal clinical important difference for numeric pain rating scale. Partially met Restore pain free cervical ROM to WNL to allow for decreased pain and LECHUGA frequency. Not met Sleep throughout the night without pain/symptoms. Partially met Sit 8 hours without pain/symptoms to allow for improved tolerance for work tasks and decreased pain. Partially met Time Frame for Goals and Treatment : 08/12/25 Planned Interventions, Frequency, and Duration: 1x every other week, 4 weeks Total Number of Visits Planned: 2 Patient to be seen for Therapeutic exercise (76456), Neuromuscular re-education (53186), Self-fpc management (05893), Manual therapy (27631), Therapeutic activities (46053), Patient/Family/Caregiver Education, Body Mechanics Training PLAN FOR NEXT VISIT: Needle if needed, manual for upper cervical SUBJECTIVE: LECHUGA's have at least halved sicne first being seen. Notes that he takes Ibuprofen every other day or every 4 days or so now vs every day. Watching posture, continuing stretches. Havign tough time with chin tucks with immediately cause pain. Pain: Pain Pain Level: 4 Pain Location: Head - Right, Neck - Right, Jaw Description: Pressure, Aching, Radiating, Tightness Frequency: Continuous PROMIS Scales 01/28/2025 11/05/2023 Higher is Better Phys Func - T Score 47 (within normal limits) Phys Func - Percentile 38 Self-Eff Symptom - T Score 35 (Low) Self-Eff Symptom - Percentile 7 Proxy-reported 01/28/2025 Lower is Better Pain Interference - T Score 65 (moderate) Pain Interference - Percentile 7 Proxy-reported T-Score and Percentile Interpretation T-scores: mean of general population = 50. 5 points is clinically meaningfully difference Percentiles provide an indication of how the patient's score ranks in relation to the general population. Higher percentile rankings indicate better function/quality of life. 50th percentile is the average of the general population and indicates half of respondents had a worse score. OBJECTIVE MEASURES WITH LEVEL OF FUNCTION: Spine Observations R Cervical Spine Palpation Tenderness: Upper trapezius, Suboccipitals Cervical Spine ROM Cervical ROM : (major limitation R suboccipitals) Cervical Flexion AROM: Minimal limitation Cervical Extension AROM: Minimal limitation Cervical Side-Bend Right AROM: Normal Cervical Side-Bend Left AROM: Moderate limitation Cervical Rotation Right AROM: Normal Cervical Rotation Left AROM: Minimal limitation TREATMENT: Therapeutic Exercise: 1: *Upper cervical C1 rotation self mobs 3x10 to L with overpressure on R 2: Reviewed HEP Skilled Intervention: Patient was educated in proper exercise technique and purpose for exercises. Skilled judgment was used in selection of appropriate interventions. Provided written instruction for home exercise program to facilitate proper performance and compliance. Correct performance of therapeutic exercises was facilitated with verbal, visual, and tactile cuing. Manual Therapy: 1: STM and TrPr to R suboccipitals and upper trap with push to tolerance 2: Objective measures obtained Dry Needling: (1) 30 mm needle to R upper trap with pistoning and fanning (1 needle in, 1 needle out. Patient reports familiar neck pain but no LECHUGA's. Appropriate soreness post session) Skilled Intervention: Manual skills to improve joint mobility, ROM, and decrease pain. Utilized anatomy knowledge of the clinician, and assessment of patient's response to intervention. Billing Therapeutic Exercise Treatment Minutes: 5 Manual TherapyTreatment Minutes: 37 Skilled Treatment Time Minutes (timed and untimed codes): 42 (more content not included)... [facility] 06-23-2025 Note HNO ID: [id number] Author: CARINA GALVEZ APRN.[facility] Service: ? Author Type: Nurse Practitioner Type: Progress Notes Filed: 06/23/2025 14:52 Note Text: [facility] Subjective Dawn Mccarty is a 24 year old male. Patient presents with: Pain, Sinus: congestion x 6 days HPI The patient is a 24-year-old male presenting with right-sided facial pain, headaches, and ear discomfort. Right-Sided Facial Pain and Ear Discomfort: - Onset of right-sided facial pain and ear discomfort 6 days ago, following a month of persistent headaches. - Describes facial pain as sensitivity around my eye and head sensitivity. - Right-sided throat pain and ear discomfort noted; symptoms are improving. - Hot showers provide temporary relief; symptoms return within 2 minutes of exiting the shower. - Denies taking Claritin or Zyrtec; no known allergy testing performed. - Symptoms worsen when sitting or lying down; improve when standing. Headaches: - Persistent headaches for a month, beginning after prolonged randy sessions. - Describes headaches as forehead pressure and eye pressure, different from previous headaches localized to the congregation and eye. - Headaches resolved before onset of current facial pain and ear discomfort. - Hot showers provide temporary relief; ibuprofen alleviates 90% of symptoms. - Initially took 1000 mg of ibuprofen daily; now reduced to 1 tablet per day. - Recent eye exam showed no abnormalities. - Denies associated symptoms such as brain tumor symptoms. Review of Systems Head: (+) headaches, (+) scalp tenderness Eyes: (+) eye pressure, (+) right periorbital tenderness, (+) eye pain Ears/Nose/Mouth/Throat: (+) right ear pain, (+) ear drainage, (+) nasal pressure, (+) right sore throat, (+) epistaxis Objective BP 118/72 Pulse 94 Temp 36.4 ?C (97.6 ?F) Resp 16 Wt 78.8 kg (173 lb 11.6 oz) SpO2 99% BMI 27.21 kg/m? Physical Exam General: No acute distress. CV: Heart sounds normal. Resp: Lungs clear to auscultation bilaterally. HEENT: Fluid behind right tympanic membrane; left tympanic membrane without fluid; posterior pharynx with cobblestoning; tenderness to palpation of right periorbital region. Neck: No lymphadenopathy. { 1. Sinus congestion (R09.81) - Exam findings consistent with allergic rhinitis and sinus congestion: fluid behind right tympanic membrane, cobblestoning of posterior pharynx, and facial pressure. - Advised trial of OTC antihistamines (Claritin or Zyrtec) for 2 weeks to assess symptom relief; may switch to alternative after 2 weeks if no improvement. - Discussed use of steroid nasal spray as adjunct for inflammation and drainage, but deferred due to patient's history of epistaxis. - Educated on allergy management, environmental triggers, and importance of consistent medication use. and Recording using [employer] software for draft documentation of the visit was discussed with the patient/authorized customer field representative; all questions welcomed and answered. Patient/authorized customer field representative agreed to proceed History and Record Review External record(s) reviewed: no prior records. Disposition The patient was discharged. Procedures [facility] 06-23-2025 History of Present illness Narrative [facility] Cobb Jose Alejandro is a 24 year old male. Patient presents with: Pain, Sinus: congestion x 6 days HPI The patient is a 24-year-old male presenting with right-sided facial pain, headaches, and ear discomfort. Right-Sided Facial Pain and Ear Discomfort: - Onset of right-sided facial pain and ear discomfort 6 days ago, following a month of persistent headaches. - Describes facial pain as sensitivity around my eye and head sensitivity. - Right-sided throat pain and ear discomfort noted; symptoms are improving. - Hot showers provide temporary relief; symptoms return within 2 minutes of exiting the shower. - Denies taking Claritin or Zyrtec; no known allergy testing performed. - Symptoms worsen when sitting or lying down; improve when standing. Headaches: - Persistent headaches for a month, beginning after prolonged randy sessions. - Describes headaches as forehead pressure and eye pressure, different from previous headaches localized to the congregation and eye. - Headaches resolved before onset of current facial pain and ear discomfort. - Hot showers provide temporary relief; ibuprofen alleviates 90% of symptoms. - Initially took 1000 mg of ibuprofen daily; now reduced to 1 tablet per day. - Recent eye exam showed no abnormalities. - Denies associated symptoms such as brain tumor symptoms. Review of Systems Head: (+) headaches, (+) scalp tenderness Eyes: (+) eye pressure, (+) right periorbital tenderness, (+) eye pain Ears/Nose/Mouth/Throat: (+) right ear pain, (+) ear drainage, (+) nasal pressure, (+) right sore throat, (+) epistaxis Objective BP 118/72 Pulse 94 Temp 36.4 C (97.6 F) Resp 16 Wt 78.8 kg (173 lb 11.6 oz) SpO2 99% BMI 27.21 kg/m Physical Exam General: No acute distress. CV: Heart sounds normal. Resp: Lungs clear to auscultation bilaterally. HEENT: Fluid behind right tympanic membrane; left tympanic membrane without fluid; posterior pharynx with cobblestoning; tenderness to palpation of right periorbital region. Neck: No lymphadenopathy. { 1. Sinus congestion (R09.81) - Exam findings consistent with allergic rhinitis and sinus congestion: fluid behind right tympanic membrane, cobblestoning of posterior pharynx, and facial pressure. - Advised trial of OTC antihistamines (Claritin or Zyrtec) for 2 weeks to assess symptom relief; may switch to alternative after 2 weeks if no improvement. - Discussed use of steroid nasal spray as adjunct for inflammation and drainage, but deferred due to patient's history of epistaxis. - Educated on allergy management, environmental triggers, and importance of consistent medication use. and Recording using [employer] software for draft documentation of the visit was discussed with the patient/authorized customer field representative; all questions welcomed and answered. Patient/authorized customer field representative agreed to proceed History and Record Review External record(s) reviewed: no prior records. Disposition The patient was discharged. Procedures documented in this encounter [facility] 06-01-2025 Note HNO ID: [id number] Author: YOGI MAZARIEGOS PT Service: ? Author Type: Physical Therapist Type: Progress Notes Filed: 06/01/2025 10:33 Note Text: Episode Visit Count: 1 Therapist That Will Accept/Oversee The Plan Of Care: Yogi Mazariegos Start of Care Date: 05/31/25 Onset Date: 10/21/24 Plan of Care Certification Date: 05/31/25 Next Certification Due Date: 07/31/25 Patient Identified by Name and Date of : Yes REHABILITATION AND SPORTS THERAPY PHYSICAL THERAPY EVALUATION PLAN OF CARE: Assessment: Dawn Mccarty presents with chief complaint of chronic LECHUGA's that interferes with sitting, working . The patient presents with impairments in ADL's, overall function, range of motion, symptom management, and tissue tenderness. Patient did not complete the PROMIS? (Patient Reported Outcome Measures Information System). Prognosis for therapy is Good due to: current objective clinical presentation, good overall health status, acuteness of condition, positive past response to therapy, within-session changes, good support system/ coping skills . The patient will benefit from skilled therapy services to meet the goals established for this plan of care as noted below. Goals for Episode of Care: established 05/31/25 Independent in a Home Exercise Program. Patient will decrease pain rating by 2 points to meet minimal clinical important difference for numeric pain rating scale. Restore pain free cervical ROM to WNL to allow for decreased pain and LECHUGA frequency. Sleep throughout the night without pain/symptoms. Sit 8 hours without pain/symptoms to allow for improved tolerance for work tasks and decreased pain Time Frame for Goals and Treatment : 07/31/25 Planned Interventions, Frequency, and Duration: Current Frequency: 1x/week Duration: 8 weeks Total Number of Visits Planned: 8 Planned Treatment Interventions: Therapeutic exercise (97732), Neuromuscular re-education (65137), Manual therapy (94039), Therapeutic activities (03826), Self-fpc management (28113), Patient/Family/Caregiver Education, Body Mechanics Training PLAN FOR NEXT VISIT: Assess carry over of needling, progress exercises as tolerated, needling/manual per symptom response Patient demonstrates good understanding of plan of care and treatment. The above goals and plan of care were discussed and agreed upon by patient/family. SUBJECTIVE: Patient notes return of LECHUGA's after months of no LECHUGA's after fixing posture, increasing water intake. This is not the same hot, burning pain like before, but intense pressure, tightness, and pain into the congregation, occipital area on R, and a lot of jaw pain with popping. He is taking ibuprofen everyday now for the LECHUGA's to make them tolerable Functional Limitations: sitting, working Intake Information: Prescription present Pain: Pain Pain Level: 7 Pain Location: Head - Right, Neck - Right, Jaw Description: Pressure, Aching, Radiating, Tightness Frequency: Continuous PROMIS Scales 01/28/2025 11/05/2023 Higher is Better Phys Func - T Score 47 (within normal limits) Phys Func - Percentile 38 Self-Eff Symptom - T Score 35 (Low) Self-Eff Symptom - Percentile 7 Proxy-reported 01/28/2025 Lower is Better Pain Interference - T Score 65 (moderate) Pain Interference - Percentile 7 Proxy-reported T-Score and Percentile Interpretation T-scores: mean of general population = 50. 5 points is clinically meaningfully difference Percentiles provide an indication of how the patient's score ranks in relation to the general population. Higher percentile rankings indicate better function/quality of life. 50th percentile is the average of the general population and indicates half of respondents had a worse score. OBJECTIVE MEASURES WITH LEVEL OF FUNCTION: Spine Observations R Cervical Spine Palpation Tenderness: Upper trapezius, Sternocleidomastoid, Suboccipitals, Paraspinals, Comments Comments: Deep masseter Cervical Spine ROM Cervical ROM : Limitation AROM Cervical Flexion AROM: Minimal limitation Cervical Extension AROM: Minimal limitation, End range pain, Produces Cervical Side-Bend Right AROM: Normal Cervical Side-Bend Left AROM: Moderate limitation, Produces Cervical Rotation Right AROM: Normal Cervical Rotation Left AROM: Moderate limitation Spine Joint Mobility Spine Joint Mobility : Cervical/Thoracic Joint Mobility - C1: Hypomobile (Significant hypomobility with L rotation; restriction on R) UE and Cervical Strength R UE Strength: 4/5 periscapular L UE Strength: 4/5 periscapular Education: Education Learning Preferences: Demonstration, Explanation, Printed Materials Barriers: None Learning/educational needs: Home exercise program, Plan of Care, Changes in Plan of Care, Posture, Body Mechanics Education Provided: Yes, see treatment interventions for education provided Education Provided To: Patient Education Mode/Type: Demonstration, (more content not included)... [facility] 06-01-2025 History of Present illness Narrative Images from the original note were not included. Episode Visit Count: 1 Therapist That Will Accept/Oversee The Plan Of Care: Yogi Mazariegos Start of Care Date: 05/31/25 Onset Date: 10/21/24 Plan of Care Certification Date: 05/31/25 Next Certification Due Date: 07/31/25 Patient Identified by Name and Date of : Yes [facility] PHYSICAL THERAPY EVALUATION PLAN OF CARE: Assessment: Dawn Mccarty presents with chief complaint of chronic LECHUGA's that interferes with sitting, working . The patient presents with impairments in ADL's, overall function, range of motion, symptom management, and tissue tenderness. Patient did not complete the PROMIS (Patient Reported Outcome Measures Information System). Prognosis for therapy is Good due to: current objective clinical presentation, good overall health status, acuteness of condition, positive past response to therapy, within-session changes, good support system/ coping skills . The patient will benefit from skilled therapy services to meet the goals established for this plan of care as noted below. Goals for Episode of Care: established 05/31/25 Independent in a Home Exercise Program. Patient will decrease pain rating by 2 points to meet minimal clinical important difference for numeric pain rating scale. Restore pain free cervical ROM to WNL to allow for decreased pain and LECHUGA frequency. Sleep throughout the night without pain/symptoms. Sit 8 hours without pain/symptoms to allow for improved tolerance for work tasks and decreased pain Time Frame for Goals and Treatment : 07/31/25 Planned Interventions, Frequency, and Duration: Current Frequency: 1x/week Duration: 8 weeks Total Number of Visits Planned: 8 Planned Treatment Interventions: Therapeutic exercise (89244), Neuromuscular re-education (71149), Manual therapy (72780), Therapeutic activities (11737), Self-fpc management (23118), Patient/Family/Caregiver Education, Body Mechanics Training PLAN FOR NEXT VISIT: Assess carry over of needling, progress exercises as tolerated, needling/manual per symptom response Patient demonstrates good understanding of plan of care and treatment. The above goals and plan of care were discussed and agreed upon by patient/family. SUBJECTIVE: Patient notes return of LECHUGA's after months of no LECHUGA's after fixing posture, increasing water intake. This is not the same hot, burning pain like before, but intense pressure, tightness, and pain into the congregation, occipital area on R, and a lot of jaw pain with popping. He is taking ibuprofen everyday now for the LECHUGA's to make them tolerable Functional Limitations: sitting, working Intake Information: Prescription present Pain: Pain Pain Level: 7 Pain Location: Head - Right, Neck - Right, Jaw Description: Pressure, Aching, Radiating, Tightness Frequency: Continuous PROMIS Scales 01/28/2025 11/05/2023 Higher is Better Phys Func - T Score 47 (within normal limits) Phys Func - Percentile 38 Self-Eff Symptom - T Score 35 (Low) Self-Eff Symptom - Percentile 7 Proxy-reported 01/28/2025 Lower is Better Pain Interference - T Score 65 (moderate) Pain Interference - Percentile 7 Proxy-reported T-Score and Percentile Interpretation T-scores: mean of general population = 50. 5 points is clinically meaningfully difference Percentiles provide an indication of how the patient's score ranks in relation to the general population. Higher percentile rankings indicate better function/quality of life. 50th percentile is the average of the general population and indicates half of respondents had a worse score. OBJECTIVE MEASURES WITH LEVEL OF FUNCTION: Spine Observations R Cervical Spine Palpation Tenderness: Upper trapezius, Sternocleidomastoid, Suboccipitals, Paraspinals, Comments Comments: Deep masseter Cervical Spine ROM Cervical ROM : Limitation AROM Cervical Flexion AROM: Minimal limitation Cervical Extension AROM: Minimal limitation, End range pain, Produces Cervical Side-Bend Right AROM: Normal Cervical Side-Bend Left AROM: Moderate limitation, Produces Cervical Rotation Right AROM: Normal Cervical Rotation Left AROM: Moderate limitation Spine Joint Mobility Spine Joint Mobility : Cervical/Thoracic Joint Mobility - C1: Hypomobile (Significant hypomobility with L rotation; restriction on R) UE and Cervical Strength R UE Strength: 4/5 periscapular L UE Strength: 4/5 periscapular Education: Education Learning Preferences: Demonstration, Explanation, Printed Materials Barriers: None Learning/educational needs: Home exercise program, Plan of Care, Changes in Plan of Care, Posture, Body Mechanics Education Provided: Yes, see treatment interventions for education provided Education Provided To: Patient Education Mode/Type: Demonstration, Explanation/Discussion, Literature/Printed Materials, Performance, Teach Back Response to Education/Teach Back: States/Identifies, Return Demonstration TREATMENT: PT Treatment Interventions: Therapeutic Exercise, Manual Therapy, Self-Mcc Management Evaluation Therapeutic Exercise: 1: *Neck elbongation 3x10, 2-3 sec holds 2: *Upper trap stretch to L 3x30 sec 3: *Upper cervical SNAG with towel to L 3x10, 2-3 sec holds 4: *Self TrPr to R deep masseter with push to tolerance Skilled Intervention: Patient was educated in proper exercise technique and purpose for exercises. Skilled judgment was used in selection of appropriate interventions. Provided written instruction for home exercise program to facilitate proper performance and compliance. Correct performance of therapeutic exercises was facilitated with verbal, visual, and tactile cuing. Manual Therapy: 1: STM to R upper trap, SCM, and suboccipitals with push to tolerance while also assessing for tissue quality and reproduction of symptoms 2: TrPr to R deep masseter intraorally with push to tolerance x2 until symptoms subside Dry Needling: (1) 30 and 40 mm needle to R upper trap with pistoning and fanning; (1) 25 mm needle to R SCM with light pistoning (3 needles in, 3 needles out. Patient consent gained after discussing treatment options. Patient reports familiar symptoms with both upper trap and SCM, pain much improved post session) Skilled Intervention: Manual skills to improve joint mobility, ROM, and decrease pain. Utilized anatomy knowledge of the clinician, and assessment of patient's response to intervention. Self-Mcc Management: 1: Discussed postural adjustments and improvements patient has made, other tweaks he can make 2: Discussed inverse relationship and research backing sodium intake the LECHUGA frequency/intensity Skilled Intervention: Skilled judgment in the selection of proper modification for activity of daily living/home management based on clinical presentation, deficits, and needs. Reviewed patient specific diagnosis in relation to activities of daily living/home management. Activity progression based on professional judgement. Billing * Evaluation Low Complexity: 1 Unit Therapeutic Exercise Treatment Minutes: 10 Manual TherapyTreatment Minutes: 20 Self-Care/Home Management Treatment Minutes: 10 Skilled Treatment Time Minutes (timed and untimed codes): 52 Total Session Time (minutes): 52 Session Start Time : 1402 Session Stop Time : 1454 Yogi Mazariegos PT Program_ID:[id number] Access Code: [email or web address] URL: [email or web address] Date: 05-31-2025 Prepared By: Florence Apple Program Notes Exercises - CC TMJ Masseter Massage - 1 x daily - 7 x weekly - 3 sets - reps - Seated Chin Tuck with Neck Elongation - 1 x daily - 7 x weekly - 3 sets - 10 reps - Seated Assisted Cervical Rotation with Towel - 1 x daily - 7 x weekly - 3 sets - 10 reps documented in this encounter [facility] 05-20-2025 Note HNO ID: [id number] Author: RAFAEL DALE MD Service: ? Author Type: Physician Type: Progress Notes Filed: 05/20/2025 14:21 Note Text: [facility] Subjective Dawn Mccarty is a 24 year old male. Patient presents with: Headache: Started as frontal LECHUGA for 5 days, now only R side LECHUGA with jaw and sinus pain x4 days Head pain: Duration: Initial frontal headache started 9 days ago after extended videogame playing on vacation and improved with muscle relaxer. Right head jaw neck pain has been present the last 5 days. Location: Right temporomandibular joint, congregation, and jaw. Character: Aching. Similar to prior issues. Radiation: Into the ear and trapezius. Aggravating: Chewing. 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 Objective BP 143/96 Pulse 88 Temp 36.5 ?C (97.7 ?F) Resp 18 Wt 79.6 kg (175 lb 7.8 oz) SpO2 100% BMI 27.49 kg/m? Physical Exam Constitutional: General: He is not in acute distress. Appearance: He is not ill-appearing. HENT: Right Ear: Tympanic membrane and ear canal normal. Tenderness (Right TMJ tenderness with palpation) present. Left Ear: Tympanic membrane and ear canal normal. Nose: No congestion. Eyes: Extraocular Movements: Extraocular movements intact. Conjunctiva/sclera: Conjunctivae normal. Pupils: Pupils are equal, round, and reactive to light. Cardiovascular: Rate and Rhythm: Normal rate and regular rhythm. Heart sounds: No murmur heard. Pulmonary: Effort: No respiratory distress. Breath sounds: No wheezing, rhonchi or rales. Musculoskeletal: Cervical back: Neck supple. No tenderness. Lymphadenopathy: Cervical: No cervical adenopathy. Neurological: General: No focal deficit present. Mental Status: He is alert and oriented to person, place, and time. Cranial Nerves: No cranial nerve deficit. Motor: No weakness. Coordination: Coordination normal. Gait: Gait normal. Deep Tendon Reflexes: Reflexes normal. Psychiatric: Mood and Affect: Mood normal. {ASSESSMENT/PLAN: 1. Cervicogenic headache - ICD9: 784.0, ICD10: G44.86 Exacerbation of chronic recurrent issue. Continue ibuprofen Refill - CYCLOBENZAPRINE 10 MG TABLET Schedule - CONSULT TO PHYSICAL THERAPY Rafael Dale MD Differential Diagnoses - Cervicogenic headache is more likely for the following reason(s): suggested by HANDP - TMJ arthralgia Procedures [facility] 05-20-2025 History of Present illness Narrative [facility] Dawn Mccarty is a 24 year old male. Patient presents with: Headache: Started as frontal LECHUGA for 5 days, now only R side LECHUGA with jaw and sinus pain x4 days Head pain: Duration: Initial frontal headache started 9 days ago after extended videogame playing on vacation and improved with muscle relaxer. Right head jaw neck pain has been present the last 5 days. Location: Right temporomandibular joint, congregation, and jaw. Character: Aching. Similar to prior issues. Radiation: Into the ear and trapezius. Aggravating: Chewing. 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 Objective BP 143/96 Pulse 88 Temp 36.5 C (97.7 F) Resp 18 Wt 79.6 kg (175 lb 7.8 oz) SpO2 100% BMI 27.49 kg/m Physical Exam Constitutional: General: He is not in acute distress. Appearance: He is not ill-appearing. HENT: Right Ear: Tympanic membrane and ear canal normal. Tenderness (Right TMJ tenderness with palpation) present. Left Ear: Tympanic membrane and ear canal normal. Nose: No congestion. Eyes: Extraocular Movements: Extraocular movements intact. Conjunctiva/sclera: Conjunctivae normal. Pupils: Pupils are equal, round, and reactive to light. Cardiovascular: Rate and Rhythm: Normal rate and regular rhythm. Heart sounds: No murmur heard. Pulmonary: Effort: No respiratory distress. Breath sounds: No wheezing, rhonchi or rales. Musculoskeletal: Cervical back: Neck supple. No tenderness. Lymphadenopathy: Cervical: No cervical adenopathy. Neurological: General: No focal deficit present. Mental Status: He is alert and oriented to person, place, and time. Cranial Nerves: No cranial nerve deficit. Motor: No weakness. Coordination: Coordination normal. Gait: Gait normal. Deep Tendon Reflexes: Reflexes normal. Psychiatric: Mood and Affect: Mood normal. {ASSESSMENT/PLAN: 1. Cervicogenic headache - ICD9: 784.0, ICD10: G44.86 Exacerbation of chronic recurrent issue. Continue ibuprofen Refill - CYCLOBENZAPRINE 10 MG TABLET Schedule - CONSULT TO PHYSICAL THERAPY Rafael Dale MD Differential Diagnoses - Cervicogenic headache is more likely for the following reason(s): suggested by H&P - TMJ arthralgia Procedures documented in this encounter [facility] 04-08-2025 Telephone encounter Note Patient calls and notified of results and providers instructions. Patient verbalizes understanding. Maria L Bonilla RN [facility] 04-08-2025 Miscellaneous Notes Patient calls and notified of results and providers instructions. Patient verbalizes understanding. Maria L Bonilla RN documented in this encounter [facility] 04-07-2025 Note HNO ID: [id number] Author: FLORENCE GONG APRN.HOB MACHINE OPERATOR Service: ? Author Type: Nurse Practitioner Type: Progress Notes Filed: 04/07/2025 17:11 Note Text: [facility] Subjective Dawn Mccarty is a 24 year old male. Patient presents with: Derm Problem: Feels like pin pricks all over body x 8 days HPI Paresthesias: - Onset 8 days ago. - Described as intermittent prick sensations, similar to mild itching, occurring in various locations including the tip of the finger and back of the ear. - No associated pain; symptoms are described as annoying. - Symptoms are not constant and can be forgotten during distraction (e.g., playing video games). - No specific pattern; can occur multiple times in an hour or be absent for extended periods. - Possible correlation with use of [employer] Warm Vanilla Sugar moisturizing body wash 10 days ago. - Aggravated by heat and sweating; noted increase in symptoms when sweating on arms. - Denies associated fatigue, rashes, fever, chills, or weight loss. - Recent weight gain, which was intentional. - No history of asthma or diabetes. - Full blood panel and multiple scans performed 8 months ago due to health anxiety. Health Anxiety: - History of severe health anxiety, previously leading to frequent medical visits. - Has not sought medical attention for health anxiety-related concerns in a significant period. - Expresses anxiety about potential serious underlying conditions, including cancer. - Consulted ChatGPT about symptoms, which suggested benign causes. - Expresses anxiety about undergoing blood work due to fear of abnormal results. PAST MEDICAL HISTORY Diagnosis Date Attention deficit hyperactivity disorder (ADHD) 06/18/2007 Cervicogenic headache 09/07/2021 Chlamydia infection 03/15/2023 Gastroesophageal reflux disease 02/11/2023 PMH - PAST MEDICAL HISTORY OF cyst on testicle PMH - PAST MEDICAL HISTORY OF 05/22/2004 normal color vision Rib contusion 08/19/2012 Skin striae 07/22/2015 Tourette's disorder Unspecified asthma(493.90) PAST SURGICAL HISTORY Procedure Laterality Date CIRCUMCISION,CLAMP, 1998 EGD AC OLYMPUS 02/13/2022 TONSILLECTOMY AND ADENOIDECTOMY ALLERGIES Patient has no known allergies. MEDICATIONS omeprazole (PRILOSEC) 20 mg capsule Take 1 capsule by mouth once daily. methylPREDNISolone (MEDROL, ANGELI,) 4 mg Dose-Pack Take as instructed per package. FAMILY HISTORY Problem Relation Age of Onset Asthma Mother Drug abuse Mother other (adopted) Father Hypertension Maternal Grandmother Diabetes Maternal Grandfather Hypertension Maternal Grandfather other (cva) Maternal Grandfather other (myocardial infarction) Maternal Grandfather Social History Tobacco Use Smoking status: Never Passive exposure: Never Smokeless tobacco: Never Vaping Use Vaping status: Never Used Substance Use Topics Alcohol use: Not Currently Drug use: Not Currently Frequency: 14.0 times per week Types: Marijuana Comment: none since 2021 Review of Systems Constitutional: (+) weight gain, (-) fatigue, (-) fever, (-) chills, (-) weight loss, (-) malaise Skin: (+) pruritus, (-) rash Neurological: (+) paresthesias Musculoskeletal: (-) pain Psychiatric: (+) anxiety Objective BP 122/90 Pulse 92 Temp 36.9 ?C (98.5 ?F) Resp 19 Wt 77.5 kg (170 lb 13.7 oz) SpO2 98% BMI 26.76 kg/m? Physical Exam Vitals and nursing note reviewed. Constitutional: General: He is not in acute distress. Appearance: Normal appearance. He is not ill-appearing, toxic-appearing or diaphoretic. HENT: Head: Normocephalic and atraumatic. Right Ear: External ear normal. Left Ear: External ear normal. Nose: Nose normal. No congestion or rhinorrhea. Mouth/Throat: Mouth: Mucous membranes are moist. Pharynx: Oropharynx is clear. No oropharyngeal exudate or posterior oropharyngeal erythema. Eyes: General: Right eye: No discharge. Left eye: No discharge. Extraocular Movements: Extraocular movements intact. Conjunctiva/sclera: Conjunctivae normal. Pupils: Pupils are equal, round, and reactive to light. Cardiovascular: Rate and Rhythm: Normal rate and regular rhythm. Pulses: Normal pulses. Heart sounds: Normal heart sounds. No murmur heard. No friction rub. No gallop. Pulmonary: Effort: Pulmonary effort is normal. No respiratory distress. Breath sounds: Normal breath sounds. No stridor. No wheezing, rhonchi or rales. Chest: Chest wall: No tenderness. Abdominal: General: Abdomen is flat. There is no distension. Palpations: Abdomen is soft. There is no mass. Tenderness: There is no abdominal tenderness. There is no guarding or rebound. Hernia: No hernia is present. Musculoskeletal: General: No swelling, tenderness, deformity or signs of injury. Normal range of motion. Cervical back: Normal range of motion and neck supple. No rigidity or te (more content not included)... [facility] 04-07-2025 History of Present illness Narrative [facility] Subjective Dawn Mccarty is a 24 year old male. Patient presents with: Derm Problem: Feels like pin pricks all over body x 8 days HPI Paresthesias: - Onset 8 days ago. - Described as intermittent prick sensations, similar to mild itching, occurring in various locations including the tip of the finger and back of the ear. - No associated pain; symptoms are described as annoying. - Symptoms are not constant and can be forgotten during distraction (e.g., playing video games). - No specific pattern; can occur multiple times in an hour or be absent for extended periods. - Possible correlation with use of [employer] Warm Vanilla Sugar moisturizing body wash 10 days ago. - Aggravated by heat and sweating; noted increase in symptoms when sweating on arms. - Denies associated fatigue, rashes, fever, chills, or weight loss. - Recent weight gain, which was intentional. - No history of asthma or diabetes. - Full blood panel and multiple scans performed 8 months ago due to health anxiety. Health Anxiety: - History of severe health anxiety, previously leading to frequent medical visits. - Has not sought medical attention for health anxiety-related concerns in a significant period. - Expresses anxiety about potential serious underlying conditions, including cancer. - Consulted ChatGPT about symptoms, which suggested benign causes. - Expresses anxiety about undergoing blood work due to fear of abnormal results. PAST MEDICAL HISTORY Diagnosis Date Attention deficit hyperactivity disorder (ADHD) 06/18/2007 Cervicogenic headache 09/07/2021 Chlamydia infection 03/15/2023 Gastroesophageal reflux disease 02/11/2023 PMH - PAST MEDICAL HISTORY OF cyst on testicle PMH - PAST MEDICAL HISTORY OF 05/22/2004 normal color vision Rib contusion 08/19/2012 Skin striae 07/22/2015 Tourette's disorder Unspecified asthma(493.90) PAST SURGICAL HISTORY Procedure Laterality Date CIRCUMCISION,CLAMP, 1998 EGD AC OLYMPUS 02/13/2022 TONSILLECTOMY & ADENOIDECTOMY <AGE 12 ALLERGIES Patient has no known allergies. MEDICATIONS omeprazole (PRILOSEC) 20 mg capsule Take 1 capsule by mouth once daily. methylPREDNISolone (MEDROL, ANGELI,) 4 mg Dose-Pack Take as instructed per package. FAMILY HISTORY Problem Relation Age of Onset Asthma Mother Drug abuse Mother other (adopted) Father Hypertension Maternal Grandmother Diabetes Maternal Grandfather Hypertension Maternal Grandfather other (cva) Maternal Grandfather other (myocardial infarction) Maternal Grandfather Social History Tobacco Use Smoking status: Never Passive exposure: Never Smokeless tobacco: Never Vaping Use Vaping status: Never Used Substance Use Topics Alcohol use: Not Currently Drug use: Not Currently Frequency: 14.0 times per week Types: Marijuana Comment: none since 2021 Review of Systems Constitutional: (+) weight gain, (-) fatigue, (-) fever, (-) chills, (-) weight loss, (-) malaise Skin: (+) pruritus, (-) rash Neurological: (+) paresthesias Musculoskeletal: (-) pain Psychiatric: (+) anxiety Objective BP 122/90 Pulse 92 Temp 36.9 C (98.5 F) Resp 19 Wt 77.5 kg (170 lb 13.7 oz) SpO2 98% BMI 26.76 kg/m Physical Exam Vitals and nursing note reviewed. Constitutional: General: He is not in acute distress. Appearance: Normal appearance. He is not ill-appearing, toxic-appearing or diaphoretic. HENT: Head: Normocephalic and atraumatic. Right Ear: External ear normal. Left Ear: External ear normal. Nose: Nose normal. No congestion or rhinorrhea. Mouth/Throat: Mouth: Mucous membranes are moist. Pharynx: Oropharynx is clear. No oropharyngeal exudate or posterior oropharyngeal erythema. Eyes: General: Right eye: No discharge. Left eye: No discharge. Extraocular Movements: Extraocular movements intact. Conjunctiva/sclera: Conjunctivae normal. Pupils: Pupils are equal, round, and reactive to light. Cardiovascular: Rate and Rhythm: Normal rate and regular rhythm. Pulses: Normal pulses. Heart sounds: Normal heart sounds. No murmur heard. No friction rub. No gallop. Pulmonary: Effort: Pulmonary effort is normal. No respiratory distress. Breath sounds: Normal breath sounds. No stridor. No wheezing, rhonchi or rales. Chest: Chest wall: No tenderness. Abdominal: General: Abdomen is flat. There is no distension. Palpations: Abdomen is soft. There is no mass. Tenderness: There is no abdominal tenderness. There is no guarding or rebound. Hernia: No hernia is present. Musculoskeletal: General: No swelling, tenderness, deformity or signs of injury. Normal range of motion. Cervical back: Normal range of motion and neck supple. No rigidity or tenderness. Right lower leg: No edema. Left lower leg: No edema. Lymphadenopathy: Cervical: No cervical adenopathy. Skin: General: Skin is warm and dry. Capillary Refill: Capillary refill takes less than 2 seconds. Coloration: Skin is not jaundiced or pale. Findings: No bruising, lesion or rash. Neurological: General: No focal deficit present. Mental Status: He is alert and oriented to person, place, and time. Cranial Nerves: No cranial nerve deficit. Sensory: No sensory deficit. Motor: No weakness. Coordination: Coordination normal. Gait: Gait normal. Deep Tendon Reflexes: Reflexes normal. Psychiatric: Mood and Affect: Mood normal. Behavior: Behavior normal. Thought Content: Thought content normal. {1. Pruritus (L29.9) 2. Paresthesia of skin (R20.2) - Onset 8 days ago, described as intermittent pricking sensations in various locations without associated pain, rash, fever, or weight loss. - Possible triggers include recent use of [employer] Warm Vanilla Sugar moisturizing body wash and exposure to heat and sweat. - Ordered CBC with differential, CMP, and thyroid function tests to rule out underlying hematological, metabolic, or endocrine abnormalities. - Prescribed prednisone to reduce potential inflammatory or allergic reactions. - Patient advised to monitor symptoms and report any changes or worsening. - Follow-up will be determined based on lab results and response to treatment. and Recording using ambient [employer] software for draft documentation of the visit was discussed with the patient/authorized customer field representative; all questions welcomed and answered. Patient/authorized customer field representative agreed to proceed MDM Procedures documented in this encounter [facility] 03-03-2025 Telephone encounter Note Spoke to Dawn, he is needing refill of Meclizine (Antivert). Patient notices that any time he plays video games a lot he will get dizzy, asking for refill, tried Loratadine but that just makes him sleep x3 days. Offered appt, Patient is leaving for working in 30 minutes, can come in tomorrow AM if appt is needed. Pharmacy verified. Patient has been identified by name and date of : Yes Patient phones for refill(s): Requested Prescriptions Pending Prescriptions Disp Refills meclizine (ANTIVERT) 25 mg tab 42 tablet 0 Sig: Take 1 tablet by mouth three times a day for 14 days. Date of last office visit in primary care: 01/06/2025 Date of next office visit in primary care: Visit date not found Please advise. Thank you. Aggie Preciado LPN. [facility] 03-03-2025 Miscellaneous Notes Spoke to Dawn, he is needing refill of Meclizine (Antivert). Patient notices that any time he plays video games a lot he will get dizzy, asking for refill, tried Loratadine but that just makes him sleep x3 days. Offered appt, Patient is leaving for working in 30 minutes, can come in tomorrow AM if appt is needed. Pharmacy verified. Patient has been identified by name and date of : Yes Patient phones for refill(s): Requested Prescriptions Pending Prescriptions Disp Refills meclizine (ANTIVERT) 25 mg tab 42 tablet 0 Sig: Take 1 tablet by mouth three times a day for 14 days. Date of last office visit in primary care: 01/06/2025 Date of next office visit in primary care: Visit date not found Please advise. Thank you. Aggie Preciado LPN. Prescription Refill Information The patient has been identified by name and date of : Yes Caregiver verified no other encounters exist for this prescription request: Yes Caregiver confirmed with patient/requestor that no other refills are due, in the near future, with this provider at this time: Yes The last office visit in the department: 01/06/25 Does the patient have a future office visit with this provider/department: No Patient stated he was prescribed it previously for dizziness and it really helped and would like to get it again if possible. Requested Prescriptions Pending Prescriptions Disp Refills loratadine (CLARITIN) 10 mg tablet 14 tablet 0 Sig: Take 1 tablet by mouth once daily for 14 days. Navya Villela March 03, 2025 12:54 PM documented in this encounter [facility] 03-03-2025 Telephone encounter Note Prescription Refill Information The patient has been identified by name and date of : Yes Caregiver verified no other encounters exist for this prescription request: Yes Caregiver confirmed with patient/requestor that no other refills are due, in the near future, with this provider at this time: Yes The last office visit in the department: 01/06/25 Does the patient have a future office visit with this provider/department: No Patient stated he was prescribed it previously for dizziness and it really helped and would like to get it again if possible. Requested Prescriptions Pending Prescriptions Disp Refills loratadine (CLARITIN) 10 mg tablet 14 tablet 0 Sig: Take 1 tablet by mouth once daily for 14 days. Navya Villela March 03, 2025 12:54 PM [facility] 01-28-2025 Note HNO ID: [id number] Author: MUKUND BAUMAN PT Service: ? Author Type: Physical Therapist Type: Progress Notes Filed: 01/28/2025 16:35 Note Text: Episode Visit Count: 1 Therapist That Will Accept/Oversee The Plan Of Care: Mukund Bauman PT Start of Care Date: 01/28/25 Onset Date: 10/30/24 (pt reports previous tension headaches that started in 2023 but this episode is different) Plan of Care Certification Date: 01/28/25 Next Certification Due Date: 03/11/25 Patient Identified by Name and Date of : Yes REHABILITATION AND SPORTS THERAPY PHYSICAL THERAPY EVALUATION PLAN OF CARE: Assessment: Dawn Mccarty presents with chief complaint of neck pain and headaches that interferes with driving (playing video games, exercising) . The patient presents with impairments in independence in exercise, overall function, posture, strength, symptom management, and tissue tenderness. PROMIS? (Patient-Reported Outcomes Measurement Information System) scores were reviewed and identified as a rehabilitation concern. Prognosis for therapy is Fair due to: clinical presentation, chronic nature of impairments, poor past response to therapy intervention. The patient will benefit from skilled therapy services to meet the goals established for this plan of care as noted below. Goals for Episode of Care: established 01/28/25 Patient reported outcome of self-efficacy will increase T-score by a minimum 5 points. Independent in a Home Exercise Program. Patient will decrease pain rating by 2 points to meet minimal clinical important difference for numeric pain rating scale. Drive with no aggravation of pain/symptoms. Maintain proper sitting posture throughout the session to allow for improved postural habits. Patient will increase strength of postural muscles to WFL to allow for improve ability to maintain proper posture, improve mechanics, and decrease pain. Patient will be able to tolerate driving, playing video games, working and exercising without increased symptoms. Patient Goals: manage current symptoms Time Frame for Goals and Treatment : 03/11/25 Planned Interventions, Frequency, and Duration: Current Frequency: 1x/week Duration: 6 weeks Total Number of Visits Planned: 6 Planned Treatment Interventions: Therapeutic exercise (38071), Neuromuscular re-education (33894), Manual therapy (28154), Therapeutic activities (71456), Self-fpc management (55787), Patient/Family/Caregiver Education, Body Mechanics Training PLAN FOR NEXT VISIT: Review, correct and progress HEP to tolerance. Continue with postural correction, body mechanics instruction and work station ergonomics instruction. Continue with postural stretching and strengthening, progressing to tolerance. Attempt B UT and B levator scapulae stretching. Patient demonstrates good understanding of plan of care and treatment. The above goals and plan of care were discussed and agreed upon by patient/family. SUBJECTIVE: Pt reports intermittent pain in the left side of his neck that is accompanied by radicular symptoms into upper back, left shoulder and up into his head. He reports that his biggest concern currently is the catching and cracking in the left side of his neck. He reports that headaches are a lot less frequent than when he was seen in PT a year ago. He reports that his current symptoms vary in intensity and frequency. Sometimes he experiences symptoms 15x day and sometimes 1x day. 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 Infection Clinical Reasoning: No identified risk factors. Cervical Arterial Dysfunction Clinical Reasoning: No identified risk factors Red Flags - Cervical Cancer Clinical Reasoning: No identified risk factors. Infection Clinical Reasoning: No identified risk factors. Cervical Arterial Dysfunction Clinical Reasoning: No identified risk factors Spine History Symptoms Location at Onset: Neck, Headache Symptoms Since Onset: Unchanging Pain is Worse Sometimes: On the Move Pain is Better Sometimes: No position Previous Episodes: Yes Previous Spine Episodes: treated for cervicogenic headaches one year ago. Sleeping Position: Prone - head either right or left, Side lying right Sleep Affected by Pain: Not affected by pain Pain: Pain Pain Level: 7 (0/10 currently, 7/10 at worst) Pain Location: Neck - Left, Head - Left, Shoulder - Left, Scapula - Left Description: (cracking a bone) Javan (more content not included)... [facility] 01-28-2025 History of Present illness Narrative Images from the original note were not included. Episode Visit Count: 1 Therapist That Will Accept/Oversee The Plan Of Care: Mukund Bauman PT Start of Care Date: 01/28/25 Onset Date: 10/30/24 (pt reports previous tension headaches that started in 2023 but this episode is different) Plan of Care Certification Date: 01/28/25 Next Certification Due Date: 03/11/25 Patient Identified by Name and Date of : Yes REHABILITATION AND SPORTS THERAPY PHYSICAL THERAPY EVALUATION PLAN OF CARE: Assessment: Dawn Mccarty presents with chief complaint of neck pain and headaches that interferes with driving (playing video games, exercising) . The patient presents with impairments in independence in exercise, overall function, posture, strength, symptom management, and tissue tenderness. PROMIS (Patient-Reported Outcomes Measurement Information System) scores were reviewed and identified as a rehabilitation concern. Prognosis for therapy is Fair due to: clinical presentation, chronic nature of impairments, poor past response to therapy intervention. The patient will benefit from skilled therapy services to meet the goals established for this plan of care as noted below. Goals for Episode of Care: established 01/28/25 Patient reported outcome of self-efficacy will increase T-score by a minimum 5 points. Independent in a Home Exercise Program. Patient will decrease pain rating by 2 points to meet minimal clinical important difference for numeric pain rating scale. Drive with no aggravation of pain/symptoms. Maintain proper sitting posture throughout the session to allow for improved postural habits. Patient will increase strength of postural muscles to WFL to allow for improve ability to maintain proper posture, improve mechanics, and decrease pain. Patient will be able to tolerate driving, playing video games, working and exercising without increased symptoms. Patient Goals: manage current symptoms Time Frame for Goals and Treatment : 03/11/25 Planned Interventions, Frequency, and Duration: Current Frequency: 1x/week Duration: 6 weeks Total Number of Visits Planned: 6 Planned Treatment Interventions: Therapeutic exercise (84884), Neuromuscular re-education (60625), Manual therapy (59647), Therapeutic activities (26137), Self-fpc management (16228), Patient/Family/Caregiver Education, Body Mechanics Training PLAN FOR NEXT VISIT: Review, correct and progress HEP to tolerance. Continue with postural correction, body mechanics instruction and work station ergonomics instruction. Continue with postural stretching and strengthening, progressing to tolerance. Attempt B UT and B levator scapulae stretching. Patient demonstrates good understanding of plan of care and treatment. The above goals and plan of care were discussed and agreed upon by patient/family. SUBJECTIVE: Pt reports intermittent pain in the left side of his neck that is accompanied by radicular symptoms into upper back, left shoulder and up into his head. He reports that his biggest concern currently is the catching and cracking in the left side of his neck. He reports that headaches are a lot less frequent than when he was seen in PT a year ago. He reports that his current symptoms vary in intensity and frequency. Sometimes he experiences symptoms 15x day and sometimes 1x day. 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 Infection Clinical Reasoning: No identified risk factors. Cervical Arterial Dysfunction Clinical Reasoning: No identified risk factors Red Flags - Cervical Cancer Clinical Reasoning: No identified risk factors. Infection Clinical Reasoning: No identified risk factors. Cervical Arterial Dysfunction Clinical Reasoning: No identified risk factors Spine History Symptoms Location at Onset: Neck, Headache Symptoms Since Onset: Unchanging Pain is Worse Sometimes: On the Move Pain is Better Sometimes: No position Previous Episodes: Yes Previous Spine Episodes: treated for cervicogenic headaches one year ago. Sleeping Position: Prone - head either right or left, Side lying right Sleep Affected by Pain: Not affected by pain Pain: Pain Pain Level: 7 (0/10 currently, 7/10 at worst) Pain Location: Neck - Left, Head - Left, Shoulder - Left, Scapula - Left Description: (cracking a bone) Frequency: Intermittent, With movement Post Treatment Pain Post Treatment Pain Level: No Change Post Treatment Symptoms: Pt reported fatigue and difficulty with attempts to correct posture. He attributes this to chronically poor posture. PROMIS Scales 01/28/2025 11/05/2023 Higher is Better Phys Func - T Score 47 (within normal limits) Phys Func - Percentile 38 Self-Eff Symptom - T Score 35 (Low) Self-Eff Symptom - Percentile 7 Proxy-reported 01/28/2025 Lower is Better Pain Interference - T Score 65 (moderate) Pain Interference - Percentile 7 Proxy-reported T-scores: mean of general population = 50. [...] LEVEL OF FUNCTION: Posture / Alignment Posture: Forward head, Increased thoracic kyphosis, Rounded shoulders, Decreased lumbar lordosis, Poor, Slump Sitting Posture: Slump, Poor Reflexes - Upper Extremity R Brachioradialis : Normal R Biceps: Normal L Brachioradialis : Normal L Biceps: Normal Spine Observations R Cervical Spine Palpation Tenderness: Upper trapezius, Levator scapulae L Cervical Spine Palpation Tenderness: Upper trapezius, Levator scapulae Sensation - Cervical Spine Cervical Spine Sensation: Grossly Intact (no altered sensation reported) Cervical Spine ROM Cervical ROM : Measurement AROM Cervical Flexion AROM (degrees) : 64 Degrees Cervical Extension AROM (degrees) : 50 Degrees Cervical Side-Bend Right AROM (degrees): 44 Degrees Cervical Side-Bend Left AROM (degrees) : 46 Degrees Cervical Rotation Right AROM (degrees) : 88 Degrees Cervical Rotation Left AROM (degrees) : 88 Degrees UE and Cervical Strength Strength Tested: Cervical Cervical Strength: Pt's postural deficits, 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 Vitals BP: 137/85 Pulse: 73 Education: Education Learning Preferences: Demonstration, Explanation, Performance, Printed Materials Barriers: None Learning/educational needs: Home exercise program, Plan of Care, Posture, Body Mechanics Education Provided: Yes, see treatment interventions for education provided Education Provided To: Patient Education Mode/Type: Demonstration, Explanation/Discussion, Literature/Printed Materials, Performance Response to Education/Teach Back: States/Identifies, Return Demonstration, Requires Review/Additional Education TREATMENT: PT Treatment Interventions: Therapeutic Exercise, Self-Mcc Management Evaluation Therapeutic Exercise: 1: Pt was educated on the proper intensity with all therex and advised to stop any exercise that causes increased pain. Specifically he was advised to use smaller ROM when doing cervical retraction. 2: *seated cervical retraction 2x10 3: *seated scapular retraction 2x10 4: seated UT stretch attempted but caused an episode of pain and therefore deferred. Skilled Intervention: Patient was educated in proper exercise technique and purpose for exercises. Reviewed and educated patient on additions/changes for home exercise program as above (*). Skilled judgment was used in selection of appropriate interventions. Provided written instruction for home exercise program to facilitate proper performance and compliance. Correct performance of therapeutic exercises was facilitated with verbal and visual cuing. Patient education as noted. Self-Mcc Management: 1: Pt was educated extensively on the anatomy of his cervical spine, likely etiology of symtoms and rationale for recommended PT plan of care. He was repeatedly advised to correct posture and avoid slumping with forward head and rounded shoulders. Recommendations made for work station set up. His questions about pillow set up were answered and recommendations made for using towel roll in pillow to support cervical lordosis. Handouts provided on work station set up and postural correction. Skilled Intervention: Skilled judgment in the selection of proper modification for activity of daily living/home management based on clinical presentation, deficits, and needs. Reviewed patient specific diagnosis in relation to activities of daily living/home management. Billing * Evaluation Low Complexity: 1 Unit Therapeutic Exercise Treatment Minutes: 10 Self-Care/Home Management Treatment Minutes: 17 Skilled Treatment Time Minutes (timed and untimed codes): 47 Total Session Time (minutes): 47 Session Start Time : 1500 Session Stop Time : 1547 Mukund Bauman PT Program_ID:[id number] Access Code: [email or web address] URL: [email or web address] Date: 01-28-2025 Prepared By: Florence Apple Program Notes Exercises - Seated Cervical Retraction - 2-3 x daily - 7 x weekly - 2 sets - 10 reps - Seated Scapular Retraction - 2-3 x daily - 7 x weekly - 2 sets - 10 reps Patient Education - cc Posture Training Slouch Overcorrect - cc Posture 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 Author Type: Physician Type: Progress Notes Filed: 01/06/2025 13:45 Note Text: This note was created using NoteWriter. Subjective Dawn Mccarty is a 24 year old male. He noted paroxysmal left neck pains that felt like jolts, lasting a few minutes, radiating up to the head or down the spine 4 to 5 months ago. He related this to his sleeping position where he ended up with his head turned and neck bent to the left. Pain has no specific triggers, lasts minutes, and can occur few times a week to 15 times a day. No other symptoms were noted. He started modifying his sleep position several days ago as he felt he was pinching a nerve. Review of Systems Constitutional: Negative for diaphoresis, fatigue, fever and unexpected weight change. HENT: Negative for congestion, sore throat and trouble swallowing. Eyes: Negative for visual disturbance. Respiratory: Negative for cough and shortness of breath. Cardiovascular: Negative for chest pain, palpitations and leg swelling. Gastrointestinal: Negative for nausea and vomiting. Genitourinary: Negative for difficulty urinating. Neurological: Negative for dizziness, syncope, facial asymmetry, speech difficulty, weakness, light-headedness and numbness. ACTIVE PROBLEM LIST Cervicogenic Headache Gastroesophageal Reflux Disease Social History Tobacco Use Smoking status: Never Passive exposure: Never Smokeless tobacco: Never Vaping Use Vaping status: Never Used Substance Use Topics Alcohol use: Not Currently Drug use: Not Currently Frequency: 14.0 times per week Types: Marijuana Comment: none since 2021 Current Outpatient Medications Medication Sig omeprazole (PRILOSEC) 20 mg capsule Take 1 capsule by mouth once daily. LIDOCAINE VISCOUS 2 % solution Take 15 mL by mouth four times a day as needed for pain (sore throat). Swish, gargle and spit out. (Patient not taking: Reported on 01/06/2025) No current facility-administered medications for this visit. Objective BP 122/78 (BP Position: Sitting, BP Cuff Size: Large Adult) Pulse 80 Temp 36.3 ?C (97.4 ?F) (Temporal) Resp 18 Wt 77 kg (169 lb 12.1 oz) BMI 26.59 kg/m? Physical Exam Constitutional: Appearance: He is not ill-appearing. HENT: Head: Atraumatic. Eyes: Extraocular Movements: Extraocular movements intact. Conjunctiva/sclera: Conjunctivae normal. Abdominal: Palpations: Abdomen is soft. Tenderness: There is no abdominal tenderness. Musculoskeletal: Cervical back: Neck supple. No tenderness. Lymphadenopathy: Cervical: No cervical adenopathy. Neurological: General: No focal deficit present. Mental Status: He is alert. Sensory: No sensory deficit. Motor: No weakness. Gait: Gait normal. Psychiatric: Mood and Affect: Mood normal. Assessment and Plan 1. Cervicogenic headache - ICD9: 784.0, ICD10: G44.86 (primary diagnosis) Shared medical decision making was done. We discussed PT versus pain management. - CONSULT TO PHYSICAL THERAPY 2. Gastroesophageal reflux disease, unspecified whether esophagitis present - ICD9: 530.81, ICD10: K21.9 Refilled for PRN use. - OMEPRAZOLE 20 MG CAPSULE,DELAYED RELEASE 3. Screening for depression - ICD9: V79.0, ICD10: Z13.31 - DEPRESSION SCREENING 4. Encounter for screening examination for other mental health and behavioral disorders - ICD9: V79.8, ICD10: Z13.39 - ANXIETY SCREENING Aaron Sarabia MD [facility] 01-06-2025 History of Present illness Narrative This note was created using frenting. Subjective Dawn Mccarty is a 24 year old male. He noted paroxysmal left neck pains that felt like jolts, lasting a few minutes, radiating up to the head or down the spine 4 to 5 months ago. He related this to his sleeping position where he ended up with his head turned and neck bent to the left. Pain has no specific triggers, lasts minutes, and can occur few times a week to 15 times a day. No other symptoms were noted. He started modifying his sleep position several days ago as he felt he was pinching a nerve. Review of Systems Constitutional: Negative for diaphoresis, fatigue, fever and unexpected weight change. HENT: Negative for congestion, sore throat and trouble swallowing. Eyes: Negative for visual disturbance. Respiratory: Negative for cough and shortness of breath. Cardiovascular: Negative for chest pain, palpitations and leg swelling. Gastrointestinal: Negative for nausea and vomiting. Genitourinary: Negative for difficulty urinating. Neurological: Negative for dizziness, syncope, facial asymmetry, speech difficulty, weakness, light-headedness and numbness. ACTIVE PROBLEM LIST Cervicogenic Headache Gastroesophageal Reflux Disease Social History Tobacco Use Smoking status: Never Passive exposure: Never Smokeless tobacco: Never Vaping Use Vaping status: Never Used Substance Use Topics Alcohol use: Not Currently Drug use: Not Currently Frequency: 14.0 times per week Types: Marijuana Comment: none since 2021 Current Outpatient Medications Medication Sig omeprazole (PRILOSEC) 20 mg capsule Take 1 capsule by mouth once daily. LIDOCAINE VISCOUS 2 % solution Take 15 mL by mouth four times a day as needed for pain (sore throat). Swish, gargle and spit out. (Patient not taking: Reported on 01/06/2025) No current facility-administered medications for this visit. Objective BP 122/78 (BP Position: Sitting, BP Cuff Size: Large Adult) Pulse 80 Temp 36.3 C (97.4 F) (Temporal) Resp 18 Wt 77 kg (169 lb 12.1 oz) BMI 26.59 kg/m Physical Exam Constitutional: Appearance: He is not ill-appearing. HENT: Head: Atraumatic. Eyes: Extraocular Movements: Extraocular movements intact. Conjunctiva/sclera: Conjunctivae normal. Abdominal: Palpations: Abdomen is soft. Tenderness: There is no abdominal tenderness. Musculoskeletal: Cervical back: Neck supple. No tenderness. Lymphadenopathy: Cervical: No cervical adenopathy. Neurological: General: No focal deficit present. Mental Status: He is alert. Sensory: No sensory deficit. Motor: No weakness. Gait: Gait normal. Psychiatric: Mood and Affect: Mood normal. Assessment and Plan 1. Cervicogenic headache - ICD9: 784.0, ICD10: G44.86 (primary diagnosis) Shared medical decision making was done. We discussed PT versus pain management. - CONSULT TO PHYSICAL THERAPY 2. Gastroesophageal reflux disease, unspecified whether esophagitis present - ICD9: 530.81, ICD10: K21.9 Refilled for PRN use. - OMEPRAZOLE 20 MG CAPSULE,DELAYED RELEASE 3. Screening for depression - ICD9: V79.0, ICD10: Z13.31 - DEPRESSION SCREENING 4. Encounter for screening examination for other mental health and behavioral disorders - ICD9: V79.8, ICD10: Z13.39 - ANXIETY SCREENING Aaron Sarabia MD documented in this encounter [facility] 12-01-2024 Instructions Danielle BlueKARLENE.HOB MACHINE OPERATOR - 09/20/2024 4:13 PM EST Images from the original note were [...] a throat culture should be done to hop picker the 10% of strep infections that [...] can also gargle with warm salt water (1/4 teaspoon of salt per glass). Diet A [...] any symptoms of a cold). Published by [employer]. This content is reviewed periodically and is subject to change as new health information becomes available. The information is intended to inform and educate and is not a replacement for medical evaluation, advice, diagnosis or treatment by a healthcare professional. Written by Monica Whittington M.D., author of Your Child's Health, [employer] [employer]. Copyright 2007 [employer] and/or one of its subsidiaries. All Rights Reserved. Copyright [employer] 2007 Pediatric Advisor documented in this encounter [facility] 09-20-2024 History of Present illness Narrative Images from the original note were not included. HPI: Dawn Mccarty is a 23 year old male who presents with Sore Throat (X 10 days). Patient comes in accompanied by significant other for sore throat times a week and 1/2 to 10 days. Patient reports he had a bout of reflux that came up into his throat and his throat has been irritated intermittently ever since. PAST MEDICAL HISTORY Diagnosis Date Attention deficit hyperactivity disorder (ADHD) 06/18/2007 Cervicogenic headache 09/07/2021 Chlamydia infection 03/15/2023 Gastroesophageal reflux disease 02/11/2023 PMH - PAST MEDICAL HISTORY OF cyst on testicle PMH - PAST MEDICAL HISTORY OF 05/22/2004 normal color vision Rib contusion 08/19/2012 Skin striae 07/22/2015 Tourette's disorder Unspecified asthma(493.90) ACTIVE PROBLEM LIST Cervicogenic Headache Gastroesophageal Reflux Disease Current Outpatient Medications Medication Sig Dispense Refill omeprazole (PRILOSEC) 20 mg capsule Take 1 capsule by mouth once daily. 30 capsule 0 LIDOCAINE VISCOUS 2 % solution Take 15 mL by mouth four times a day as needed for pain (sore throat). Swish, gargle and spit out. 100 mL 1 No current facility-administered medications for this visit. Social History Tobacco Use Smoking status: Never Passive exposure: Never Smokeless tobacco: Never Vaping Use Vaping status: Never Used Substance Use Topics Alcohol use: Not Currently Drug use: Not Currently Frequency: 14.0 times per week Types: Marijuana Comment: none since 2021 Alcohol Use: Not Currently Tobacco Use: Never FAMILY HISTORY Problem Relation Age of Onset Asthma Mother Drug abuse Mother other (adopted) Father Hypertension Maternal Grandmother Diabetes Maternal Grandfather Hypertension Maternal Grandfather other (cva) Maternal Grandfather other (myocardial infarction) Maternal Grandfather Review of Systems Constitutional: Negative for chills and fever. HENT: Positive for sore throat. Negative for congestion, ear pain and sinus pain. Respiratory: Negative for cough, shortness of breath and wheezing. Cardiovascular: Negative for chest pain. BP 128/87 Pulse 87 Temp 97.6 Resp 18 SpO2 99% Physical Exam Constitutional: General: He is not in acute distress. Appearance: Normal appearance. He is normal weight. He is not ill-appearing. HENT: Head: Normocephalic. Mouth/Throat: Mouth: Mucous membranes are moist. Pharynx: Uvula midline. Posterior oropharyngeal erythema present. Comments: Slight ulceration/irritation noted to back of patient's throat along with erythema Eyes: Extraocular Movements: Extraocular movements intact. Conjunctiva/sclera: Conjunctivae normal. Cardiovascular: Rate and Rhythm: Normal rate. Pulmonary: Effort: Pulmonary effort is normal. Skin: General: Skin is warm and dry. Neurological: General: No focal deficit present. Mental Status: He is alert and oriented to person, place, and time. Psychiatric: Mood and Affect: Mood normal. Behavior: Behavior normal. Thought Content: Thought content normal. Clinical Impression ICD-10-CM 1. Pharyngitis, unspecified etiology J02.9 LIDOCAINE VISCOUS 2 % solution 2. Gastroesophageal reflux disease, unspecified whether esophagitis present K21.9 omeprazole (PRILOSEC) 20 mg capsule Pharyngitis, unspecified etiology (primary encounter diagnosis) Gastroesophageal reflux disease, unspecified whether esophagitis present PLAN: Plan of care for this patient is to treat for pharyngitis. Symptoms likely viral at this time. Patient is also experiencing increased reflux symptoms. Omeprazole will be called in for symptom management at this time. Lidocaine viscous will be prescribed patient for symptom management at this time. Patient advised to utilize nasal saline/rinses, humidified air, warm salt water gargles, throat lozenges, sprays, increased fluids and rest as well as Tylenol/ibuprofen for pain and discomfort/symptom management. If symptoms do not improve or if they persist after a total of 7 days or symptoms worsen within the next several days or new symptoms develop, see PCP for further evaluation. Danielle Blue APRN.HOB MACHINE OPERATOR This note was generated with voice recognition software and may contain errors, including spelling, grammar, syntax and misrecognition of what was dictated, that are not fully corrected. documented in this encounter [facility] 09-20-2024 Note HNO ID: [id number] Author: DANIELLE BLUE APRN.CNP Service: ? Author Type: Nurse Practitioner Type: Progress Notes Filed: 09/20/2024 16:15 Note Text: HPI: Dawn Mccarty is a 23 year old male who presents with Sore Throat (X 10 days). Patient comes in accompanied by significant other for sore throat times a week and 1/2 to 10 days. Patient reports he had a bout of reflux that came up into his throat and his throat has been irritated intermittently ever since. PAST MEDICAL HISTORY Diagnosis Date Attention deficit hyperactivity disorder (ADHD) 06/18/2007 Cervicogenic headache 09/07/2021 Chlamydia infection 03/15/2023 Gastroesophageal reflux disease 02/11/2023 PMH - PAST MEDICAL HISTORY OF cyst on testicle PMH - PAST MEDICAL HISTORY OF 05/22/2004 normal color vision Rib contusion 08/19/2012 Skin striae 07/22/2015 Tourette's disorder Unspecified asthma(493.90) ACTIVE PROBLEM LIST Cervicogenic Headache Gastroesophageal Reflux Disease Current Outpatient Medications Medication Sig Dispense Refill omeprazole (PRILOSEC) 20 mg capsule Take 1 capsule by mouth once daily. 30 capsule 0 LIDOCAINE VISCOUS 2 % solution Take 15 mL by mouth four times a day as needed for pain (sore throat). Swish, gargle and spit out. 100 mL 1 No current facility-administered medications for this visit. Social History Tobacco Use Smoking status: Never Passive exposure: Never Smokeless tobacco: Never Vaping Use Vaping status: Never Used Substance Use Topics Alcohol use: Not Currently Drug use: Not Currently Frequency: 14.0 times per week Types: Marijuana Comment: none since 2021 Alcohol Use: Not Currently Tobacco Use: Never FAMILY HISTORY Problem Relation Age of Onset Asthma Mother Drug abuse Mother other (adopted) Father Hypertension Maternal Grandmother Diabetes Maternal Grandfather Hypertension Maternal Grandfather other (cva) Maternal Grandfather other (myocardial infarction) Maternal Grandfather Review of Systems Constitutional: Negative for chills and fever. HENT: Positive for sore throat. Negative for congestion, ear pain and sinus pain. Respiratory: Negative for cough, shortness of breath and wheezing. Cardiovascular: Negative for chest pain. BP 128/87 Pulse 87 Temp 97.6 Resp 18 SpO2 99% Physical Exam Constitutional: General: He is not in acute distress. Appearance: Normal appearance. He is normal weight. He is not ill-appearing. HENT: Head: Normocephalic. Mouth/Throat: Mouth: Mucous membranes are moist. Pharynx: Uvula midline. Posterior oropharyngeal erythema present. Comments: Slight ulceration/irritation noted to back of patient's throat along with erythema Eyes: Extraocular Movements: Extraocular movements intact. Conjunctiva/sclera: Conjunctivae normal. Cardiovascular: Rate and Rhythm: Normal rate. Pulmonary: Effort: Pulmonary effort is normal. Skin: General: Skin is warm and dry. Neurological: General: No focal deficit present. Mental Status: He is alert and oriented to person, place, and time. Psychiatric: Mood and Affect: Mood normal. Behavior: Behavior normal. Thought Content: Thought content normal. Clinical Impression ICD-10-CM 1. Pharyngitis, unspecified etiology J02.9 LIDOCAINE VISCOUS 2 % solution 2. Gastroesophageal reflux disease, unspecified whether esophagitis present K21.9 omeprazole (PRILOSEC) 20 mg capsule Pharyngitis, unspecified etiology (primary encounter diagnosis) Gastroesophageal reflux disease, unspecified whether esophagitis present PLAN: Plan of care for this patient is to treat for pharyngitis. Symptoms likely viral at this time. Patient is also experiencing increased reflux symptoms. Omeprazole will be called in for symptom management at this time. Lidocaine viscous will be prescribed patient for symptom management at this time. Patient advised to utilize nasal saline/rinses, humidified air, warm salt water gargles, throat lozenges, sprays, increased fluids and rest as well as Tylenol/ibuprofen for pain and discomfort/symptom management. If symptoms do not improve or if they persist after a total of 7 days or symptoms worsen within the next several days or new symptoms develop, see PCP for further evaluation. Danielle Blue APRN.HOB MACHINE OPERATOR This note was generated with voice recognition software and may contain errors, including spelling, grammar, syntax and misrecognition of what was dictated, that are not fully corrected. [facility] 08-03-2024 Note HNO ID: [id number] Author: HEMANT PICKENS APRN.HOB MACHINE OPERATOR Service: ? Author Type: Nurse Practitioner Type: Progress Notes Filed: 08/03/2024 14:50 Note Text: Dawn Mccarty is a 23 year old male who presents with Dizziness (Pressure in both eye off/on x 5 days) Patient is a 23-year-old male that presents in office with his significant other for symptoms of intermittent dizziness, lightheadedness, nausea, and on and off pressure behind both of his eyes for the past 5 days. 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 He states that going up and down over the hills made him somewhat nauseous, and dizzy. He states that at times he feels like the room is spinning. He declines any change in vision, double vision blurry vision or loss of vision. Denies any ear pain or symptoms. Denies seasonal allergies. He states that these episodes of dizziness did not come with a headache. Denies any neurochanges, memory loss or confusion. He states he tried to make an appointment with his PCP but they are booked out for 3 weeks, and he is worried how he is going to continue driving and working while feeling like this, so he came here. No other complaints today. The history is provided by the patient and a significant other. No tree surgeon was used. PAST MEDICAL HISTORY Diagnosis Date Attention deficit hyperactivity disorder (ADHD) 06/18/2007 Cervicogenic headache 09/07/2021 Chlamydia infection 03/15/2023 Gastroesophageal reflux disease 02/11/2023 PMH - PAST MEDICAL HISTORY OF cyst on testicle PMH - PAST MEDICAL HISTORY OF 05/22/2004 normal color vision Rib contusion 08/19/2012 Skin striae 07/22/2015 Tourette's disorder Unspecified asthma(493.90) ACTIVE PROBLEM LIST Cervicogenic Headache Gastroesophageal Reflux Disease Current Outpatient Medications Medication Sig Dispense Refill loratadine (CLARITIN) 10 mg tablet Take 1 tablet by mouth once daily for 14 days. 14 tablet 0 meclizine (ANTIVERT) 25 mg tab Take 1 tablet by mouth three times a day for 14 days. 42 tablet 0 ondansetron orally disintegrating (ZOFRAN ODT) 4 mg disintegrating tablet Take 1 tablet by mouth every 8 hours as needed for nausea/vomiting for up to 7 days. 21 tablet 0 No current facility-administered medications for this visit. Social History Tobacco Use Smoking status: Never Passive exposure: Never Smokeless tobacco: Never Vaping Use Vaping status: Never Used Substance Use Topics Alcohol use: Not Currently Drug use: Not Currently Frequency: 14.0 times per week Types: Marijuana Comment: none since 2021 Alcohol Use: Not Currently Tobacco Use: Never FAMILY HISTORY Problem Relation Age of Onset Asthma Mother Drug abuse Mother other (adopted) Father Hypertension Maternal Grandmother Diabetes Maternal Grandfather Hypertension Maternal Grandfather other (cva) Maternal Grandfather other (myocardial infarction) Maternal Grandfather Review of Systems Constitutional: Negative for chills, fever and malaise/fatigue. HENT: Negative for congestion, ear discharge, ear pain, hearing loss, nosebleeds, sinus pain, sore throat and tinnitus. Eyes: Negative for blurred vision, double vision, photophobia and pain. Respiratory: Negative. Negative for stridor. Cardiovascular: Negative. Gastrointestinal: Positive for nausea. Genitourinary: Negative. Musculoskeletal: Negative. Skin: Negative. Neurological: Positive for dizziness (Dizzy, lightheaded, feeling like the room is spinning or experiencing motion sickness on and off). Negative for tingling, tremors, sensory change, speech change, focal weakness, seizures, loss of consciousness, weakness and headaches. Endo/Heme/Allergies: Negative. Negative for environmental allergies. Psychiatric/Behavioral: The patient is nervous/anxious (Patient reports having a lot of anxiety when it comes to medical conditions and diagnoses). All other systems reviewed and are negative. BP 132/92 Pulse 84 Temp 97.6 Resp 18 SpO2 98% Physical Exam Vitals and nursing note reviewed. Constitutional: General: He is not in acute distress. Appearance: Normal appearance. He is not ill-appearing, toxic-appearing or diaphoretic. HENT: Head: Normocephalic and atraumatic. Right Ear: Ear canal and external ear normal. Tympanic membrane is bulging. Tympanic membrane is not perforated or erythematous. Left Ear: Ear canal and external ear normal. Tympanic membrane is bulging. Tympanic membrane is not perforated or erythematous. Nose: Nose normal. No congestion or rhinorrhea. Mouth/Throat: Lips: [place]hart. Mouth: Mucous membranes are moist. Tongue: No lesions. Palate: No mass. Pharynx: Oropharynx is clear. Uvula midline. No pharyngeal swelling, oropharyngeal exudate, posterior oropharyngeal erythema, uvula swelling or postnasal drip. Eyes: Conjunctiva/sclera: Conjunctivae (more content not included)... [facility] 08-03-2024 History of Present illness Narrative Dawn Mccarty is a 23 year old male who presents with Dizziness (Pressure in both eye off/on x 5 days) Patient is a 23-year-old male that presents in office with his significant other for symptoms of intermittent dizziness, lightheadedness, nausea, and on and off pressure behind both of his eyes for the past 5 days. 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 He states that going up and down over the hills made him somewhat nauseous, and dizzy. He states that at times he feels like the room is spinning. He declines any change in vision, double vision blurry vision or loss of vision. Denies any ear pain or symptoms. Denies seasonal allergies. He states that these episodes of dizziness did not come with a headache. Denies any neurochanges, memory loss or confusion. He states he tried to make an appointment with his PCP but they are booked out for 3 weeks, and he is worried how he is going to continue driving and working while feeling like this, so he came here. No other complaints today. The history is provided by the patient and a significant other. No tree surgeon was used. PAST MEDICAL HISTORY Diagnosis Date Attention deficit hyperactivity disorder (ADHD) 06/18/2007 Cervicogenic headache 09/07/2021 Chlamydia infection 03/15/2023 Gastroesophageal reflux disease 02/11/2023 PMH - PAST MEDICAL HISTORY OF cyst on testicle PMH - PAST MEDICAL HISTORY OF 05/22/2004 normal color vision Rib contusion 08/19/2012 Skin striae 07/22/2015 Tourette's disorder Unspecified asthma(493.90) ACTIVE PROBLEM LIST Cervicogenic Headache Gastroesophageal Reflux Disease Current Outpatient Medications Medication Sig Dispense Refill loratadine (CLARITIN) 10 mg tablet Take 1 tablet by mouth once daily for 14 days. 14 tablet 0 meclizine (ANTIVERT) 25 mg tab Take 1 tablet by mouth three times a day for 14 days. 42 tablet 0 ondansetron orally disintegrating (ZOFRAN ODT) 4 mg disintegrating tablet Take 1 tablet by mouth every 8 hours as needed for nausea/vomiting for up to 7 days. 21 tablet 0 No current facility-administered medications for this visit. Social History Tobacco Use Smoking status: Never Passive exposure: Never Smokeless tobacco: Never Vaping Use Vaping status: Never Used Substance Use Topics Alcohol use: Not Currently Drug use: Not Currently Frequency: 14.0 times per week Types: Marijuana Comment: none since 2021 Alcohol Use: Not Currently Tobacco Use: Never FAMILY HISTORY Problem Relation Age of Onset Asthma Mother Drug abuse Mother other (adopted) Father Hypertension Maternal Grandmother Diabetes Maternal Grandfather Hypertension Maternal Grandfather other (cva) Maternal Grandfather other (myocardial infarction) Maternal Grandfather Review of Systems Constitutional: Negative for chills, fever and malaise/fatigue. HENT: Negative for congestion, ear discharge, ear pain, hearing loss, nosebleeds, sinus pain, sore throat and tinnitus. Eyes: Negative for blurred vision, double vision, photophobia and pain. Respiratory: Negative. Negative for stridor. Cardiovascular: Negative. Gastrointestinal: Positive for nausea. Genitourinary: Negative. Musculoskeletal: Negative. Skin: Negative. Neurological: Positive for dizziness (Dizzy, lightheaded, feeling like the room is spinning or experiencing motion sickness on and off). Negative for tingling, tremors, sensory change, speech change, focal weakness, seizures, loss of consciousness, weakness and headaches. Endo/Heme/Allergies: Negative. Negative for environmental allergies. Psychiatric/Behavioral: The patient is nervous/anxious (Patient reports having a lot of anxiety when it comes to medical conditions and diagnoses). All other systems reviewed and are negative. BP 132/92 Pulse 84 Temp 97.6 Resp 18 SpO2 98% Physical Exam Vitals and nursing note reviewed. Constitutional: General: He is not in acute distress. Appearance: Normal appearance. He is not ill-appearing, toxic-appearing or diaphoretic. HENT: Head: Normocephalic and atraumatic. Right Ear: Ear canal and external ear normal. Tympanic membrane is bulging. Tympanic membrane is not perforated or erythematous. Left Ear: Ear canal and external ear normal. Tympanic membrane is bulging. Tympanic membrane is not perforated or erythematous. Nose: Nose normal. No congestion or rhinorrhea. Mouth/Throat: Lips: [place]. Mouth: Mucous membranes are moist. Tongue: No lesions. Palate: No mass. Pharynx: Oropharynx is clear. Uvula midline. No pharyngeal swelling, oropharyngeal exudate, posterior oropharyngeal erythema, uvula swelling or postnasal drip. Eyes: Conjunctiva/sclera: Conjunctivae normal. Neck: Trachea: Trachea normal. Cardiovascular: Rate and Rhythm: Normal rate and regular rhythm. Pulses: Normal pulses. Heart sounds: Normal heart sounds. Pulmonary: Effort: Pulmonary effort is normal. No accessory muscle usage, prolonged expiration, respiratory distress or retractions. Breath sounds: Normal breath sounds and air entry. No stridor. Musculoskeletal: Cervical back: Full passive range of motion without pain and normal range of motion. No pain with movement or muscular tenderness. Normal range of motion. Lymphadenopathy: Cervical: No cervical adenopathy. Neurological: General: No focal deficit present. Mental Status: He is alert and oriented to person, place, and time. Sensory: Sensation is intact. Coordination: Coordination is intact. Gait: Gait is intact. Psychiatric: Attention and Perception: Attention normal. Mood and Affect: Mood is anxious. Speech: Speech normal. Behavior: Behavior normal. Behavior is cooperative. Thought Content: Thought content normal. Thought content is not paranoid or delusional. Thought content does not include homicidal or suicidal ideation. Thought content does not include homicidal or suicidal plan. Cognition and Memory: Cognition normal. ASSESSMENT/PLAN: 1. Vertigo - ICD9: 780.4, ICD10: R42 (primary diagnosis) 2. Dizziness - ICD9: 780.4, ICD10: R42 3. Lightheadedness - ICD9: 780.4, ICD10: R42 4. Nausea - ICD9: 787.02, ICD10: R11.0 - Signs, symptoms, and examination consistent with benign paroxysmal positional vertigo. No other abnormal neurologic symptoms indicating more significant pathology. Patient will be treated with Claritin, meclizine and Zofran, trial all as needed. - Discussed with patient that I cannot diagnose vertigo from my simple assessment in urgent care here today, but with a combination of symptoms that he is having this is what I believe he has. If the medication that I am prescribing does not help, he will need further testing from his PCP to confirm or deny this diagnosis. Patient is advised to follow with primary care doctor within 2-3 days and present to ED if symptoms change, worsen, or do not improve. - LORATADINE 10 MG TABLET - MECLIZINE 25 MG TABLET - ONDANSETRON 4 MG DISINTEGRATING TABLET - Educated and discussed etiology, and answered questions about prescribed medications and discussed supportive measures at home. - educational material provided with AVS. - Discussed to follow up with PCP if symptoms persist or get worse, go directly to Emergency Department with new symptoms, increased and unmanageable pain, high fevers, chest pain, difficulty breathing or not being able to tolerate fluids. - patient is agreeable with plan and discharged in stable condition. Hemant Pickens APRN.YOLY This document has been created with the use of voice recognition technology. Every effort was taken to correct for errors however it may contain inaccuracies, misspellings, syntax errors, or word sense that escaped review. Please inquire further with the author for clarification if needed. documented in this encounter [facility] 08-03-2024 Instructions Hemant Pickens APRN.CNP - 08/03/2024 2:34 PM EDT -Please see your PCP if your symptoms persist. Go directly to Emergency Department with high fevers, chest pain, difficulty breathing or not able to tolerate fluids. Benign Paroxysmal Positional Vertigo (BPPV) What is BPPV? Benign Paroxysmal Positional Vertigo (BPPV) is an inner ear disorder in which changes to the position of the head, such as tipping the head backward, lead to sudden vertigo -- a feeling that the room is spinning. Vertigo can vary in intensity from mild to severe and usually lasts only a few minutes. It may be accompanied by other symptoms, including dizziness lightheadedness a sense of imbalance nausea vomiting Anatomy of the right inner ear. Particle repositioning therapy moves the otoconia out of the semicircular canals and into the utricle where they dissolve naturally. BPPV is not a sign of a serious problem, and it usually disappears on its own within 6 weeks of the first episode. However, the symptoms of BPPV can be very frightening and may be dangerous, especially in older individuals. The unsteadiness associated with BPPV can lead to falls. About half of all people over age 65 experience an episode of BPPV, and falls are a leading cause of fractures in this age-range. What causes BPPV? BPPV develops when calcium carbonate crystals, which are known as otoconia, shift into and become trapped within the semicircular canals (one of the vestibular organs of the inner ear that controls balance). The otoconia make up a normal part of the structure of the utricle, a vestibular organ next to the semicircular canals. (see illustration to the right.) In the utricle, the otoconia may be loosened as a result of injury, infection, or age, and they land in a sac -- the utricle -- where they are naturally dissolved. However, otoconia in the semicircular canals will not dissolve. As a person s head position changes, the otoconia begin to roll around and push on the tiny hairs that line the semicircular canals. Those hairs act as sensors to give the brain information about balance. Vertigo develops when the hairs are stimulated by the rolling otoconia. What head positions trigger BPPV? Movements that can trigger an episode of BPPV include rolling over or sitting up in bed, bending the head forward to look down, or tipping the head backward. In most people, only a single ear is affected by BPPV, although both ears may be involved on occasion. How is BPPV diagnosed and treated? With advances in medical technology, BPPV can easily be diagnosed and treated. The diagnosis can usually be made in the office based on medical history and a physical exam. Treatment also involves a short, simple in-office procedure known as the particle repositioning maneuver. (See addendum below.) How can I identify the affected side? Steps to determine affected side: Sit on bed so that if you lie down, your head hangs slightly over the end of the bed. Turn head to the right and lie back quickly. Wait 1 minute. If you feel dizzy, then the right ear is your affected ear. If no dizziness occurs, sit up. Wait 1 minute. Turn head to the left and lie back quickly. Wait 1 minute. If you feel dizzy, then the left ear is your affected ear. How successful is the treatment? A single particle repositioning procedure is effective in treating about 80% to 90% of cases of BPPV. Additional exercise or repositioning maneuvers may be needed if symptoms persist. Can BPPV recur? If so, what can I do? A new episode of BPPV can develop after successful treatment -- on average there is a 15 percent rate of recurrence each year. However, it may be possible to treat recurrent BPPV at home by performing a series of movements at the time an episode occurs. Patients will receive information on ways to handle recurrences on their own or they can work with a physical therapist to develop a plan. In general, if you wake up with positional vertigo, slowly move into the esox-[id number]-[id number] position and wait for a minute. Next, slowly move into a face-down position and slide to the foot of the bed. Keep your head down until you reach the end of the bed and are kneeling or standing on the floor. Slowly bring your head backward into an upright position. Hold on to the bed at all times. Another method is to sit toward the foot of the bed, leaving enough room to lay back with your head resting comfortably at the end of the bed, slightly extended. Be careful not to overextend your neck, as this may aggravate existing neck problems. If your symptoms are severe, you may need assistance to complete the maneuver. Follow the same steps as described in the boxed instructions on the next page. Without treatment, the symptoms of BPPV may worsen. However, with time, the otoconia dissolve on their own, which is usually within 6 weeks. Until the time the otoconia dissolve on their own, the number and severity of episodes may be reduced simply by paying careful attention to head position. In addition, anti-motion sickness drugs can be given to control nausea. However, before drugs are taken, it is usually best to try the particle repositioning procedure first. It is a very safe and rapid way to relieve symptoms and reduce the chance for falls. Medications should not be taken for a long period of time. ADDENDUM Particle repositioning procedure: [id number] instructions The particle repositioning procedure takes about 15 minutes to complete and involves a series of physical movements that change the position of the head and body. These actions shift the otoconia out of the semicircular canals and back into their proper location in the utricle. The particle repositioning procedure begins with the patient is sitting up and then lying down on a treatment table. The procedure is very easy to perform. Patients should wear comfortable clothing that will allow them to move freely. Hold each of the following positions for 1 to 2 minutes. Step 1: Turn your head toward your affected ear. Step 2: Lay back quickly. Hold. Step 3: Keep your head back against the bed and turn it toward the good ear. Hold. Step 4: Roll onto your side with your good ear down. Your nose should be turned toward the floor. Hold. Step 5: Sit up, keeping your chin tucked in toward your shoulder. Hold. When you end, you should be sitting over the side of your bed so your feet touch the floor. Step 6: Follow your post-particle repositioning instructions. BPPV: Glossary of Terms Semicircular canals: These structures act like a gyroscope, with canals positioned in three dimensions -- upward, downward, and horizontal. Together, the canals send signals to the brain about the rotation/positioning of the head (for example, when you bend over or spin around.) Cupula: Detects the flow of fluid within the semicircular canals. The flow of fluid gives the body a sense of motion. Utricle: An organ located in the inner ear that helps control balance. The utricle contains hair cells, which are covered with otoconia. The otoconia sway with gravity, sending signals to the brain about the position of the head and body (upright, tilted, etc). Otoconia: The tiny calcium crystal particles that become dislodged from within the utricle (where they can dissolve) and move into the semicircular canals (where they can t dissolve). Cochlea: The 'snail-shell' sense organ of the inner ear that translates sound into nerve impulses and sent to the brain. documented in this encounter [facility] 07-09-2024 History of Present illness Narrative Images from the original note were not included. This note was created using [employer] the stars[employer]. Subjective Dawn Mccarty is a 23 year old male. HPI About a week ago pt awoke and felt a lump behind his right trapezius. He was seen at urgent care who thought it was a lypoma. The lump resolved. The last several days he has been doing a lot of heavy lifting and now he feels a hard knot in the same area. Review of Systems Constitutional: Negative for fatigue and fever. Musculoskeletal: Negative for arthralgias, myalgias, neck pain and neck stiffness. Objective BP 132/90 Pulse 78 Temp 36.8 C (98.2 F) (Left Tympanic) Resp 16 Wt 73.8 kg (162 lb 11.2 oz) SpO2 97% BMI 25.48 kg/m Physical Exam Vitals and nursing note reviewed. Constitutional: General: He is not in acute distress. Appearance: Normal appearance. He is not ill-appearing. HENT: Head: Normocephalic. Mouth/Throat: Mouth: Mucous membranes are moist. Eyes: Conjunctiva/sclera: Conjunctivae normal. Cardiovascular: Rate and Rhythm: Normal rate and regular rhythm. Pulmonary: Effort: Pulmonary effort is normal. Breath sounds: Normal breath sounds. Musculoskeletal: General: Normal range of motion. Cervical back: Normal range of motion. Skin: General: Skin is warm and dry. Comments: There is an area of firmness just behind the right AC joint which was nontender and not erythematous. It was nonmobile. Neurological: General: No focal deficit present. Mental Status: He is alert. Psychiatric: Mood and Affect: Mood normal. Behavior: Behavior normal. Assessment and Plan ASSESSMENT/PLAN: 1. Muscle tenderness - ICD9: 729.1, ICD10: M79.10 I discussed with patient that I did not see any concerning issues on evaluation of his right shoulder. There was an area of muscle firmness but there was no erythema or tenderness. The area was not warm to touch. I do suspect he may have strained a muscle or something similar to that and I did recommend gentle massage and follow-up with PCP to which patient was agreeable. Alec Otero APRN.HOB MACHINE OPERATOR documented in this encounter [facility] 07-02-2024 Note HNO ID: [id number] Author: MARIJA MEREDITH, DO Service: ? Author Type: Physician Type: Progress Notes Filed: 07/02/2024 12:58 Note Text: Dawn Mccarty is a 23 year old male who presents with Derm Problem (Lump on right shoulder and redness - no injury /Noticed today ) Agree with nursing intake note. Pt reports noticing the lump this morning. Non-tender. He thinks pain is radiating from the lump into his shoulder muscles. No fevers/chills. The history is provided by the patient and the spouse. PAST MEDICAL HISTORY 06/18/2007: Attention deficit hyperactivity disorder (ADHD) 09/07/2021: Cervicogenic headache 03/15/2023: Chlamydia infection 02/11/2023: Gastroesophageal reflux disease No date: PM - PAST MEDICAL HISTORY OF Comment: cyst on testicle 05/22/2004: PM - PAST MEDICAL HISTORY OF Comment: normal color vision 08/19/2012: Rib contusion 07/22/2015: Skin striae No date: Tourette's disorder No date: Unspecified asthma(493.90) ACTIVE PROBLEM LIST Cervicogenic Headache Gastroesophageal Reflux Disease No current outpatient medications on file. No current facility-administered medications for this visit. Social History Tobacco Use Smoking status: Never Passive exposure: Never Smokeless tobacco: Never Vaping Use Vaping status: Never Used Substance Use Topics Alcohol use: Not Currently Drug use: Not Currently Frequency: 14.0 times per week Types: Marijuana Comment: none since 2021 Alcohol Use: Not Currently Tobacco Use: Never FAMILY HISTORY Problem Relation Age of Onset Asthma Mother Drug abuse Mother other (adopted) Father Hypertension Maternal Grandmother Diabetes Maternal Grandfather Hypertension Maternal Grandfather other (cva) Maternal Grandfather other (myocardial infarction) Maternal Grandfather Review of Systems Constitutional: Negative for chills and fever. Skin: Negative for itching and rash. Neurological: Negative for dizziness and headaches. BP 131/87 Pulse 82 Temp 97.8 Resp 18 Wt 155 lb (70.3kg) SpO2 98% Physical Exam Vitals and nursing note reviewed. Constitutional: General: He is not in acute distress. Appearance: Normal appearance. He is not ill-appearing, toxic-appearing or diaphoretic. HENT: Head: Normocephalic and atraumatic. Eyes: Extraocular Movements: Extraocular movements intact. Skin: General: Skin is warm and dry. Capillary Refill: Capillary refill takes less than 2 seconds. Comments: 2cm, mobile, non-tender lump located on R top of shoulder. Neurological: General: No focal deficit present. Mental Status: He is alert and oriented to person, place, and time. Cranial Nerves: No cranial nerve deficit. Psychiatric: Mood and Affect: Mood normal. Behavior: Behavior normal. ASSESSMENT/PLAN: 1. Lipoma of right upper extremity - ICD9: 214.8, ICD10: D17.21 (primary diagnosis) Recommended pt f/u with PCP to discuss removal either in PCP clinic or referral to dermatology. Pt agrees with POC. 2. Acute pain of right shoulder - ICD9: 719.41, ICD10: M25.511 [facility] 07-02-2024 History of Present illness Narrative Images from the original note were not included. Dawn Mccarty is a 23 year old male who presents with Derm Problem (Lump on right shoulder and redness - no injury /Noticed today ) Agree with nursing intake note. Pt reports noticing the lump this morning. Non-tender. He thinks pain is radiating from the lump into his shoulder muscles. No fevers/chills. The history is provided by the patient and the spouse. PAST MEDICAL HISTORY 06/18/2007: Attention deficit hyperactivity disorder (ADHD) 09/07/2021: Cervicogenic headache 03/15/2023: Chlamydia infection 02/11/2023: Gastroesophageal reflux disease No date: PMH - PAST MEDICAL HISTORY OF Comment: cyst on testicle 05/22/2004: PM - PAST MEDICAL HISTORY OF Comment: normal color vision 08/19/2012: Rib contusion 07/22/2015: Skin striae No date: Tourette's disorder No date: Unspecified asthma(493.90) ACTIVE PROBLEM LIST Cervicogenic Headache Gastroesophageal Reflux Disease No current outpatient medications on file. No current facility-administered medications for this visit. Social History Tobacco Use Smoking status: Never Passive exposure: Never Smokeless tobacco: Never Vaping Use Vaping status: Never Used Substance Use Topics Alcohol use: Not Currently Drug use: Not Currently Frequency: 14.0 times per week Types: Marijuana Comment: none since 2021 Alcohol Use: Not Currently Tobacco Use: Never FAMILY HISTORY Problem Relation Age of Onset Asthma Mother Drug abuse Mother other (adopted) Father Hypertension Maternal Grandmother Diabetes Maternal Grandfather Hypertension Maternal Grandfather other (cva) Maternal Grandfather other (myocardial infarction) Maternal Grandfather Review of Systems Constitutional: Negative for chills and fever. Skin: Negative for itching and rash. Neurological: Negative for dizziness and headaches. BP 131/87 Pulse 82 Temp 97.8 Resp 18 Wt 155 lb (70.3kg) SpO2 98% Physical Exam Vitals and nursing note reviewed. Constitutional: General: He is not in acute distress. Appearance: Normal appearance. He is not ill-appearing, toxic-appearing or diaphoretic. HENT: Head: Normocephalic and atraumatic. Eyes: Extraocular Movements: Extraocular movements intact. Skin: General: Skin is warm and dry. Capillary Refill: Capillary refill takes less than 2 seconds. Comments: 2cm, mobile, non-tender lump located on R top of shoulder. Neurological: General: No focal deficit present. Mental Status: He is alert and oriented to person, place, and time. Cranial Nerves: No cranial nerve deficit. Psychiatric: Mood and Affect: Mood normal. Behavior: Behavior normal. ASSESSMENT/PLAN: 1. Lipoma of right upper extremity - ICD9: 214.8, ICD10: D17.21 (primary diagnosis) Recommended pt f/u with PCP to discuss removal either in PCP clinic or referral to dermatology. Pt agrees with POC. 2. Acute pain of right shoulder - ICD9: 719.41, ICD10: M25.511 Marija Meredith documented in this encounter [facility] 04-16-2024 Telephone encounter Note Attempted to contact pt again with no answer and unable to leave msg. States customer is not available. Jamppt msg sent to pt. [facility] 04-16-2024 Miscellaneous Notes Attempted to contact pt again with no answer and unable to leave msg. States customer is not available. MyChart msg sent to pt. Left message for Patient to call & speak to nurse. Patient needs appt w/PCP., see below. Aggie Preciado LPN Phone rang several times with no answer. Will need to try at another time. Neli Abrams LPN Patient is not available, will try again later. Aggie Preciado LPN Next time, I will not order random requests for tests without an appointment. ASSESSMENT/PLAN: 1. Screening for diabetes mellitus - ICD9: V77.1, ICD10: Z13.1 - GLUCOSE, FASTING Aaron Sarabia MD Patient calling in requesting lab work to get his glucose checked. Please review and advise patient. Lacy Argueta April 14, 2024 10:31 AM documented in this encounter [facility] 04-15-2024 Telephone encounter Note Left message for Patient to call & speak to nurse. Patient needs appt w/PCP., see below. Aggie Preciado LPN [facility] 04-14-2024 Telephone encounter Note Phone rang several times with no answer. Will need to try at another time. Neli Abrams LPN T [facility] 04-14-2024 Telephone encounter Note Patient is not available, will try again later. Aggie Preciado LPN [facility] 04-14-2024 Telephone encounter Note Next time, I will not order random requests for tests without an appointment. ASSESSMENT/PLAN: 1. Screening for diabetes mellitus - ICD9: V77.1, ICD10: Z13.1 - GLUCOSE, FASTING Aaron Sarabia MD [facility] 04-14-2024 Telephone encounter Note Patient calling in requesting lab work to get his glucose checked. Please review and advise patient. Lacy Argueta April 14, 2024 10:31 AM [facility] 03-20-2024 Telephone encounter Note Patient calling with question if lab results were back. Patient denies any new or worsening symptoms of which a provider is not aware:Yes. I explained to patient that the lab results were in process and they will be posted to his [employer] when they are resulted. I also states that I was not allowed to give any results. If he has questions, he should contact his doctor-either by [employer] or his office. Patient voices understanding. [facility] 03-20-2024 Miscellaneous Notes Patient calling with question if lab results were back. Patient denies any new or worsening symptoms of which a provider is not aware:Yes. I explained to patient that the lab results were in process and they will be posted to his [facility] when they are resulted. I also states that I was not allowed to give any results. If he has questions, he should contact his doctor-either by [facility] or his office. Patient voices understanding. documented in this encounter [facility] 03-20-2024 Telephone encounter Note Pt called and is notified of providers message. Pt voices understanding. Ruth Catalan RN [facility] 03-20-2024 Miscellaneous Notes Pt called and is notified of providers message. Pt voices understanding. Ruth Catalan RN CBC ordered. Pt called in and was asking to get a CBC drawn. He said he had some things going on in his life right now and just wanted to have this done. He was supposed to have it done in October with some other labs, but they in January. I let Pt know he had other labs and he states he just wants to get the CBC done now. Please call and let Pt know once lab has been placed. documented in this encounter [facility] 03-20-2024 Telephone encounter Note CBC ordered. [facility] 03-20-2024 Telephone encounter Note Pt called in and was asking to get a CBC drawn. He said he had some things going on in his life right now and just wanted to have this done. He was supposed to have it done in October with some other labs, but they in January. I let Pt know he had other labs and he states he just wants to get the CBC done now. Please call and let Pt know once lab has been placed. [facility] 03-11-2024 History of Present illness Narrative Episode Visit Count: 14 Therapist That Will Accept/Oversee The Plan Of Care: Yogi Mazariegos Start of Care Date: 11/05/23 Onset Date: 10/24/23 Plan of Care Certification Date: 02/11/24 Next Certification Due Date: 04/12/24 [facility] PHYSICAL THERAPY TREATMENT NOTE ASSESSMENT: Dawn Mccarty tolerated the session with decreased symptoms and no issues. He demonstrated intermittent but tolerable LECHUGA's and some back pain with prolonged sitting that improves with movement. The patient will continue to benefit from ongoing skilled physical therapy to progress toward set goals and for reassessment by supervising therapist. PLAN FOR NEXT VISIT: NM SUBJECTIVE: A few significant LECHUGA's since last being seen. Also had a bit of a throat virus. Has a question poncho referral pattern up into the back of the head currently. Pain: Pain Pain Level: 1 Pain Location: Head - Right Description: Aching, Dull, Sore Frequency: Continuous OBJECTIVE MEASURES WITH LEVEL OF FUNCTION: R upper trap reproduces LECHUGA symptoms TREATMENT: Manual Therapy: 1: STM, CFM, and stripping to B upper traps, SCMs with push to tolerance 2: Manual cervical traction x3 min 3: C1 rotation mobs x20/side grades 2-3 4: CFM and stripping to B thoracolumbar paraspinals with push to tolerance Skilled Intervention: Manual skills to improve joint mobility, ROM, and decrease pain. Utilized anatomy knowledge of the therapist, and assessment of patient's response to intervention. Billing Manual TherapyTreatment Minutes: 40 Skilled Treatment Time Minutes (timed and untimed codes): 40 Total Session Time (minutes): 40 Session Start Time : 1758 Session Stop Time : 1838 Yogi Mazariegos PT documented in this encounter [facility] 03-08-2024 Telephone encounter Note Urine culture results negative. Notified via [employer]. Encouraged to follow up with PCP for continuing symptoms. [facility] Work Phone: 03-08-2024 Miscellaneous Notes Urine culture results negative. Notified via [employer]. Encouraged to follow up with PCP for continuing symptoms. documented in this encounter [facility] 03-07-2024 Telephone encounter Note Patient returned call and given provider's message below and patient verbalized understanding. Salomon Deleon RN [facility] 03-07-2024 Miscellaneous Notes Patient returned call and given provider's message below and patient verbalized understanding. Salomon Deleon RN Unable to reach patient. Mailbox full/Mailbox not set up/ Number incorrect. Please try again later. Danielle Tom MA Call patient let him know he is negative for trichomonas, gonorrhea, chlamydia. We are still waiting on the urine culture. documented in this encounter [facility] 03-07-2024 Telephone encounter Note Unable to reach patient. Mailbox full/Mailbox not set up/ Number incorrect. Please try again later. Danielle Tom MA [facility] 03-07-2024 Telephone encounter Note Call patient let him know he is negative for trichomonas, gonorrhea, chlamydia. We are still waiting on the urine culture. [facility] Work Phone: 03-06-2024 History of Present illness Narrative Subjective Urinary burning for a few months on and off. Sore throat times today. Feels like there is something in there when he swallows. The history is provided by the patient. No tree surgeon was used. Review of Systems Constitutional: Negative. Skin: Negative. Objective Physical Exam Constitutional: Appearance: Normal appearance. HENT: Right Ear: Hearing, tympanic membrane, ear canal and external ear normal. Left Ear: Hearing, tympanic membrane, ear canal and external ear normal. Mouth/Throat: Comments: Mild plus 1 with erythema. Cardiovascular: Rate and Rhythm: Normal rate and regular rhythm. Heart sounds: Normal heart sounds. Pulmonary: Effort: Pulmonary effort is normal. Breath sounds: Normal breath sounds. Neurological: Mental Status: He is alert. PAST MEDICAL HISTORY Diagnosis Date Attention deficit hyperactivity disorder (ADHD) 06/18/2007 Cervicogenic headache 09/07/2021 Chlamydia infection 03/15/2023 Gastroesophageal reflux disease 02/11/2023 PMH - PAST MEDICAL HISTORY OF cyst on testicle PMH - PAST MEDICAL HISTORY OF 05/22/2004 normal color vision Rib contusion 08/19/2012 Skin striae 07/22/2015 Tourette's disorder Unspecified asthma(493.90) PAST SURGICAL HISTORY Procedure Laterality Date CIRCUMCISION,CLAMP, 1998 EGD AC OLYMPUS 02/13/2022 TONSILLECTOMY & ADENOIDECTOMY <AGE 10 ALLERGIES Patient has no known allergies. MEDICATIONS ibuprofen (MOTRIN ORAL) Take by mouth. omeprazole (PRILOSEC) 20 mg capsule Take 1 capsule by mouth once daily. (Patient taking differently: Take 20 mg by mouth as needed.) FAMILY HISTORY Problem Relation Age of Onset [...] week Types: Marijuana Comment: none since 2021 ASSESSMENT/PLAN: 1. Urinary frequency - ICD9: 788.41, ICD10: R35.0 (primary diagnosis) - UA DIP, URINE (POC) - UA DIP, URINE (POC) - URINE CULTURE - GONORRHEA/CHLAMYDIA NAAT - TRICHOMONAS VAGINALIS NAAT 2. Sore throat - ICD9: 462, ICD10: J02.9 - STREP A MOLECULAR (POC) - neg Patient was not treated with anything at this time. If anything comes back positive please treat accordingly. Patient was okay with this care plan. Urine dip was negative. Carina Galvez APRN.HOB MACHINE OPERATOR documented in this encounter [facility] 02-25-2024 History of Present illness Narrative Episode Visit Count: 13 Therapist That Will Accept/Oversee The Plan Of Care: Yogi Mazariegos Start of Care Date: 11/05/23 Onset Date: 10/24/23 Plan of Care Certification Date: 02/11/24 Next Certification Due Date: 04/12/24 REHABILITATION AND SPORTS THERAPY PHYSICAL THERAPY TREATMENT NOTE ASSESSMENT: Dawn Mccarty tolerated the session with decreased symptoms. He demonstrated difficulty with LECHUGA's and eye strain from extensive computer work and randy. The patient will continue to benefit from ongoing skilled physical therapy to progress toward set goals. PLAN FOR NEXT VISIT: NM SUBJECTIVE: Patient doing better with less frequent LECHUGA's. When he gets them he still gets pretty bad pain in the face, eye, and forehead Pain: Pain Pain Level: 3 Pain Location: Head - Right Description: Sharp, Aching, Pressure Frequency: Continuous OBJECTIVE MEASURES WITH LEVEL OF FUNCTION: Palpation to R upper trap, SCM, and suboccipitals recreate LECHUGA pain TREATMENT: Manual Therapy: 1: STM, CFM, and TrPr to R SCM, upper trap, cervical paraspinals, and suboccipitals with push to tolerance Skilled Intervention: Manual skills to improve joint mobility, ROM, and decrease pain. Utilized anatomy knowledge of the therapist, and assessment of patient's response to intervention. Billing Manual TherapyTreatment Minutes: 27 Skilled Treatment Time Minutes (timed and untimed codes): 27 Total Session Time (minutes): 27 Session Start Time : 1618 Session Stop Time : 1645 Yogi Mazariegos PT documented in this encounter [facility] 02-14-2024 History of Present illness Narrative Episode Visit Count: 12 Therapist That Will Accept/Oversee The Plan Of Care: Yogi Mazariegos Start of Care Date: 11/05/23 Onset Date: 10/24/23 Plan of Care Certification Date: 02/11/24 Next Certification Due Date: 04/12/24 REHABILITATION AND SPORTS THERAPY PHYSICAL THERAPY PROGRESS REPORT PLAN OF CARE UPDATE: Assessment: Dawn Mccarty demonstrates minimal improvement in LECHUGA's. He has progressed toward goals. Patient continues to present with impairments in ADL's, overall function, range of motion, symptom management, and tissue tenderness that interfere with sitting, sleeping, heavy exertion, working . Current prognosis is Fair due to: clinical presentation, multiple co- morbidities, chronic nature of impairments, limited tolerance to activity, occupational demands . He will benefit from continued skilled therapy services to meet the updated goals for this plan of care as noted below. Goals updated on 02/11/2024. Goals for Episode of Care: created on 12/12/2023 through 03/11/24 Independent in a Home Exercise Program. Partially met Patient will decrease pain rating by 2 points to meet minimal clinical important difference for numeric pain rating scale. Progressing towards Sit 1-2 hours without pain/symptoms to allow for seated activities or computer work. Partially met Maintain proper sitting posture throughout the session to allow for reduced symptoms. Not met Pt. Report LECHUGA 1-2 times a week no greater than 3-5/10 pain intensity, lasting no greater than 1 hour in response to HEP to self manage symptoms. Progressing towards Patient Goals: reduce frequency and intensity of LECHUGA Planned Interventions, Frequency, and Duration: 1x/week, 4 weeks Total Number of Visits Planned: 4 Patient to be seen for Therapeutic exercise (96181), Neuromuscular re-education (38565), Manual therapy (17871), Therapeutic activities (32096), Self-fpc management (67221), Patient/Family/Caregiver Education, Body Mechanics Training PLAN FOR NEXT VISIT: Manual/needling as needed for symptom modulation, continue education to help decrease perpetuating factors SUBJECTIVE: Patient comes in today with resolving TMJ issues since his wisdon teeth extraction, 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 His LECHUGA's have returned and are pretty intense when he gets them. He is still sleeping in odd positions and with his right arm extended above his head.. Functional Limitations: sitting, sleeping, heavy exertion, working Pain: Pain Pain Level: 7 Pain Location: Head - Right Description: Sharp, Aching, Tightness Frequency: Continuous PROMIS Scales 11/05/2023 Higher is Better Phys Func - Score 47 (within normal limits) Phys Func - Percentile 38 T-scores: mean of general population = 50. 5 points is clinically meaningfully difference Percentiles provide an indication of how the patient's score ranks in relation to the general population. Higher percentile rankings indicate better function/quality of life. 50th percentile is the average of the general population and indicates half of respondents had a worse score. OBJECTIVE MEASURES WITH LEVEL OF FUNCTION: Spine Observations R Cervical Spine Palpation Tenderness: Upper trapezius, Sternocleidomastoid, Suboccipitals Cervical Spine ROM Cervical Flexion AROM: Normal Cervical Extension AROM: Normal Cervical Side-Bend Right AROM: Normal Cervical Side-Bend Left AROM: Moderate limitation Cervical Rotation Right AROM: Normal Cervical Rotation Left AROM: Moderate limitation TREATMENT: Manual Therapy: 1: STM, CFM, and TrPr to R SCM, upper trap, cervical paraspinals, and suboccipitals with push to tolerance 2: Manual cervical traction x10 min Skilled Intervention: Manual skills to improve joint mobility, ROM, and decrease pain. Utilized anatomy knowledge of the therapist, and assessment of patient's response to intervention. Billing Manual TherapyTreatment Minutes: 40 Skilled Treatment Time Minutes (timed and untimed codes): 40 Total Session Time (minutes): 40 Session Start Time : 1620 Session Stop Time : 1700 Yogi Mazariegos PT Program_ID:[id number] Access Code: [email or web address] URL: [email or web address] Date: 02-11-2024 Prepared By: Florence Apple Program Notes Exercises - Supine Cervical Retraction with Towel - 2-3 x daily - 7 x weekly - 4-5 sets - 10 reps - Seated Upper Trapezius Stretch - 2-3 x daily - 7 x weekly - 3 sets - 1 reps - 4-Step TMJ Disc Recapture with Strong Side Pressure - 1 x daily - 7 x weekly - 3 sets - 5 reps - Cat Cow - 1 x daily - 7 x weekly - 3 sets - 10 reps - Quadruped Thoracic Rotation Full Range with Hand on Neck - 1 x daily - 7 x weekly - 3 sets - 10 reps - Quadruped Full Range Thoracic Rotation with Reach - 1 x daily - 7 x weekly - 3 sets - 10 reps - Controlled Jaw Opening with Tongue on Roof of Mouth - 1 x daily - 7 x weekly - 3 sets - 8 reps - Isometric Jaw Deviation - 1 x daily - 7 x weekly - 3 sets - 20 reps - Sternocleidomastoid Stretch - 3 x daily - 7 x weekly - 1 sets - 3 reps - Seated Cervical Retraction - 3 x daily - 7 x weekly - 1 sets - 3 reps documented in this encounter [facility] 02-12-2024 History of Present illness Narrative Subjective Patient came in with complaints of having a lot of health anxiety. Patient says it is really taking over his life. Patient says he spends a lot of time on [employer] looking things up. Patient says he has been getting a rash on and off when he comes in contact with a lot of sunshine or heat. Patient says once he removes himself from either the sun or the heat the rash goes away within several minutes. Patient denies any other new symptoms except anxiety. The history is provided by the patient. No tree surgeon was used. Rash Review of Systems Constitutional: Negative. Skin: Positive for rash. Objective Physical Exam Constitutional: Appearance: Normal appearance. Pulmonary: Effort: Pulmonary effort is normal. Neurological: Mental Status: He is alert. Patient denies rash at this time. PAST MEDICAL HISTORY Diagnosis Date Attention deficit hyperactivity disorder (ADHD) 06/18/2007 Cervicogenic headache 09/07/2021 Chlamydia infection 03/15/2023 Gastroesophageal reflux disease 02/11/2023 PMH - PAST MEDICAL HISTORY OF cyst on testicle PMH - PAST MEDICAL HISTORY OF 05/22/2004 normal color vision Rib contusion 08/19/2012 Skin striae 07/22/2015 Tourette's disorder Unspecified asthma(493.90) PAST SURGICAL HISTORY Procedure Laterality Date CIRCUMCISION,CLAMP, 1998 EGD AC OLYMPUS 02/13/2022 TONSILLECTOMY & ADENOIDECTOMY <AGE 10 ALLERGIES Patient has no known allergies. MEDICATIONS omeprazole (PRILOSEC) 20 mg capsule Take 1 capsule by mouth once daily. (Patient taking differently: Take 20 mg by mouth as needed.) ibuprofen (MOTRIN ORAL) Take by mouth. (Patient not taking: Reported on 10/25/2023) FAMILY HISTORY Problem Relation Age of Onset [...] week Types: Marijuana Comment: none since 2021 ASSESSMENT/PLAN: 1. Rash - ICD9: 782.1, ICD10: R21 Patient was instructed that if rash was persistently coming and going he should follow-up with dermatology. Because there is no rash today no treatment was given today. Talked with patient extensively about his healthcare anxiety. Patient was instructed to follow-up with primary care and talk with them about it taking over his life and see if there is something they can do or put him on to help with this. Patient was okay with this care plan and does have an appointment next weeks set up. Carina Galvez APRN.YOLY documented in this encounter [facility] 02-06-2024 History of Present illness Narrative Images from the original note were not included. This note was created using NoteWriter. Subjective Dawn Mccarty is a 23 year old male. Patient reports he was sitting in a hot car and scratched his leg due to itch. When he looked down he noticed his inner thigh and calf were splotchy. Symptoms have mostly dissipated at this time. Patient reports he was mostly concerned with how fast it spread Rash Review of Systems Skin: Positive for rash. Objective BP 116/72 Pulse 86 Temp 36.8 C (98.2 F) Resp 16 Wt 67.9 kg (149 lb 11.1 oz) SpO2 99% BMI 23.45 kg/m Physical Exam Skin: Comments: Very light pink splotches noted. Patient denies pain or itching at this time. PAST MEDICAL HISTORY Diagnosis Date Attention deficit hyperactivity disorder (ADHD) 06/18/2007 Cervicogenic headache 09/07/2021 Chlamydia infection 03/15/2023 Gastroesophageal reflux disease 02/11/2023 PMH - PAST MEDICAL HISTORY OF cyst on testicle PMH - PAST MEDICAL HISTORY OF 05/22/2004 normal color vision Rib contusion 08/19/2012 Skin striae 07/22/2015 Tourette's disorder Unspecified asthma(493.90) PAST SURGICAL HISTORY Procedure Laterality Date CIRCUMCISION,CLAMP, 1998 EGD AC OLYMPUS 02/13/2022 TONSILLECTOMY & ADENOIDECTOMY <AGE 10 ALLERGIES Patient has no known allergies. MEDICATIONS omeprazole (PRILOSEC) 20 mg capsule Take 1 capsule by mouth once daily. (Patient taking differently: Take 20 mg by mouth as needed.) ibuprofen (MOTRIN ORAL) Take by mouth. (Patient not taking: Reported on 10/25/2023) FAMILY HISTORY Problem Relation Age of Onset [...] week Types: Marijuana Comment: none since 2021 ASSESSMENT/PLAN: 1. Rash - ICD9: 782.1, ICD10: R21 - Patient feels symptoms have significantly diminished and does not feel any further treatment is need at this point, will return if symptoms reappear Potential red flag symptoms discussed with the patient. Reviewed appropriate action plan to take if red flag symptoms occur. Patient agreeable to treatment plan. Danielle Tirado Supervising provider was present and guided the care of the patient for the entire session on this date. All documentation was reviewed and agreed upon. Carina Galvez APRN.HOB MACHINE OPERATOR documented in this encounter [facility] 01-10-2024 History of Present illness Narrative Episode Visit Count: 10 Therapist That Will Accept/Oversee The Plan Of Care: Yogi Mazariegos Start of Care Date: 11/05/23 Onset Date: 10/24/23 Plan of Care Certification Date: 12/12/23 Next Certification Due Date: 02/10/24 REHABILITATION AND SPORTS THERAPY PHYSICAL THERAPY TREATMENT NOTE ASSESSMENT: Dawn Mccarty tolerated the session with no issues. He demonstrated difficulty with posture and prolonged sitting. The patient will continue to benefit from ongoing skilled physical therapy to progress toward set goals. PLAN FOR NEXT VISIT: Assess carry over from tooth extraction SUBJECTIVE: Patient having issues with B hip pain. Mostly with sitting all day, notes his hip feels like it is going to explode. Pain: Pain Pain Level: 9 Pain Location: Hip - Left, Hip - Right Description: Pressure, Sharp OBJECTIVE MEASURES WITH LEVEL OF FUNCTION: Special Tests - Hip and Spine Hip and Spine Special Tests: ASHLEIGH Test, FADDIR Test, Scour Test ASHLEIGH Test: Right Positive FADDIR Test: Right Positive Scour Test: Right Positive TREATMENT: Therapeutic Exercise: 1: *SL hip abduction 3x10/side 2: *Clamshells 3x10/side 3: *Bridging 3x10 4: *SLR 3x10 Skilled Intervention: Patient was educated in proper exercise technique and purpose for exercises. Skilled judgment was used in selection of appropriate interventions. Provided written instruction for home exercise program to facilitate proper performance and compliance. Correct performance of therapeutic exercises was facilitated with verbal, visual, and tactile cuing. Billing Total Session Time (minutes): 25 Session Start Time : 1720 Session Stop Time : 1745 Yogi Mazariegos PT Program_ID:[id number] Access Code: [email or web address] URL: [email or web address] Date: 01-09-2024 Prepared By: Yogi Mazariegos Program Notes Exercises - Sidelying Hip Abduction - 1 x daily - 7 x weekly - 3 sets - 10 reps - Clamshell with Resistance - 1 x daily - 7 x weekly - 3 sets - 10 reps - Supine Bridge - 1 x daily - 7 x weekly - 3 sets - 10 reps - Supine Active Straight Leg Raise - 1 x daily - 7 x weekly - 3 sets - 10 reps - Standing Hip Abduction Adduction at Pool Wall - 1 x daily - 7 x weekly - 3 sets - 10 reps - Standing Hip Flexion Extension at Pool Wall - 1 x daily - 7 x weekly - 3 sets - 10 reps - Standing March at Pool Wall - 1 x daily - 7 x weekly - 3 sets - 10 reps - Standing Hip Circles at Pool Wall - 1 x daily - 7 x weekly - 3 sets - 10 reps - Heel Toe Raises at Pool Wall - 1 x daily - 7 x weekly - 3 sets - 10 reps - Single Leg Stance at Pool Wall - 1 x daily - 7 x weekly - 3 sets - 10 reps - Quad Stretch with Noodle at Pool Wall - 1 x daily - 7 x weekly - 1 sets - 3 reps - Standing 3-Way Kick with Ankle Float at Pool Wall - 1 x daily - 7 x weekly - 3 sets - 10 reps Program_ID:[id number] Access Code: [email or web address] URL: [email or web address] Date: 01-07-2024 Prepared By: Yogi Mazariegos Program Notes Exercises - Sidelying Hip Abduction - 1 x daily - 7 x weekly - 3 sets - 10 reps - Clamshell with Resistance - 1 x daily - 7 x weekly - 3 sets - 10 reps - Supine Bridge - 1 x daily - 7 x weekly - 3 sets - 10 reps - Supine Active Straight Leg Raise - 1 x daily - 7 x weekly - 3 sets - 10 reps documented in this encounter [facility] 12-31-2023 History of Present illness Narrative Episode Visit Count: 9 Therapist That Will Accept/Oversee The Plan Of Care: Yogi Mazariegos Start of Care Date: 11/05/23 Onset Date: 10/24/23 Plan of Care Certification Date: 12/12/23 Next Certification Due Date: 02/10/24 REHABILITATION AND SPORTS THERAPY PHYSICAL THERAPY TREATMENT NOTE ASSESSMENT: Dawn Mccarty tolerated the session with no issues. He demonstrated difficulty with jaw pain. The patient will continue to benefit from ongoing skilled physical therapy to progress toward set goals. PLAN FOR NEXT VISIT: Assess removal of wisdom teeth SUBJECTIVE: Patient continues to report his congregation pain is unbearable. Hurts every time he eats and feels like electric pain shooting into the eye and jaw Pain: Pain Pain Level: 8 Pain Location: Head - Right, Jaw Description: Shooting, Sharp Frequency: Intermittent OBJECTIVE MEASURES WITH LEVEL OF FUNCTION: TMJ AROM Mandibular Opening: Millimeter(s) Mandibular Opening (mm): 55 Millimeters Mandibular Protrusion: WNL Mandibular Lateral Excursion Right: Millimeter(s) Mandibular Lateral Excursion Right (mm): 6 Millimeters Mandibular Lateral Excursion Left: Millimeter(s) Mandibular Lateral Excursion Left (mm): 10 Millimeters TREATMENT: Therapeutic Exercise: 1: *4 step disc repature 3x5 2: *Opening with tongue against roof of mouth 3x10 3: *Jaw perturbations 3x30 sec Skilled Intervention: Patient was educated in proper exercise technique and purpose for exercises. Skilled judgment was used in selection of appropriate interventions. Provided written instruction for home exercise program to facilitate proper performance and compliance. Correct performance of therapeutic exercises was facilitated with verbal, visual, and tactile cuing. Manual Therapy: 1: STM to R masseter, temporalis, and medial pterygoid 2: R sided manidbular mobs grade 2-3 Skilled Intervention: Manual skills to improve joint mobility, ROM, and decrease pain. Utilized anatomy knowledge of the therapist, and assessment of patient's response to intervention. Billing Therapeutic Exercise Treatment Minutes: 10 Manual TherapyTreatment Minutes: 30 Skilled Treatment Time Minutes (timed and untimed codes): 40 Total Session Time (minutes): 40 Session Start Time : 1602 Session Stop Time : 164 Yogi Yair, PT Program_ID:[id number] Access Code: [email or web address] URL: [email or web address] Date: 12-30-2023 Prepared By: Florence Apple Program Notes Exercises - Supine Cervical Retraction with Towel - 2-3 x daily - 7 x weekly - 4-5 sets - 10 reps - Seated Upper Trapezius Stretch - 2-3 x daily - 7 x weekly - 3 sets - 1 reps - 4-Step TMJ Disc Recapture with Strong Side Pressure - 1 x daily - 7 x weekly - 3 sets - 5 reps - Cat Cow - 1 x daily - 7 x weekly - 3 sets - 10 reps - Quadruped Thoracic Rotation Full Range with Hand on Neck - 1 x daily - 7 x weekly - 3 sets - 10 reps - Quadruped Full Range Thoracic Rotation with Reach - 1 x daily - 7 x weekly - 3 sets - 10 reps - Controlled Jaw Opening with Tongue on Roof of Mouth - 1 x daily - 7 x weekly - 3 sets - 8 reps - Isometric Jaw Deviation - 1 x daily - 7 x weekly - 3 sets - 20 reps documented in this encounter [facility] 12-20-2023 History of Present illness Narrative Episode Visit Count: 8 Therapist That Will Accept/Oversee The Plan Of Care: Yogi Mazariegos Start of Care Date: 11/05/23 Onset Date: 10/24/23 Plan of Care Certification Date: 12/12/23 Next Certification Due Date: 02/10/24 REHABILITATION AND SPORTS THERAPY PHYSICAL THERAPY TREATMENT NOTE ASSESSMENT: Dawn Mccarty tolerated the session with decreased symptoms. He demonstrated difficulty with thoracic extension creating radicular symptoms into the ribs and lower chest. The patient will continue to benefit from ongoing skilled physical therapy to progress toward set goals. PLAN FOR NEXT VISIT: SUBJECTIVE: Patient's congregation keeps flaring up and he wants to leave this spot alone, feels like every time we work on it, it just flares him up. Dos want to look at his mid thoracic spine, as this produces a sharp pain that warps around the ribs into the chest when he arches back far enough Pain: Pain Pain Level: 2 Pain Location: Neck Description: Tightness, Sore Frequency: Continuous OBJECTIVE MEASURES WITH LEVEL OF FUNCTION: Spine Observations R Thoracic Spine Palpation Tenderness: Paraspinals L Thoracic Spine Palpation Tenderness: Paraspinals Thoracic Spine AROM Thoracic Flexion: Normal Thoracic Extension: Minimal limitation, End range pain Thoracic Sidebend Right: Normal Thoracic Sidebend Left: Normal Thoracic Rotation Right: Normal Thoracic Rotation Left: Moderate limitation TREATMENT: Therapeutic Exercise: 1: *Cat and cow 3x10 2: *Quadruped thoracic rotation to L 3x10 Skilled Intervention: Patient was educated in proper exercise technique and purpose for exercises. Skilled judgment was used in selection of appropriate interventions. Provided written instruction for home exercise program to facilitate proper performance and compliance. Correct performance of therapeutic exercises was facilitated with verbal, visual, and tactile cuing. Manual Therapy: 1: STM and stripping to B upper traps 2: CFM to B thoracic paraspinals in stripping motion with push to tolerance Skilled Intervention: Manual skills to improve joint mobility, ROM, and decrease pain. Utilized anatomy knowledge of the therapist, and assessment of patient's response to intervention. Billing Therapeutic Exercise Treatment Minutes: 10 Manual TherapyTreatment Minutes: 30 Skilled Treatment Time Minutes (timed and untimed codes): 40 Total Session Time (minutes): 40 Session Start Time : 1750 Session Stop Time : 1830 Yogi Mazariegos PT Program_ID:[id number] Access Code: [email or web address] URL: [email or web address] Date: 12-19-2023 Prepared By: Florence Apple Program Notes Exercises - Supine Cervical Retraction with Towel - 2-3 x daily - 7 x weekly - 4-5 sets - 10 reps - Seated Upper Trapezius Stretch - 2-3 x daily - 7 x weekly - 3 sets - 1 reps - 4-Step TMJ Disc Recapture with Strong Side Pressure - 1 x daily - 7 x weekly - 3 sets - 10 reps - Jaw Deviation - 1 x daily - 7 x weekly - 3 sets - 5 reps - Cat Cow - 1 x daily - 7 x weekly - 3 sets - 10 reps - Quadruped Thoracic Rotation Full Range with Hand on Neck - 1 x daily - 7 x weekly - 3 sets - 10 reps - Quadruped Full Range Thoracic Rotation with Reach - 1 x daily - 7 x weekly - 3 sets - 10 reps documented in this encounter [facility] 12-05-2023 History of Present illness Narrative Episode Visit Count: 6 Therapist That Will Accept/Oversee The Plan Of Care: Yogi Mazariegos Start of Care Date: 11/05/23 Onset Date: 10/24/23 Plan of Care Certification Date: 11/05/23 Next Certification Due Date: 12/10/23 REHABILITATION AND SPORTS THERAPY PHYSICAL THERAPY TREATMENT NOTE ASSESSMENT: Dawn Mccarty tolerated the session with expected muscle soreness. He demonstrated difficulty with TMJ pain and LECHUGA's. The patient will continue to benefit from ongoing skilled physical therapy to progress toward set goals. PLAN FOR NEXT VISIT: Assess carry over of TMJ work and exercises SUBJECTIVE: Patient has been better with LECHUGA frequency and intensity. Thinks maybe his tooth is partially the cause of some of his facial/LECHUGA pain Pain: Pain Pain Level: 4 Pain Location: Neck - Right, Head - Right Description: Radiating, Aching, Tightness OBJECTIVE MEASURES WITH LEVEL OF FUNCTION: Cooper to palpate below noted muscles, L sided TMJ restrictions with passive joint mobs TREATMENT: Therapeutic Exercise: 1: *4 step disc recapture 3x10 2: *Lateral jaw deviation 3x10 to the R Skilled Intervention: Patient was educated in proper exercise technique and purpose for exercises. Skilled judgment was used in selection of appropriate interventions. Provided written instruction for home exercise program to facilitate proper performance and compliance. Correct performance of therapeutic exercises was facilitated with verbal, visual, and tactile cuing. Manual Therapy: 1: STM and TrPr to R temporalis, masseter, SCM, upper trap, and upper cervical mm and suboccipitals with push to tolerance 2: Manual jaw distraction and anterior glides 3x20, grade 3-4 mobs Skilled Intervention: Manual skills to improve joint mobility, ROM, and decrease pain. Utilized anatomy knowledge of the therapist, and assessment of patient's response to intervention. Billing Therapeutic Exercise Treatment Minutes: 10 Manual TherapyTreatment Minutes: 32 Skilled Treatment Time Minutes (timed and untimed codes): 42 Total Session Time (minutes): 42 Session Start Time : 1755 Session Stop Time : 1837 Yogi Mazariegos PT Program_ID:[id number] Access Code: [email or web address] URL: [email or web address] Date: 12-03-2023 Prepared By: Florence Apple Program Notes Exercises - Supine Cervical Retraction with Towel - 2-3 x daily - 7 x weekly - 4-5 sets - 10 reps - Seated Upper Trapezius Stretch - 2-3 x daily - 7 x weekly - 3 sets - 1 reps - 4-Step TMJ Disc Recapture with Strong Side Pressure - 1 x daily - 7 x weekly - 3 sets - 10 reps - Jaw Deviation - 1 x daily - 7 x weekly - 3 sets - 5 reps documented in this encounter [facility] 11-22-2023 History of Present illness Narrative Episode Visit Count: 5 Therapist That Will Accept/Oversee The Plan Of Care: Yogi Mazariegos Start of Care Date: 11/05/23 Onset Date: 10/24/23 Plan of Care Certification Date: 11/05/23 Next Certification Due Date: 12/10/23 REHABILITATION AND SPORTS THERAPY PHYSICAL THERAPY TREATMENT NOTE ASSESSMENT: Dawn Mccarty tolerated the session with decreased symptoms. He demonstrated difficulty with headaches. The patient will continue to benefit from ongoing skilled physical therapy to progress toward set goals. PLAN FOR NEXT VISIT: Needle suboccipitals and upper trap SUBJECTIVE: Patients GF comes in tonight wanting to learn how to help him again. Patient slept wrong and the right side of his neck is really tight and causing his LECHUGA Pain: Pain Pain Level: 3 Pain Location: Head - Right Description: Aching, Radiating OBJECTIVE MEASURES WITH LEVEL OF FUNCTION: LECHUGA reproduced with R upper trap and suboccipitals TREATMENT: Manual Therapy: 1: STM and suboccipital release bilaterally 2: Manual traction x5 min 3: Upper trap stripping Skilled Intervention: Manual skills to improve joint mobility, ROM, and decrease pain. Utilized anatomy knowledge of the therapist, and assessment of patient's response to intervention. Self-Mcc Management: 1: Educated and manual assisted in STM, CFM, TrPR, stripping, and traction tehcniques for home manual techniques Skilled Intervention: Skilled judgment in the selection of proper modification for activity of daily living/home management based on clinical presentation, deficits, and needs. Reviewed patient specific diagnosis in relation to activities of daily living/home management. Activity progression based on professional judgement. Billing Manual TherapyTreatment Minutes: 45 Self-Care/Home Management Treatment Minutes: 9 Skilled Treatment Time Minutes (timed and untimed codes): 54 Total Session Time (minutes): 54 Session Start Time : 1755 Session Stop Time : 1849 Yogi Mazariegos PT documented in this encounter [facility] 06-05-2023 History of Present illness Narrative This note was created using 4 the starsriter. Subjective Dawn Mccarty is a 22 year old male here [...] HEPATITIS C ANTIBODY IA WITH CONFIRMATION Aaron Sarabia MD documented in this encounter [facility] 03-21-2023 History of Present illness Narrative Episode Visit Count: 4 Therapist That Will Accept/Oversee The Plan Of Care: Yogi Mazariegos Start of Care Date: 02/19/23 Onset Date: 02/19/21 Plan of Care Certification Date: 02/19/23 Next Certification Due Date: 04/21/23 REHABILITATION AND SPORTS THERAPY PHYSICAL THERAPY PROGRESS REPORT PLAN OF CARE UPDATE: Assessment: Dawn Jordyn Mccarty demonstrates moderate improvement in working. He has [...] Patient to be seen for Manual therapy (82446), Therapeutic exercise (53199), Self-fpc management (27442), Patient/Family/Caregiver Education PLAN FOR NEXT VISIT: Continue [...] 40 Total Treatment Time Minutes (timed/untimed): 40 Yogi Mazariegos PT documented in this encounter [facility] 03-19-2023 Miscellaneous Notes Attempted to call Patient, [...] possible. Patient requests prescription be sent to [facility] in [place]. Maria L Bonilla RN documented in this encounter [facility] 02-28-2023 History of Present illness Narrative Episode Visit Count: 2 Therapist That Will Accept/Oversee The Plan Of Care: Yogi Mazariegos Start of Care Date: 02/19/23 Onset Date: 02/19/21 Plan of Care Certification Date: 02/19/23 Next Certification Due Date: 04/21/23 REHABILITATION AND SPORTS THERAPY PHYSICAL THERAPY TREATMENT NOTE ASSESSMENT: Dawn Mccarty tolerated the session with decreased symptoms. He [...] 54 Total Treatment Time Minutes (timed/untimed): 54 Yogi Mazariegos PT documented in this encounter [facility] 02-19-2023 Miscellaneous Notes Addended by: YOGI MAZARIEGOS on: 02/19/2023 02:57 PM Modules accepted: Orders documented in this encounter [facility] 02-19-2023 History of Present illness Narrative Episode Visit Count: 1 Therapist That Will Accept/Oversee The Plan Of Care: Yogi Mazariegos Start of Care Date: 02/19/23 Onset Date: 02/19/21 Plan of Care Certification Date: 02/19/23 Next Certification Due Date: 04/21/23 Patient Identified by Name and Date of : Yes REHABILITATION AND SPORTS THERAPY PHYSICAL THERAPY EVALUATION PLAN OF CARE: Assessment: Dawn Mccarty presents with chief complaint of chronic LECHUGA [...] Planned: 8 Planned Treatment Interventions: Therapeutic exercise (15763), Manual therapy (54294), Neuromuscular re-education (05637), Therapeutic activities (57501), Self-fpc management (58920), Patient/Family/Caregiver Education, Body Mechanics Training PLAN FOR NEXT VISIT: Assess carry over of needling. May try upper cervical mobs Patient demonstrates good understanding of plan of care and treatment. The above goals and plan of care were discussed and agreed upon by patient/family. SUBJECTIVE: Dawn Mccarty is a 22 year old male seen [...] the pain, but knows this isn't a buttermaker helper solution Functional Limitations: working, physical activities, recreational [...] PT Treatment Interventions: Therapeutic Exercise, Manual Therapy, Self-Mcc Management Evaluation Therapeutic Exercise: 1: *Upper trap [...] and assessment of patient's response to intervention. Self-Mcc Management: 1: Spent significant time discussing cervicogenic [...] 10 Total Treatment Time Minutes (timed/untimed): 75 Yogi Mazariegos PT documented in this encounter [facility] 02-11-2023 History of Present illness Narrative Radiology Service Progress Note PATIENT NAME: Dawn Mccarty DATE OF SERVICE: February 11, 2023 TIME: [...] RT Heather(R) February 11, 2023 10:34 AM documented in this encounter [facility] 02-11-2023 History of Present illness Narrative This note was created using 4 the starsriter. Subjective Patient presents with: Establish Care: Establish Care Dawn Mccarty is a 22 year old male. He's [...] HEP C AB IA W/CONF SCRN Aaron Sarabia MD documented in this encounter [facility] 09-13-2022 Instructions Carina Galvez APRN.[facility] - 09/13/2022 10:30 AM EST Images from [...] a throat culture should be done to hop picker the 10% of strep infections that [...] can also gargle with warm salt water (1/4 teaspoon of salt per glass). Diet A [...] any symptoms of a cold). Published by [employer]. This content is reviewed periodically and is subject to change as new health information becomes available. The information is intended to inform and educate and is not a replacement for medical evaluation, advice, diagnosis or treatment by a healthcare professional. Written by Monica Whittington M.D., author of Your Child's Health, [place] [employer]. Copyright 2007 [employer] and/or one of its subsidiaries. All Rights Reserved. Copyright [employer] 2008 Pediatric Advisor documented in this encounter [facility] 09-13-2022 History of Present illness Narrative CC: Patient presents with: Sore Throat: Cough, congestion x 1 day HPI: Dawn Mccarty is a 21 year old male who [...] symptoms occur. Patient agreeable to treatment plan. Carina Galvez APRN.[facility] documented in this encounter [facility] 05-16-2022 History of Present illness Narrative Radiology Service Progress Note PATIENT NAME: Dawn Mccarty DATE OF SERVICE: May 16, 2022 TIME: 10:30 AM PATIENT IDENTITY VERIFICATION COMPLETED USING TWO (2) IDENTIFIERS: Name and Date of confirmed by patient verbally. FALL SCREENING: Has the patient had 2 falls in the last year or 1 fall with injury or currently using an Ambulatory Assistive Device (Walker, Cane, Wheelchair, Crutches, etc.)? No PATIENT GENDER DATA: Male PATIENT RELEVANT IMPLANT DATA REVIEWED: Yes RADIOLOGY DEPARTMENT: General X-ray: Exam(s) Completed: Rib X-Ray: Right PERIPHERAL IV DATA: Not applicable SIGNED BY: RT Heather(R) May 16, 2022 10:30 AM documented in this encounter [facility] 05-16-2022 History of Present illness Narrative Patient presents with: Back Pain: [...] cyanosis, no edema. Normal strength in hand recruiting assistant, pincer grasp, and finger abduction. No pain [...] CAPSULE,DELAYED RELEASE to take with ibuprofen. Rafael Dale MD documented in this encounter [facility] 02-13-[address] Alvarado at bedside speaking with patient Pt states readines for discharge. Patient waiting at bedside to speak with the doctor. documented in this encounter [facility] 02-13-2022 History and physical note HISTORY AND PHYSICAL Dawn Mccarty, 21 year old male here for EGD [...] Key Alvarado MD documented in this encounter [facility] 01-18-2022 History of Present illness Narrative Patient presents with: Headache: Pain [...] to develop and headache treatment plan. Rafael Dale MD documented in this encounter [facility] 01-17-2022 Instructions Chelsea Euceda APRN.[employer]INE OPERATOR - 01/17/2022 1:34 PM EDT Avoid NSAIDs [...] and as needed. documented in this encounter [facility] 01-17-2022 History of Present illness Narrative NEW VIRTUAL VISIT I had a virtual visit with Mr. Mccarty today for evaluation of GERD. HISTORY: Mr. Mccarty is a 21 year old male with a pst medical history of asthma, Tourette's, ADD, who presents with GERD symptoms. Patient reports nauseated in the mornings Feeling as if he is going to vomit but does not. Having sharp shooting pains intermittently. He reports feeling of acid burning a hole in my stomach. He reports he has 3 different times [...] eating. Recommended EGD to be done at [place] and blood work to r/o H pylori [...] with more than 50% of the total [id number] time of the visit in counseling / coordination of care. I have confirmed and edited as necessary, the PFSH and ROS obtained by others. Chelsea Euceda APRN.CNP January 17, 2022 3:36 PM documented in this encounter [facility] 09-07-2021 History of Present illness Narrative Radiology Service Progress Note PATIENT NAME: Dawn Mccarty DATE OF SERVICE: September 07, 2021 TIME: 2:18 PM PATIENT IDENTITY VERIFICATION COMPLETED USING TWO (2) IDENTIFIERS: Name and Date of confirmed by patient verbally. FALL SCREENING: Has the patient had 2 falls in the last year or 1 fall with injury or currently using an Ambulatory Assistive Device (Walker, Cane, Wheelchair, Crutches, etc.)? No PATIENT GENDER DATA: Male PATIENT RELEVANT IMPLANT DATA REVIEWED: Yes RADIOLOGY DEPARTMENT: General X-ray: Exam(s) Completed: Chest X-Ray PERIPHERAL IV DATA: Not applicable SIGNED BY: RT Heather(R) September 07, 2021 2:18 PM documented in this encounter [facility] 08-09-2021 History of Present illness Narrative Radiology Service Progress Note PATIENT NAME: Dawn Mccarty DATE OF SERVICE: August 09, 2021 TIME: 9:21 AM PATIENT IDENTITY VERIFICATION COMPLETED USING TWO (2) IDENTIFIERS: Name and Date of confirmed by patient verbally. FALL SCREENING: Has the patient had 2 falls in the last year or 1 fall with injury or currently using an Ambulatory Assistive Device (Walker, Cane, Wheelchair, Crutches, etc.)? No PATIENT GENDER DATA: Male PATIENT RELEVANT IMPLANT DATA REVIEWED: Yes RADIOLOGY DEPARTMENT: General X-ray: Exam(s) Completed: Chest X-Ray PERIPHERAL IV DATA: Not applicable SIGNED BY: RT Heather(R) August 09, 2021 9:21 AM documented in this encounter [facility] 10-07-2020 History of Past i llness Narrative Problem Noted Date Resolved Date Marijuana use 10/07/2020 02/08/2023 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 Attention deficit hyperactivity disorder (ADHD) 06/18/2007 02/08/2023 Tourette's disorder 06/18/2007 09/11/2017 documented as of this encounter (statuses as of 02/11/2023) [facility] History of Past illness Narrative* Problem Noted Date Resolved Date Marijuana use 10/07/2020 02/08/2023 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 Attention deficit hyperactivity disorder (ADHD) 06/18/2007 02/08/2023 Tourette's disorder 06/18/2007 09/11/2017 documented as of this encounter (statuses as of 02/20/2023) [facility] History of Past illness Narrative* Problem Noted Date Resolved Date Marijuana use 10/07/2020 02/08/2023 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 Attention deficit hyperactivity disorder (ADHD) 06/18/2007 02/08/2023 Tourette's disorder 06/18/2007 09/11/2017 documented as of this encounter (statuses as of 03/01/2023) [facility] History of Past illness Narrative* Problem Noted Date Resolved Date Marijuana use 10/07/2020 02/08/2023 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 Attention deficit hyperactivity disorder (ADHD) 06/18/2007 02/08/2023 Tourette's disorder 06/18/2007 09/11/2017 documented as of this encounter (statuses as of 03/19/2023) [facility] History of Past illness Narrative* Problem Noted Date Resolved Date Marijuana use 10/07/2020 02/08/2023 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 Attention deficit hyperactivity disorder (ADHD) 06/18/2007 02/08/2023 Tourette's disorder 06/18/2007 09/11/2017 documented as of this encounter (statuses as of 03/19/2023) [facility] History of Past illness Narrative* Problem Noted Date Resolved Date Marijuana use 10/07/2020 02/08/2023 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 Attention deficit hyperactivity disorder (ADHD) 06/18/2007 02/08/2023 Tourette's disorder 06/18/2007 09/11/2017 documented as of this encounter (statuses as of 03/22/2023) [facility] of Past illness Narrative* Problem Noted Date Diagnosed Date Resolved Date Marijuana use 10/07/2020 02/08/2023 Unspecified 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2016 Attention deficit hyperactiv ity disorder (ADHD) 06/18/2007 02/08/2023 Tourette's disorder 06/18/2007 09/11/20 17 documented as of this encounter (statuses as of 06/06/2023) [facility] of Past [facility] Narrative* Problem Noted Date Diagnosed Date Resolved Date Marijuana use 10/07/2020 02/08/2023 Unspecified 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2016 Attention deficit hyperactiv ity disorder (ADHD) 06/18/2007 02/08/2023 Tourette's disorder 06/18/2007 09/11/20 17 documented as of this encounter (statuses as of 11/22/2023) [facility] of Past illness Narrative* Problem Noted Date Diagnosed Date Resolved Date Marijuana use 10/07/2020 02/08/2023 Unspecified 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2016 Attention deficit hyperactiv ity disorder (ADHD) 06/18/2007 02/08/2023 Tourette's disorder 06/18/2007 09/11/20 17 documented as of this encounter (statuses as of 12/05/2023) [facility] of [facility] Narrative* Problem Noted Date Diagnosed Date Resolved Date Marijuana use 10/07/2020 02/08/2023 Unspecified 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2016 Attention deficit hyperactiv ity disorder (ADHD) 06/18/2007 02/08/2023 Tourette's disorder 06/18/2007 09/11/20 17 documented as of this encounter (statuses as of 12/20/2023) [facility] of Past [facility] Narrative* Problem Noted Date Diagnosed Date Resolved Date Marijuana use 10/07/2020 02/08/2023 Unspecified 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2016 Attention deficit hyperactiv ity disorder (ADHD) 06/18/2007 02/08/2023 Tourette's disorder 06/18/2007 09/11/20 17 documented as of this encounter (statuses as of 01/01/2024) [facility] of Past [facility] Narrative* Problem Noted Date Diagnosed Date Resolved Date Marijuana use 10/07/2020 02/08/2023 Unspecified 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2016 Attention deficit hyperactiv ity disorder (ADHD) 06/18/2007 02/08/2023 Tourette's disorder 06/18/2007 09/11/20 17 documented as of this encounter (statuses as of 01/10/2024) [facility] of Past [facility] Narrative* Problem Noted Date Diagnosed Date Resolved Date Marijuana use 10/07/2020 02/08/2023 Unspecified 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2016 Attention deficit hyperactiv ity disorder (ADHD) 06/18/2007 02/08/2023 Tourette's disorder 06/18/2007 09/11/20 17 documented as of this encounter (statuses as of 02/07/2024) [address]16-2008 History of Past illness Narrative* Problem Noted Date Resolved Date 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 Tourette's disorder 06/18/2007 09/11/2017 documented as of this encounter (statuses as of 01/17/2022) [address]16-2008 History of Past illness Narrative* Problem Noted Date Resolved Date 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 Tourette's disorder 06/18/2007 09/11/2017 documented as of this encounter (statuses as of 01/18/2022) [address]16-2008 History of Past illness Narrative* Problem Noted Date Resolved Date 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 Tourette's disorder 06/18/2007 09/11/2017 documented as of this encounter (statuses as of 01/19/2022) [address]16-2008 History of Past illness Narrative* Problem Noted Date Resolved Date 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 Tourette's disorder 06/18/2007 09/11/2017 documented as of this encounter (statuses as of 02/14/2022) [address]16-2008 History of Past illness Narrative* Problem Noted Date Resolved Date 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 note* Diagnosis Heartburn- Primary Bloating Flatulence, eructation, and gas pain Epigastric pain Abdominal pain, epigastric Nausea Nausea alone [facility] Diagnosis URI, acute- Primary Acute upper respiratory infections of unspecified site Headache, unspecified headache type [facility] noteNo assessment information availableWNationwide Children[facility] Hospital Work Phone: [facility]* Diagnosis Heartburn Bloating Flatulence, eructation, and gas pain Epigastric pain Abdominal pain, epigastric Nausea Nausea alone documented in this encounter [facility] note* Diagnosis Upper back pain on right side- Primary Pain in thoracic spine Heartburn documented in this encounter [facility] note* Diagnosis Sore throat- Primary Acute pharyngitis documented in this encounter [facility] note* Diagnosis Cervicogenic headache- Primary Headache Gastroesophageal reflux disease, unspecified whether esophagitis present Encounter for screening for HIV documented in this encounter [facility] note* Diagnosis Cervicogenic headache- Primary Headache documented in this encounter [facility] note* Diagnosis Cervicogenic headache- Primary Headache documented in this encounter [facility] note* Diagnosis Chlamydia- Primary Unspecified chlamydial infection, in conditions classified elsewhere and of unspecified site documented in this encounter [facility] note* Diagnosis Cervicogenic headache- Primary Headache documented in this encounter [facility] note* Diagnosis Testicular pain, right- Primary Unspecified disorder of male genital organs Groin pain, right History of chlamydia infection Personal history of other infectious and parasitic disease Encounter for screening for HIV Need for hepatitis C screening test Special screening examination for other specified viral diseases Chlamydia Unspecified chlamydial infection, in conditions classified elsewhere and of unspecified site documented in this encounter [facility] note* Diagnosis Cervicogenic headache- Primary Headache documented in this encounter [facility] note* Diagnosis Cervicogenic headache- Primary Headache documented in this encounter [facility] note* Diagnosis Cervicogenic headache- Primary Headache documented in this encounter [facility] note* Diagnosis Cervicogenic headache- Primary Headache documented in this encounter [facility] note* Diagnosis Rash- Primary Rash and other nonspecific skin eruption documented in this encounter [facility] note* Diagnosis Rash- Primary Rash and other nonspecific skin eruption documented in this encounter [facility] note* Diagnosis Cervicogenic headache- Primary Headache documented in this encounter [facility] note* Diagnosis Cervicogenic headache- Primary Headache documented in this encounter [facility] note* Diagnosis Urinary frequency- Primary Sore throat Acute pharyngitis [facility]* Diagnosis Flushing reaction- Primary Flushing documented in this encounter [facility] note* Diagnosis Screening for diabetes mellitus- Primary documented in this encounter [facility] note* Diagnosis Lipoma of right upper extremity- Primary Lipoma of other specified sites Acute pain of right shoulder documented in this encounter [facility] note* Diagnosis Muscle tenderness- Primary Mylagia and myositis, unspecified documented in this encounter [facility] note* Diagnosis Upper back pain on right side Pain in thoracic spine documented in this encounter [facility] note* Diagnosis COVID-19 Cough documented in this encounter [facility] note* Diagnosis Cough documented in this encounter [facility] note* Diagnosis Vertigo- Primary Dizziness and giddiness Dizziness Dizziness and giddiness Lightheadedness Dizziness and giddiness Nausea Nausea alone documented in this encounter [facility] note* Diagnosis Pharyngitis, unspecified etiology- Primary Gastroesophageal reflux disease, unspecified whether esophagitis present documented in this encounter [facility] note* Diagnosis Cervicogenic headache- Primary Headache Gastroesophageal reflux disease, unspecified whether esophagitis present Screening for depression Encounter for screening examination for other mental health and behavioral disorders documented in this encounter [facility] note* Diagnosis Cervicogenic headache Headache documented in this encounter [facility] note* Diagnosis Gastroesophageal reflux disease, unspecified whether esophagitis present documented in this encounter [facility] note* Diagnosis Vertigo Dizziness and giddiness documented in this encounter [facility] note* Diagnosis Pruritus- Primary Unspecified pruritic disorder Paresthesia of skin Disturbance of skin sensation documented in this encounter [facility] note* Diagnosis Cervicogenic headache- Primary Headache documented in this encounter [facility] note* Diagnosis Cervicogenic headache- Primary Headache documented in this encounter [facility] note* Diagnosis Sinus congestion- Primary Other diseases of nasal cavity and sinuses [facility] Dis[facility] Additional Instructions Follow-up with your dentist later today if bleeding continues. 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 for referral (narrative)* Outpatient Procedure (Routine) - Closed Specialty Diagnoses / Procedures Referred By Contac t Referred To Contact [facility] Diagnoses Heartburn Bloating Epigastric pain Nausea Procedures EGD DIAGNOSTIC ESOPHAGOGASTRODUODENOSC OPY TRANSORAL DIAGNOSTIC Chelsea Euceda APRN.HOB MACHINE OPERATOR [address] [place] [address] [address] Referral ID Status Reason Start Date Expiration Date V isits Requested Visits Authorized [id number] Closed Auto-Generate d Referral 01/17/2022 01/17/[address] [facility] for referral (narrative)* Diagnostic Procedure Only (Urgent) - Closed Specialty Diagnoses / Procedures Referred By Contac t Referred To Contact XR IMAGING Diagnoses Upper back pain on right side Procedures XR RIBS/CHEST 3V AP RIB/OBLS/CXR RIGHT RADEX RIBS UNI W/POSTEROANT CH MINIMUM 3 VIEWS Rafael Dale MD [address] [place] [address] Xr Imaging Referral ID Status Reason Start Date Expiration Date V isits Requested Visits Authorized [id number] Closed Auto-Generate d Referral 05/16/2022 06/15/[address] [facility] for referral (narrative)* Diagnostic Procedure Only (Urgent) - Closed Specialty Diagnoses / Procedures Referred By Contac t Referred To Contact XR IMAGING Diagnoses Upper back pain on right side Procedures XR RIBS/CHEST 3V AP RIB/OBLS/CXR RIGHT RADEX RIBS UNI W/POSTEROANT CH MINIMUM 3 VIEWS Rafael Dale MD [address] [place] [address] [place] [address] Referral ID Status Reason Start Date Expiration Date V isits Requested Visits Authorized [id number] Closed Auto-Generate d Referral 05/16/2022 06/15/[address] [facility] for visit Narrative* Outpatient Procedure (Routine) - Closed Specialty Diagnoses / Procedures [facility] To [facility] Diagnoses Heartburn Bloating Epigastric pain Nausea Procedures EGD DIAGNOSTIC ESOPHAGOGASTRODUODENOSC OPY TRANSORAL DIAGNOSTIC Chelsea Euceda, [employer]ODUCTS SUPERVISOR.HOB MACHINE OPERATOR [address] [place] [address] [facility] [address] [place] [address] Referral ID Status Reason Start Date Expiration Date V isits Requested Visits Authorized [id number] Closed Auto-Generate d Referral 01/17/2022 01/17/[address] [facility] for visit Narrative* Diagnostic Procedure Only (Routine) - Closed Specialty Diagnoses / Procedures Referred By Contac t Referred To Contact XR IMAGING Diagnoses Cervicogenic headache Procedures XR CERV OTHER 4V AP/LAT/OBL RADEX SPINE CERVICAL 4 OR 5 VIEWS Aaron Sarbaia MD [address] [place] [address] [place] [address] Referral ID Status Reason Start Date Expiration Date V isits Requested Visits Authorized [id number] Closed Auto-Generate d Referral 02/08/2023 03/09/[address] [facility] for visit Narrative* Diagnostic Procedure Only (Urgent) - Closed Specialty Diagnoses / Procedures Referred By Contac t Referred To Contact XR IMAGING Diagnoses Upper back pain on right side Procedures XR RIBS/CHEST 3V AP RIB/OBLS/CXR RIGHT RADEX RIBS UNI W/POSTEROANT CH MINIMUM 3 VIEWS Rafael Dale MD [address] [place] [address] [place] [address] Referral ID Status Reason Start Date Expiration Date V isits Requested Visits Authorized [id number] Closed Auto-Generate d Referral 05/16/2022 06/15/2023 1 1 [facility] Chief Complaint and Reason for Visit Chief Complaint cough Chief Complaint cough BACK Chief Complaint lower extermity Chief Complaint BILAT EAR PROBLEM Chief Complaint BILAT EAR PROBLEM dental Chief Complaint dental throat Advance Directives No Advanced Directives Records Found Advance Directive Response Recorded Date/ Time Living Will No January 23, 2022 12:33am 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[employer] Operator No January 23 12:33am Advance Directive Response Recorded Date/ Time Living Will No February 02, 2022 1:10pm 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 Operator No February 02 1:10pm Documents on File Type Date Recorded 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 Advance Directive(s) 02/13/2022 12:17 PM Advance Directive Response Recorded Date/ Time Living Will No December 23, 2022 11:30pm 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 Operator No December 23 11:30pm Advance Directive Response Recorded Date/ Time Living Will No October 22 11:23pm 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 Operator No October 22 024 11:23pm Advance Directive Response Recorded Date/ Time Living Will No January 17, 2024 6:24am 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[employer] Operator No January 16 24 6:24am Advance Directive Response Recorded Date/ Time Living Will No February 29, 2024 1 :26am 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 Operator No February 29, 2024 1:26am Reason for Referral Specialty Diagnoses / Procedures Referred By Sandie t Referred To Contact [facility] Diagnoses Cervicogenic headache Procedures CONSULT TO PHYSICAL THERAPY PHYSICAL THERAPY EVALUATION HIGH COMPLEX 45 MINS THERAPEUTIC EXERCISES RE, EA 15 MIN. Aaron Sarabia MD [address] [place] [address] [facility] [address] [place] [address] Referral ID Status Reason Start Date Expiration Date Visits Requested Visits Authorized [id number] Authorized Auto-Generat ed Referral 11/21/2022 10/20/2023 30 30 Specialty Diagnoses / Procedures Referred By Contac t Referred To Contact XR IMAGING Diagnoses Cervicogenic headache Procedures XR CERV OTHER 4V AP/LAT/OBL RADEX SPINE CERVICAL 4 OR 5 VIEWS Aaron Sarabia MD [address] [place] [address] Xr Imaging Referral ID Status Reason Start Date Expiration Date V isits Requested Visits Authorized [id number] Closed Auto-Generate d Referral 02/08/2023 03/09/2024 1 1 Specialty Diagnoses / Procedures Referred By Contac t Referred To Contact [facility] Diagnoses Cervicogenic headache Procedures PT REHAB FOLLOW UP ORDER THERAPEUTIC EXERCISES RE, EA 15 MIN. Yogi Mazariegos, RUDI [facility] [place] [address] [place] [id number] Referral ID Status Reason Start Date Expiration Date Visits Requested Visits Authorized [id number] Pending Review PCP Requested Referral Auto-Generate d Referral 02/19/2023 05/20/2023 1 1 Referral ID Status Reason Start Date Expiration Date Visits Requested Visits Authorized [id number] Pending Review PCP Requested Referral Auto-Generate d Referral 03/20/2023 06/18/2023 1 1 Summary Purpose Family History No Family History Records FoundNo Family History Records FoundNo Family History Records Found Additional Source Comments Source Comments (unrecognize d section and content) In the event this informatio n is protected by the Federal Confidentiality of Alcohol and Drug Abuse Patient Records regulations: The Federal rules restrict any use of the information to criminally investigate or prosecute any alcohol or drug abuse patient.[facility] event this information is protected by the Federal Confidentiality of Alcohol and Drug Abuse Patient Records regulations: The Federal rules restrict any use of the information to criminally investigate or prosecute any alcohol or drug abuse patient.[facility] the event this information is protected by the Federal Confidentiality of Alcohol and Drug Abuse Patient Records regulations: The Federal rules restrict any use of the information to criminally investigate or prosecute any alcohol or drug abuse patient.[facility] the event this information is protected by the Federal Confidentiality of Alcohol and Drug Abuse Patient Records regulations: The Federal rules restrict any use of the information to criminally investigate or prosecute any alcohol or drug abuse patient.[facility] the event this information is protected by the Federal Confidentiality of Alcohol and Drug Abuse Patient Records regulations: The Federal rules restrict any use of the information to criminally investigate or prosecute any alcohol or drug abuse patient.[facility] the event this information is protected by the Federal Confidentiality of Alcohol and Drug Abuse Patient Records regulations: The Federal rules restrict any use of the information to criminally investigate or prosecute any alcohol or drug abuse patient.[facility] the event this information is protected by the Federal Confidentiality of Alcohol and Drug Abuse Patient Records regulations: The Federal rules restrict any use of the information to criminally investigate or prosecute any alcohol or drug abuse patient.[facility] the event this information is protected by the Federal Confidentiality of Alcohol and Drug Abuse Patient Records regulations: The Federal rules restrict any use of the information to criminally investigate or prosecute any alcohol or drug abuse patient.[facility] the event this information is protected by the Federal Confidentiality of Alcohol and Drug Abuse Patient Records regulations: The Federal rules restrict any use of the information to criminally investigate or prosecute any alcohol or drug abuse patient.[facility] the event this information is protected by the Federal Confidentiality of Alcohol and Drug Abuse Patient Records regulations: The Federal rules restrict any use of the information to criminally investigate or prosecute any alcohol or drug abuse patient.[facility] the event this information is protected by the Federal Confidentiality of Alcohol and Drug Abuse Patient Records regulations: The Federal rules restrict any use of the information to criminally investigate or prosecute any alcohol or drug abuse patient.[facility] the event this information is protected by the Federal Confidentiality of Alcohol and Drug Abuse Patient Records regulations: The Federal rules restrict any use of the information to criminally investigate or prosecute any alcohol or drug abuse patient.[facility] the event this information is protected by the Federal Confidentiality of Alcohol and Drug Abuse Patient Records regulations: The Federal rules restrict any use of the information to criminally investigate or prosecute any alcohol or drug abuse patient.[facility] the event this information is protected by the Federal Confidentiality of Alcohol and Drug Abuse Patient Records regulations: The Federal rules restrict any use of the information to criminally investigate or prosecute any alcohol or drug abuse patient.[facility] the event this information is protected by the Federal Confidentiality of Alcohol and Drug Abuse Patient Records regulations: The Federal rules restrict any use of the information to criminally investigate or prosecute any alcohol or drug abuse patient.[facility] the event this information is protected by the Federal Confidentiality of Alcohol and Drug Abuse Patient Records regulations: The Federal rules restrict any use of the information to criminally investigate or prosecute any alcohol or drug abuse patient.[facility] the event this information is protected by the Federal Confidentiality of Alcohol and Drug Abuse Patient Records regulations: The Federal rules restrict any use of the information to criminally investigate or prosecute any alcohol or drug abuse patient.[facility] the event this information is protected by the Federal Confidentiality of Alcohol and Drug Abuse Patient Records regulations: The Federal rules restrict any use of the information to criminally investigate or prosecute any alcohol or drug abuse patient.[facility] the event this information is protected by the Federal Confidentiality of Alcohol and Drug Abuse Patient Records regulations: The Federal rules restrict any use of the information to criminally investigate or prosecute any alcohol or drug abuse patient.[facility] the event this information is protected by the Federal Confidentiality of Alcohol and Drug Abuse Patient Records regulations: The Federal rules restrict any use of the information to criminally investigate or prosecute any alcohol or drug abuse patient.[facility] the event this information is protected by the Federal Confidentiality of Alcohol and Drug Abuse Patient Records regulations: The Federal rules restrict any use of the information to criminally investigate or prosecute any alcohol or drug abuse patient.[facility] the event this information is protected by the Federal Confidentiality of Alcohol and Drug Abuse Patient Records regulations: The Federal rules restrict any use of the information to criminally investigate or prosecute any alcohol or drug abuse patient.[facility]In the event this information is protected by the Federal Confidentiality of Alcohol and Drug Abuse Patient Records regulations: The Federal rules restrict any use of the information to criminally investigate or prosecute any alcohol or drug abuse patient.[facility] the event this information is protected by the Federal Confidentiality of Alcohol and Drug Abuse Patient Records regulations: The Federal rules restrict any use of the information to criminally investigate or prosecute any alcohol or drug abuse patient.[facility] the event this information is protected by the Federal Confidentiality of Alcohol and Drug Abuse Patient Records regulations: The Federal rules restrict any use of the information to criminally investigate or prosecute any alcohol or drug abuse patient.[facility] the event this information is protected by the Federal Confidentiality of Alcohol and Drug Abuse Patient Records regulations: The Federal rules restrict any use of the information to criminally investigate or prosecute any alcohol or drug abuse patient.[facility] the event this information is protected by the Federal Confidentiality of Alcohol and Drug Abuse Patient Records regulations: The Federal rules restrict any use of the information to criminally investigate or prosecute any alcohol or drug abuse patient.[facility] the event this information is protected by the Federal Confidentiality of Alcohol and Drug Abuse Patient Records regulations: The Federal rules restrict any use of the information to criminally investigate or prosecute any alcohol or drug abuse patient.[facility]In the event this information is protected by the Federal Confidentiality of Alcohol and Drug Abuse Patient Records regulations: The Federal rules restrict any use of the information to criminally investigate or prosecute any alcohol or drug abuse patient.[facility]In the event this information is protected by the Federal Confidentiality of Alcohol and Drug Abuse Patient Records regulations: The Federal rules restrict any use of the information to criminally investigate or prosecute any alcohol or drug abuse patient.[facility]In the event this information is protected by the Federal Confidentiality of Alcohol and Drug Abuse Patient Records regulations: The Federal rules restrict any use of the information to criminally investigate or prosecute any alcohol or drug abuse patient.[facility] the event this information is protected by the Federal Confidentiality of Alcohol and Drug Abuse Patient Records regulations: The Federal rules restrict any use of the information to criminally investigate or prosecute any alcohol or drug abuse patient.[facility] the event this information is protected by the Federal Confidentiality of Alcohol and Drug Abuse Patient Records regulations: The Federal rules restrict any use of the information to criminally investigate or prosecute any alcohol or drug abuse patient.[facility]In the event this information is protected by the Federal Confidentiality of Alcohol and Drug Abuse Patient Records regulations: The Federal rules restrict any use of the information to criminally investigate or prosecute any alcohol or drug abuse patient.[facility]In the event this information is protected by the Federal Confidentiality of Alcohol and Drug Abuse Patient Records regulations: The Federal rules restrict any use of the information to criminally investigate or prosecute any alcohol or drug abuse patient.[facility]In the event this information is protected by the Federal Confidentiality of Alcohol and Drug Abuse Patient Records regulations: The Federal rules restrict any use of the information to criminally investigate or prosecute any alcohol or drug abuse patient.[facility]In the event this information is protected by the Federal Confidentiality of Alcohol and Drug Abuse Patient Records regulations: The Federal rules restrict any use of the information to criminally investigate or prosecute any alcohol or drug abuse patient.[facility]In the event this information is protected by the Federal Confidentiality of Alcohol and Drug Abuse Patient Records regulations: The Federal rules restrict any use of the information to criminally investigate or prosecute any alcohol or drug abuse patient.[facility]In the event this information is protected by the Federal Confidentiality of Alcohol and Drug Abuse Patient Records regulations: The Federal rules restrict any use of the information to criminally investigate or prosecute any alcohol or drug abuse patient.[facility]In the event this information is protected by the Federal Confidentiality of Alcohol and Drug Abuse Patient Records regulations: The Federal rules restrict any use of the information to criminally investigate or prosecute any alcohol or drug abuse patient.[facility]In the event this information is protected by the Federal Confidentiality of Alcohol and Drug Abuse Patient Records regulations: The Federal rules restrict any use of the information to criminally investigate or prosecute any alcohol or drug abuse patient.[facility]In the event this information is protected by the Federal Confidentiality of Alcohol and Drug Abuse Patient Records regulations: The Federal rules restrict any use of the information to criminally investigate or prosecute any alcohol or drug abuse patient.[facility]In the event this information is protected by the Federal Confidentiality of Alcohol and Drug Abuse Patient Records regulations: The Federal rules restrict any use of the information to criminally investigate or prosecute any alcohol or drug abuse patient.[facility]In the event this information is protected by the Federal Confidentiality of Alcohol and Drug Abuse Patient Records regulations: The Federal rules restrict any use of the information to criminally investigate or prosecute any alcohol or drug abuse patient.[facility]In the event this information is protected by the Federal Confidentiality of Alcohol and Drug Abuse Patient Records regulations: The Federal rules restrict any use of the information to criminally investigate or prosecute any alcohol or drug abuse patient.[facility] HospitalIn the event this information is protected by the Federal Confidentiality of Alcohol and Drug Abuse Patient Records regulations: The Federal rules restrict any use of the information to criminally investigate or prosecute any alcohol or drug abuse patient.[facility] Reason for Visit (unrecogniz ed section and content) Reason Comments Physical Therapy Specialty Diagnoses / Procedures Referred By Contac t Referred To Contact PHYSICAL THERAPY Diagnoses Cervicogenic headache Procedures CONSULT TO PHYSICAL THERAPY PHYSICAL THERAPY EVALUATION HIGH COMPLEX 45 MINS Aaron Sarabia MD [address] [place] [address] Pt [facility] [address] [place] [address] Referral ID Status Reason Start Date Expiration Date Visits Requested Visits Authorized [id number] Authorized Auto-Generat ed Referral 10/21/2023 10/20/2024 30 30 Reason Comments PT Progress Note Reason Comments PT Progress Note Specialty Diagnoses / Procedures Referred By Contac t Referred To Contact [facility] Diagnoses Cervicogenic headache Procedures CONSULT TO PHYSICAL THERAPY PHYSICAL THERAPY EVALUATION HIGH COMPLEX 45 MINS THERAPEUTIC EXERCISES RE, EA 15 MIN. Aaron Sarabia MD [address] [place] [address] [address] Referral ID Status Reason Start Date Expiration Date Visits Requested Visits Authorized [id number] Authorized Auto-Generat ed Referral 11/21/2022 10/20/2023 30 [...] Care Establish Care Reason Comments PT Eval Specialty Diagnoses / Procedures Referred By Contac t Referred To Contact [facility] Diagnoses Cervicogenic headache Procedures CONSULT TO PHYSICAL THERAPY PHYSICAL THERAPY EVALUATION HIGH COMPLEX 45 MINS THERAPEUTIC EXERCISES RE, EA 15 MIN. Aaron Sarabia MD [address] [place] [address] [address] Reason Comments Results Reason Comments Pain Specialty Diagnoses / Procedures Referred By Contac t Referred To Contact [facility] Diagnoses Cervicogenic headache Procedures CONSULT TO PHYSICAL THERAPY PHYSICAL THERAPY EVALUATION HIGH COMPLEX 45 MINS Aaron Sarabia MD [address] [place] [address] [address] Reason Comments Rash Left leg Reason Comments Rash Bilateral legs and h ands x5 days Reason Comments Urinary Problem Burning and frequenc y x3 mths on and off Reason Comments Lab Orders Reason Comments Information Reason Comments Patient Question Orders Reason Comments Derm Problem Lump on right should er and redness - no injury Noticed today Reason Comments shoulder lump RIGHT shoulder x [address] [facility]; turned into more hard vs soft Reason Comments Dizziness Pressure in both eye off/on x 5 days Reason Comments Sore Throat X 10 days Reason Comments Neck Pain Reason Comments PT Eval Physical Therapy Specialty Diagnoses / Procedures Referred By Contac t Referred To Contact [facility] Diagnoses Cervicogenic headache Procedures CONSULT TO PHYSICAL THERAPY PHYSICAL THERAPY EVALUATION HIGH COMPLEX 45 MINS Aaron Sarabia MD [address] [place] [address] Phone: tel: fax: [facility] [address] [place], [place] [phone] Referral ID Status Reason Start Date Expiration Date Visits Requested Visits Authorized [id number] Authorized Auto-Generat ed Referral 10/21/2024 10/20/2025 30 30 Reason Onset Date Comments Refill Request 02/09/2025 Reason Onset Date Comments Refill Request 03/03/2025 Reason Comments Derm Problem Feels like pin prick s all over body x 8 days Reason Comments Headache Started as frontal H A for 5 days, now only R side [place] with jaw and sinus pain x4 days Reason Comments PT Eval Specialty Diagnoses / Procedures Referred By Contac t Referred To Contact [facility] Diagnoses Cervicogenic headache Procedures PHYSICAL THERAPY EVALUATION HIGH COMPLEX 45 MINS THERAPEUTIC EXERCISES RE, EA 15 MIN. Aaron Sarabia MD [address] [place] [address] Phone: tel: fax: [facility] [address] [place] [id number] Referral ID Status Reason Start Date Expiration Date Visits Requested Visits Authorized [id number] Authorized Auto-Generat ed Referral 10/21/2024 10/20/2025 30 30 Reason Comments Pain, Sinus congestion x 6 days Care Teams (unrecognized sec tion and content) Java Performance Engineer Relationship Specialty Start Date End Date Aaron Sarabia MD [address] [place], [place] [id number] PCP - General Internal Medicine 12/07/20 Java Performance Engineer Relationship Specialty Start Date End Date Aaron Sarabia MD [address] [place], [place] [id number] PCP - General Internal Medicine 12/07/20 Java Performance Engineer Relationship Specialty Start Date End Date Aaron Sarabia MD [address] [facility] [place] [address] PCP - General Internal Medicine 12/07/20 Java Performance Engineer Relationship Specialty Start Date End Date Aaron Sarabia MD [address] [facility] [place] [address] PCP - General Internal Medicine 12/07/20 Java Performance Engineer Relationship Specialty Start Date End Date Aaron Sarabia MD [address] [facility] [place] [address] PCP - General Internal Medicine 12/07/20 Team Status: Active Member Role Status Dates No Primary Care Physician Family Provider Active Dr. Aaron Sarabia MD Primary Care Provider Active Team Status: Inactive Member Role Status Dates Dr. Aaron Sarabia MD Primary Care Provider Active Dr. Shaquille Hawkins MD Emergency Provider Active Java Performance Engineer Relationship Specialty Start Date End Date Aaron Sarabia MD [address] [facility] [place] [address] PCP - General Internal Medicine 03/11/23 Java Performance Engineer Relationship Specialty Start Date End Date Aaron Sarabia MD [address] [facility] [place] [address] PCP - General Internal Medicine 03/11/23 Java Performance Engineer Relationship Specialty Start Date End Date Aaron Sarabia MD [address] [facility] [place] [address] PCP - General Internal Medicine 03/11/23 Java Performance Engineer Relationship Specialty Start Date End Date Aaron Sarabia MD [address] [facility] [place] [address] PCP - General Internal Medicine 03/11/23 Team Status: Inactive Member Role Status Dates Dr. Aaron Sarabia MD Primary Care Provider Active Dr. Patsy Shaw MD Emergency Provider Active Java Performance Engineer Relationship Specialty Start Date End Date Aaron Sarabia MD [address] [facility] [place] [address] PCP - General Internal Medicine 03/11/23 Java Performance Engineer Relationship Specialty Start Date End Date Aaron Sarabia MD [address] [facility] [place] [address] PCP - General Internal Medicine 03/11/23 Java Performance Engineer Relationship Specialty Start Date End Date Aaron Sarabia MD [address] [facility] [place] [address] PCP - General Internal Medicine 03/11/23 Java Performance Engineer Relationship Specialty Start Date End Date Aaron Sarabia MD [address] [facility] [place] [address] PCP - General Internal Medicine 03/11/23 Team Status: Inactive Member Role Status Dates Dr. Aaron Sarabia MD Primary Care Provider Active Dr. Patsy Shaw MD Attending Provider, Emergency Provider Active Java Performance Engineer Relationship Specialty Start Date End Date Aaron Sarabia MD [address] [facility] [place] [address] PCP - General Internal Medicine 03/11/23 Java Performance Engineer Relationship Specialty Start Date End Date Aaron Sarabia MD [address] [facility] [place] [address] PCP - General Internal Medicine 03/11/23 Java Performance Engineer Relationship Specialty Start Date End Date Aaron Sarabia MD [address] [facility] [place] [address] PCP - General Internal Medicine 03/11/23 Java Performance Engineer Relationship Specialty Start Date End Date Aaron Sarabia MD [address] [facility] [place] [address] PCP - General Internal Medicine 03/11/23 Java Performance Engineer Relationship Specialty Start Date End Date Aaron Sarabia MD [address] [facility] [place] [address] PCP - General Internal Medicine 03/11/23 Java Performance Engineer Relationship Specialty Start Date End Date Aaron Sarabia MD [address] [facility] [place] [address] PCP - General Internal Medicine 03/11/23 Java Performance Engineer Relationship Specialty Start Date End Date Aaron Sarabia MD [address] [facility] [place] [address] PCP - General Internal Medicine 12/07/20 12/23/22 Java Performance Engineer Relationship Specialty Start Date End Date Aaron Sarabia MD [address] [facility] [place] [address] PCP - General Internal Medicine 12/07/20 12/23/22 Java Performance Engineer Relationship Specialty Start Date End Date Aaron Sarabia MD [address] [facility] [place] [address] PCP - General Internal Medicine 12/07/20 12/23/22 Java Performance Engineer Relationship Specialty Start Date End Date Aaron Sarabia MD [address] [facility] [place] [address] PCP - General Internal Medicine 03/11/23 Kell Whaley, REFRACTORY PRODUCTS SUPERVISOR.HOB MACHINE OPERATOR [address] [facility] [place] [address] Master Automotive Technician Internal Medicine 09/28/24 Java Performance Engineer Relationship Specialty Start Date End Date Aaron Sarabia MD [address] [place] [address] PCP - General Internal Medicine 03/11/23 Kell Whaley, REFRACTORY PRODUCTS SUPERVISOR.HOB MACHINE OPERATOR [address] [facility] [place] [address] Master Automotive Technician Internal Medicine 09/28/24 Java Performance Engineer Relationship Specialty Start Date End Date Aaron Sarabia MD [address] [facility] [place] [address] PCP - General Internal Medicine 03/11/23 Kell Whaley, REFRACTORY PRODUCTS SUPERVISOR.HOB MACHINE OPERATOR [address] [facility] [place] [address] Master Automotive Technician Internal Medicine 09/28/24 Java Performance Engineer Relationship Specialty Start Date End Date Aaron Sarabia MD [address] [facility] [place] [address] PCP - General Internal Medicine 03/11/23 Kell Whaley, REFRACTORY PRODUCTS SUPERVISOR.HOB MACHINE OPERATOR [address] [facility] [place] [address] Master Automotive Technician Internal Medicine 09/28/24 Java Performance Engineer Relationship Specialty Start Date End Date Aaron Sarabia MD [address] [facility] [place] [address] PCP - General Internal Medicine 03/11/23 Kell Whaley, REFRACTORY PRODUCTS SUPERVISOR.HOB MACHINE OPERATOR [address] [facility] [place] [address] Master Automotive Technician [facility] 09/28/24 Java Performance Engineer Relationship Specialty Start Date End Date Aaron Sarabia MD [address] [facility] [place] [address] PCP - General Internal Medicine 03/11/23 Kell Whaley, REFRACTORY PRODUCTS SUPERVISOR.HOB MACHINE OPERATOR [address] [place], [place] [address] [facility] 09/28/24 Java Performance Engineer Relationship Specialty Start Date End Date Aaron Sarabia MD [address] [place], [place] [address] PCP - General Internal Medicine 03/11/23 Kell Whaley, REFRACTORY PRODUCTS SUPERVISOR.HOB MACHINE OPERATOR [address] [place], [place] [address] [facility] 09/28/24 Goals (unrecognized section and content) Goals may be documented in a n alternate sectionGoals may be documented in an alternate sectionGoals may be documented in an alternate sectionGoals may be documented in an alternate sectionGoals may be documented in an alternate sectionGoals may be documented in an alternate section (unrecognized sect ion and content) No Status Records FoundNo Status Records FoundNo Status Records Found INFORMATION SOURCE (unrecogn ized section and content) DATE CREATED AUTHOR 03/14/2024 [facility] DATE CREATED AUTHOR AUTHOR'S ORGANMARGARITA ATION 09/21/2024 [facility] nt DATE CREATED AUTHOR AUTHOR'S ORGANIZ ATION 07/29/2025 [facility] FOR RECORDS PERTAINING TO PATIENTS WHO ARE [...] BE BASED ON THE PRIMARY CLINICAL RECORDS. [facility] provides no warranty or guarantee of the accuracy or completeness of information in this document.
== END 2025-10-03 02:49 | disposition home or self-care (01) ==
LOC: ED 02:48
PROVIDERS: Emergency Provider Emergency Medicine; PCP Internal Medicine; Visit Provider Emergency Medicine
DX: M62.838 Other muscle spasm (principal); K21.9 Gastro-esophageal reflux disease without esophagitis; Z86.16 Personal history of COVID-19
CPT/HCPCS: 99283